=== PATIENT | male | born 1950 | race Caucasian/White ===

== ENCOUNTER 2016-07-23 18:26 | Emergency (ER) | payer MEDICAID ==
[~2016-07-23] VITALS: Ht 172.7 cm; Wt 99.8 kg
[2016-07-23 18:33] VITALS: BP 133/106
[2016-07-23] MEDS ORDERED: HYDROCODONE/APAP 5/325MG 1 EACH TABLET ONE (18:50)
[2016-07-23] MEDS ORDERED: HYDROCODONE/APAP 5/325MG 1 EACH TABLET PO ONE (19:00)
== END 2016-07-23 18:58 | disposition home or self-care (01) ==
LOC: ER 18:27
DX: M54.42 Lumbago with sciatica, left side (principal); F32.9 Major depressive disorder, single episode, unspecified; F41.9 Anxiety disorder, unspecified; I10 Essential (primary) hypertension; K21.9 Gastro-esophageal reflux disease without esophagitis; M10.9 Gout, unspecified
CPT/HCPCS: 99283; A4606; Z7610

== ENCOUNTER 2016-11-10 19:10 | Emergency (ER) | payer MEDICAID ==
[~2016-11-10] VITALS: Ht 172.7 cm; Wt 99.8 kg
[2016-11-10 19:24] VITALS: BP 165/104
== END 2016-11-10 20:08 | disposition home or self-care (01) ==
LOC: ER 19:11
DX: M10.9 Gout, unspecified (principal); M54.30 Sciatica, unspecified side; I10 Essential (primary) hypertension; K21.9 Gastro-esophageal reflux disease without esophagitis; F41.9 Anxiety disorder, unspecified; F32.9 Major depressive disorder, single episode, unspecified
CPT/HCPCS: 99283; A4606; Z7610

== ENCOUNTER 2016-11-11 14:06 | Emergency (ER) | payer MEDICAID ==
[~2016-11-11] VITALS: Ht 175.3 cm; Wt 99.8 kg
--- NOTE | 2016-11-11 14:20 | NUR ---
Pt c/o rectal bleeding since yesterday with generalized bodyaches. SEEN BY MD FOR EVAL. VSS. PT AAOX3. FAMILY MEMBER AT FOR INFO. SAFETY AND COMFORT MEASURES PROVIDED. WILL MONITOR.
[2016-11-11] MEDS ORDERED: IV NS 0.9% 1,000 ML ONE (14:35)
[2016-11-11] MEDS ORDERED: IV SET PRIMARY 1 EA INFUS.SET MC ONE (14:35)
[2016-11-11] MEDS ORDERED: ONDANSETRON HCL/PF 4 MG/2 ML VIAL ONE (14:35)
[2016-11-11] MEDS ORDERED: MORPHINE SULFATE INJ 4 MG/ML DISP.SYRIN ONE (14:35)
[2016-11-11 14:43] LABS: BASOPHILS # (AUTO) 0.1 /CMM (0.0-0.2); BASOPHILS % (AUTO) 0.6 % (0.0-2.0); EOSINOPHILS # (AUTO) 0.2 /CMM (0.0-0.7); HEMATOCRIT 41 % (39-51); HEMOGLOBIN 13.1 g/dL (13.5-17.5); LYMPHOCYTES # (AUTO) 1.9 /CMM (0.8-4.8); LYMPHOCYTES % (AUTO) 16.8 % (20.0-44.0); MEAN CORPUSCULAR HEMOGLOBIN 26 PG (26.0-33.0); MEAN CORPUSCULAR HGB CONC 32 g/dl (31.0-36.0); MEAN CORPUSCULAR VOLUME 82 fL (80-96); MONOCYTES # (AUTO) 0.6 /CMM (0.1-1.30); NEUTROPHILS # (AUTO) 8.8 /CMM (1.8-8.9); NEUTROPHILS % (AUTO) 75.6 % (43.0-81.0); PLATELET COUNT (AUTO) 244 /CMM (150-450); RDW COEFFICIENT OF VARIATION 13.3 (11.5-15.0); RED BLOOD CELL COUNT(AUTO) 5.05 MIL/uL (4.5-6.0); WHITE BLOOD COUNT (AUTO) 11.6 K/uL (4.3-11.0)
--- NOTE | 2016-11-11 14:45 | NUR ---
IV ACCESS STARTED. BLOOD DRAWN FOR LABS. PT MEDICATED ORDERED.
[2016-11-11 14:52] LABS: CALCIUM, SERUM 8.8 mg/dL (8.5-10.1); CREATININE 1.2 mg/dL (0.6-1.3); POTASSIUM 4.2 mmol/L (3.5-5.1)
[2016-11-11] MEDS ORDERED: IV NS 0.9% 250 ML IV ONE (14:53)
[2016-11-11] MEDS ORDERED: IOHEXOL-300 100 ML VIAL IV ONE (14:53)
[2016-11-11] MEDS ORDERED: CT SWABBABLE VALVE TRANS SET 1 EA INFUS.SET MC ONE (14:53)
[2016-11-11 14:57] LABS: INR 0.93 (0.87-1.13); PROTHROMBIN TIME 9.7 SECS (9.5-12.7)
[2016-11-11 14:58] LABS: ALBUMIN 3.4 g/dL (3.4-5.0); BILIRUBIN,DIRECT 0.1 mg/dL (0.0-0.2); BILIRUBIN,TOTAL 0.4 mg/dL (0.2-1.0)
[2016-11-11] MEDS ORDERED: IV NS 0.9% 1,000 ML BAG IV ONE (15:00)
[2016-11-11] MEDS ORDERED: ONDANSETRON HCL/PF 4 MG/2 ML VIAL IVP ONE (15:00)
[2016-11-11] MEDS ORDERED: MORPHINE SULFATE INJ 2 MG/ML DISP.SYRIN IV ONE (15:00)
--- NOTE | 2016-11-11 16:00 | NUR ---
IV removed. Catheter intact and site benign. Pressure and 4x4 applied to site. No bleeding noted.
--- NOTE | 2016-11-11 16:10 | NUR ---
Patient discharged to home in stable condition. Written and verbal after care instructions given. Patient verbalizes understanding of instruction.
[2016-11-11 16:11] VITALS: BP 141/95
[2016-11-13] MEDS ORDERED: HYDROMORPHONE MDV 0.5 MG in IV D5W 50 ML IV PRN (11:30)
[2016-11-13] MEDS ORDERED: PANTOPRAZOLE 40 MG VIAL IV SCH (11:30)
[2016-11-13] MEDS ORDERED: ONDANSETRON HCL/PF 4 MG/2 ML VIAL IV PRN (11:30)
== END 2016-11-11 16:13 | disposition home or self-care (01) ==
LOC: ER 14:07
DX: K62.5 Hemorrhage of anus and rectum (principal); F32.9 Major depressive disorder, single episode, unspecified; F41.9 Anxiety disorder, unspecified; I10 Essential (primary) hypertension; K21.9 Gastro-esophageal reflux disease without esophagitis; K40.90 Unilateral inguinal hernia, without obstruction or gangrene, not specified as recurrent; K57.30 Diverticulosis of large intestine without perforation or abscess without bleeding; M10.9 Gout, unspecified; N20.0 Calculus of kidney; N40.0 Benign prostatic hyperplasia without lower urinary tract symptoms
CPT/HCPCS: 36415; 80048-TC; 80076-TC; 82272-TC; 83690-TC; 85025-TC; 85730-TC; A4606; J1170; J2270; J2405; J7030; J7050; J7060; Q9967; Z7610

== ENCOUNTER 2016-11-13 09:01 | Inpatient (IN) | payer MEDICAID ==
[~2016-11-13] VITALS: Ht 172.7 cm; Wt 99.8 kg
[2016-11-13] MEDS ORDERED: IV NS 0.9% 1,000 ML ONE (09:30)
[2016-11-13] MEDS ORDERED: IV SET PRIMARY PUMP SET 1 EA INFUS.SET MC ONE ×2 (09:30→16:54)
[2016-11-13] MEDS ORDERED: IV NS 0.9% 1,000 ML BAG IV ONE (09:30)
[2016-11-13] MEDS ORDERED: PANTOPRAZOLE 80 MG in IV NS 0.9% 100 ML IV ONE (09:30)
[2016-11-13 09:43] LABS: BASOPHILS # (AUTO) 0.1 /CMM (0.0-0.2); BASOPHILS % (AUTO) 1.2 % (0.0-2.0); EOSINOPHILS # (AUTO) 0.3 /CMM (0.0-0.7); EOSINOPHILS % (AUTO) 3.1 % (0.0-6.0); HEMATOCRIT 39 % (39-51); HEMOGLOBIN 12.7 g/dL (13.5-17.5); LYMPHOCYTES # (AUTO) 1.6 /CMM (0.8-4.8); LYMPHOCYTES % (AUTO) 17.8 % (20.0-44.0); MEAN CORPUSCULAR HEMOGLOBIN 26 PG (26.0-33.0); MEAN CORPUSCULAR HGB CONC 33 g/dl (31.0-36.0); MEAN CORPUSCULAR VOLUME 81 fL (80-96); MONOCYTES # (AUTO) 0.6 /CMM (0.1-1.30); NEUTROPHILS # (AUTO) 6.2 /CMM (1.8-8.9); NEUTROPHILS % (AUTO) 70.9 % (43.0-81.0); PLATELET COUNT (AUTO) 222 /CMM (150-450); RDW COEFFICIENT OF VARIATION 13.1 (11.5-15.0); RED BLOOD CELL COUNT(AUTO) 4.84 MIL/uL (4.5-6.0); WHITE BLOOD COUNT (AUTO) 8.8 K/uL (4.3-11.0)
[2016-11-13] MEDS ORDERED: MORPHINE SULFATE INJ 4 MG/ML DISP.SYRIN ONE (09:44)
[2016-11-13 09:53] LABS: CALCIUM, SERUM 8.6 mg/dL (8.5-10.1); CREATININE 1.1 mg/dL (0.6-1.3); POTASSIUM 3.7 mmol/L (3.5-5.1)
[2016-11-13 09:57] LABS: INR 0.91 (0.87-1.13); PROTHROMBIN TIME 9.5 SECS (9.5-12.7)
[2016-11-13 09:59] LABS: ALBUMIN 3.3 g/dL (3.4-5.0); BILIRUBIN,DIRECT 0.1 mg/dL (0.0-0.2); BILIRUBIN,TOTAL 0.4 mg/dL (0.2-1.0); TOTAL PROTEIN, SERUM 6.8 g/dL (6.4-8.2)
[2016-11-13] MEDS ORDERED: MORPHINE SULFATE INJ 2 MG/ML DISP.SYRIN IV ONE (10:00)
[2016-11-13 13:00] VITALS: BP 147/89
[2016-11-13] MEDS ORDERED: ONDANSETRON HCL/PF 4 MG/2 ML VIAL IV PRN (13:00)
[2016-11-13] MEDS ORDERED: IV NS 0.9% 250 ML IV ONE (13:44)
[2016-11-13] MEDS ORDERED: IV SET PRIMARY 1 EA INFUS.SET MC ONE (13:51)
[2016-11-13] MEDS ORDERED: FENTANYL PF 250MCG/5ML AMPUL IV ONE (14:00)
[2016-11-13] MEDS ORDERED: NALOXONE PREFILLED SYRINGE 2 MG/2 ML SYRINGE IV ONE (14:00)
[2016-11-13] MEDS ORDERED: MIDAZOLAM HCL 5MG/ML VIAL 25 MG/5 ML VIAL IV ONE (14:00)
[2016-11-13] MEDS: PANTOPRAZOLE 40 MG VIAL IV SCH ×2 (14:00→17:02)
[2016-11-13 16:00] VITALS: BP 159/88
[2016-11-13] MEDS ORDERED: PEG 3350/NA SULF,BICARB,CL/KCL 4,000 ML BOTTLE PO ONE (17:00)
[2016-11-13 20:00] VITALS: BP 165/104
[2016-11-13] MEDS: HYDROMORPHONE 1 MG/1 ML DISP.SYRIN IV PRN (20:02)
[2016-11-13] MEDS: ENALAPRIL MALEATE (10 MG) 10 MG TABLET PO SCH (20:29)
[2016-11-13] MEDS ORDERED: LORAZEPAM 1 MG TABLET PO PRN (20:30)
[2016-11-13] MEDS ORDERED: ACETAMINOPHEN W/ CODEINE#3 1 EA TABLET PO PRN (20:30)
[2016-11-14] VITALS: BP 140/96
[2016-11-14] MEDS: HYDROMORPHONE 1 MG/1 ML DISP.SYRIN IV PRN ×2 (05:20)
[2016-11-14 06:47] VITALS: BP 158/92
[2016-11-14 07:13] LABS: BASOPHILS % (AUTO) 0.4 % (0.0-2.0); EOSINOPHILS # (AUTO) 0.2 /CMM (0.0-0.7); EOSINOPHILS % (AUTO) 1.9 % (0.0-6.0); HEMATOCRIT 37 % (39-51); HEMOGLOBIN 12.2 g/dL (13.5-17.5); LYMPHOCYTES # (AUTO) 1.7 /CMM (0.8-4.8); LYMPHOCYTES % (AUTO) 17.6 % (20.0-44.0); MEAN CORPUSCULAR HEMOGLOBIN 27 PG (26.0-33.0); MEAN CORPUSCULAR HGB CONC 34 g/dl (31.0-36.0); MEAN CORPUSCULAR VOLUME 81 fL (80-96); MONOCYTES # (AUTO) 0.5 /CMM (0.1-1.30); MONOCYTES % (AUTO) 5.7 % (2.0-12.0); NEUTROPHILS % (AUTO) 74.4 % (43.0-81.0); PLATELET COUNT (AUTO) 215 /CMM (150-450); RED BLOOD CELL COUNT(AUTO) 4.49 MIL/uL (4.5-6.0); WHITE BLOOD COUNT (AUTO) 9.5 K/uL (4.3-11.0)
[2016-11-14 07:34] LABS: ALBUMIN 3.2 g/dL (3.4-5.0); BILIRUBIN,TOTAL 0.5 mg/dL (0.2-1.0); CALCIUM, SERUM 8.8 mg/dL (8.5-10.1); CREATININE 0.8 mg/dL (0.6-1.3); POTASSIUM 3.6 mmol/L (3.5-5.1); TOTAL PROTEIN, SERUM 6.6 g/dL (6.4-8.2)
[2016-11-14] MEDS: PANTOPRAZOLE 40 MG VIAL IV SCH ×2 (08:25→16:38)
[2016-11-14] MEDS ORDERED: METHYLENE BLUE AMP (1ML) 1 ML AMPUL ONE (11:15)
[2016-11-14] MEDS: ENALAPRIL MALEATE (10 MG) 10 MG TABLET PO SCH (13:16)
[2016-11-14 16:04] VITALS: BP 149/100
== END 2016-11-14 17:05 | disposition home or self-care (01) | DRG 240 ==
LOC: ER 09:05 → TELE 11:00 → MED 11-14 10:09
PROVIDERS: ADMIT Internal Medicine; ATTEND Internal Medicine
DX: C19 Malignant neoplasm of rectosigmoid junction (principal); C78.7 Secondary malignant neoplasm of liver and intrahepatic bile duct; R16.0 Hepatomegaly, not elsewhere classified; I10 Essential (primary) hypertension; D12.3 Benign neoplasm of transverse colon; K57.30 Diverticulosis of large intestine without perforation or abscess without bleeding; K62.89 Other specified diseases of anus and rectum; M10.9 Gout, unspecified; M54.30 Sciatica, unspecified side; E66.9 Obesity, unspecified; Z87.891 Personal history of nicotine dependence; N40.0 Benign prostatic hyperplasia without lower urinary tract symptoms; T39.395A Adverse effect of other nonsteroidal anti-inflammatory drugs [NSAID], initial encounter; Y92.009 Unspecified place in unspecified non-institutional (private) residence as the place of occurrence of the external cause; Z68.33 Body mass index [BMI] 33.0-33.9, adult; K63.9 Disease of intestine, unspecified; K92.2 Gastrointestinal hemorrhage, unspecified
CPT/HCPCS: 36415; 47000; 72131-TC; 73700-TC; 77012-TC; 80048-TC; 80053-TC; 80076-TC; 82105; 82378; 83690-TC; 85025-TC; 85730-TC; 86850-TC; 87081-TC; 88305-TC; 88307-TC; 88313-TC; 88342; A4606; C9113; J1170; J2250; J2270; J2310; J2704; J3010; J3480; J3490; J7030; J7050; Q9968; Z7610

== ENCOUNTER 2016-11-16 18:01 | Emergency (ER) | payer MEDICAID ==
[~2016-11-16] VITALS: Ht 180.3 cm; Wt 99.8 kg
--- NOTE | 2016-11-16 18:16 | NUR ---
PRESENTS SELF TO ED DT LEFT LEG PAIN X 2 DAYS. PATIENT IS AMBULTORY WITH HX OF SCIATICA. VSS
[2016-11-16] MEDS ORDERED: MORPHINE SULFATE INJ 2 MG/ML DISP.SYRIN IM ONE (18:30)
[2016-11-16] MEDS ORDERED: MORPHINE SULFATE INJ 2 MG/ML DISP.SYRIN ONE (18:33)
[2016-11-16] MEDS ORDERED: MORPHINE SULFATE INJ 4 MG/ML DISP.SYRIN ONE (18:33)
--- NOTE | 2016-11-16 18:57 | NUR ---
Patient discharged to home in stable condition. Written and verbal after care instructions given. Patient verbalizes understanding of instruction.
[2016-11-16 19:01] VITALS: BP 165/90
== END 2016-11-16 19:03 | disposition home or self-care (01) ==
LOC: ER 18:03
DX: M54.42 Lumbago with sciatica, left side (principal); K21.9 Gastro-esophageal reflux disease without esophagitis
CPT/HCPCS: 96372; 99283; A4606; J2270 ×2; Z7610

== ENCOUNTER 2017-03-16 16:05 | Emergency (ER) | payer MEDICARE, MEDICAID ==
[~2017-03-16] VITALS: Ht 172.7 cm; Wt 99.8 kg
--- NOTE | 2017-03-16 16:20 | NUR ---
PT CAME IN WITH FAMILY MEMBER FOR CHEST PAIN SINCE LAST NIGHT. NONRADIATING, NONSPECIFIC. VSS. SEEN BY MD FOR EVAL. SAFETY AND COMFORT MEASURES PROVIDED. WILL MONITOR.
[2017-03-16] MEDS ORDERED: IV NS 0.9% 1,000 ML BAG IV ONE (16:30)
[2017-03-16] MEDS ORDERED: HYDROMORPHONE INJ 2 MG/ML DISP.SYRIN IV ONE (16:30)
[2017-03-16] MEDS ORDERED: ONDANSETRON HCL/PF 4 MG/2 ML VIAL IVP ONE (16:30)
[2017-03-16] MEDS ORDERED: HYDROMORPHONE 1 MG/1 ML DISP.SYRIN ONE ×2 (16:31→16:38)
[2017-03-16] MEDS ORDERED: ONDANSETRON HCL/PF 4 MG/2 ML VIAL ONE (16:31)
[2017-03-16 16:33] LABS: BASOPHILS % (AUTO) 0.6 % (0.0-2.0); EOSINOPHILS # (AUTO) 0.1 /CMM (0.0-0.7); EOSINOPHILS % (AUTO) 1.4 % (0.0-6.0); HEMATOCRIT 41 % (39-51); HEMOGLOBIN 13.4 g/dL (13.5-17.5); LYMPHOCYTES # (AUTO) 0.9 /CMM (0.8-4.8); LYMPHOCYTES % (AUTO) 13.9 % (20.0-44.0); MEAN CORPUSCULAR HEMOGLOBIN 28 PG (26.0-33.0); MEAN CORPUSCULAR HGB CONC 33 g/dl (31.0-36.0); MEAN CORPUSCULAR VOLUME 85 fL (80-96); MONOCYTES # (AUTO) 0.6 /CMM (0.1-1.30); MONOCYTES % (AUTO) 9.5 % (2.0-12.0); NEUTROPHILS % (AUTO) 74.6 % (43.0-81.0); PLATELET COUNT (AUTO) 123 /CMM (150-450); RDW COEFFICIENT OF VARIATION 16.4 (11.5-15.0); RED BLOOD CELL COUNT(AUTO) 4.79 MIL/uL (4.5-6.0); WHITE BLOOD COUNT (AUTO) 6.6 K/uL (4.3-11.0)
--- NOTE | 2017-03-16 16:40 | NUR ---
IV ACCESS STARTED. BLOOD DRAWN FOR LABS. MEDICATED ORDERED.
[2017-03-16 16:43] LABS: CALCIUM, SERUM 9.2 mg/dL (8.5-10.1); CARBON DIOXIDE 28 mmol/L (21-32); CHLORIDE 102 mmol/L (98-107); CREATININE 1.1 mg/dL (0.6-1.3); GLUCOSE 176 mg/dL (74-106); POTASSIUM 3.9 mmol/L (3.5-5.1); SODIUM SERUM 139 mmol/L (136-145); UREA NITROGEN, BLOOD 18 mg/dL (7-18)
[2017-03-16 16:47] LABS: INR 0.87 (0.87-1.13)
[2017-03-16 16:49] LABS: ALANINE AMINOTRANSFERASE 38 U/L (12-78); ALBUMIN 3.2 g/dL (3.4-5.0); ALKALINE PHOSPHATASE 150 U/L (46-116); ASPARTATE AMINOTRANSFERASE 37 U/L (15-37); BILIRUBIN,DIRECT 0.1 mg/dL (0.0-0.2); BILIRUBIN,TOTAL 0.5 mg/dL (0.2-1.0); TOTAL PROTEIN, SERUM 7.2 g/dL (6.4-8.2)
[2017-03-16 16:51] LABS: TROPONIN I < 0.017 ng/mL (0.00-0.056)
--- NOTE | 2017-03-16 17:05 | NUR ---
XRAY DONE AT BS.
[2017-03-16] MEDS ORDERED: IOHEXOL-300 100 ML VIAL IV ONE (17:17)
[2017-03-16] MEDS ORDERED: IOHEXOL-350 100 ML VIAL IV ONE (17:17)
[2017-03-16] MEDS ORDERED: IV NS 0.9% 250 ML IV ONE (17:18)
--- NOTE | 2017-03-16 17:21 | NUR ---
PT TAKEN TO CT.
--- NOTE | 2017-03-16 18:28 | NUR ---
TERRI SORENSON AT BS.
[2017-03-16 18:34] LABS: APPEARANCE,URINE Slightly Cloudy (CLEAR); BILIRUBIN,URINE Negative (NEGATIVE); BLOOD, URINE Negative Ery/uL (NEGATIVE); COLOR,URINE Light yellow (YELLOW); KETONES,URINE Negative (NEGATIVE); LEUKOCYTE ESTERASE ,URINE Negative (NEGATIVE); NITRITE, URINE Negative (NEGATIVE); PROTEIN,URINE Trace mg/dl (NEGATIVE); UGLUCOSE Negative (NEGATIVE)
[2017-03-16 18:48] LABS: BACTERIA,URINE Rare /HPF (None Seen); RBC,URINE 0-2 /HPF (0-2); SQUAMOUS EPITHELIAL CELL,UR Rare /HPF (None Seen); WBC,URINE 0-2 /HPF (0-3)
[2017-03-16] MEDS ORDERED: CLINDAMYCIN 600 MG in IV D5W 100 ML IV ONE (19:00)
--- NOTE | 2017-03-16 19:14 | NUR ---
Patient discharged to home in stable condition. Written and verbal after care instructions given. Patient verbalizes understanding of instruction.
[2017-03-16 19:16] VITALS: BP 126/88
--- NOTE | 2017-03-16 19:23 | NUR ---
IV removed. Catheter intact and site benign. Pressure and 4x4 applied to site. No bleeding noted.
[2017-03-17] MEDS ORDERED: LORA1TAB82 PO (08:29)
[2017-03-17] MEDS ORDERED: METF10002 PO (08:29)
[2017-03-17] MEDS ORDERED: INSU100I4 SQ (08:29)
[2017-03-18] MEDS ORDERED: HYDR-3326 PO (09:32)
[2017-03-18] MEDS ORDERED: LOSA1TAB3 PO (09:32)
[2017-03-18] MEDS ORDERED: MAG30ORA PO (09:32)
[2017-03-18] MEDS ORDERED: FAMO20TA80 PO (09:32)
[2017-03-18] MEDS ORDERED: ZOLP5TAB2 PO (09:32)
[2017-03-18] MEDS ORDERED: HYDR28.3 TP (09:32)
[2017-03-18] MEDS ORDERED: DIPH50CA37 PO (09:32)
[2017-03-18] MEDS ORDERED: AMLO5TAB2 PO (09:32)
[2017-03-18] MEDS ORDERED: ALLA266C2 TP (09:32)
[2017-03-18] MEDS ORDERED: LORA1TAB PO (09:32)
[2017-03-18] MEDS ORDERED: METF500T4 PO (09:32)
== END 2017-03-16 19:23 | disposition home or self-care (01) ==
LOC: ER 16:07
DX: R07.9 Chest pain, unspecified (principal); N48.89 Other specified disorders of penis; K04.7 Periapical abscess without sinus; C18.9 Malignant neoplasm of colon, unspecified; M10.9 Gout, unspecified; F17.200 Nicotine dependence, unspecified, uncomplicated; K21.9 Gastro-esophageal reflux disease without esophagitis; Z85.038 Personal history of other malignant neoplasm of large intestine
CPT/HCPCS: 36415; 70491; 71010; 71275; 74160; 76870; 80048; 80076; 81001; 84484; 85025; 85730; 93005; 96361; 96365; 96375; 99285; A4606; J1170 ×2; J2405; J3490; J7030; J7050; J7060; Q9967 ×2; 81000-TC; Z7610

== ENCOUNTER 2017-03-17 06:24 | Inpatient (IN) | payer MEDICARE, MEDICAID ==
[~2017-03-17] VITALS: Ht 172.7 cm; Wt 81.6 kg
--- NOTE | 2017-03-17 06:30 | NUR ---
PT BIBSLEF C/O FACIAL SWELLING, REDNESS. PT AOX3 RR EVEN AND UNLABORED. NO SOB NOTED. NAD NOTED. NO NVD AT THIS TIME. PT GOWNED AND PLACED ON MONTIOR. 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 PT WAITING FOR MD CORRAL. AT BEDSIDE
--- NOTE | 2017-03-17 06:35 | NUR ---
DR. HINDS AT BEDSIDE FOR EVAL.
[2017-03-17] MEDS ORDERED: methylPREDNISolone SOD SUCC 125 MG/2ML VIAL ONE (06:46)
[2017-03-17] MEDS ORDERED: diphenhydrAMINE HCL 50 MG/ML VIAL ONE (06:46)
[2017-03-17] MEDS ORDERED: methylPREDNISolone SOD SUCC 125 MG/2ML VIAL IV ONE (07:00)
[2017-03-17] MEDS ORDERED: diphenhydrAMINE HCL 50 MG/ML VIAL IV ONE (07:00)
[2017-03-17 07:04] LABS: BASOPHILS % (AUTO) 0.4 % (0.0-2.0); EOSINOPHILS # (AUTO) 0.1 /CMM (0.0-0.7); EOSINOPHILS % (AUTO) 1.3 % (0.0-6.0); HEMATOCRIT 40 % (39-51); HEMOGLOBIN 13.1 g/dL (13.5-17.5); LYMPHOCYTES # (AUTO) 1.3 /CMM (0.8-4.8); LYMPHOCYTES % (AUTO) 17.3 % (20.0-44.0); MEAN CORPUSCULAR HEMOGLOBIN 28 PG (26.0-33.0); MEAN CORPUSCULAR HGB CONC 33 g/dl (31.0-36.0); MEAN CORPUSCULAR VOLUME 85 fL (80-96); MONOCYTES # (AUTO) 0.6 /CMM (0.1-1.30); MONOCYTES % (AUTO) 8.2 % (2.0-12.0); NEUTROPHILS # (AUTO) 5.7 /CMM (1.8-8.9); NEUTROPHILS % (AUTO) 72.8 % (43.0-81.0); PLATELET COUNT (AUTO) 141 /CMM (150-450); RDW COEFFICIENT OF VARIATION 17.3 (11.5-15.0); RED BLOOD CELL COUNT(AUTO) 4.66 MIL/uL (4.5-6.0); WHITE BLOOD COUNT (AUTO) 7.8 K/uL (4.3-11.0)
[2017-03-17 07:13] LABS: CARBON DIOXIDE 26 mmol/L (21-32); CHLORIDE 104 mmol/L (98-107); CREATININE 1.1 mg/dL (0.6-1.3); GLUCOSE 130 mg/dL (74-106); POTASSIUM 3.7 mmol/L (3.5-5.1); SODIUM SERUM 141 mmol/L (136-145); UREA NITROGEN, BLOOD 17 mg/dL (7-18)
[2017-03-17 07:15] LABS: ALANINE AMINOTRANSFERASE 43 U/L (12-78); ALBUMIN 3.1 g/dL (3.4-5.0); ALKALINE PHOSPHATASE 154 U/L (46-116); ASPARTATE AMINOTRANSFERASE 38 U/L (15-37); BILIRUBIN,DIRECT 0.2 mg/dL (0.0-0.2); BILIRUBIN,TOTAL 0.5 mg/dL (0.2-1.0); TOTAL PROTEIN, SERUM 7.1 g/dL (6.4-8.2)
[2017-03-17 07:18] LABS: TROPONIN I < 0.017 ng/mL (0.00-0.056)
--- NOTE | 2017-03-17 07:20 | NUR ---
REPORT GIVEN TO VIVIANE RAZA FOR ALYSSA
--- NOTE | 2017-03-17 07:31 | NUR ---
pt on bed.vss
[2017-03-17] MEDS ORDERED: LORA1TAB82 PO (08:29)
[2017-03-17] MEDS ORDERED: METF10002 PO (08:29)
[2017-03-17] MEDS ORDERED: INSU100I4 SQ (08:29)
[2017-03-17] MEDS ORDERED: ACETAMINOPHEN 325 MG TABLET PO PRN ×2 (08:30→09:00)
[2017-03-17] MEDS ORDERED: ZOLPIDEM TARTRATE 5 MG TABLET PO PRN ×2 (08:30→09:00)
[2017-03-17] MEDS ORDERED: diphenhydrAMINE HCL 50 MG CAPSULE PO SCH (08:30)
[2017-03-17] MEDS ORDERED: ONDANSETRON HCL/PF 4 MG/2 ML VIAL IVP PRN ×2 (08:30→09:00)
[2017-03-17] MEDS ORDERED: Z GUARD REMEDY 2 OZ OINT TP PRN ×2 (08:30→09:00)
[2017-03-17] MEDS ORDERED: MAG HYDROX/AL HYDROX/SIMETH 30 ML UDC PO PRN ×2 (08:30→09:00)
[2017-03-17] MEDS ORDERED: MAGNESIUM HYDROXIDE 30 ML UDC PO PRN ×2 (08:30→09:00)
[2017-03-17] MEDS ORDERED: HYDROCODONE/APAP 5/325MG 1 EACH TABLET PO PRN ×2 (08:30→09:00)
[2017-03-17] MEDS ORDERED: ENOXAPARIN SODIUM 40 MG/0.4 ML DISP.SYRIN SQ SCH (08:30)
--- NOTE | 2017-03-17 08:47 | NUR ---
PT PROVIDED WITH FOOD TRAY.
--- NOTE | 2017-03-17 08:52 | NUR ---
Report given to VIVIANE Zavala.
[2017-03-17] MEDS ORDERED: FAMOTIDINE (20 MG) 20 MG TABLET PO SCH (09:00)
[2017-03-17 09:30] VITALS: BP 167/97
--- NOTE | 2017-03-17 09:30 | NUR ---
RN MS NOTES RECEIVED PT FROM E.R. STAFF, AWAKE, ALERT AND ORIENTED, ABLE TO AMBULATE WITH STEADY GAIT, ASSISTED TO BED, MADE COMFORTABLE, NO COMPLAINT OF PAIN, NOTED WITH FACIAL REDNESS AND SWELLING, ALSO SWELLING ON THE PENIS AND SCROTUM, NOT IN DISTRESS, KEPT WARM AND COMFORTABLE, ROOM SET UP ORIENTATION PROVIDED TO PT, VERBALIZED UNDERSTANDING.
[2017-03-17] MEDS ORDERED: DEXTROSE 50%-WATER 50 ML DISP.SYRIN IV PRN ×2 (11:00→12:00)
[2017-03-17] MEDS ORDERED: INSULIN REGULAR, HUMAN 100 UNIT/ML 3 ML VIAL SQ PRN (11:00)
--- NOTE | 2017-03-17 11:19 | NUR ---
RN MS NOTES PER PT, HE WANTED DR. WHITLEY TO BE HIS DOCTOR, CALLED AND SPOKE WITH DR. WHITLEY, SAID HE WILL COME AND SEE PT, ORDERS REVIEWED WITH DR. HEIDI SEPULVEDA INFORMED OF CHANGE OF MD, NEW ORDERS GIVEN, PT INFORMED, PT ALSO COMPLETED SWALLOW EVAL.
[2017-03-17] MEDS ORDERED: methylPREDNISolone SOD SUCC 40 MG/ML VIAL IV ONE (11:30)
[2017-03-17] MEDS ORDERED: LORAZEPAM INJ 2 MG/ML VIAL IV PRN (11:30)
[2017-03-17] MEDS ORDERED: BLOOD SUGAR DIAGNOSTIC 1 EACH STRIP IN SCH (12:00)
[2017-03-17] MEDS ORDERED: methylPREDNISolone SOD SUCC 40 MG/ML VIAL IV SCH (12:00)
[2017-03-17] MEDS: methylPREDNISolone SOD SUCC 40 MG/ML VIAL IV SCH ×3 (12:00→23:26)
[2017-03-17] MEDS ORDERED: *INSULIN REGULAR(HUMULIN R)HUM 100 UNIT/ML VIAL SQ PRN (12:00)
[2017-03-17] MEDS: ENOXAPARIN SODIUM 40 MG/0.4 ML DISP.SYRIN SQ SCH (12:28)
[2017-03-17] MEDS: BLOOD SUGAR DIAGNOSTIC 1 EACH STRIP VI SCH ×3 (12:30→21:03)
[2017-03-17] MEDS: HYDROCORTISONE 0.5% CREAM 28.35 GM TUBE TP SCH ×3 (12:31→23:26)
[2017-03-17] MEDS: diphenhydrAMINE HCL 50 MG CAPSULE PO SCH ×2 (12:33→20:27)
[2017-03-17] MEDS: LORAZEPAM 1 MG TABLET PO PRN ×2 (12:34→23:26)
[2017-03-17] MEDS: INSULIN REGULAR, HUMAN 100 UNIT/ML 3 ML VIAL SQ PRN ×2 (12:35→17:36)
[2017-03-17 16:00] VITALS: BP 143/96
--- NOTE | 2017-03-17 16:00 | NUR ---
RN MS NOTES RESIDENT UP IN BED, VERBALIZED THAT HE IS HUNGRY AND WOULD LIKE A SNACK. EDUCATED PATIENT REGARDING [facility]. PATIENT AND SPOUSE VERBALIZED UNDERSTANDING.
[2017-03-17] MEDS: FAMOTIDINE (20 MG) 20 MG TABLET PO SCH (17:26)
[2017-03-17] MEDS: METFORMIN 500 MG TABLET PO SCH (17:27)
--- NOTE | 2017-03-17 17:44 | NUR ---
RN MS NOTES RESIDENT UP IN BED WITH SPOUSE AT BEDSIDE. DOCUMENTATION/PICTURE TAKING OF FACIAL SWELLING DONE BUT PATIENT REFUSED DOCUMENTATION FOR PENILE AND SCROTAL SWELLING. RESPECTED PATIENT'S DECISION. PLACED CALL LIGHT WITHIN EASY REACH. ALL PATIENT'S NEEDS ATTENDED TO.
--- NOTE | 2017-03-17 18:28 | NUR ---
RN MS CLOSING NOTES RESIDENT ALERT AND ORIENTED X 4, ABLE TO MAKE NEEDS KNOWN, AWARE OF SAFETY NEEDS, WITH BRP. PATIENT UP IN BED, AWAKE, CALM, WITH NO S/S OF ACUTE DISTRESS AT THIS TIME. NOTED WITH NO SOB, BREATHING EVEN AND UNLABORED. FACIAL SWELLING HAS GONE DOWN COMPARED UPON ADMISSION. ALL PATIENT'S NEEDS AND CONCERNS ATTENDED TO.
--- NOTE | 2017-03-17 19:05 | NUR ---
MS RN OPENING NOTES: RECEIVED PT IN BED AND IS AWAKE SITTING UP. PT IS WITH 3 FAMILY MEMBERS AT BEDSIDE. PT IS A/OX4. PT HAS IV ON L AC #20G AND IS PATENT AND INTACT. PT CURRENTLY S/L. BREATHING EVEN AND UNLABORED. NO S/S OF DISTRESS NOTED AT THIS TIME. CALL LIGHT WITHIN PT'S REACH. BED KEPT IN LOW, LOCKED POSITION, AND SIDE RAILS X 2UP. WILL CONTINUE TO MONITOR PT.
[2017-03-17 20:00] VITALS: BP 182/103
--- NOTE | 2017-03-17 20:04 | NUR ---
RN NOTES: SPOKE TO DR. PARK AND GOT ORDER FOR BISTOLIN 10MG 1X DAILY AND START NOW AND NORVASC 5MG Q12H HOLD FOR SPB < 130 AND ALSO START NOW. Addendum: 03/17/17 at 2142 by LOUANN KELLEY RN INFORMED DR. WHITLEY ABOUT BP 182/103 HR 101.
--- NOTE | 2017-03-17 20:10 | NUR ---
MS RN NOTES: CALLED BACK DR WHITLEY AND INFORMED HIM THAT WE DO NOT CARRY BISTOLIC 10MG. GOT NEW ORDER FOR HYZAAR 100/25MG 1X DAILY START DOSE NOW.
[2017-03-17] MEDS: AMLODIPINE BESYLATE 5 MG TABLET PO SCH (20:27)
[2017-03-17] MEDS: LOSARTAN/HCTZ 50-12.5MG/ 1 EA TABLET PO SCH (20:27)
--- NOTE | 2017-03-17 21:18 | NUR ---
MS RN NOTES: BLOOD SUGAR WAS 301. 8 UNITS OF INSULIN WAS ADMINISTERED. WILL CONTINUE TO MONITOR PT.
[2017-03-17 21:30] VITALS: BP 153/79
[2017-03-17 22:00] VITALS: BP 153/79
[2017-03-17] MEDS ORDERED: MENTHOL/CETYLPYRD (CEPACOL) 1 LOZ LOZENGE PO PRN (23:00)
--- NOTE | 2017-03-17 23:01 | NUR ---
MS RN NOTES: SPOKE WITH DR. WHITLEY AND INFORMED HIM PT IS REQUESTING FOR COUGH DROPS. GOT ORDER FOR CEPACOL Q4HR PRN.
--- NOTE | 2017-03-17 23:26 | NUR ---
MS RN NOTES: PT FEELING ANXIOUS. PT WAS ADMINISTERED ATIVAN 1MG PO. WILL CONTINUE TO MONITOR PT.
--- NOTE | 2017-03-18 00:18 | NUR ---
MS RN NOTES: INFORMED PT THAT SUPERVISOR HISTOLOGY CALLED AND THERE IS NO CEPACOL STOCKED FOR THE NIGHT.
--- NOTE | 2017-03-18 01:38 | NUR ---
MS RN NOTES: PT WALKING AROUND FLOOR AND SAYS HE IS STILL ANXIOUS AND CANNOT SLEEP. PT REQUESTED FOR SLEEP MEDICATION. PT WAS ADMINISTERED AMBIEN 5MG PO. WILL CONTINUE TO MONITOR PT.
[2017-03-18 01:40] VITALS: BP 155/96
[2017-03-18] MEDS: HYDROCORTISONE 0.5% CREAM 28.35 GM TUBE TP SCH (05:32)
[2017-03-18] MEDS: diphenhydrAMINE HCL 50 MG CAPSULE PO SCH (05:32)
[2017-03-18] MEDS: methylPREDNISolone SOD SUCC 40 MG/ML VIAL IV SCH (05:32)
[2017-03-18] MEDS: BLOOD SUGAR DIAGNOSTIC 1 EACH STRIP VI SCH (06:25)
[2017-03-18] MEDS: INSULIN REGULAR, HUMAN 100 UNIT/ML 3 ML VIAL SQ PRN (06:33)
--- NOTE | 2017-03-18 06:38 | NUR ---
MS RN NOTES: BLOOD SUGAR THIS AM WAS 274. 9 UNITS OF INSULIN WAS ADMINISTERED. WILL CONTINUE TO MONITOR PT.
--- NOTE | 2017-03-18 06:43 | NUR ---
MS RN CLOSING NOTES: ALL NEEDS WERE ATTENDED AND ANTICIPATED FOR. PT IS RESTING IN BED WITH AT BEDSIDE. PT IS A/OX4. PT HAS IV ON L AC #20G AND IS PATENT AND INTACT. PT CURRENTLY S/L. BREATHING EVEN AND UNLABORED. NO S/S OF DISTRESS NOTED AT THIS TIME. CALL LIGHT WITHIN PT'S REACH. BED KEPT IN LOW, LOCKED POSITION, AND SIDE RAILS X 2UP. WILL ENDORSE TO AM NURSE FOR ALYSSA.
[2017-03-18 07:23] LABS: BASOPHILS % (AUTO) 0.1 % (0.0-2.0); HEMATOCRIT 40 % (39-51); HEMOGLOBIN 13.1 g/dL (13.5-17.5); LYMPHOCYTES # (AUTO) 0.8 /CMM (0.8-4.8); LYMPHOCYTES % (AUTO) 11.2 % (20.0-44.0); MEAN CORPUSCULAR HEMOGLOBIN 29 PG (26.0-33.0); MEAN CORPUSCULAR HGB CONC 33 g/dl (31.0-36.0); MEAN CORPUSCULAR VOLUME 86 fL (80-96); MONOCYTES # (AUTO) 0.4 /CMM (0.1-1.30); MONOCYTES % (AUTO) 5.7 % (2.0-12.0); NEUTROPHILS # (AUTO) 6.2 /CMM (1.8-8.9); PLATELET COUNT (AUTO) 149 /CMM (150-450); RDW COEFFICIENT OF VARIATION 17.4 (11.5-15.0); RED BLOOD CELL COUNT(AUTO) 4.59 MIL/uL (4.5-6.0); WHITE BLOOD COUNT (AUTO) 7.5 K/uL (4.3-11.0)
[2017-03-18 07:47] LABS: ALBUMIN 3.2 g/dL (3.4-5.0); BILIRUBIN,TOTAL 0.5 mg/dL (0.2-1.0); CALCIUM, SERUM 9.6 mg/dL (8.5-10.1); CREATININE 1.3 mg/dL (0.6-1.3); MAGNESIUM 1.9 mg/dL (1.8-2.4); POTASSIUM 3.4 mmol/L (3.5-5.1); TOTAL PROTEIN, SERUM 7.3 g/dL (6.4-8.2)
[2017-03-18 08:00] VITALS: BP 157/97
--- NOTE | 2017-03-18 08:00 | NUR ---
MS RN NOTES PATIENT IN BED RESTING NO SOB OR ACUTE DISTRESS NOTED. PERIPHERAL IV ON LEFT AC INTACT PATENT. BED IN LOW LOCKED POSITION , CALL LIGHT WITHIN REACH. WILL CONTINUE TO MONITOR. PATIENT EAGER TO LEAVE AND GO HOME.
[2017-03-18] MEDS: ENOXAPARIN SODIUM 40 MG/0.4 ML DISP.SYRIN SQ SCH (09:00)
[2017-03-18] MEDS ORDERED: AMLO5TAB2 PO (09:32)
[2017-03-18] MEDS ORDERED: ALLA266C2 TP (09:32)
[2017-03-18] MEDS ORDERED: FAMO20TA80 PO (09:32)
[2017-03-18] MEDS ORDERED: DIPH50CA37 PO (09:32)
[2017-03-18] MEDS ORDERED: MAG30ORA PO (09:32)
[2017-03-18] MEDS ORDERED: HYDR28.3 TP (09:32)
[2017-03-18] MEDS ORDERED: HYDR-3326 PO (09:32)
[2017-03-18] MEDS ORDERED: ZOLP5TAB2 PO (09:32)
[2017-03-18] MEDS ORDERED: LORA1TAB PO (09:32)
[2017-03-18] MEDS ORDERED: METF500T4 PO (09:32)
[2017-03-18] MEDS ORDERED: LOSA1TAB3 PO (09:32)
[2017-03-18] MEDS: METFORMIN 500 MG TABLET PO SCH (09:43)
[2017-03-18] MEDS: FAMOTIDINE (20 MG) 20 MG TABLET PO SCH (09:43)
[2017-03-18] MEDS: AMLODIPINE BESYLATE 5 MG TABLET PO SCH (09:47)
[2017-03-18 09:53] VITALS: BP 157/97
[2017-03-18] MEDS: LOSARTAN/HCTZ 50-12.5MG/ 1 EA TABLET PO SCH (09:53)
--- NOTE | 2017-03-18 10:00 | NUR ---
MS RN NOTES PATIENT SEEN AND EVALUATED BY DR. JUNG ORDERS NOTED AND CARRIED OUT.
--- NOTE | 2017-03-18 11:50 | NUR ---
MS RN NOTES PATIENT DISCHARGED HOMW WITH IN STABLE CONDITION. NO SOB OR ACUTE DISTRESS NOTED. DISCHARGE INSTRUCTIONS PROVIDED VERBALIZED UNDERSTANDING. STATES WILL FOLLOW UP WITH DR. JUNG FOR FURTHER ALLERGIC TESTING. ALL BELONGINGS ACCOUNTED FOR, BELONGING LIST SIGNED. PATIENTS PERIPHERAL IV REMOVED WITH MINIMAL BLEEDING. ID BAND REMOVED. AWARE OF ALL ABNORMAL LABS. PATIENT ESCORTED TO CAR BY CLINICAL RESEARCH ADMINISTRATOR.
[2017-03-18] MEDS ORDERED: POTASSIUM CHLORIDE 20 MEQ TAB.PRT.SR PO ONE (12:00)
[2017-03-20 06:08] LABS: CARCINOEMBRYONIC AG (CEA) 372.6 ng/mL (0.0-4.7)
== END 2017-03-18 11:45 | disposition home or self-care (01) | DRG 606 ==
LOC: ER 06:25 → MED 09:17
PROVIDERS: ATTEND Family Medicine
DX: L29.9 Pruritus, unspecified (principal); K85.90 Acute pancreatitis without necrosis or infection, unspecified; I11.0 Hypertensive heart disease with heart failure; C78.5 Secondary malignant neoplasm of large intestine and rectum; I50.9 Heart failure, unspecified; C18.9 Malignant neoplasm of colon, unspecified; E11.9 Type 2 diabetes mellitus without complications; D63.8 Anemia in other chronic diseases classified elsewhere; E66.9 Obesity, unspecified; K21.9 Gastro-esophageal reflux disease without esophagitis; T45.1X5A Adverse effect of antineoplastic and immunosuppressive drugs, initial encounter; Y92.89 Other specified places as the place of occurrence of the external cause; E78.5 Hyperlipidemia, unspecified; I25.10 Atherosclerotic heart disease of native coronary artery without angina pectoris; M10.9 Gout, unspecified; Z87.891 Personal history of nicotine dependence; N40.0 Benign prostatic hyperplasia without lower urinary tract symptoms; M81.0 Age-related osteoporosis without current pathological fracture; H26.9 Unspecified cataract; H35.30 Unspecified macular degeneration; K59.00 Constipation, unspecified; K29.70 Gastritis, unspecified, without bleeding; Z79.4 Long term (current) use of insulin; Z79.84 Long term (current) use of oral hypoglycemic drugs; J44.9 Chronic obstructive pulmonary disease, unspecified; Y92.009 Unspecified place in unspecified non-institutional (private) residence as the place of occurrence of the external cause; F41.0 Panic disorder [episodic paroxysmal anxiety]; F43.10 Post-traumatic stress disorder, unspecified; M06.9 Rheumatoid arthritis, unspecified; Z87.01 Personal history of pneumonia (recurrent); R26.9 Unspecified abnormalities of gait and mobility; M54.9 Dorsalgia, unspecified; R07.9 Chest pain, unspecified
CPT/HCPCS: 36415; 80048-TC; 80053-TC; 80076-TC; 82378; 82784; 82962-TC; 83735-TC; 84484-TC; 85025-TC; 87081-TC; 92611-TC; J1200; J1650; J1815; J2060; J2920; J2930; Q0163

== ENCOUNTER 2017-04-04 17:52 | Emergency (ER) | payer MEDICARE, MEDICAID ==
[~2017-04-04] VITALS: Ht 167.6 cm; Wt 99.8 kg
[~2017-04-04 17:52] MED LIST: ALLA266C2 TP; AMLO5TAB2 PO; DIPH50CA37 PO; FAMO20TA80 PO; HYDR-3326 PO; HYDR28.3 TP; INSU100I4 SQ; LORA1TAB PO; LORA1TAB82 PO; LOSA1TAB3 PO; MAG30ORA PO; METF10002 PO; METF500T4 PO; ZOLP5TAB2 PO
--- NOTE | 2017-04-04 18:05 | NUR ---
PRESENTS TO ER C/O LOWER ABDOMINAL PAIN, UNABLE TO PASS GAS. DENIES N/V. PAIN x 2 DAYS. BREATHING EVEN AND UNLABORED. NO SOB. VITALS STABLE. SAFETY AND COMFORT MEASURES IN PLACE. AWAITING MD ORDERS.
--- NOTE | 2017-04-04 18:15 | NUR ---
NEW IV STARTED ON LAC, 20 G, BLOOD DRAWN AND SENT TO LAB.
[2017-04-04 18:21] LABS: BASOPHILS % (AUTO) 0.4 % (0.0-2.0); EOSINOPHILS # (AUTO) 0.1 /CMM (0.0-0.7); HEMATOCRIT 41 % (39-51); LYMPHOCYTES # (AUTO) 0.9 /CMM (0.8-4.8); LYMPHOCYTES % (AUTO) 15.1 % (20.0-44.0); MEAN CORPUSCULAR HEMOGLOBIN 27 PG (26.0-33.0); MEAN CORPUSCULAR HGB CONC 32 g/dl (31.0-36.0); MEAN CORPUSCULAR VOLUME 84 fL (80-96); MONOCYTES # (AUTO) 0.4 /CMM (0.1-1.30); NEUTROPHILS # (AUTO) 4.8 /CMM (1.8-8.9); NEUTROPHILS % (AUTO) 77.5 % (43.0-81.0); PLATELET COUNT (AUTO) 132 /CMM (150-450); RDW COEFFICIENT OF VARIATION 16.3 (11.5-15.0); RED BLOOD CELL COUNT(AUTO) 4.92 MIL/uL (4.5-6.0); WHITE BLOOD COUNT (AUTO) 6.2 K/uL (4.3-11.0)
--- NOTE | 2017-04-04 18:25 | NUR ---
AUTOMOTIVE TECHNICIAN AT BEDSIDE.
[2017-04-04 18:30] LABS: CALCIUM, SERUM 9.4 mg/dL (8.5-10.1); CARBON DIOXIDE 27 mmol/L (21-32); CHLORIDE 103 mmol/L (98-107); CREATININE 1.1 mg/dL (0.6-1.3); GLUCOSE 155 mg/dL (74-106); POTASSIUM 4.1 mmol/L (3.5-5.1); SODIUM SERUM 139 mmol/L (136-145); UREA NITROGEN, BLOOD 15 mg/dL (7-18)
--- NOTE | 2017-04-04 18:30 | NUR ---
PATIENT TAKEN TO CT VIA STRETCHER.
[2017-04-04 18:32] LABS: INR 0.87 (0.87-1.13)
[2017-04-04 18:36] LABS: ALANINE AMINOTRANSFERASE 44 U/L (12-78); ALBUMIN 3.5 g/dL (3.4-5.0); ALKALINE PHOSPHATASE 218 U/L (46-116); ASPARTATE AMINOTRANSFERASE 48 U/L (15-37); BILIRUBIN,DIRECT 0.1 mg/dL (0.0-0.2); BILIRUBIN,TOTAL 0.4 mg/dL (0.2-1.0); TOTAL PROTEIN, SERUM 8.1 g/dL (6.4-8.2)
[2017-04-04 18:38] LABS: TROPONIN I < 0.017 ng/mL (0.00-0.056)
--- NOTE | 2017-04-04 18:45 | NUR ---
PATIENT RETURNED FROM CT.
--- NOTE | 2017-04-04 19:12 | NUR ---
REPORT GIVEN TO VIVIANE ROPER FOR ALYSSA.
--- NOTE | 2017-04-04 19:16 | NUR ---
REPORT RECEIVED FROM VIVIANE ROSSI FOR ALYSSA.
--- NOTE | 2017-04-04 19:25 | NUR ---
AT BEDSIDE SPEAKING WITH PT.
--- NOTE | 2017-04-04 19:33 | NUR ---
IV removed. Catheter intact and site benign. Pressure and 4x4 applied to site. No bleeding noted. Patient discharged to home in stable condition. Written and verbal after care instructions given. Patient verbalizes understanding of instruction. Pt ambulatory with a steady gait.
[2017-04-04 19:34] VITALS: BP 147/88
== END 2017-04-04 19:35 | disposition home or self-care (01) ==
LOC: ER 17:54
DX: R10.84 Generalized abdominal pain (principal); C78.7 Secondary malignant neoplasm of liver and intrahepatic bile duct; C18.9 Malignant neoplasm of colon, unspecified; E11.9 Type 2 diabetes mellitus without complications; M10.9 Gout, unspecified; F17.200 Nicotine dependence, unspecified, uncomplicated; Z79.4 Long term (current) use of insulin
CPT/HCPCS: 36415; 71010; 74176; 80048; 80076; 83690; 84484; 85025; 85730; 93005; 99285; A4606; Z7610

== ENCOUNTER 2017-09-08 00:03 | Emergency (ER) | payer MEDICARE, MEDICAID ==
[~2017-09-08] VITALS: Ht 172.7 cm; Wt 97.5 kg
[~2017-09-08 00:03] MED LIST changes: -AMLO5TAB2 PO; +AMLO5TAB7 PO; -HYDR-3326 PO; +HYDR-3974 PO; +LORA-259 PO; -LORA1TAB82 PO; +METF-440 PO; +METF-442 PO; -METF10002 PO; -METF500T4 PO
[2017-09-08 00:10] VITALS: BP 142/96
--- NOTE | 2017-09-08 00:23 | NUR ---
DESTINEE PRETTY AT BEDSIDE FOR EVAL.
[2017-12-15] MEDS ORDERED: AMLO10TA6 PO (07:53)
[2017-12-15] MEDS ORDERED: GEMF600T4 PO (07:53)
== END 2017-09-08 00:42 | disposition home or self-care (01) ==
LOC: ER 00:05
DX: J06.9 Acute upper respiratory infection, unspecified (principal); E11.9 Type 2 diabetes mellitus without complications; M10.9 Gout, unspecified; F17.200 Nicotine dependence, unspecified, uncomplicated; Z79.4 Long term (current) use of insulin; Z85.05 Personal history of malignant neoplasm of liver
CPT/HCPCS: 99283; A4606; Z7610

== ENCOUNTER 2017-09-12 20:00 | Emergency (ER) | payer MEDICARE, MEDICAID ==
[~2017-09-12] VITALS: Ht 182.9 cm; Wt 95.3 kg
[2017-09-12 20:05] VITALS: BP 149/97
--- NOTE | 2017-09-12 20:07 | NUR ---
67 YO MALE BB AELF. PATIENT IS ALERT AND ORIENTED, C/O SHARP CP WITH COUGH X 5 DAYS, PATIENT AMBULATED TO ER BED, SKIN WARM AND DRY, RESP EVEN AND UNLABORED. PATIENT GOWNED, PLACED ON MULTIPLE PRESSURE RIVETER OPERATOR. AWAITING ORDERS FROM PROVIDER
[2017-09-12] MEDS ORDERED: IBUPROFEN 400 MG TABLET ONE (20:13)
[2017-09-12] MEDS ORDERED: ALBUTEROL FS 2.5 MG/3 ML VIAL.NEB ONE (20:27)
[2017-09-12] MEDS ORDERED: IBUPROFEN 400 MG TABLET PO ONE (20:30)
[2017-09-12] MEDS ORDERED: IPRATROPIUM NEB FS 0.5 MG/2.5 ML AMPUL.NEB NEB ONE (20:30)
[2017-09-12] MEDS ORDERED: ALBUTEROL FS 2.5 MG/3 ML VIAL.NEB NEB ONE (20:30)
[2017-12-15] MEDS ORDERED: GEMF600T4 PO (07:53)
[2017-12-15] MEDS ORDERED: AMLO10TA6 PO (07:53)
== END 2017-09-12 21:16 | disposition home or self-care (01) ==
LOC: ER 20:02
DX: R07.89 Other chest pain (principal); J22 Unspecified acute lower respiratory infection; E11.9 Type 2 diabetes mellitus without complications; M10.9 Gout, unspecified; F17.200 Nicotine dependence, unspecified, uncomplicated; Z79.84 Long term (current) use of oral hypoglycemic drugs; Z79.4 Long term (current) use of insulin
CPT/HCPCS: 71045-TC; A4606; Z7610

== ENCOUNTER 2017-09-26 19:31 | Emergency (ER) | payer MEDICARE, MEDICAID ==
[~2017-09-26] VITALS: Ht 175.3 cm; Wt 95.3 kg
[2017-09-26 19:45] VITALS: BP 180/103
[2017-12-15] MEDS ORDERED: GEMF600T4 PO (07:53)
[2017-12-15] MEDS ORDERED: AMLO10TA6 PO (07:53)
== END 2017-09-26 20:41 | disposition home or self-care (01) ==
LOC: ER 19:33
DX: K12.1 Other forms of stomatitis (principal); F17.200 Nicotine dependence, unspecified, uncomplicated; E11.9 Type 2 diabetes mellitus without complications; M10.9 Gout, unspecified; Z79.4 Long term (current) use of insulin
CPT/HCPCS: 99281; A4606; Z7502; Z7610

== ENCOUNTER 2017-12-15 04:26 | Emergency (ER) | payer MEDICARE, MEDICAID ==
[~2017-12-15] VITALS: Ht 172.7 cm; Wt 93.4 kg
[~2017-12-15 04:26] MED LIST changes: +AMLO5TAB2 PO; -AMLO5TAB7 PO; -METF-440 PO; -METF-442 PO; +METF10004 PO; +METF500T6 PO
[2017-12-15] MEDS ORDERED: ASPIRIN EC 81 MG TABLET.DR PO ONE ×2 (04:58→05:23)
[2017-12-15] MEDS ORDERED: NITROGLYCERIN PACKET 1 GM PACKET ONE (04:58)
--- NOTE | 2017-12-15 05:00 | NUR ---
PT IS AOX4, S/E BY DR. SANCHEZ AT BEDSIDE AND SPOKE TO PT. PT DENIES ANY CHEST PAIN, REFUSED TO TAKE MDS ORDER FOR CHEST PAIN, PER PT "I DONT HAVE A CHEST PAIN NOW, I HAVE A PAIN IN MY LIVER, IF YOU CAN GIVE ME SOMETHING FOR PAIN" MD MADE AWARE. WITH ORDER, WILL ADMINISTERED ORDERED.
--- NOTE | 2017-12-15 05:30 | NUR ---
P/U BY RADIOLOGY FOR CT ABDOMEN
[2017-12-15] MEDS ORDERED: HYDROMORPHONE INJ 2 MG/ML DISP.SYRIN ONE (05:35)
[2017-12-15] MEDS: ASPIRIN 81 MG TAB.CHEW PO ONE (05:35)
[2017-12-15] MEDS: NITROGLYCERIN 0.4 MG/TAB BOTTLE SL ONE (05:36)
[2017-12-15] MEDS ORDERED: ONDANSETRON HCL/PF 4 MG/2 ML VIAL ONE (05:36)
[2017-12-15] MEDS: NITROGLYCERIN PACKET 1 GM PACKET TD ONE (05:37)
[2017-12-15] MEDS ORDERED: LORAZEPAM INJ 2 MG/ML VIAL ONE (05:38)
[2017-12-15] MEDS ORDERED: MORPHINE SULFATE INJ 4 MG/ML DISP.SYRIN ONE (05:38)
[2017-12-15 05:39] LABS: BASOPHILS # (AUTO) 0.1 /CMM (0.0-0.2); BASOPHILS % (AUTO) 0.9 % (0.0-2.0); HEMATOCRIT 32 % (39-51); HEMOGLOBIN 10.5 g/dL (13.5-17.5); LYMPHOCYTES # (AUTO) 1.1 /CMM (0.8-4.8); LYMPHOCYTES % (AUTO) 10.2 % (20.0-44.0); MEAN CORPUSCULAR HEMOGLOBIN 28 PG (26.0-33.0); MEAN CORPUSCULAR HGB CONC 33 g/dl (31.0-36.0); MEAN CORPUSCULAR VOLUME 84 fL (80-96); MONOCYTES # (AUTO) 0.6 /CMM (0.1-1.30); MONOCYTES % (AUTO) 6.2 % (2.0-12.0); NEUTROPHILS # (AUTO) 8.4 /CMM (1.8-8.9); NEUTROPHILS % (AUTO) 81.7 % (43.0-81.0); PLATELET COUNT (AUTO) 160 /CMM (150-450); RDW COEFFICIENT OF VARIATION 16.8 (11.5-15.0); WHITE BLOOD COUNT (AUTO) 10.3 K/uL (4.3-11.0)
[2017-12-15] MEDS: ONDANSETRON HCL/PF - ER 4 MG/2 ML VIAL IV ONE (05:44)
[2017-12-15] MEDS: MORPHINE SULFATE INJ 2 MG/ML DISP.SYRIN IV ONE (05:44)
[2017-12-15 05:52] LABS: CALCIUM, SERUM 8.9 mg/dL (8.5-10.1); CARBON DIOXIDE 23 mmol/L (21-32); CHLORIDE 105 mmol/L (98-107); CREATININE 1.3 mg/dL (0.6-1.3); GLUCOSE 105 mg/dL (74-106); POTASSIUM 3.9 mmol/L (3.5-5.1); SODIUM SERUM 142 mmol/L (136-145); UREA NITROGEN, BLOOD 22 mg/dL (7-18)
[2017-12-15 05:54] VITALS: BP 125/76
[2017-12-15 05:58] LABS: TROPONIN I < 0.017 ng/mL (0.00-0.056)
[2017-12-15 06:05] LABS: ALANINE AMINOTRANSFERASE 19 U/L (12-78); ALKALINE PHOSPHATASE 116 U/L (46-116); ASPARTATE AMINOTRANSFERASE 23 U/L (15-37); B-TYPE NATRIURETIC PEPTIDE 505 PG/ML (0-125); BILIRUBIN,DIRECT 0.1 mg/dL (0.0-0.2); BILIRUBIN,TOTAL 0.2 mg/dL (0.2-1.0); TOTAL PROTEIN, SERUM 7.4 g/dL (6.4-8.2)
--- NOTE | 2017-12-15 07:10 | NUR ---
DR. WHITLEY PAGED. MESSAGE LEFT
--- NOTE | 2017-12-15 07:20 | NUR ---
TRANSFER CARE TO HAILY RINCON RN
--- NOTE | 2017-12-15 07:26 | NUR ---
DR BROWN CALLED BACK AND [facility] IS NOT COVERING DR. JUNG. DR SANCHEZ NOTIFIED
[2017-12-15] MEDS: PIPERACILLIN /TAZOBACTAM 3.375 G in IV D5W 50 ML IV ONE (07:39)
--- NOTE | 2017-12-15 07:44 | NUR ---
2ND PAGE TO DR. WHITLEY FOR ADMISSION
[2017-12-15] MEDS ORDERED: ACET-907 PO (07:53)
[2017-12-15] MEDS ORDERED: CARV6.252 PO (07:53)
[2017-12-15] MEDS ORDERED: AMLO10TA2 PO (07:53)
[2017-12-15] MEDS ORDERED: ENAL10TA PO (07:53)
[2017-12-15] MEDS ORDERED: GEMF600T3 PO (07:53)
[2017-12-15] MEDS ORDERED: ALLO300T2 PO (07:53)
[2017-12-15] MEDS ORDERED: PRAV40TA3 PO (07:53)
--- NOTE | 2017-12-15 08:01 | NUR ---
3RD PAGE TO DR. WHITLEY FOR ADMISSION
--- NOTE | 2017-12-15 08:08 | NUR ---
ROOM [id number]
--- NOTE | 2017-12-15 08:33 | NUR ---
DR. PARK CALLED BACK AND TALKED TO DR. STEPHENS. DR. PAKR IS TALKING TO THE PATIENT AT THIS TIME.
--- NOTE | 2017-12-15 08:35 | NUR ---
IV removed. Catheter intact and site benign. Pressure and 4x4 applied to site. No bleeding noted.Patient discharged to home in stable condition. Written and verbal after care instructions given. Patient verbalizes understanding of instruction.
== END 2017-12-15 09:15 | disposition left against medical advice (07) ==
LOC: ER 04:31 → MED 08:28 → UNDOADMIN 08:28 → ER 09:15
DX: C78.7 Secondary malignant neoplasm of liver and intrahepatic bile duct (principal); K81.9 Cholecystitis, unspecified; C18.9 Malignant neoplasm of colon, unspecified; R07.89 Other chest pain; M10.9 Gout, unspecified; Z79.84 Long term (current) use of oral hypoglycemic drugs; Z79.899 Other long term (current) drug therapy; Z79.4 Long term (current) use of insulin
CPT/HCPCS: 36415; 71045-TC; 76705-TC; 80048-TC; 80076-TC; 83690-TC; 83880; 84484-TC; 85025-TC; 85378-TC; A4606; J1170; J2060; J2270; J2405; J2543; J7060; Z7610

== ENCOUNTER 2017-12-16 15:49 | Inpatient (IN) | payer MEDICARE, MEDICAID ==
[~2017-12-16] VITALS: Ht 177.8 cm; Wt 93.0 kg
[~2017-12-16 15:49] MED LIST changes: +ACET-907 PO; -ALLA266C2 TP; +ALLO300T2 PO; +AMLO10TA2 PO; -AMLO5TAB2 PO; +CARV6.252 PO; -DIPH50CA37 PO; +ENAL10TA PO; -FAMO20TA80 PO; +GEMF600T3 PO; -HYDR-3974 PO; -HYDR28.3 TP; -LORA1TAB PO; -LOSA1TAB3 PO; -MAG30ORA PO; -METF500T6 PO; +PRAV40TA3 PO; -ZOLP5TAB2 PO
--- NOTE | 2017-12-16 16:15 | NUR ---
C/O RUQ PAIN, WAS HERE YESTERDAY WAS DX WITH CHOLESCYTITIS, LEFT AMA. NAD NOTED, VSS, RESP EVEN AND UNLABORED, PT WAS PUT ON MONITOR, WAITING FOR MD CORRAL.
[2017-12-16 16:49] LABS: BASOPHILS # (AUTO) 0.1 /CMM (0.0-0.2); BASOPHILS % (AUTO) 0.7 % (0.0-2.0); EOSINOPHILS % (AUTO) 1.2 % (0.0-6.0); HEMATOCRIT 34 % (39-51); HEMOGLOBIN 11.2 g/dL (13.5-17.5); LYMPHOCYTES # (AUTO) 0.9 /CMM (0.8-4.8); LYMPHOCYTES % (AUTO) 9.4 % (20.0-44.0); MEAN CORPUSCULAR HEMOGLOBIN 27 PG (26.0-33.0); MEAN CORPUSCULAR HGB CONC 33 g/dl (31.0-36.0); MEAN CORPUSCULAR VOLUME 82 fL (80-96); MONOCYTES # (AUTO) 0.5 /CMM (0.1-1.30); MONOCYTES % (AUTO) 5.9 % (2.0-12.0); NEUTROPHILS # (AUTO) 7.6 /CMM (1.8-8.9); NEUTROPHILS % (AUTO) 82.8 % (43.0-81.0); PLATELET COUNT (AUTO) 184 /CMM (150-450); RDW COEFFICIENT OF VARIATION 15.5 (11.5-15.0); RED BLOOD CELL COUNT(AUTO) 4.17 MIL/uL (4.5-6.0); WHITE BLOOD COUNT (AUTO) 9.2 K/uL (4.3-11.0)
--- NOTE | 2017-12-16 16:53 | NUR ---
LEFT MESSAGE WITH DR HEIDI SPANGLER SURGEON POSITION CLASSIFICATION MANAGER
[2017-12-16 17:02] LABS: CALCIUM, SERUM 9.4 mg/dL (8.5-10.1); CREATININE 1.1 mg/dL (0.6-1.3); POTASSIUM 4.1 mmol/L (3.5-5.1)
[2017-12-16 17:09] LABS: ALBUMIN 3.1 g/dL (3.4-5.0); BILIRUBIN,DIRECT 0.1 mg/dL (0.0-0.2); BILIRUBIN,TOTAL 0.3 mg/dL (0.2-1.0); TOTAL PROTEIN, SERUM 7.7 g/dL (6.4-8.2)
[2017-12-16] MEDS ORDERED: PIPERACILLIN /TAZOBACTAM 3.375 G VIAL IV ONE (17:30)
[2017-12-16] MEDS ORDERED: PIPERACILLIN /TAZOBACTAM 3.375 G in IV D5W 50 ML IV ONE (17:30)
[2017-12-16 17:48] LABS: LYMPHOCYTES % (MANUAL) 2 % (16-48); MONOCYTES % (MANUAL) 8 % (0-11.0); NEUTROPHILS % (MANUAL) 90 (42-76)
--- NOTE | 2017-12-16 17:57 | NUR ---
PATIENT ASSIGNED [id number]
--- NOTE | 2017-12-16 18:47 | NUR ---
MS RN NOTES ADMITTED 67 YEAR OLD MALE, ARRIVED VIA GURNEY AT 1800, REPORT RECEIVED FROM DMITRY PAN. PATIENT ALERT AND ORENTED, VERBALLY RESPONSIVE AND RESPONDS TO VERBAL AND TACTILE STIMULI. BREATHING EVEN AND UNLABORED. NO CHANGES IN LOC NOTED. PATIENT ADMITTED 2 CHOLECYSTITIS. PATIENT DENIES ANY PAIN OR DISCOMFORT AT THIS TIME. PER REPORT, PATIENT UNDER THE MEDICAL SUPERVISION OF DR. WHITLEY. PLACED CALL TO DR. PARK AND SPOKE WITH FARHAT FROM ANSWERING SERVICE, LEFT MESSAGE FOR DR. WHITLEY, AWAITING FOR CALL BACK. PATIENT IS DEMANDING TO CALL DR. WHITLEY PATIENT IS HUNGRY AND HE WANTS TO EAT. WOULD ANSWER PATIENT AND GIVE UPDATE AND PATIENT WOULD VERBALIZE UNDERSTANDING, THEN WOULD CALL FOR NURSE AGAIN AFTER A FEW MINUTES. PATIENT WITH IV ACCESS ON LEFT AC, g18 INTACT AND PATENT. WILL ENDORSE TO INCOMING SHIFT FOR ALYSSA. BED LOCKED AND IN LOW POSITION. BILATERAL UPPER SIDE RAILS UP AND LOCKED. CALL LIGHT WITHIN EASY REACH
--- NOTE | 2017-12-16 18:57 | NUR ---
MS RN NOTES PATIENT'S AT BEDSIDE. PATIENT DOES NOT WANT TO WAIT FOR PHYSICIAN'S ORDERS. VERBALIZED THAT HE WANTS TO EAT NOW. EXPLAINED TO PATIENT THAT DR. WHITLEY HASN'T CALLED BACK YET FOR ORDERS. PATIENT TOOK BREAD FROM AND ATE IT, VERBALIZING "I WANT TO LEAVE THIS [facility]!". RISKS AND BENEFITS EXPLAINED TO PATIENT. AMA FORM PRINTED. PATIENT REFUSED TO SIGN AMA FORM AND VERBALIZED THAT HE WILL WAIT. PATIENT CONTINUES TO EAT BY HIMSELF. RISKS AND BENEFITS EXPLAINED BUT PATIENT VERBALIZED, " IDONT CARE! I WANT TO EAT!". WILL CONTINUE TO MONITOR
--- NOTE | 2017-12-16 19:30 | NUR ---
RN MS NOTES RECEIVED PATIENT IN BED AWAKE. ALERT AND ORIENTED X4. AGITATED. AT BEDSIDE. BREATHING EVEN AND UNLABORED. NO SOB NOTED. WITH COMPLAINTS OF GENERAL BODY PAIN BUT INFORMED PATIENT THAT THERE IS NO ORDER FOR PAIN MEDICATION AND THAT I WILL CALL DR. WHITLEY AGAIN FOR [facility] - UPSET BUT VERBALIZED UNDERSTANDING. PATIENT WITH IV ON LEFT AC #18 INTACT AND PATENT. SKIN DRY AND WARM TO TOUCH. ALL OTHER NEEDS ATTENDED TO. CALL LIGHT WITHIN REACH. BED ON LOWEST LOCKED POSITION. WILL CONTINUE TO MONITOR. Addendum: 12/17/17 at 0657 by ELDER ROQUE RN PATIENT WITH MEDICATIONS FROM HOME. PER PATIENT, HE WOULD LIKE TO KEEP THEM AND SEND THEM HOME WITH HIS .
[2017-12-16 20:00] VITALS: BP 155/88
--- NOTE | 2017-12-16 20:00 | NUR ---
RN NOTES WAS ABLE TO GET A HOLD OF DR. WHITLEY. DOCTOR GAVE ADMISSION ORDERS OVER THE PHONE. ALSO INFORMED DOCTOR OF ALL MEDICATIONS PATIENT TAKEN FROM HOME. DOCTOR INSTRUCTED TO CONTINUE EVERYTHING BUT HOLD GEMFIBROZIL AND PRAVASTATIN. ALSO WITH ORDERS FOR MORPHINE 2MG IV Q3H PRN, TYLENOL 650MG Q6H PRN, MAG, IRON, AMYLASE, AND LIPASE IN AM, AND ADA 2000 DIET. NOTED AND CARRIED OUT.
[2017-12-16] MEDS ORDERED: ACETAMINOPHEN 325 MG TABLET PO PRN (20:30)
[2017-12-16] MEDS ORDERED: MORPHINE SULFATE INJ 2 MG/ML DISP.SYRIN IV PRN (20:30)
[2017-12-16] MEDS ORDERED: LORAZEPAM 1 MG TABLET PO PRN (20:30)
[2017-12-16] MEDS: CARVEDILOL 6.25 MG TABLET PO SCH (21:51)
--- NOTE | 2017-12-16 23:05 | NUR ---
RN NOTES EXPLAINED TO PATIENT THAT A SKIN CHECK IS PART OF THE PROCESS FOR ALL ADMISSIONS. EXPLAINED TO PATIENT THAT A PICTURE NEEDS TO BE TAKEN IF HE HAS ANY WOUNDS OR BRUISES. PER PATIENT HE DOES NOT NEED A SKIN CHECK BECAUSE HE'S BODY IS OK. PATIENT STATES "NO PROBLEM ON MY SKIN." ASKED PATIENT IF HE IS SURE THAT HE DOES NOT WANT ME TO DO A BODY CHECK X3, PATIENT REFUSED MULTIPLE TIMES.
[2017-12-17 06:30] LABS: MAGNESIUM 1.6 mg/dL (1.8-2.4)
[2017-12-17] MEDS: BLOOD SUGAR DIAGNOSTIC 1 EACH STRIP IN SCH ×4 (06:41→21:42)
--- NOTE | 2017-12-17 06:55 | NUR ---
RN MS CLOSING NOTES PATIENT IN BED ASLEEP -EASILY AROUSABLE. ALERT AND ORIENTED X4 WHEN AWAKE. AT BEDSIDE - CHINESE SPEAKING. BREATHING EVEN AND UNLABORED. NO SOB NOTED. CURRENTLY WITH NO COMPLAINTS OF PAIN OR DISCOMFORT. PATIENT WITH IV ON LEFT AC #18 INTACT AND PATENT. SKIN DRY AND WARM TO TOUCH. PATIENT HAD VERY LITTLE TO NO SLEEP. ASKED IF HE WAS TAKING ANY SLEEPING PILL. PER PATIENT, THIS IS NORMAL FOR HIM AND ITS BEEN GOING ON FOR ABOUT 10 YEARS NOW AND THAT HE DOES NOT TAKE A SLEEPING PILL AT HOME. PER PATIENT HE WILL JUST WATCH TV. ALL OTHER NEEDS ATTENDED TO. CALL LIGHT WITHIN REACH. BED ON LOWEST LOCKED POSITION. WILL ENDORSE TO ONCOMING NURSE FOR CONTINUITY OF CARE.
--- NOTE | 2017-12-17 06:57 | NUR ---
RN MS NOTES DR. ZUÑIGA HERE IN FACILITY. INFORMED HIM THAT MIRNA WERENT REMOVED FROM DAY SHIFT BECAUSE PER NURSE, IT STILL SEEMED FRESH. PER DR. ZUÑIGA, THEY NEEDED TO FOLLOW HIS ORDER AND THEY SHOULD HAVE INFORMED HIM THAT THEY DID NOT REMOVE IT. DR. ZUÑIGA ORDERED FOR EVERY OTHER STABLE TO BE REMOVED. Addendum: 12/17/17 at 2015 by ELDER ROQUE RN PLEASE DISREGARD. WRONG PATIENT. !!!
--- NOTE | 2017-12-17 07:15 | NUR ---
RN OPENING NOTES RECEIVED PT. IN BED AWAKE, A&OX4. BREATHING UNLABORED, AND EVENLY ON ROOM AIR. NO S/S OF ACUTE DISTRESS. BED IS IN LOWEST, AND LOCKED POSITION. 2 SIDE RAILS UP, AND INSTRUCTED PT. TO USE CALL LIGHT FOR ASSISTANCE. ALL NEEDS, AND QUESTIONS ANSWERED. WILL CONTINUE TO ASSESS AND MONITOR.
[2017-12-17 08:00] VITALS: BP 132/75
[2017-12-17] MEDS ORDERED: INSULIN ASPART/LISPRO 100 UNIT/ML CARTRIDGE SQ SCH (08:00)
[2017-12-17] MEDS: METFORMIN 500 MG TABLET PO SCH ×2 (09:00→17:00)
[2017-12-17] MEDS: CARVEDILOL 6.25 MG TABLET PO SCH ×2 (09:04→17:41)
[2017-12-17] MEDS: ENALAPRIL MALEATE (10 MG) 10 MG TABLET PO SCH (09:04)
[2017-12-17] MEDS: AMLODIPINE BESYLATE 10 MG TABLET PO SCH (09:04)
[2017-12-17] MEDS: ALLOPURINOL 100 MG TABLET PO SCH (09:05)
[2017-12-17] MEDS: Magnesium 1GM/D5W 100ML PREMIX PIGGYBACK IV SCH ×3 (10:58→14:45)
[2017-12-17] MEDS: METRONIDAZOLE 500MG/ NS 100ML 500 MG in PREMIX 1 EA IV SCH ×2 (12:06→20:47)
--- NOTE | 2017-12-17 14:22 | NUR ---
CALLED MD TO VERIFY PT.'S INSULIN REGIMEN. PER MD NEW ORDER WAS GIVEN TO GIVE 8 UNITS OF NOVOLOG INSULIN BEFORE MEALS, AND IF PT. DOES NOT EAT TO NOT ADMINISTER INSULIN. DIET ORDER WAS CHANGED TO CLEAR LIQUIDS, AND THAT IT IS OKAY FOR PT. TO HAVE SMALL AMOUNT OF FOOD THAT IS MECHANICAL SOFT DIET TOLERATED.
[2017-12-17 16:00] VITALS: BP 142/87
[2017-12-17] MEDS: SOD FERRIC GLUC 125 MG in IV NS 0.9% 100 ML IV SCH (17:42)
[2017-12-17] MEDS: INSULIN ASPART/LISPRO 100 UNIT/ML CARTRIDGE SQ SCH (18:23)
--- NOTE | 2017-12-17 19:30 | NUR ---
RN MS OPENING NOTES PATIENT IN BED AWAKE. ALERT AND ORIENTED X4. AT BEDSIDE - CAMBODIAN SPEAKING. BREATHING EVEN AND UNLABORED. NO SOB NOTED. CURRENTLY WITH COMPLAINTS OF HEADACHE. INFORMED PATIENT THAT I WILL GIVE HIM TYLENOL - PATIENT AGREED. PATIENT WITH IV ON LEFT AC #18 INTACT AND PATENT. SKIN DRY AND WARM TO TOUCH. ALL OTHER NEEDS ATTENDED TO. CALL LIGHT WITHIN REACH. BED ON LOWEST LOCKED POSITION. WILL CONTINUE TO MONITOR.
--- NOTE | 2017-12-17 19:30 | NUR ---
RN CLOSING NOTES PT. IS IN BED AWAKE, A&OX4. BREATHING UNLABORED, AND EVENLY ON ROOM AIR. NO S/S OF ACUTE DISTRESS. BED IS IN LOWEST, AND LOCKED POSITION. 2 SIDE RAILS UP, AND INSTRUCTED PT. TO USE CALL LIGHT FOR ASSISTANCE. ALL NEEDS, AND QUESTIONS ANSWERED. WILL ENDORSE REPORT TO NURSE.
[2017-12-17 20:14] VITALS: BP 127/64
--- NOTE | 2017-12-17 21:22 | NUR ---
RN MS NOTES PATIENT WAS AGITATED AND COMPLAINING OF A HEADACHE AND WAS REQUESTING FOR TYLENOL. INFORMED PATIENT THAT I WILL BE BACK WITH HIS TYLENOL - PATIENT AGREED. I WAS GOING TO GET THE MEDICATION, THE COMES OUT OF THE ROOM AND INFORMED ME THAT THE PATIENT TOOK A PERCOCET 5-325MG. THE PERCOCET WAS NOT PART OF HIS MED RECON AND NURSES DID NOT KNOW PATIENT HAD THAT MEDICATION (ONLY THE ONES THAT THEY SHOWED IN A BAG BUT REFUSED TO GIVE FOR SAFEKEEPING). I INFORMED THE THAT HE IS NOT ALLOWED TO TAKE HIS OWN MEDICATIONS. I WENT TO PATIENTS ROOM AND ATTEMPTED TO GET THE MEDICATIONS BUT PATIENT WAS SLEEPING. I WAS EXPLAINING TO THE THAT I NEED TO GET HIS MEDICATIONS BECAUSE HE CANNOT TAKE IT ON HIS OWN, PATIENT WOKE AND UP AND STATED THAT HE DID NOT TAKE A PERCOCET; HE THEN ASKED WHO TOLD ME THAT HE TOOK IT, HOWEVER THE WAS GESTURING NOT TO TELL HIM THAT SHE TOLD ME HERSELF. PATIENT STATED THAT HE JUST WANTS TO SLEEP AND TO LEAVE HIS ROOM. LEFT PATIENT'S ROOM AND CALLED DR. WHITLEY AND INFORMED HIM THAT PATIENT TOOK A PERCOCET THAT WAS NOT PART OF HIS MED RECON. ALSO INFORMED HIM THAT PATIENT REFUSES TO HAVE HIS MEDICATIONS TAKEN DOWN TO PHARMACY FOR SAFEKEEPING. INFORMED DOCTOR THAT THE WAS SUPPOSE TO TAKE THE MEDICATIONS HOME BUT IT SEEMS LIKE THE DID NOT GO HOME SINCE HE WAS ADMITTED. PER DR. WHITLEY, IT IS OK THAT HE TOOK THE PERCOCET AND THAT IT IS AT BEDSIDE. WENT BACK TO THE PATIENT'S ROOM AND INSTRUCTED HIM NOT TO TAKE HIS OWN MEDICATIONS. GAVE THE INSTRUCTIONS TO TAKE ALL THE MEDICATIONS HOME IF/WHEN SHE LEAVES - VERBALIZED UNDERSTANDING. WILL CONTINUE TO MONITOR NONCOMPLIANT BEHAVIOR. Addendum: 12/17/17 at 2134 by ELDER ROQUE RN CHARGE NURSE MADE AWARE OF THE SITUATION.
--- NOTE | 2017-12-17 23:43 | NUR ---
RN MS NOTES PATIENT'S BS AT 2140 WAS 183. NO ORDER FOR INSULIN. DR. WHITLEY IS AWARE THAT PATIENT ONLY HAS NOVOLOG 8 UNITS THREE TIMES A DAY WITH MEALS. AT 2300, THE TOOK IT UPON HERSELF TO CHECK PATIENT'S BLOOD SUGAR. SHOWED ME THAT IT WAS 212 AND ASKED ME TO CALL THE DOCTOR MULTIPLE TIMES BECAUSE BLOOD SUGAR IS HIGH. PER , WHENEVER HIS BLOOD SUGAR IS HIGH AT HOME, THE PATIENT RECEIVES 8 UNITS OF NOVOLOG. I INFORMED BOTH THE PATIENT AND THE THAT I WILL CALL DR. WHITLEY FOR AN INSULIN ORDER. CALLED DR. WHITLEY ON HIS OFFICE NUMBER AND SPOKE WITH SAV FROM HIS EXCHANGE. PER SAV, DOCTOR DID NOT ANSWER. SAV GAVE DOCTOR'S CELL PHONE NUMBER INSTEAD. CALLED DR. WHITLEY'S CELL PHONE NUMBER BUT DOCTOR DID NOT ANSWER. I LEFT A VOICEMAIL. INFORMED THE AND PATIENT THAT THE DOCTOR DID NOT ANSWER, AND THAT I WILL WAIT FOR A CALL BACK - VERBALIZED UNDERSTANDING.
[2017-12-18] MEDS: METRONIDAZOLE 500MG/ NS 100ML 500 MG in PREMIX 1 EA IV SCH ×2 (02:43→09:14)
[2017-12-18] MEDS: BLOOD SUGAR DIAGNOSTIC 1 EACH STRIP IN SCH ×2 (06:38→12:00)
--- NOTE | 2017-12-18 06:56 | NUR ---
RN MS CLOSING NOTES PATIENT IN BED ASLEEP -EASILY AROUSABLE. ALERT AND ORIENTED X4 WHEN AWAKE. AT BEDSIDE - POLISH SPEAKING. BREATHING EVEN AND UNLABORED. NO SOB NOTED. CURRENTLY WITH NO COMPLAINTS OF PAIN OR DISCOMFORT. PATIENT WITH IV ON LEFT AC #18 INTACT AND PATENT. SKIN DRY AND WARM TO TOUCH. INSTRUCTED PATIENT NOT TO USE HOME MEDS MULTIPLE TIMES DURING THE SHIFT - VERBALIZED UNDERSTANDING FOR THE MOST PART. ALL OTHER NEEDS ATTENDED TO. CALL LIGHT WITHIN REACH. BED ON LOWEST LOCKED POSITION. WILL ENDORSE TO ONCOMING NURSE FOR CONTINUITY OF CARE.
[2017-12-18 07:10] LABS: BASOPHILS % (AUTO) 0.7 % (0.0-2.0); EOSINOPHILS % (AUTO) 1.8 % (0.0-6.0); HEMATOCRIT 30 % (39-51); LYMPHOCYTES % (AUTO) 15.2 % (20.0-44.0); MEAN CORPUSCULAR HEMOGLOBIN 28 PG (26.0-33.0); MEAN CORPUSCULAR HGB CONC 34 g/dl (31.0-36.0); MEAN CORPUSCULAR VOLUME 84 fL (80-96); MONOCYTES # (AUTO) 0.5 /CMM (0.1-1.30); MONOCYTES % (AUTO) 8.4 % (2.0-12.0); NEUTROPHILS # (AUTO) 4.8 /CMM (1.8-8.9); NEUTROPHILS % (AUTO) 73.9 % (43.0-81.0); PLATELET COUNT (AUTO) 151 /CMM (150-450); RDW COEFFICIENT OF VARIATION 16.4 (11.5-15.0); RED BLOOD CELL COUNT(AUTO) 3.55 MIL/uL (4.5-6.0); WHITE BLOOD COUNT (AUTO) 6.5 K/uL (4.3-11.0)
[2017-12-18 07:29] LABS: ALBUMIN 2.7 g/dL (3.4-5.0); BILIRUBIN,TOTAL 0.2 mg/dL (0.2-1.0); CALCIUM, SERUM 8.9 mg/dL (8.5-10.1); CREATININE 1.2 mg/dL (0.6-1.3); TOTAL PROTEIN, SERUM 6.7 g/dL (6.4-8.2)
[2017-12-18 08:00] VITALS: BP 141/79
--- NOTE | 2017-12-18 08:00 | NUR ---
rn notes received patient in the room, a/o x3 Palestinian speaker, v/s stable, patient has no acute respiratory distress, fl=070 mg/dl, scheduled medication administered, encouraged patient to express feeling and concerns. patient ambulatory self care, iv access on left ac area intact. patient refused pain at this time, needs attended and anticipated, call light within to reach, next to t the bed continued monitoring.
[2017-12-18] MEDS: INSULIN ASPART/LISPRO 100 UNIT/ML CARTRIDGE SQ SCH ×2 (08:51→13:00)
[2017-12-18] MEDS: METFORMIN 500 MG TABLET PO SCH (09:07)
[2017-12-18] MEDS: ALLOPURINOL 100 MG TABLET PO SCH (09:07)
[2017-12-18] MEDS: ENALAPRIL MALEATE (10 MG) 10 MG TABLET PO SCH (09:08)
[2017-12-18] MEDS: CARVEDILOL 6.25 MG TABLET PO SCH (09:08)
[2017-12-18 09:10] VITALS: BP 141/79
[2017-12-18] MEDS: AMLODIPINE BESYLATE 10 MG TABLET PO SCH (09:10)
[2017-12-18] MEDS ORDERED: Magnesium 1GM/D5W 100ML PREMIX PIGGYBACK IV ONE (10:00)
--- NOTE | 2017-12-18 11:32 | NUR ---
RN NOTES PATIENT GOING TO D/C HOME AND FOLLOW PRIMARY MD IN THURSDAY, AND FOLLOW OWN HOME HEALTH.
[2017-12-18] MEDS: SOD FERRIC GLUC 125 MG in IV NS 0.9% 100 ML IV SCH (13:39)
--- NOTE | 2017-12-18 14:57 | NUR ---
DISCHARGE NOTES PATIENT DISCHARGE AT THIS TIME GOING HOME WILL FOLLOW OWN HOME HEALTH. PATIENT A/O X3/4, MED COMPLIANT, V/S STABLE, MEDICALLY STABLE, MED RECONCILIATION AND DISCHARGE ORDER REVIEWED AND EXPLAINED TO PATIENT AND . PATIENT VERBALIZED UNDERSTANDING. BELONGING WITH THE PATIENT. ESCORTED PATIENT TO THE LOBBY FOR SAFETY. PATIENT WILL FOLLOW DR JUNG. PATIENT WILL CALL FOR APPOINTMENT ON THURSDAY. PATIENT CRUSHER PLANT OPERATOR [place] NAME NKECHI PHONE # [phone].
== END 2017-12-18 15:11 | disposition home or self-care (01) | DRG 435 ==
LOC: ER 15:55 → MED 18:05
PROVIDERS: ADMIT Family Medicine; ATTEND Family Medicine
DX: C78.7 Secondary malignant neoplasm of liver and intrahepatic bile duct (principal); K85.90 Acute pancreatitis without necrosis or infection, unspecified; C18.9 Malignant neoplasm of colon, unspecified; I13.0 Hypertensive heart and chronic kidney disease with heart failure and stage 1 through stage 4 chronic kidney disease, or unspecified chronic kidney disease; E78.5 Hyperlipidemia, unspecified; E83.42 Hypomagnesemia; Z98.890 Other specified postprocedural states; E11.22 Type 2 diabetes mellitus with diabetic chronic kidney disease; D63.8 Anemia in other chronic diseases classified elsewhere; Z79.4 Long term (current) use of insulin; Z79.84 Long term (current) use of oral hypoglycemic drugs; Z79.899 Other long term (current) drug therapy; K81.9 Cholecystitis, unspecified; R26.9 Unspecified abnormalities of gait and mobility; Z91.14 Patient's other noncompliance with medication regimen; N50.3 Cyst of epididymis; Z87.891 Personal history of nicotine dependence; Z87.01 Personal history of pneumonia (recurrent); F41.0 Panic disorder [episodic paroxysmal anxiety]; N40.0 Benign prostatic hyperplasia without lower urinary tract symptoms; J44.9 Chronic obstructive pulmonary disease, unspecified; N18.3 Chronic kidney disease, stage 3 (moderate); G89.4 Chronic pain syndrome; H35.30 Unspecified macular degeneration; J30.9 Allergic rhinitis, unspecified; I25.10 Atherosclerotic heart disease of native coronary artery without angina pectoris; K21.9 Gastro-esophageal reflux disease without esophagitis; I11.0 Hypertensive heart disease with heart failure; I50.9 Heart failure, unspecified; N30.90 Cystitis, unspecified without hematuria; M19.90 Unspecified osteoarthritis, unspecified site; E53.8 Deficiency of other specified B group vitamins; T45.1X5A Adverse effect of antineoplastic and immunosuppressive drugs, initial encounter; Y92.009 Unspecified place in unspecified non-institutional (private) residence as the place of occurrence of the external cause; K70.10 Alcoholic hepatitis without ascites; F43.10 Post-traumatic stress disorder, unspecified; Z83.3 Family history of diabetes mellitus; Z82.49 Family history of ischemic heart disease and other diseases of the circulatory system
CPT/HCPCS: 36415; 78226; 80048-TC; 80053-TC; 80076-TC; 82150-TC; 82962-TC; 83540-TC; 83690-TC; 83735-TC; 85025-TC; 87081-TC; A4216; A4606; A9537; J1815; J2270; J2543; J2916; J3475; J3490; J7030; J7050; J7060; Z7610

== ENCOUNTER 2018-01-03 16:57 | Inpatient (IN) | payer MEDICARE, MEDICAID ==
[~2018-01-03] VITALS: Ht 177.8 cm; Wt 93.4 kg
--- NOTE | 2018-01-03 17:05 | NUR ---
aaox3, came to er c/o ABDOMINAL PAIN X 5 DAYS, NAUSEA. rr is even and unlabored with nad noted. skin is warm and dry. awaiting md for eval.
--- NOTE | 2018-01-03 17:24 | NUR ---
Dr Baker at for eval.
[2018-01-03 17:35] LABS: BASOPHILS % (AUTO) 0.4 % (0.0-2.0); HEMATOCRIT 32 % (39-51); LYMPHOCYTES # (AUTO) 0.7 /CMM (0.8-4.8); LYMPHOCYTES % (AUTO) 10.9 % (20.0-44.0); MEAN CORPUSCULAR HEMOGLOBIN 28 PG (26.0-33.0); MEAN CORPUSCULAR HGB CONC 34 g/dl (31.0-36.0); MEAN CORPUSCULAR VOLUME 81 fL (80-96); MONOCYTES # (AUTO) 0.5 /CMM (0.1-1.30); MONOCYTES % (AUTO) 7.4 % (2.0-12.0); NEUTROPHILS # (AUTO) 5.5 /CMM (1.8-8.9); NEUTROPHILS % (AUTO) 79.3 % (43.0-81.0); PLATELET COUNT (AUTO) 144 /CMM (150-450); RDW COEFFICIENT OF VARIATION 15.3 (11.5-15.0); RED BLOOD CELL COUNT(AUTO) 3.98 MIL/uL (4.5-6.0); WHITE BLOOD COUNT (AUTO) 6.8 K/uL (4.3-11.0)
[2018-01-03 17:47] LABS: CALCIUM, SERUM 9.1 mg/dL (8.5-10.1); CREATININE 1.2 mg/dL (0.6-1.3); POTASSIUM 3.8 mmol/L (3.5-5.1)
[2018-01-03 17:53] LABS: ALBUMIN 2.9 g/dL (3.4-5.0); BILIRUBIN,DIRECT 0.2 mg/dL (0.0-0.2); BILIRUBIN,TOTAL 0.4 mg/dL (0.2-1.0); TOTAL PROTEIN, SERUM 7.3 g/dL (6.4-8.2)
[2018-01-03 17:54] LABS: APPEARANCE,URINE Clear (CLEAR); BILIRUBIN,URINE Negative (NEGATIVE); BLOOD, URINE Negative Ery/uL (NEGATIVE); COLOR,URINE Yellow (YELLOW); KETONES,URINE Negative (NEGATIVE); LEUKOCYTE ESTERASE ,URINE Negative (NEGATIVE); NITRITE, URINE Negative (NEGATIVE); PH,URINE 8.5 (5.0-8.0); PROTEIN,URINE 100 mg/dl (NEGATIVE); UGLUCOSE Negative (NEGATIVE)
--- NOTE | 2018-01-03 17:58 | NUR ---
PAGED DR WHITLEY.
[2018-01-03 18:04] LABS: RBC,URINE 0-2 /HPF (0-2); WBC,URINE 0-2 /HPF (0-3)
[2018-01-03 18:05] LABS: BACTERIA,URINE None seen /HPF (None Seen); SQUAMOUS EPITHELIAL CELL,UR None Seen /HPF (None Seen)
[2018-01-03] MEDS ORDERED: IV NS 0.9% 1,000 ML BAG IV ONE (18:30)
--- NOTE | 2018-01-03 19:15 | NUR ---
REPORT GIVEN TO VIVIANE KEEN FOR ALYSSA.
--- NOTE | 2018-01-03 20:07 | NUR ---
PT IS NOTED SLIGHTLY ANXIOUS AT THIS TIME. "THIS IV IS NOTHING"
[2018-01-03] MEDS ORDERED: PIPERACILLIN /TAZOBACTAM 3.375 G VIAL IV ONE (20:20)
[2018-01-03] MEDS ORDERED: PIPERACILLIN /TAZOBACTAM 3.375 G in IV D5W 50 ML IV ONE (20:30)
--- NOTE | 2018-01-03 20:49 | NUR ---
CALLED NURSING PRINTED CIRCUIT DESIGNER AND REQUESTED A MED SURG BED FOR THIS PT.
--- NOTE | 2018-01-03 21:04 | NUR ---
PT IS ASSIGNED TO MED SURG RM#: [id number], DX: SEPSIS, AND ACCEPTING: DR WHITLEY.
--- NOTE | 2018-01-03 21:22 | NUR ---
REPRT GIVEN TO ELDER
--- NOTE | 2018-01-03 21:45 | NUR ---
RN MS RECEIVING NOTES RECEIVED PATIENT FROM ER VIA WHEELCHAIR. PATIENT IS ALERT AND ORIENTED X4, VERBALLY RESPONSIVE, ABLE TO MAKE NEEDS KNOWN. NICARAGUAN SPEAKING BUT CAN UNDERSTAND NEPALI. AT BEDSIDE. BREATHING EVEN AND UNLABORED. NO SOB NOTED. NO COMPLAINTS OF PAIN OR DISCOMFORT. IV LINE ON RIGHT HAND #20 INTACT AND PATENT. SKIN DRY AND WARM TO TOUCH. ALL OTHER NEEDS ATTENDED TO. CALL LIGHT WITHIN REACH. BED ON LOWEST LOCKED POSITION. WILL CONTINUE TO MONITOR.
[2018-01-03] MEDS ORDERED: ACETAMINOPHEN W/ CODEINE#3 1 EA TABLET PO SCH (22:30)
[2018-01-03] MEDS ORDERED: ONDANSETRON HCL/PF 4 MG/2 ML VIAL IV PRN (22:30)
[2018-01-03 23:00] VITALS: BP 173/110
[2018-01-03] MEDS ORDERED: DEXTROSE 50%-WATER 50 ML DISP.SYRIN IV PRN (23:00)
[2018-01-04] VITALS: BP 147/86
[2018-01-04] MEDS ORDERED: BLOOD SUGAR DIAGNOSTIC 1 EACH STRIP IN SCH
[2018-01-04] MEDS: BLOOD SUGAR DIAGNOSTIC 1 EACH STRIP IN SCH ×5 (00:15→23:30)
[2018-01-04] MEDS: ACETAMINOPHEN W/ CODEINE#3 1 EA TABLET PO PRN ×2 (00:32→21:41)
--- NOTE | 2018-01-04 00:32 | NUR ---
RN MS NOTES PATIENT REQUESTED FOR PAIN MEDICATION DUE TO 9 HEADACHE AND BACK PAIN. TYLENOL WITH CODEING #3 GIVEN. WILL CONTINUE TO MONITOR.
[2018-01-04] MEDS: LORAZEPAM 1 MG TABLET PO PRN ×2 (00:35→23:25)
[2018-01-04] MEDS ORDERED: PIPERACILLIN /TAZOBACTAM 3.375 G VIAL IV ONE ×2 (01:18→06:02)
[2018-01-04] MEDS: PIPERACILLIN /TAZOBACTAM 3.375 G in IV D5W 50 ML IV SCH ×5 (02:01→23:25)
--- NOTE | 2018-01-04 04:17 | NUR ---
RN MS NOTES PATIENT REQUESTED FOR MORPHINE DUE TO BACK PAIN. INFORMED PATIENT THAT I DO NOT HAVE AN ORDER FROM THE DOCTOR FOR MORPHINE. PER PATIENT, HE'S RECEIVED IT BEFORE WHEN HE WAS ADMITTED HERE AND IT WORKED BETTER FOR HIM. INFORMED PATIENT THAT I WILL CALL DR. WHITLEY TO OBTAIN AN ORDER. ---CALLED DR. WHITLEY, BUT CALL WENT TO VOICEMAIL. LEFT A MESSAGE. WILL CONTINUE TO F/U.
--- NOTE | 2018-01-04 06:02 | NUR ---
RN MS NOTES DR. WHITLEY CALLED BACK WITH ORDERS FOR MORPHINE 2MG IV Q3H PRN - NOTED AND CARRIED OUT.
--- NOTE | 2018-01-04 06:55 | NUR ---
RN MS CLOSING NOTES PATIENT IN BED ASLEEP - EASILY AROUSABLE - NO DISTRESS NOTED. AT BEDSIDE. BREATHING EVEN AND UNLABORED. NO SOB NOTED. NO COMPLAINTS OF PAIN OR DISCOMFORT. IV LINE ON RIGHT HAND #20 INTACT AND PATENT. SKIN DRY AND WARM TO TOUCH. ALL OTHER NEEDS ATTENDED TO. CALL LIGHT WITHIN REACH. BED ON LOWEST LOCKED POSITION. WILL ENDORSE TO ONCOMING NURSE FOR CONTINUITY OF CARE.
[2018-01-04 06:59] LABS: BASOPHILS % (AUTO) 0.2 % (0.0-2.0); EOSINOPHILS % (AUTO) 2.3 % (0.0-6.0); HEMATOCRIT 29 % (39-51); HEMOGLOBIN 9.7 g/dL (13.5-17.5); LYMPHOCYTES # (AUTO) 0.9 /CMM (0.8-4.8); LYMPHOCYTES % (AUTO) 12.5 % (20.0-44.0); MEAN CORPUSCULAR HEMOGLOBIN 28 PG (26.0-33.0); MEAN CORPUSCULAR HGB CONC 33 g/dl (31.0-36.0); MEAN CORPUSCULAR VOLUME 84 fL (80-96); MONOCYTES # (AUTO) 0.5 /CMM (0.1-1.30); MONOCYTES % (AUTO) 7.4 % (2.0-12.0); NEUTROPHILS # (AUTO) 5.4 /CMM (1.8-8.9); NEUTROPHILS % (AUTO) 77.6 % (43.0-81.0); PLATELET COUNT (AUTO) 133 /CMM (150-450); RDW COEFFICIENT OF VARIATION 16.7 (11.5-15.0); RED BLOOD CELL COUNT(AUTO) 3.49 MIL/uL (4.5-6.0)
[2018-01-04 07:05] LABS: CALCIUM, SERUM 8.5 mg/dL (8.5-10.1); CARBON DIOXIDE 27 mmol/L (21-32); CHLORIDE 103 mmol/L (98-107); CREATININE 1.1 mg/dL (0.6-1.3); GLUCOSE 112 mg/dL (74-106); POTASSIUM 3.9 mmol/L (3.5-5.1); SODIUM SERUM 138 mmol/L (136-145); UREA NITROGEN, BLOOD 18 mg/dL (7-18)
[2018-01-04 07:11] LABS: IRON, SERUM 33 ug/dl (50-175); TOTAL IRON BINDING CAPACITY 278 ug/dl (250-450)
[2018-01-04 07:18] LABS: ALANINE AMINOTRANSFERASE 28 U/L (12-78); ALBUMIN 2.7 g/dL (3.4-5.0); ALKALINE PHOSPHATASE 316 U/L (46-116); ASPARTATE AMINOTRANSFERASE 33 U/L (15-37); BILIRUBIN,TOTAL 0.4 mg/dL (0.2-1.0); LIPASE 321 U/L (73-393); MAGNESIUM 1.8 mg/dL (1.8-2.4); TOTAL PROTEIN, SERUM 6.8 g/dL (6.4-8.2)
--- NOTE | 2018-01-04 07:39 | NUR ---
RN OPENING NOTES RECEIVED PATIENT IN BED RESTING, AT BEDSIDE, A/OX3, AMBULATORY. NO ACUTE DISTRESS, NO SOB NOTED. DENIED PAIN AT THE MOMENT. IV SITE INTACT AND PATENT. KEPT PTAIENT SAFE AND COMFORTABLE. BED IN LOW/LOCKED POSITION, SIDERAILS UPX2, CALL LIGHT IN REACH. WILL CONTINUE TO MONIOTR ACCORDINGLY.
[2018-01-04 08:00] VITALS: BP 158/96
[2018-01-04] MEDS: METFORMIN 500 MG TABLET PO SCH ×2 (08:13→16:19)
[2018-01-04] MEDS: CARVEDILOL 6.25 MG TABLET PO SCH ×2 (08:15→17:48)
[2018-01-04] MEDS: ALLOPURINOL 100 MG TABLET PO SCH (08:16)
[2018-01-04] MEDS: PANTOPRAZOLE 40 MG TABLET.DR PO SCH (08:16)
[2018-01-04] MEDS: ENALAPRIL MALEATE (10 MG) 10 MG TABLET PO SCH (08:29)
[2018-01-04] MEDS: AMLODIPINE BESYLATE 10 MG TABLET PO SCH (08:29)
[2018-01-04] MEDS: MORPHINE SULFATE INJ 4 MG/ML DISP.SYRIN IV PRN ×2 (08:32→16:16)
[2018-01-04] MEDS: GEMFIBROZIL 600 MG TABLET PO SCH ×2 (09:10→16:18)
--- NOTE | 2018-01-04 10:27 | NUR ---
DR WHITLEY AT BEDSIDE TALKING TO PATIENT. PER DR WHITLEY, NPO PATIENT FOR 24HR AND START D5NS AT 70ML/HR
[2018-01-04] MEDS ORDERED: IV D5/ 0.9% NACL 1,000 ML IV PRN (10:30)
--- NOTE | 2018-01-04 14:00 | NUR ---
RN NOTES PATIENT WAS ASKING FOR APPLE JUICE. EXPLAINED TO PATIENT THAT HE IS SUPPOSED TO BE NPO PER DR WHITLEY'S ORDER. PATIENT TOLD RN THAT HE SPOKE TO DR WHITLEY, AND THE DR SAID ITS OK TO DRINK APPLE JUICE. VERIFIED BY CALLING DR WHITLEY'S OFFICE, SPOKE WITH DR WHITLEY. PER DR WHITLEY, "OK TO HAVE APPLE JUICE". ORDER VERIFIED READ BACK.
--- NOTE | 2018-01-04 15:12 | NUR ---
RN NOTES PATIENT ON THE PHONE WITH DR WHITLEY, PATIENT REQUESTING IF HE CAN HAVE A BROTH. SPOKE WITH DR WHITLEY, PER MD, "HE CAN HAVE BROTH". ORDERS VERIFIED READ BACK.
[2018-01-04 16:00] VITALS: BP 151/93
[2018-01-04] MEDS: INSULIN REGULAR, HUMAN 100 UNIT/ML 3 ML VIAL SQ PRN ×3 (17:51→23:31)
--- NOTE | 2018-01-04 19:00 | NUR ---
MS RN OPENING NOTE Patient was seen sitting up in bed AAOx4, breathing on RA with no SOB, and no signs of acute distress. is at the bedside. Right hand IV is intact and patent. Patient has been refusing D5NS IV fluids; MD aware. Bed is low/locked, two side rails up, and call grossman within reach. Patient and have no immediate needs or concerns at this time. Will continue to monitor.
--- NOTE | 2018-01-04 19:28 | NUR ---
RN CLOSING NOTES PATIENT IN STABLE CONDITION. ALL NEEDS ATTENDED AND PROVIDED. ALL DUE MEDS GIVEN. KEPT PATIENT SAFE AND COMFORTABLE. AT BEDSIDE. BED IN LOW/LOCKED POSITION, SIDERAILS UPX2, CALL LIGHT IN REACH. ENDORSED TO NIGHT RN FOR ALYSSA.
[2018-01-04 20:00] VITALS: BP 137/73
--- NOTE | 2018-01-04 21:45 | NUR ---
MS RN NOTE - Pain med Patient stated that he was having abdominal pain (s/p pancreatitis), and admitting to eating some bread that his brought him, even though he is ordered a clear liquid diet due to diagnosis. I educated him on the purpose of this diet and the need to avoid solid foods. Patient verbalized understanding. Patient rated pain at 8/10. One PO tab of Tylenol/codeine #3 was given for pain relief as ordered.
[2018-01-04] MEDS ORDERED: ATORVASTATIN 10 MG TABLET PO SCH (22:00)
--- NOTE | 2018-01-04 23:25 | NUR ---
MS RN NOTE - Ativan Patient requested Ativan due to feelings of anxiety and inability to fall asleep. I was in the room with the patient for 15-20 minutes, and he did appear very anxious, restless, and somewhat irritable. Patient is anxious over his current health, but also unhappy and somewhat skeptical of his current treatment plan. I educated and reassured the patient to the best of my ability. 1mg PO Ativan was given per orders. Will continue to monitor.
[2018-01-05] MEDS: MORPHINE SULFATE INJ 4 MG/ML DISP.SYRIN IV PRN (01:14)
--- NOTE | 2018-01-05 01:14 | NUR ---
MS RN NOTE - Morphine Patient still complains of abdominal pain, stating that the PO med he received earlier decreased pain to about 5/10 temporarily, but he states it is now back to 8/10. 2mg IV morphine was given per orders for prn pain relief. Patient remains AAOx4 with stable vital signs. Will continue to monitor.
[2018-01-05] MEDS: PIPERACILLIN /TAZOBACTAM 3.375 G in IV D5W 50 ML IV SCH ×2 (05:32→12:04)
[2018-01-05] MEDS: BLOOD SUGAR DIAGNOSTIC 1 EACH STRIP IN SCH ×2 (06:39→11:39)
[2018-01-05 07:14] LABS: BASOPHILS % (AUTO) 0.5 % (0.0-2.0); EOSINOPHILS % (AUTO) 2.9 % (0.0-6.0); HEMATOCRIT 32 % (39-51); HEMOGLOBIN 10.3 g/dL (13.5-17.5); LYMPHOCYTES # (AUTO) 0.9 /CMM (0.8-4.8); LYMPHOCYTES % (AUTO) 13.2 % (20.0-44.0); MEAN CORPUSCULAR HEMOGLOBIN 28 PG (26.0-33.0); MEAN CORPUSCULAR HGB CONC 33 g/dl (31.0-36.0); MEAN CORPUSCULAR VOLUME 84 fL (80-96); MONOCYTES # (AUTO) 0.5 /CMM (0.1-1.30); MONOCYTES % (AUTO) 6.8 % (2.0-12.0); NEUTROPHILS # (AUTO) 5.3 /CMM (1.8-8.9); NEUTROPHILS % (AUTO) 76.6 % (43.0-81.0); PLATELET COUNT (AUTO) 140 /CMM (150-450); RDW COEFFICIENT OF VARIATION 16.2 (11.5-15.0); RED BLOOD CELL COUNT(AUTO) 3.75 MIL/uL (4.5-6.0); WHITE BLOOD COUNT (AUTO) 6.9 K/uL (4.3-11.0)
--- NOTE | 2018-01-05 07:20 | NUR ---
MS RN CLOSING NOTE Patient is AAOx4, breathing comfortably on RA with no SOB and no signs of acute distress. Patient slept poorly overnight, but had no complications and remains in stable condition. All patient needs have been attended to this shift. Patient care has been endorsed to day shift RN.
--- NOTE | 2018-01-05 07:28 | NUR ---
MS RN OPENING NOTES RECEIVED PATIENT AWAKE IN BED IN NO ACUTE SIGNS OF DISTRESS. A/O X4. ABLE TO MAKE NEEDS KNOWN, DENIES ANY PAIN OR DISCOMFORTS AT THIS TIME. ON ROOM AIR, BREATHING EVEN AND UNLABORED. IV ACCESS ON RIGHT HAND G#20 INTACT AND PATENT, IVF REFUSED TO BE CONNECTED, HE STATED THAT "I'M DRINKING ENOUGH FLUIDS". SKIN DRY AND WARM TO TOUCH. SAFETY MEASURES IN PLACE. CALL LIGHT WITHIN REACH. BED ON LOWEST LOCKED POSITION. WILL CONTINUE TO MONITOR.
[2018-01-05] MEDS: PANTOPRAZOLE 40 MG TABLET.DR PO SCH (07:36)
[2018-01-05 07:42] LABS: ALBUMIN 2.8 g/dL (3.4-5.0); BILIRUBIN,TOTAL 0.6 mg/dL (0.2-1.0); CALCIUM, SERUM 8.9 mg/dL (8.5-10.1); CREATININE 1.2 mg/dL (0.6-1.3); POTASSIUM 3.7 mmol/L (3.5-5.1)
[2018-01-05 08:00] VITALS: BP 150/88
[2018-01-05] MEDS: AMLODIPINE BESYLATE 10 MG TABLET PO SCH (08:28)
[2018-01-05] MEDS: GEMFIBROZIL 600 MG TABLET PO SCH ×2 (08:28→17:00)
[2018-01-05] MEDS: ALLOPURINOL 100 MG TABLET PO SCH (08:28)
[2018-01-05] MEDS: ENALAPRIL MALEATE (10 MG) 10 MG TABLET PO SCH (08:28)
[2018-01-05] MEDS: METFORMIN 500 MG TABLET PO SCH ×2 (08:29→17:00)
[2018-01-05] MEDS: CARVEDILOL 6.25 MG TABLET PO SCH (08:29)
--- NOTE | 2018-01-05 09:26 | NUR ---
RN NOTES DR WHITLEY CAME AND EVALUATED PATIENT WITH ORDER TO CHECK AMYLASE LEVEL TODAY, NPO PRIOR TO U/S OF ABDOMEN AND FULL LIQUID DIETS AFTER U/S. EXPLAINED PROCEDURE TO PT AND VERBALIZED UNDERSTANDING. PT AGREED TO HAVE HIS IVF OF D5NS @ 70ML/HR TO BE CONNECTED. U/S TECH CALLED AND SAID THAT HE WILL COME THIS MORNING. WILL CONTINUE TO MONITOR.
[2018-01-05] MEDS: INSULIN REGULAR, HUMAN 100 UNIT/ML 3 ML VIAL SQ PRN (11:40)
[2018-01-05] MEDS: ACETAMINOPHEN W/ CODEINE#3 1 EA TABLET PO PRN (12:49)
[2018-01-05] MEDS: LORAZEPAM 1 MG TABLET PO PRN (12:50)
--- NOTE | 2018-01-05 12:50 | NUR ---
RN NOTES PATIENT NOTED GRIMACING AND MOANING WITH C/O OF HEADACHE WITH INTENSITY OF 7/10, PRN TYLENOL/CODEINE #3 GIVEN. WILL CONTINUE TO MONITOR
--- NOTE | 2018-01-05 15:35 | NUR ---
RN NOTES CALLED AND REPORTED TO DR WHITLEY THE RESULTS OF PT'S ULTRASOUND AND AMYLASE LEVEL. DR WHITLEY SAID TO DISCHARGE HOME PATIENT WITH ORDER TO CONTINUE ALL HOME MEDS. HE ALSO SAID THAT HE WILL FAX TO PT'S PHARMACY THE ORDER OF HIS PO ANTIBIOTIC LEVAQUIN. PT AND INFORMED OF DR WHITLEY ORDER.
[2018-01-05 16:00] VITALS: BP 137/79
--- NOTE | 2018-01-05 17:00 | NUR ---
RN DISCHARGED NOTES PATIENT DISCHARGED HOME IN STABLE CONDITION. A/O X4, SAME ABLE TO MAKE NEEDS KNOWN WITH NO C/O PAIN VOICED DURING DISCHARGE. V/S TAKEN AND RECORDED. PT REFUSED SKIN CHECK AND VERBALIZED THAT HE HAS NO WOUNDS OR SKIN BREAK. IV ACCESS REMOVED WITH NO BLEEDING NOTED. BELONGINGS CHECKED, COUNTED AND SIGNED FORM. HEALTH TEACHINGS GIVEN TO PT AND , BOTH VERBALIZED UNDERSTANDING. PT LEFT UNIT @ 1650 VIA WHEELCHAIR ON ROOM AIR IN NO ACUTE SIGNS OF DISTRESS ACCOMPANIED BY LOBBY ATTENDANT AND . MD AND CHARGE NURSE AWARE OF DISCHARGE.
== END 2018-01-05 17:00 | disposition home or self-care (01) | DRG 871 ==
LOC: ER 16:58 → MED 21:27
PROVIDERS: ADMIT Family Medicine; ATTEND Family Medicine
DX: A41.9 Sepsis, unspecified organism (principal); K85.90 Acute pancreatitis without necrosis or infection, unspecified; C18.9 Malignant neoplasm of colon, unspecified; C78.7 Secondary malignant neoplasm of liver and intrahepatic bile duct; I13.0 Hypertensive heart and chronic kidney disease with heart failure and stage 1 through stage 4 chronic kidney disease, or unspecified chronic kidney disease; E66.2 Morbid (severe) obesity with alveolar hypoventilation; R18.8 Other ascites; Z86.73 Personal history of transient ischemic attack (TIA), and cerebral infarction without residual deficits; F03.90 Unspecified dementia, unspecified severity, without behavioral disturbance, psychotic disturbance, mood disturbance, and anxiety; H26.9 Unspecified cataract; H35.30 Unspecified macular degeneration; M26.609 Unspecified temporomandibular joint disorder, unspecified side; I25.10 Atherosclerotic heart disease of native coronary artery without angina pectoris; N18.3 Chronic kidney disease, stage 3 (moderate); I50.9 Heart failure, unspecified; J44.9 Chronic obstructive pulmonary disease, unspecified; J45.909 Unspecified asthma, uncomplicated; Z92.21 Personal history of antineoplastic chemotherapy; Z87.891 Personal history of nicotine dependence; Z85.038 Personal history of other malignant neoplasm of large intestine; Z83.3 Family history of diabetes mellitus; Z82.49 Family history of ischemic heart disease and other diseases of the circulatory system; N40.0 Benign prostatic hyperplasia without lower urinary tract symptoms; M81.0 Age-related osteoporosis without current pathological fracture; M06.9 Rheumatoid arthritis, unspecified; K21.9 Gastro-esophageal reflux disease without esophagitis; E11.22 Type 2 diabetes mellitus with diabetic chronic kidney disease; F32.9 Major depressive disorder, single episode, unspecified; F41.9 Anxiety disorder, unspecified; E78.5 Hyperlipidemia, unspecified; D63.8 Anemia in other chronic diseases classified elsewhere; N50.3 Cyst of epididymis; F43.10 Post-traumatic stress disorder, unspecified; M25.552 Pain in left hip; N28.1 Cyst of kidney, acquired; K82.8 Other specified diseases of gallbladder; Z87.01 Personal history of pneumonia (recurrent); Z87.09 Personal history of other diseases of the respiratory system; Z79.899 Other long term (current) drug therapy; Z79.4 Long term (current) use of insulin; M54.40 Lumbago with sciatica, unspecified side; G47.9 Sleep disorder, unspecified; F41.0 Panic disorder [episodic paroxysmal anxiety]; I11.0 Hypertensive heart disease with heart failure; E83.42 Hypomagnesemia; R26.9 Unspecified abnormalities of gait and mobility; Z98.890 Other specified postprocedural states; G89.4 Chronic pain syndrome; N48.89 Other specified disorders of penis
CPT/HCPCS: 36415; 76700-TC; 80048-TC; 80053-TC; 80076-TC; 81000-TC; 82150-TC; 82962-TC; 83540-TC; 83605-TC; 83690-TC; 83735-TC; 85025-TC; 87040-TC; 87081-TC; 87086-TC; A4606; J1815; J2270; J2543; J7030; J7042; J7050; J7060; Z7610

== ENCOUNTER 2018-07-08 19:04 | Inpatient (IN) | payer MEDICARE, MEDICAID ==
[~2018-07-08] VITALS: Ht 172.7 cm; Wt 105.0 kg
[~2018-07-08 19:04] MED LIST changes: -ACET-907 PO; +ACET1TAB23 PO; -ALLO300T2 PO; -AMLO10TA2 PO; +AMLO10TA7 PO; +CLON0.1T PO; +FURO40TA5 PO; -GEMF600T3 PO; -INSU100I4 SQ; +INSU100V7 SQ; +METF-442 PO; -METF10004 PO; +PROP20TA19 PO; +SPIR25TA6 PO
--- NOTE | 2018-07-08 19:30 | NUR ---
PT BIBSELF C/C RT SIDED CP X2 WKS, PENILE PAIN, REDNESS, SWELLING X 2 DAYS. PT AOX4. NAD NOTED. RESP EVEN AND UNLABORED. ABD SWELLING AND SKIN ABRASIONS ON ABD NOTED. PT ON MONITOR IN BED 9 WITH FAMILY WITH AT BEDSIDE. WILL CONTINUE TO MONITOR.
[2018-07-08 19:51] LABS: BASOPHILS % (AUTO) 0.6 % (0.0-2.0); EOSINOPHILS % (AUTO) 1.3 % (0.0-6.0); HEMATOCRIT 36 % (39-51); HEMOGLOBIN 11.5 g/dL (13.5-17.5); LYMPHOCYTES # (AUTO) 0.7 /CMM (0.8-4.8); LYMPHOCYTES % (AUTO) 16.1 % (20.0-44.0); MEAN CORPUSCULAR HGB CONC 32 g/dl (31.0-36.0); MEAN CORPUSCULAR VOLUME 85 fL (80-96); MONOCYTES # (AUTO) 0.5 /CMM (0.1-1.30); MONOCYTES % (AUTO) 11.2 % (2.0-12.0); NEUTROPHILS % (AUTO) 70.8 % (43.0-81.0); PLATELET COUNT (AUTO) 132 /CMM (150-450); RED BLOOD CELL COUNT(AUTO) 4.21 MIL/uL (4.5-6.0); WHITE BLOOD COUNT (AUTO) 4.2 K/uL (4.3-11.0)
[2018-07-08] MEDS ORDERED: PIPERACILLIN /TAZOBACTAM 3.375 G in IV D5W 50 ML IV ONE (20:00)
[2018-07-08 20:03] LABS: CALCIUM, SERUM 8.9 mg/dL (8.5-10.1); CARBON DIOXIDE 26 mmol/L (21-32); CHLORIDE 104 mmol/L (98-107); CREATININE 1.5 mg/dL (0.6-1.3); GLUCOSE 192 mg/dL (74-106); POTASSIUM 4.1 mmol/L (3.5-5.1); SODIUM SERUM 135 mmol/L (136-145); UREA NITROGEN, BLOOD 31 mg/dL (7-18)
[2018-07-08] MEDS ORDERED: PIPERACILLIN /TAZOBACTAM 3.375 G VIAL IV ONE (20:12)
[2018-07-08 20:13] LABS: ALANINE AMINOTRANSFERASE 23 U/L (12-78); ALBUMIN 2.6 g/dL (3.4-5.0); ALKALINE PHOSPHATASE 416 U/L (46-116); ASPARTATE AMINOTRANSFERASE 54 U/L (15-37); BILIRUBIN,DIRECT 0.8 mg/dL (0.0-0.2); BILIRUBIN,TOTAL 1.2 mg/dL (0.2-1.0); TOTAL PROTEIN, SERUM 6.3 g/dL (6.4-8.2)
--- NOTE | 2018-07-08 20:30 | NUR ---
URINE COLLECTED AND SENT TO LAB
[2018-07-08 20:35] LABS: APPEARANCE,URINE Clear (CLEAR); BILIRUBIN,URINE SMALL (NEGATIVE); BLOOD, URINE Negative Ery/uL (NEGATIVE); COLOR,URINE Yellow (YELLOW); KETONES,URINE Negative (NEGATIVE); LEUKOCYTE ESTERASE ,URINE Negative (NEGATIVE); NITRITE, URINE Negative (NEGATIVE); PH,URINE 5.5 (5.0-8.0); PROTEIN,URINE 30 mg/dl (NEGATIVE); UGLUCOSE Negative (NEGATIVE)
[2018-07-08 20:48] LABS: BACTERIA,URINE None seen /HPF (None Seen); RBC,URINE 0-2 /HPF (0-2); SQUAMOUS EPITHELIAL CELL,UR Few /HPF (None Seen); WBC,URINE 0-2 /HPF (0-3)
--- NOTE | 2018-07-08 21:21 | NUR ---
BED 304-2
--- NOTE | 2018-07-08 21:30 | NUR ---
REPORT GIVEN TO VIVIANE EMANUEL FOR ALYSSA
[2018-07-08 21:55] VITALS: BP 128/85
--- NOTE | 2018-07-08 22:49 | NUR ---
PAGED AND SPOKE TO DR. WHITLEY WITH NEW ADMIT ORDERS AND REVIEW ALL HOME MEDICATIONS WITH READ BACK AND VERIFIED ORDERS NOTED AND CARRIED OUT.
--- NOTE | 2018-07-08 22:55 | NUR ---
MS RN NOTES RECEIVE PT FROM E.R AT 2150 VIA [facility] PT A/O X4, RESPIRATIONS EVEN AND UNLABORED. TOLERATING ROOM AIR 98%. NO COMPLAIN OF HEADACHE AND CHEST PAIN, VS STABLE. HEAD TO TOE ASSESSMENT IS DONE. KEPT CLEAN AND DRY AND COMFORT. NURSING CARE. WILL CONT TO MTR.
[2018-07-08] MEDS ORDERED: IV NS 0.9% 1,000 ML BAG IV ONE (23:00)
[2018-07-08] MEDS ORDERED: CLONIDINE HCL 0.1 MG TABLET PO PRN (23:00)
[2018-07-08] MEDS ORDERED: PIPERACILLIN /TAZOBACTAM 3.375 G in IV D5W 50 ML IV SCH (23:00)
[2018-07-08] MEDS ORDERED: DEXTROSE 50%-WATER 50 ML DISP.SYRIN IV PRN (23:00)
[2018-07-08] MEDS ORDERED: VANCOMYCIN 1 GM in IV D5W 250 ML IV SCH (23:00)
[2018-07-08] MEDS ORDERED: VANCOMYCIN 1 GM VIAL ONE (23:33)
--- NOTE | 2018-07-08 23:33 | NUR ---
PAGED AND SPOKE TO DR. WHITLEY RELAYED RECENT LACTIC ACID RESULT OF 2.[address] NO NEW ORDERS. NO IV FLUID CHALLENGE NEEDED I'LL SEE THE PT TOMORROW. READ BACK AND VERIFIED ORDERS NOTED AND CARRIED OUT
[2018-07-09] MEDS ORDERED: VANCOMYCIN 1 GM in IV D5W 250ml IV ONE ×2
--- NOTE | 2018-07-09 | NUR ---
SPOKE TO NIGHT PHARMACIST INSISTED TO CLARIFY PROPRANOLOL HCL WITH MD I TOLD HIM I WILL CLARIFY AT AM PER DR. DAVIS AND REVIEW ALL HOME MEDICATIONS. WILL FF AT AM.
[2018-07-09] MEDS ORDERED: INSULIN GLARGINE, 100 UNIT/ML CARTRIDGE SQ ONE (00:27)
[2018-07-09] MEDS: INSULIN GLARGINE, 100 UNIT/ML CARTRIDGE SQ SCH ×2 (00:32→22:00)
[2018-07-09] MEDS: ACETAMINOPHEN W/ CODEINE#3 1 EA TABLET PO PRN ×3 (02:42→20:21)
[2018-07-09] MEDS ORDERED: PIPERACILLIN /TAZOBACTAM 3.375 G VIAL IV ONE (03:38)
[2018-07-09] MEDS ORDERED: PIPERACILLIN /TAZOBACTAM 3.375 G in IV D5W 50 ML IV ONE (04:00)
[2018-07-09] MEDS: BLOOD SUGAR DIAGNOSTIC 1 EACH STRIP IN SCH ×4 (05:49→22:14)
--- NOTE | 2018-07-09 06:30 | NUR ---
RN CLOSING NOTE ASLEEP AND EASILY AWAKEN. IN NO APPARENT DISTRESS OR DISCOMFORT AT THIS TIME. TOLERATING ROOM AIR 98%, RESPIRATIONS EVEN AND UNLABORED. DENIES PAIN AND SOB AT THIS TIME. PATIENT KEPT CLEAN AND COMFORTABLE. ALL NEEDS ATTENDED. SAFETY MEASURES IN PLACE, BED IN LOW LOCKED POSITION, CALL LIGHT WITHIN EASY REACH. ENDORSE TO NEXT SHIFT CONTINUITY OF CARE.
[2018-07-09 06:33] LABS: BASOPHILS % (AUTO) 1.1 % (0.0-2.0); EOSINOPHILS % (AUTO) 2.3 % (0.0-6.0); HEMATOCRIT 34 % (39-51); HEMOGLOBIN 11.1 g/dL (13.5-17.5); LYMPHOCYTES # (AUTO) 0.7 /CMM (0.8-4.8); LYMPHOCYTES % (AUTO) 16.2 % (20.0-44.0); MEAN CORPUSCULAR HGB CONC 33 g/dl (31.0-36.0); MEAN CORPUSCULAR VOLUME 84 fL (80-96); MONOCYTES # (AUTO) 0.5 /CMM (0.1-1.30); MONOCYTES % (AUTO) 11.8 % (2.0-12.0); NEUTROPHILS # (AUTO) 2.9 /CMM (1.8-8.9); NEUTROPHILS % (AUTO) 68.6 % (43.0-81.0); PLATELET COUNT (AUTO) 122 /CMM (150-450); RED BLOOD CELL COUNT(AUTO) 4.06 MIL/uL (4.5-6.0); WHITE BLOOD COUNT (AUTO) 4.2 K/uL (4.3-11.0)
--- NOTE | 2018-07-09 06:36 | NUR ---
CALLED SPOKE TO DR. WHITLEY CLARIFIED IF HE WANTS ME TO STILL CONT PROPRANOLOL TID PER PHARMACY CANNOT COMBINE WITH CARVEDILOL. PER DR. WHITLEY STOP PROPRANOLOL READ BACK AND VERIFIED ORDERS NOTED AND CARRIED OUT
[2018-07-09 06:41] LABS: CALCIUM, SERUM 8.4 mg/dL (8.5-10.1); CREATININE 1.3 mg/dL (0.6-1.3); MAGNESIUM 1.8 mg/dL (1.8-2.4); POTASSIUM 3.9 mmol/L (3.5-5.1)
[2018-07-09 06:57] VITALS: BP 128/85
--- NOTE | 2018-07-09 07:01 | NUR ---
FLORA AND SPOKE TO DR. WHITLEY RELAYED RECENT LACTIC ACID RESULT OF 2.[address] PH[address]ICIAN CONSULT DR. LOPEZ FARNSWORTH DSE. AND IV NS 0.9% 1 MORE BAG AFTER THE 1 BAG OF NS AT 60 MLS/HR. READ BACK AND VERIFIED ORDERS NOTED AND CARRIED OUT Addendum: 07/09/18 at 0729 by ADELFO WHITMORE RN ORDERED 1 MORE BAG OF 0.9% NS @ 60 ML/HR
--- NOTE | 2018-07-09 07:21 | NUR ---
ENDORSE TO NEXT SHIFT PT SHOULD BE RECEIVING 2000L OF NS AT 60 MLS/HR.
[2018-07-09] MEDS: LORAZEPAM 1 MG TABLET PO PRN ×2 (07:28→22:02)
[2018-07-09] MEDS ORDERED: IV NS 0.9% 1,000 ML BAG IV ONE (07:30)
[2018-07-09] MEDS ORDERED: FEE PK DOSING 1 MIN EA MC ONE (07:37)
[2018-07-09] MEDS: INSULIN REGULAR, HUMAN 100 UNIT/ML 10 ML VIAL SQ SCH ×3 (07:59→16:52)
[2018-07-09 08:00] VITALS: BP 122/80
[2018-07-09] MEDS: FUROSEMIDE 40 MG TABLET PO SCH (08:39)
[2018-07-09] MEDS: CARVEDILOL 3.125 MG TABLET PO SCH ×2 (08:39→18:00)
[2018-07-09] MEDS: SPIRONOLACTONE 25 MG TABLET PO SCH (08:39)
[2018-07-09 08:52] VITALS: BP 122/80
[2018-07-09] MEDS ORDERED: INSULIN REGULAR, HUMAN 100 UNIT/ML 10 ML VIAL SQ SCH (09:00)
[2018-07-09] MEDS ORDERED: PROPRANOLOL HCL 10 MG TABLET PO SCH (09:00)
[2018-07-09] MEDS ORDERED: AMLODIPINE BESYLATE 5 MG TABLET PO SCH (09:00)
[2018-07-09] MEDS ORDERED: CARVEDILOL 3.125 MG TABLET PO SCH (09:00)
--- NOTE | 2018-07-09 09:30 | NUR ---
m/s supervisor electric: notes received verbal order from dr. muñoz to put an order for albumin 25% in a 100 ml ivpb q 8 hours and also send specimen (body fluid paracentesis) to lab for c&s, albumin, specific gravity, and cytology. orders read back and carried out.
[2018-07-09] MEDS: Magnesium 1GM/D5W 100ML PREMIX 100 ML IV SCH ×2 (10:16→11:21)
[2018-07-09] MEDS: ENALAPRIL MALEATE (5 MG) 5 MG TABLET PO SCH (10:30)
[2018-07-09] MEDS: AMLODIPINE BESYLATE 5 MG TABLET PO SCH ×2 (10:30→20:30)
--- NOTE | 2018-07-09 10:30 | NUR ---
m/s radio frequency technician: notes s/p us guided paracentesis with 3 liters removed with yellow colored output, pratima. well. specimen taken to lab for pathology tests.
--- NOTE | 2018-07-09 11:30 | NUR ---
m/s director of teaching and learning: id consult seen and examined by cosme (bekah) at this time.
--- NOTE | 2018-07-09 11:45 | NUR ---
m/s curing press operator: notes order clarified to dr. muñoz re: albumin order per pharmacist and md wants to have albumin 25% ivpb for 2 days. order read back and carried out and acknowledged.
[2018-07-09] MEDS: PIPERACILLIN /TAZOBACTAM 3.375 G in IV D5W 100 ML IV SCH ×2 (12:08→21:42)
--- NOTE | 2018-07-09 13:00 | NUR ---
m/s pan cleaner: notes resting comfortable in bed. no distress noted. call light within reach. at bedside. will continue to monitor.
[2018-07-09] MEDS: VANCOMYCIN 1 GM in IV D5W 250 ML IV SCH (13:06)
[2018-07-09] MEDS ORDERED: FUROSEMIDE 20 MG/2 ML VIAL IV ONE (14:00)
--- NOTE | 2018-07-09 14:40 | NUR ---
m/s alarm adjuster: notes report given to petrona (rn) for continuity of pain.
[2018-07-09] MEDS: ALBUMIN 25% 25 GM in PREMIX 1 EA IV SCH ×2 (15:19→20:06)
[2018-07-09] MEDS: SOD FERRIC GLUC 125 MG in IV NS 0.9% 100 ML IV SCH (16:22)
--- NOTE | 2018-07-09 18:57 | NUR ---
RN CLOSING NOTES PT RESTING IN BED. AT BEDSIDE. ALL INTERVENTIONS CARRIED OUT ORDERED. PT HAS RIGHT FA #22 INTACT, PT ACCIDENTLY REMOVED LAC IV. HELD INSULIN PT BLOOD SUGAR 121. SAFETY PRECAUTIONS IN PLACE, BED IN LOWEST LOCKED POSITION, X2 SIDE RAILS UP AND CALL LIGHT WITHIN REACH WILL ENDORSE TO HEAD OPERATOR NURSE FOR CONTINUITY OF CARE.
--- NOTE | 2018-07-09 19:48 | NUR ---
MS RN NOTES RECEIVED PATIENT AWAKE IN BED WITH NO DISTRESS NOTED. CALL LIGHT WITHIN REACH. AT BEDSIDE. NO C/O PAIN OR DISCOMFORT. PERIPHERAL LINE INTACT AND PATENT. ENCOURAGED USE OF CALL LIGHT FOR ASSISTANCE AND VERBALIZED GOOD UNDERSTANDING. BED IN LOW LOCK SETTING. ROOM FREE OF CLUTTER AND BELONGINGS KEPT NEAR BEDSIDE. WILL CONTINUE TO MONITOR.
[2018-07-09 20:00] VITALS: BP 107/69
[2018-07-09] MEDS: DOCUSATE SODIUM 250 MG CAPSULE PO SCH (22:00)
--- NOTE | 2018-07-09 22:00 | NUR ---
CALL PLACED TO DR. WHITLEY D/T PATIENT'S UNRELIEVED LOWER ABDOMINAL PAIN WITH TYLENOL #3 AND NO BM X3 DAYS. WITH NEW ORDERS FOR MORPHINE 2MG IVP Q3HRS PRN, COLACE 250MG BID, AND AMITIZA 24MG BID. INFORMED MORPHINE OUT OF STOCK AND OK TO GIVE EQUIVALENT DILAUDID 0.25MG WITH SAME FREQUENCY. ALL ORDERS READ BACK, VERIFIED, NOTED AND CARRIED OUT. PATIENT AND MADE AWARE OF NEW MEDICATION REGIMEN AND VERBALIZED GOOD UNDERSTANDING.
[2018-07-10] MEDS: VANCOMYCIN 1 GM in IV D5W 250 ML IV SCH (01:37)
[2018-07-10] MEDS: ALBUMIN 25% 25 GM in PREMIX 1 EA IV SCH ×3 (04:02→20:21)
[2018-07-10] MEDS: PIPERACILLIN /TAZOBACTAM 3.375 G in IV D5W 100 ML IV SCH ×2 (04:55→11:20)
--- NOTE | 2018-07-10 06:25 | NUR ---
MS RN NOTES PATIENT REMAINS ASLEEP IN BED WITH NO DISTRESS NOTED. CALL LIGHT WITHIN REACH. HOB MAINTAINED AT 45 DEGREES. NO FACIAL GRIMACING OR GROANING TO INDICATE PAIN OR DISCOMFORT. PERIPHERAL LINE INTACT AND PATENT. ALL DUE MEDS GIVEN ORDERED WITH NO ASE NOTED. BED IN LOW LOCK SETTNG. ALL BELONGINGS KEPT NEAR BEDSIDE. WILL ENDORSE TO ONCOMING SHIFT.
[2018-07-10] MEDS: BLOOD SUGAR DIAGNOSTIC 1 EACH STRIP IN SCH ×4 (06:32→21:08)
[2018-07-10] MEDS: INSULIN REGULAR, HUMAN 100 UNIT/ML 10 ML VIAL SQ SCH ×3 (06:34→17:30)
--- NOTE | 2018-07-10 06:35 | NUR ---
MS RN NOTES PATIENT REMAINS ASLEEP IN BED WITH NO DISTRESS NOTED. CALL LIGHT WITHIN REACH. AT BEDSIDE. NO FURTHER C/O PAIN OR DISCOMFORT. PERIPHERAL LINE INTACT AND PATENT. PATIENT HS BS 129 AND REFUSED SCHEDULED LANTUS. AM BS 127, REGULAR INSULIN HELD. REST OF DUE MEDS GIVEN ORDERED WITH NO ASE NOTED. BED IN LOW LOCK SETTNG. ROOM FREE OF CLUTTER AND ALL BELONGINGS KEPT NEAR BEDSIDE. WILL ENDORSE TO ONCOMING SHIFT.
[2018-07-10 06:55] LABS: BASOPHILS % (AUTO) 1.3 % (0.0-2.0); HEMATOCRIT 32 % (39-51); HEMOGLOBIN 10.7 g/dL (13.5-17.5); LYMPHOCYTES # (AUTO) 0.5 /CMM (0.8-4.8); LYMPHOCYTES % (AUTO) 16.9 % (20.0-44.0); MEAN CORPUSCULAR HGB CONC 33 g/dl (31.0-36.0); MEAN CORPUSCULAR VOLUME 83 fL (80-96); MONOCYTES # (AUTO) 0.3 /CMM (0.1-1.30); MONOCYTES % (AUTO) 10.6 % (2.0-12.0); NEUTROPHILS # (AUTO) 2.2 /CMM (1.8-8.9); NEUTROPHILS % (AUTO) 69.2 % (43.0-81.0); PLATELET COUNT (AUTO) 102 /CMM (150-450); RED BLOOD CELL COUNT(AUTO) 3.88 MIL/uL (4.5-6.0); WHITE BLOOD COUNT (AUTO) 3.1 K/uL (4.3-11.0)
--- NOTE | 2018-07-10 07:15 | NUR ---
RECEIVED PATIENT AWAKE IN BED WITH NO DISTRESS NOTED. CALL LIGHT WITHIN REACH. AT BEDSIDE. NO C/O PAIN OR DISCOMFORT. PERIPHERAL LINE INTACT AND PATENT. BED IN LOW LOCK SETTING. WILL CONTINUE TO MONITOR.
[2018-07-10 07:17] LABS: ALBUMIN 2.9 g/dL (3.4-5.0); BILIRUBIN,TOTAL 1.9 mg/dL (0.2-1.0); CALCIUM, SERUM 8.3 mg/dL (8.5-10.1); CREATININE 1.6 mg/dL (0.6-1.3); POTASSIUM 4.1 mmol/L (3.5-5.1)
[2018-07-10 08:00] VITALS: BP 113/66
[2018-07-10 08:04] VITALS: BP 113/66
[2018-07-10] MEDS: DOCUSATE SODIUM 250 MG CAPSULE PO SCH ×2 (08:25→17:15)
[2018-07-10] MEDS: FUROSEMIDE 40 MG TABLET PO SCH (08:26)
[2018-07-10] MEDS: SPIRONOLACTONE 25 MG TABLET PO SCH (08:26)
[2018-07-10] MEDS: CARVEDILOL 3.125 MG TABLET PO SCH ×2 (08:26→17:16)
[2018-07-10] MEDS: AMLODIPINE BESYLATE 5 MG TABLET PO SCH (08:27)
[2018-07-10] MEDS: ENALAPRIL MALEATE (5 MG) 5 MG TABLET PO SCH (08:28)
[2018-07-10] MEDS: HYDROMORPHONE 1 MG/1 ML DISP.SYRIN IV PRN ×2 (08:38→18:36)
--- NOTE | 2018-07-10 08:58 | NUR ---
DR. WHITLEY AT THE BED SIDE
[2018-07-10] MEDS: LORAZEPAM 1 MG TABLET PO PRN ×2 (12:50→20:53)
[2018-07-10] MEDS: ACETAMINOPHEN W/ CODEINE#3 1 EA TABLET PO PRN ×2 (12:50→20:35)
[2018-07-10] MEDS: VANCOMYCIN 0.75 GM in IV D5W 250 ML IV SCH (14:17)
[2018-07-10] MEDS: SOD FERRIC GLUC 125 MG in IV NS 0.9% 100 ML IV SCH (15:20)
[2018-07-10 16:00] VITALS: BP 121/60
--- NOTE | 2018-07-10 18:57 | NUR ---
PT IN BED, RESTING . PRN HYDROMORPHONE GIVEN PER REQUEST DUE TO ABD PAIN . NEEDS ATTENDED , ALL DUE MEDS GIVEN. SAFETY PRECAUTIONS IN PLACE. CALL LIGHT WITHIN REACH. AT BEDSIDE. NO C/O PAIN OR DISCOMFORT AT THIS TIME. PERIPHERAL LINE INTACT AND PATENT. BED IN LOW LOCK SETTING. WILL ENDORSE TO NEXT SHIFT FOR ALYSSA.
--- NOTE | 2018-07-10 19:30 | NUR ---
RN MS OPENING NOTES RECEIVED PATIENT IN BED AWAKE, ALERT AND ORIENTED X4, VERBALLY RESPONSIVE, ABLE TO MAKE NEEDS KNOWN. AT BEDSIDE. BREATHING EVEN AND UNLABORED. NO SOB NOTED. TOLERATING ROOM AIR. NO COMPLAINTS OF PAIN OR DISCOMFORT. NO FACIAL GRIMACING. IV ON RIGHT FOREARM INTACT AND PATENT. DRESSING ON ABDOMEN DRY AND INTACT. SKIN DRY AND WARM TO TOUCH. AFEBRILE. ALL OTHER NEEDS ATTENDED TO. SAFETY MEASURES IN PLACE. CALL LIGHT WITHIN REACH. WILL CONTINUE TO MONITOR.
[2018-07-10 20:00] VITALS: BP 114/63
[2018-07-10] MEDS: INSULIN GLARGINE, 100 UNIT/ML CARTRIDGE SQ SCH (21:08)
[2018-07-10] MEDS ORDERED: CEFEPIME 2 GM in IV NS 0.9% 50 ML IV SCH (22:00)
[2018-07-10] MEDS ORDERED: CEFEPIME 1 GM VIAL ONE (23:04)
[2018-07-10] MEDS: CEFEPIME 2 GM in IV NS 0.9% 50 ML IV SCH (23:07)
[2018-07-11] MEDS: HYDROMORPHONE 1 MG/1 ML DISP.SYRIN IV PRN ×4 (01:19→21:23)
[2018-07-11] MEDS: VANCOMYCIN 0.75 GM in IV D5W 250 ML IV SCH ×2 (01:20→12:32)
[2018-07-11 04:30] VITALS: BP 116/74
[2018-07-11] MEDS: BLOOD SUGAR DIAGNOSTIC 1 EACH STRIP IN SCH ×4 (06:32→22:00)
[2018-07-11] MEDS: INSULIN REGULAR, HUMAN 100 UNIT/ML 10 ML VIAL SQ SCH ×3 (06:35→17:39)
--- NOTE | 2018-07-11 06:43 | NUR ---
RN MS CLOSING NOTES PATIENT RESTING IN BED. NO ACUTE CHANGES THROUGHOUT SHIFT. AT BEDSIDE. BREATHING EVEN AND UNLABORED. NO SOB NOTED. TOLERATING ROOM AIR. NO COMPLAINTS OF PAIN OR DISCOMFORT. NO FACIAL GRIMACING. IV ON RIGHT FOREARM INTACT AND PATENT. DRESSING ON ABDOMEN DRY AND INTACT - CHANGED X3 THROUGHOUT THE NIGHT. SKIN DRY AND WARM TO TOUCH. AFEBRILE. ALL OTHER NEEDS ATTENDED TO. SAFETY MEASURES IN PLACE. CALL LIGHT WITHIN REACH. WILL ENDORSE TO ONCOMING NURSE FOR ALYSSA.
[2018-07-11 07:36] LABS: BASOPHILS % (AUTO) 1.2 % (0.0-2.0); EOSINOPHILS % (AUTO) 2.1 % (0.0-6.0); HEMATOCRIT 32 % (39-51); HEMOGLOBIN 10.4 g/dL (13.5-17.5); LYMPHOCYTES # (AUTO) 0.5 /CMM (0.8-4.8); LYMPHOCYTES % (AUTO) 17.4 % (20.0-44.0); MEAN CORPUSCULAR HGB CONC 33 g/dl (31.0-36.0); MEAN CORPUSCULAR VOLUME 84 fL (80-96); MONOCYTES # (AUTO) 0.3 /CMM (0.1-1.30); MONOCYTES % (AUTO) 11.1 % (2.0-12.0); NEUTROPHILS # (AUTO) 2.1 /CMM (1.8-8.9); NEUTROPHILS % (AUTO) 68.2 % (43.0-81.0); PLATELET COUNT (AUTO) 102 /CMM (150-450); RED BLOOD CELL COUNT(AUTO) 3.76 MIL/uL (4.5-6.0)
[2018-07-11 07:48] LABS: ALBUMIN 2.9 g/dL (3.4-5.0); CALCIUM, SERUM 8.6 mg/dL (8.5-10.1); CREATININE 1.4 mg/dL (0.6-1.3)
[2018-07-11 08:00] VITALS: BP 127/69
[2018-07-11] MEDS: DOCUSATE SODIUM 250 MG CAPSULE PO SCH ×2 (08:31→17:37)
[2018-07-11] MEDS: FUROSEMIDE 40 MG TABLET PO SCH (08:31)
[2018-07-11] MEDS: SPIRONOLACTONE 25 MG TABLET PO SCH (08:32)
[2018-07-11] MEDS: CARVEDILOL 3.125 MG TABLET PO SCH ×2 (08:32→17:37)
[2018-07-11] MEDS: ENALAPRIL MALEATE (5 MG) 5 MG TABLET PO SCH (08:33)
[2018-07-11] MEDS: SOD FERRIC GLUC 125 MG in IV NS 0.9% 100 ML IV SCH (14:18)
[2018-07-11 16:00] VITALS: BP 110/68
--- NOTE | 2018-07-11 18:49 | NUR ---
PT IN BED. TOLERATING ROOM AIR WELL. NOT IN DISTRESS, NO COMPLAIN OF PAIN AT THIS TIME. NEEDS ATTENDED AND ANTICIPATED, AT BEDSIDE. SAFETY MEASURES IN PLACE, BED IN LOW LOCKED POSITION, CALL LIGHT WITHIN EASY REACH.WILL ENDORSE TO NEXT SHIFT FOR ALYSSA.
--- NOTE | 2018-07-11 19:00 | NUR ---
RECIEVED ALERT AND ORIENTATED NOTICED HE DIDNT EAT HIS DINNER, STATED NOT HUNGARY. BLOOD SUGAR WAS 127 OFFERED A SMACK DENIED OFFERS AT THE BEDSIDE.
[2018-07-11 20:00] VITALS: BP 131/87
[2018-07-11] MEDS: INSULIN GLARGINE, 100 UNIT/ML CARTRIDGE SQ SCH (22:00)
[2018-07-11] MEDS: CEFEPIME 2 GM in IV NS 0.9% 50 ML IV SCH (22:32)
[2018-07-12] MEDS: VANCOMYCIN 0.75 GM in IV D5W 250 ML IV SCH (00:37)
[2018-07-12] MEDS: LORAZEPAM 1 MG TABLET PO PRN (02:40)
[2018-07-12] MEDS: ACETAMINOPHEN W/ CODEINE#3 1 EA TABLET PO PRN (02:40)
[2018-07-12] MEDS: HYDROMORPHONE 1 MG/1 ML DISP.SYRIN IV PRN ×3 (04:57→13:22)
--- NOTE | 2018-07-12 05:10 | NUR ---
ENDING NOTES: HS BLOOD SUGAR 127 NOTICED NO DINNER EATEN, HE IS NOT HUNGARY. OFFERED A VARIETY OF SNACK "NOT HUNGARY". HE REFUSED HIS ORDERED LANTUS 45 UNITS, HIS IS AT THE BEDSIDE AND UNABLE TO MAKE HIM CHANGE MIND. INFECTION CONSULT CAME TO SEE THE PATIENT SPOKE WITH PATIENT AND HIS . INFECTION CONSULT TALKED HIM INTO LETTING THE NURSE CHANGE IS IV SITE. I TRIED TO TALK HIM IT LETTING ME CHANGE IT 5 TIMES, D/T SITE RED AND HURTS TO BE FLUSCHED. PLACED IN THE RIGHT HAND' ALSO THE DRESSING OVER THE LEAKING ABD SP PARCENTISIS SITE OSTOMY BAG PLACED , AND WORKING. PATIENT AND HAPPY WITH THE OSTOMY BAG. SET UP. MEDICATED X3 LAST NIGHT FOR ABD. PAIN. WHEN I AT FIRST EARLY IN THE [facility] WOULD ENTER HIS ROOM HE WOULD SAY TO ME"YOU KNOW I'M DYING". I RESPONED WITH "NOT NOW AND NOT TODAY" "BE HAPPY'.
[2018-07-12] MEDS: BLOOD SUGAR DIAGNOSTIC 1 EACH STRIP IN SCH ×4 (06:45→17:11)
[2018-07-12] MEDS: INSULIN REGULAR, HUMAN 100 UNIT/ML 10 ML VIAL SQ SCH ×3 (06:49→17:36)
[2018-07-12 07:24] LABS: CALCIUM, SERUM 8.6 mg/dL (8.5-10.1); CREATININE 1.3 mg/dL (0.6-1.3); POTASSIUM 4.2 mmol/L (3.5-5.1)
[2018-07-12 08:00] VITALS: BP 108/62
[2018-07-12] MEDS: CARVEDILOL 3.125 MG TABLET PO SCH ×2 (08:00→17:35)
[2018-07-12 08:33] VITALS: BP 108/62
[2018-07-12] MEDS: DOCUSATE SODIUM 250 MG CAPSULE PO SCH ×2 (09:05→17:35)
[2018-07-12] MEDS: SPIRONOLACTONE 25 MG TABLET PO SCH (09:05)
[2018-07-12] MEDS: FUROSEMIDE 40 MG TABLET PO SCH (09:05)
[2018-07-12] MEDS: ENALAPRIL MALEATE (5 MG) 5 MG TABLET PO SCH (09:05)
--- NOTE | 2018-07-12 10:38 | NUR ---
WOUND CARE CONSULT: PT REFUSED SKIN ASSESSMENT. DISCUSSED SKIN PROTECTION WITH NURSING STAFF. WILL SEE PRN. CURRENT FLAQUITO SCORE IS 21.
[2018-07-12] MEDS ORDERED: Z GUARD REMEDY 2 OZ OINT TP PRN (11:00)
[2018-07-12] MEDS: SOD FERRIC GLUC 125 MG in IV NS 0.9% 100 ML IV SCH (16:03)
[2018-07-12 17:35] VITALS: BP 138/88
--- NOTE | 2018-07-12 18:00 | NUR ---
RECEIVED VERBAL ORDER FROM DR. JUNG FOR D/P TO HOME.
[2018-07-12] MEDS ORDERED: VANCOMYCIN 0.75 GM in IV D5W 250 ML IV SCH (19:00)
--- NOTE | 2018-07-12 19:20 | NUR ---
PATIENT D/C TO HOME, CLEARED BY DR. JUNG. -PATIENT POST PARACENTESIS, VS ARE STABLE , ON ROOM AIR SATURATING 96%. NO DISTRESS , NO COMPLAIN OF PAIN. NEW DRESSING APPLIED TO PARACENTESIS SIDE. PATIENT REFUSED TO TAKE PICTURES. IV ASSESS REMOVED , NO BLEEDING OR REDNESS NOTED. ID WRIST BAND REMOVED. D/C INSTRUCTIONS PROVIDED TO PATIENT AND HIS , BOTH VERBALIZED UNDERSTANDING. VALUABLE FORM SIGHED, ALL BELONGINGS WITH PATIENT. PATIENT SAFELY TRANSFERRED TO A [employer] VIA WHEELCHAIR ACCOMPANIED BY AND OLGA STERN.
[2018-07-13] MEDS ORDERED: CARV6.252 PO (08:38)
[2018-07-13] MEDS ORDERED: INSU100V7 SQ (08:38)
[2018-07-13] MEDS ORDERED: CLON0.1T PO (08:38)
[2018-07-13] MEDS ORDERED: LORA-259 PO (08:38)
[2018-07-13] MEDS ORDERED: METF-442 PO (08:38)
[2018-07-13] MEDS ORDERED: ENAL10TA PO (08:38)
[2018-07-13] MEDS ORDERED: SPIR25TA6 PO (08:38)
[2018-07-13] MEDS ORDERED: FURO40TA5 PO (08:38)
[2018-07-13] MEDS ORDERED: AMLO10TA7 PO (08:38)
== END 2018-07-12 19:30 | disposition home or self-care (01) | DRG 394 ==
LOC: ER 19:11 → TELE 21:41 → MED 23:14
PROVIDERS: ADMIT Family Medicine; ATTEND Family Medicine
PROC: 0W9G3ZZ Drainage of Peritoneal Cavity, Percutaneous Approach (ICD-10-PCS; principal; 2018-07-09)
DX: K63.2 Fistula of intestine (principal); L03.311 Cellulitis of abdominal wall; D61.818 Other pancytopenia; E44.0 Moderate protein-calorie malnutrition; I13.0 Hypertensive heart and chronic kidney disease with heart failure and stage 1 through stage 4 chronic kidney disease, or unspecified chronic kidney disease; I50.32 Chronic diastolic (congestive) heart failure; C18.9 Malignant neoplasm of colon, unspecified; C78.7 Secondary malignant neoplasm of liver and intrahepatic bile duct; E87.2 Acidosis; N17.9 Acute kidney failure, unspecified; E11.9 Type 2 diabetes mellitus without complications; Z91.14 Patient's other noncompliance with medication regimen; Z87.440 Personal history of urinary (tract) infections; Z87.01 Personal history of pneumonia (recurrent); Z87.891 Personal history of nicotine dependence; Z85.038 Personal history of other malignant neoplasm of large intestine; Z85.05 Personal history of malignant neoplasm of liver; Z86.73 Personal history of transient ischemic attack (TIA), and cerebral infarction without residual deficits; Z82.49 Family history of ischemic heart disease and other diseases of the circulatory system; Z83.3 Family history of diabetes mellitus; Z92.21 Personal history of antineoplastic chemotherapy; Z79.899 Other long term (current) drug therapy; Z79.4 Long term (current) use of insulin; M10.9 Gout, unspecified; Z79.84 Long term (current) use of oral hypoglycemic drugs; Z79.83 Long term (current) use of bisphosphonates; F03.90 Unspecified dementia, unspecified severity, without behavioral disturbance, psychotic disturbance, mood disturbance, and anxiety; D63.8 Anemia in other chronic diseases classified elsewhere; E11.22 Type 2 diabetes mellitus with diabetic chronic kidney disease; E11.42 Type 2 diabetes mellitus with diabetic polyneuropathy; E11.36 Type 2 diabetes mellitus with diabetic cataract; M26.609 Unspecified temporomandibular joint disorder, unspecified side; K21.9 Gastro-esophageal reflux disease without esophagitis; J44.9 Chronic obstructive pulmonary disease, unspecified; I25.10 Atherosclerotic heart disease of native coronary artery without angina pectoris; H35.30 Unspecified macular degeneration; N40.0 Benign prostatic hyperplasia without lower urinary tract symptoms; N18.3 Chronic kidney disease, stage 3 (moderate); M81.0 Age-related osteoporosis without current pathological fracture; F43.10 Post-traumatic stress disorder, unspecified; F41.9 Anxiety disorder, unspecified; R26.9 Unspecified abnormalities of gait and mobility; E66.9 Obesity, unspecified; Z68.35 Body mass index [BMI] 35.0-35.9, adult; E78.5 Hyperlipidemia, unspecified; F32.9 Major depressive disorder, single episode, unspecified; F41.0 Panic disorder [episodic paroxysmal anxiety]; G89.29 Other chronic pain; M19.90 Unspecified osteoarthritis, unspecified site; N48.89 Other specified disorders of penis; M54.40 Lumbago with sciatica, unspecified side; K70.11 Alcoholic hepatitis with ascites; N52.9 Male erectile dysfunction, unspecified; E53.8 Deficiency of other specified B group vitamins; K59.00 Constipation, unspecified; M06.9 Rheumatoid arthritis, unspecified; Z87.19 Personal history of other diseases of the digestive system
CPT/HCPCS: 36415; 71045-TC; 76942-TC; 80048-TC; 80053-TC; 80076-TC; 80202-TC; 81000-TC; 82040-TC; 82962-TC; 83540-TC; 83605-TC; 83735-TC; 85025-TC; 85730-TC; 87040-TC; 87070-TC; 87081-TC; 88305-TC; 88312-TC; 88342; A4216; A6253; A6402; A6403; G0378; J0692; J1170; J1815; J1940; J2543; J2916; J3370; J3475; J7030; J7060; P9047

== ENCOUNTER 2018-07-28 14:49 | Emergency (ER) | payer MEDICARE, MEDICAID ==
[~2018-07-28] VITALS: Ht 175.3 cm; Wt 99.3 kg
[~2018-07-28 14:49] MED LIST changes: -ACET1TAB23 PO; -PRAV40TA3 PO; -PROP20TA19 PO
--- NOTE | 2018-07-28 15:22 | NUR ---
PT BIB FOR ABD DISTENTION; PT AAOX4, PT ON MONITOR, VSS, NAD NOTED, MD AT BEDSIDE FOR EVAL
[2018-07-28 16:16] LABS: BASOPHILS # (AUTO) 0.1 /CMM (0.0-0.2); BASOPHILS % (AUTO) 0.9 % (0.0-2.0); EOSINOPHILS % (AUTO) 1.2 % (0.0-6.0); HEMATOCRIT 38 % (39-51); HEMOGLOBIN 12.3 g/dL (13.5-17.5); LYMPHOCYTES # (AUTO) 0.8 /CMM (0.8-4.8); LYMPHOCYTES % (AUTO) 10.7 % (20.0-44.0); MEAN CORPUSCULAR HGB CONC 33 g/dl (31.0-36.0); MEAN CORPUSCULAR VOLUME 88 fL (80-96); MONOCYTES # (AUTO) 0.4 /CMM (0.1-1.30); MONOCYTES % (AUTO) 5.6 % (2.0-12.0); NEUTROPHILS # (AUTO) 6.5 /CMM (1.8-8.9); NEUTROPHILS % (AUTO) 81.6 % (43.0-81.0); PLATELET COUNT (AUTO) 172 /CMM (150-450); RED BLOOD CELL COUNT(AUTO) 4.31 MIL/uL (4.5-6.0); WHITE BLOOD COUNT (AUTO) 7.9 K/uL (4.3-11.0)
[2018-07-28 16:31] LABS: ALBUMIN 2.7 g/dL (3.4-5.0); BILIRUBIN,DIRECT 1.3 mg/dL (0.0-0.2); CALCIUM, SERUM 8.7 mg/dL (8.5-10.1); CREATININE 1.3 mg/dL (0.6-1.3); POTASSIUM 3.9 mmol/L (3.5-5.1); TOTAL PROTEIN, SERUM 6.4 g/dL (6.4-8.2)
--- NOTE | 2018-07-28 17:03 | NUR ---
CALLED , TRANSFERRED CALL TO
[2018-07-28] MEDS ORDERED: ALBUMIN 25% 50 GM in PREMIX 1 EA IV ONE (18:00)
[2018-07-28] MEDS ORDERED: ALBUMIN 25% 12.5 GM/50 ML BOTTLE IV ONE (18:00)
--- NOTE | 2018-07-28 18:49 | NUR ---
Patient discharged to home in stable condition. Written and verbal after care instructions given. Patient verbalizes understanding of instruction. IV removed. Catheter intact and site benign. Pressure and 4x4 applied to site. No bleeding noted.
[2018-07-28 18:50] VITALS: BP 115/65
[2018-07-30 09:37] LABS: MAGNESIUM 1.8 mg/dL (1.8-2.4)
[2018-08-09] MEDS ORDERED: CARV6.252 PO (08:22)
[2018-08-09] MEDS ORDERED: FURO40TA5 PO (08:22)
[2018-08-09] MEDS ORDERED: ENAL10TA PO (08:22)
[2018-08-09] MEDS ORDERED: INSU100V7 SQ (08:22)
[2018-08-09] MEDS ORDERED: METF-442 PO (08:22)
[2018-08-09] MEDS ORDERED: AMLO10TA7 PO (08:22)
== END 2018-07-28 18:51 | disposition home or self-care (01) ==
LOC: ER 15:17
DX: R18.8 Other ascites (principal); C18.9 Malignant neoplasm of colon, unspecified; C78.7 Secondary malignant neoplasm of liver and intrahepatic bile duct; I10 Essential (primary) hypertension; E11.9 Type 2 diabetes mellitus without complications; E78.00 Pure hypercholesterolemia, unspecified; Z98.890 Other specified postprocedural states; Z79.4 Long term (current) use of insulin
CPT/HCPCS: 36415; 49083; 80048; 80076; 82040; 83540; 83690; 83735; 85025; 85610; 85730; 87070; 96365; 99285; A4216; A4606; P9047; 76942-TC

== ENCOUNTER 2018-07-30 22:07 | Emergency (ER) | payer MEDICARE, MEDICAID ==
[~2018-07-30] VITALS: Ht 175.3 cm; Wt 91.2 kg
[~2018-07-30 22:07] MED LIST changes: +ACET1TAB23 PO; +PRAV40TA3 PO; +PROP20TA19 PO
--- NOTE | 2018-07-30 22:21 | NUR ---
BIB W C/O GENERALIZED BODY PAIN, "ER FORGOT TO GIVE ME MEDS WHEN I WAS HERE YESTERDAY". SEEN HERE YESTERDAY FOR ASCITES. TO ER BED 12, HOOKED TO MONITOR, PROVIDED W WARM BLANKET, AWAITING MD CORRAL.
--- NOTE | 2018-07-30 22:40 | NUR ---
TAX REVENUE OFFICER DEGRASSE AT BEDSIDE
[2018-07-30 23:54] LABS: BASOPHILS # (AUTO) 0.1 /CMM (0.0-0.2); EOSINOPHILS % (AUTO) 0.8 % (0.0-6.0); HEMATOCRIT 38 % (39-51); HEMOGLOBIN 12.5 g/dL (13.5-17.5); LYMPHOCYTES % (AUTO) 11.8 % (20.0-44.0); MEAN CORPUSCULAR HGB CONC 33 g/dl (31.0-36.0); MEAN CORPUSCULAR VOLUME 87 fL (80-96); MONOCYTES # (AUTO) 0.9 /CMM (0.1-1.30); MONOCYTES % (AUTO) 10.8 % (2.0-12.0); NEUTROPHILS # (AUTO) 6.3 /CMM (1.8-8.9); NEUTROPHILS % (AUTO) 75.6 % (43.0-81.0); PLATELET COUNT (AUTO) 191 /CMM (150-450); RED BLOOD CELL COUNT(AUTO) 4.35 MIL/uL (4.5-6.0); WHITE BLOOD COUNT (AUTO) 8.4 K/uL (4.3-11.0)
[2018-07-31 00:03] LABS: CALCIUM, SERUM 8.5 mg/dL (8.5-10.1); CREATININE 1.5 mg/dL (0.6-1.3); POTASSIUM 3.5 mmol/L (3.5-5.1)
[2018-07-31 00:09] LABS: ALBUMIN 2.7 g/dL (3.4-5.0); BILIRUBIN,TOTAL 1.1 mg/dL (0.2-1.0); MAGNESIUM 1.9 mg/dL (1.8-2.4); TOTAL PROTEIN, SERUM 6.1 g/dL (6.4-8.2)
--- NOTE | 2018-07-31 00:19 | NUR ---
REPORT GIVE TO GIANCARLO PAN FOR ALYSSA
--- NOTE | 2018-07-31 00:31 | NUR ---
Patient discharged to home in stable condition. Written and verbal after care instructions given. Patient verbalizes understanding of instruction.
[2018-07-31 00:32] VITALS: BP 112/74
[2018-08-09] MEDS ORDERED: INSU100V7 SQ (08:22)
[2018-08-09] MEDS ORDERED: CARV6.252 PO (08:22)
[2018-08-09] MEDS ORDERED: AMLO10TA7 PO (08:22)
[2018-08-09] MEDS ORDERED: ENAL10TA PO (08:22)
[2018-08-09] MEDS ORDERED: FURO40TA5 PO (08:22)
[2018-08-09] MEDS ORDERED: METF-442 PO (08:22)
== END 2018-07-31 00:34 | disposition home or self-care (01) ==
LOC: ER 22:07
DX: C18.9 Malignant neoplasm of colon, unspecified (principal); C78.7 Secondary malignant neoplasm of liver and intrahepatic bile duct; N28.9 Disorder of kidney and ureter, unspecified; R74.0 Nonspecific elevation of levels of transaminase and lactic acid dehydrogenase [LDH]; R18.8 Other ascites; I10 Essential (primary) hypertension; E11.9 Type 2 diabetes mellitus without complications; E78.00 Pure hypercholesterolemia, unspecified; Z98.890 Other specified postprocedural states; Z79.4 Long term (current) use of insulin
CPT/HCPCS: 36415; 80053-TC; 83735-TC; 85025-TC

== ENCOUNTER 2018-08-03 12:22 | Emergency (ER) | payer MEDICARE, MEDICAID ==
[~2018-08-03] VITALS: Ht 177.8 cm; Wt 94.3 kg
[~2018-08-03 12:22] MED LIST changes: -ACET1TAB23 PO; -PRAV40TA3 PO; -PROP20TA19 PO
[2018-08-03 12:35] VITALS: BP 114/71
[2018-08-03 13:01] LABS: BASOPHILS # (AUTO) 0.1 /CMM (0.0-0.2); BASOPHILS % (AUTO) 0.9 % (0.0-2.0); EOSINOPHILS % (AUTO) 1.3 % (0.0-6.0); HEMATOCRIT 39 % (39-51); HEMOGLOBIN 12.6 g/dL (13.5-17.5); LYMPHOCYTES % (AUTO) 14.1 % (20.0-44.0); MEAN CORPUSCULAR HGB CONC 33 g/dl (31.0-36.0); MEAN CORPUSCULAR VOLUME 89 fL (80-96); MONOCYTES # (AUTO) 0.8 /CMM (0.1-1.30); MONOCYTES % (AUTO) 11.1 % (2.0-12.0); NEUTROPHILS # (AUTO) 5.2 /CMM (1.8-8.9); NEUTROPHILS % (AUTO) 72.6 % (43.0-81.0); PLATELET COUNT (AUTO) 174 /CMM (150-450); RED BLOOD CELL COUNT(AUTO) 4.37 MIL/uL (4.5-6.0); WHITE BLOOD COUNT (AUTO) 7.1 K/uL (4.3-11.0)
[2018-08-03 13:10] LABS: CALCIUM, SERUM 8.8 mg/dL (8.5-10.1); CARBON DIOXIDE 20 mmol/L (21-32); CHLORIDE 106 mmol/L (98-107); CREATININE 1.4 mg/dL (0.6-1.3); GLUCOSE 139 mg/dL (74-106); POTASSIUM 4.2 mmol/L (3.5-5.1); SODIUM SERUM 137 mmol/L (136-145); UREA NITROGEN, BLOOD 42 mg/dL (7-18)
[2018-08-03] MEDS: IV NS 0.9% 1,000 ML BAG IV ONE (13:12)
[2018-08-03 13:20] LABS: SERUM AMMONIA 36 umol/L (11-32)
[2018-08-03 13:22] LABS: ALANINE AMINOTRANSFERASE 31 U/L (12-78); ALBUMIN 2.8 g/dL (3.4-5.0); ALKALINE PHOSPHATASE 444 U/L (46-116); ASPARTATE AMINOTRANSFERASE 68 U/L (15-37); BILIRUBIN,DIRECT 1.2 mg/dL (0.0-0.2); LIPASE 119 U/L (73-393); TOTAL PROTEIN, SERUM 6.3 g/dL (6.4-8.2)
[2018-08-03] MEDS ORDERED: FURO40TA5 PO (22:59)
[2018-08-03] MEDS ORDERED: METF-442 PO (22:59)
[2018-08-03] MEDS ORDERED: CARV6.252 PO (22:59)
[2018-08-03] MEDS ORDERED: SPIR25TA6 PO (22:59)
[2018-08-03] MEDS ORDERED: INSU100V7 SQ (22:59)
[2018-08-03] MEDS ORDERED: AMLO10TA7 PO (22:59)
[2018-08-03] MEDS ORDERED: ENAL10TA PO (22:59)
[2018-08-03] MEDS ORDERED: CLON0.1T PO (22:59)
[2018-08-09] MEDS ORDERED: CARV6.252 PO (08:22)
[2018-08-09] MEDS ORDERED: AMLO10TA7 PO (08:22)
[2018-08-09] MEDS ORDERED: METF-442 PO (08:22)
[2018-08-09] MEDS ORDERED: INSU100V7 SQ (08:22)
[2018-08-09] MEDS ORDERED: ENAL10TA PO (08:22)
[2018-08-09] MEDS ORDERED: FURO40TA5 PO (08:22)
== END 2018-08-03 14:03 | disposition home or self-care (01) ==
LOC: ER 12:22
DX: T42.4X1A Poisoning by benzodiazepines, accidental (unintentional), initial encounter (principal); R53.1 Weakness; F41.9 Anxiety disorder, unspecified; E11.9 Type 2 diabetes mellitus without complications; I10 Essential (primary) hypertension; E78.00 Pure hypercholesterolemia, unspecified; Z85.038 Personal history of other malignant neoplasm of large intestine; Z98.890 Other specified postprocedural states; Z79.4 Long term (current) use of insulin; Y92.89 Other specified places as the place of occurrence of the external cause
CPT/HCPCS: 36415; 80048; 80076; 82140; 83690; 84484; 85025; 99283; J7030

== ENCOUNTER 2018-08-03 19:50 | Inpatient (IN) | payer MEDICARE, MEDICAID ==
[~2018-08-03] VITALS: Ht 177.8 cm; Wt 93.0 kg
--- NOTE | 2018-08-03 20:09 | NUR ---
PT PRESENTED TO THE ER WITH A C/O GENERALIZED BODY ACHES AND ANXIETY. PT IS ON THE MONITOR AND CONTINUOUS PULSE OX. PT'S FAMILY IS AT THE BEDSIDE. PT WAS HERE EARLIER AND WAS D/C'D HOME. PT STATED THAT HE STILL DOES NOT FEEL WELL. PT WAS HERE ON July FOR A PARACENTESIS. DR WETS IS AT THE BEDSIDE.
--- NOTE | 2018-08-03 20:35 | NUR ---
CALLED NURSING SUP REQUESTED MED SURG BED
--- NOTE | 2018-08-03 20:40 | NUR ---
DR WEST SPOKE TO PT'S PMD RE: ADMITTING PT.
--- NOTE | 2018-08-03 21:00 | NUR ---
ADMIT TO 352-1 MED SURG DX GEN WEAKNESS, ASCITES ACCEPTING [facility] Addendum: 08/03/18 at 2102 by MONICA 325-1
--- NOTE | 2018-08-03 21:30 | NUR ---
TELERN RECEIVED FROM ER VIA MEL 68 Y/O MALE WITH CC OF DIZZINESS, AND WEAKNESS FEW HOUR INSURANCE TERRITORY MANAGER. STATED WAS JUST DISCHARGED FOR ER THIS AFTERNOON. AT BEDSIDE, VERBALIZES SEVERE GEN PAIN AND HUNGRY. AWAITING FOR FURTHER ORDERS FROM DR. WHITLEY...REFUSED TO USE HOSPITAL GOWN AND REFUSED TO DO BODY CHECK AND ASSESMENT. INSISTED TO HAVE MORPHINE IV. STATED HE IS TOO TIRED AND WANTED MORPHINE. PER STATED JUST LET PATIENT REST. AWARE OF SURROUNDINGS HAS BEEN HOSPITALIZED WITH THE SAME DIAG. ABDOMEN DISTENDED, FIRM. WANTED FLUID REMOVED. AGREED FOR TELE BOX, BUT REFUSED AFTER FEW MINS. SAFETY PRECAUTIONS EMPHASIZED, APPEARS TO UNDERSTAND. TO STAY FOR AWHILE.
[2018-08-03 21:45] VITALS: BP 123/70
[2018-08-03 22:00] VITALS: BP 123/70
[2018-08-03] MEDS ORDERED: CLONIDINE HCL 0.1 MG TABLET PO PRN (22:30)
[2018-08-03] MEDS ORDERED: HYDROCODONE/APAP 5/325MG 1 EACH TABLET PO PRN (22:30)
--- NOTE | 2018-08-03 22:47 | NUR ---
TELERN REFUSED TELE BOX FOR NOW.. STATED IN AN HOUR. STILL REFUSES BODY CHECK.
[2018-08-03] MEDS ORDERED: ENAL10TA PO (22:59)
[2018-08-03] MEDS ORDERED: FURO40TA5 PO (22:59)
[2018-08-03] MEDS ORDERED: SPIR25TA6 PO (22:59)
[2018-08-03] MEDS ORDERED: INSU100V7 SQ (22:59)
[2018-08-03] MEDS ORDERED: METF-442 PO (22:59)
[2018-08-03] MEDS ORDERED: CLON0.1T PO (22:59)
[2018-08-03] MEDS ORDERED: AMLO10TA7 PO (22:59)
[2018-08-03] MEDS ORDERED: CARV6.252 PO (22:59)
--- NOTE | 2018-08-03 23:00 | NUR ---
TELERN SNACKS PROVIDED, ATE 100 %.
[2018-08-03 23:01] LABS: MAGNESIUM 1.9 mg/dL (1.8-2.4)
[2018-08-03] MEDS ORDERED: INSULIN GLARGINE, 100 UNIT/ML CARTRIDGE SQ ONE (23:26)
--- NOTE | 2018-08-03 23:30 | NUR ---
TELERN MONITOR OFF, HAS BEEN GOING TO RESTROOM WITH STANDBY ASSIST. VOIDED HAD BM. STILL REFUSED BODY ASSESSMENT OF THIS TIME. DOES NOT WANT TO BE BOTHERED AND REFUSED TO CHECK V/S FOR MIDNIGHT. STATED WILL CALL IF NEEDED.
[2018-08-03] MEDS: LORAZEPAM 1 MG TABLET PO PRN (23:39)
--- NOTE | 2018-08-03 23:40 | NUR ---
TELERN STATED HE IS VERY NERVOUS, ATIVAN 2MG PO ADMINISTERED. BEDREST FOR NOW. STAYED LATE
[2018-08-03] MEDS: INSULIN GLARGINE, 100 UNIT/ML CARTRIDGE SQ SCH (23:51)
[2018-08-04] VITALS: BP 104/68
[2018-08-04] MEDS ORDERED: Magnesium 1GM/D5W 100ML PREMIX PIGGYBACK IV ONE ×4 (02:00→04:00)
--- NOTE | 2018-08-04 03:00 | NUR ---
TELERN MAG LEVEL WAS 1.9. MAGNESIUM 2 GMS TO GIVE PER PROTOCOL.
[2018-08-04 03:47] VITALS: BP 104/68
[2018-08-04 04:00] VITALS: BP 122/79
--- NOTE | 2018-08-04 04:14 | NUR ---
TELERN VERBALIZES GEN PAIN REFUSED NORCO, STILL WANTS MORPHINE. PER MD NO MORPHINE. WILL SEE PATIENT IN AM.
--- NOTE | 2018-08-04 04:19 | NUR ---
TELERN OOB ON A CHAIR THIS TIME, FEET ELEVATED. FEELS BETTER THIS TIME. STATED WANTED TO GO HOME ONCE ABDOMINAL FLUID REMOVED.
--- NOTE | 2018-08-04 06:15 | NUR ---
TELERN 2ND CALL FOR PMD, DR WHITLEY, NO ORDERS RECEIVED. INFORMED FALL AGAIN, ASKED FOR CT HEAD AND XRAYS, NO ANSWER, LINE CUTT OFF.
[2018-08-04 06:36] LABS: BASOPHILS # (AUTO) 0.1 /CMM (0.0-0.2); BASOPHILS % (AUTO) 0.8 % (0.0-2.0); EOSINOPHILS % (AUTO) 0.8 % (0.0-6.0); HEMATOCRIT 40 % (39-51); HEMOGLOBIN 13.1 g/dL (13.5-17.5); LYMPHOCYTES # (AUTO) 1.1 /CMM (0.8-4.8); LYMPHOCYTES % (AUTO) 14.1 % (20.0-44.0); MEAN CORPUSCULAR HGB CONC 32 g/dl (31.0-36.0); MEAN CORPUSCULAR VOLUME 89 fL (80-96); MONOCYTES # (AUTO) 0.7 /CMM (0.1-1.30); MONOCYTES % (AUTO) 8.8 % (2.0-12.0); NEUTROPHILS # (AUTO) 5.9 /CMM (1.8-8.9); NEUTROPHILS % (AUTO) 75.5 % (43.0-81.0); PLATELET COUNT (AUTO) 188 /CMM (150-450); RED BLOOD CELL COUNT(AUTO) 4.55 MIL/uL (4.5-6.0); WHITE BLOOD COUNT (AUTO) 7.8 K/uL (4.3-11.0)
--- NOTE | 2018-08-04 07:04 | NUR ---
0555 ALARM WENT OFF PT FOUND LYING IN THE FLOOR STATED TRYING TO MOVE HIS CHAIR AND TRYING TO PUT HIS OWN SLIPPERS BUT HE CANNOT REACH IT. PT DENIES HITTING HIS HEAD IN THE FLOOR PER PT "IM OKAY I DIDNT HIT MY HEAD". ASSESSED PATIENT NO ANY BRUISES OR DEFORMITY IN HIS EXTREMITY, NO TRAUMA NO ABRASION. PERRLA, VS STABLE. NO CHANGE LEVEL OF CONSCIOUSNESS, NO BRUISES IN HEAD, NO SLURRED SPEECH ABLE TO MOVE HIS EXTREMITIES FREELY CHECKED FOR HIS LEG ROTATION AND THERE IS NO SIGN OF HIP, PELVIC OR SPINAL PAIN. NO COMPLAIN OF PAIN AND POINTS OF TENDERNESS. 0610 THE NURSING DISK SHARPENER WAS NOTIFIED AFTER THE INCIDENT AND THE PATIENT WAS ASSISTED TO GET BACK TO BED, BED BRAKES ARE ON AND CALL LIGHT WITHIN REACH. 0605 WAS NOTIFIED PT APPRECIATIVE TO NURSES 0614 DR. WHITLEY WAS PAGED SPOKE TO HIM RELAYED INCIDENT NNO.
--- NOTE | 2018-08-04 07:30 | NUR ---
report recieved patient resting in bed with eyes closed. liban vazquez is at the bedside acting as a sitter in an unofficial capacity but will be in the room watching and assisting patient. patient had fallen early this morning and moved to be in room with sitter . bed alarm active. bed down locked sr x2 call light in reach. upon assesment patient appears to have no noticeable injuries to head or arms. scheduled for paracentesis today. no family at the bedside.
[2018-08-04] MEDS ORDERED: AMLODIPINE BESYLATE 10 MG TABLET PO SCH (09:00)
[2018-08-04] MEDS ORDERED: METFORMIN 500 MG TABLET PO SCH (09:00)
[2018-08-04] MEDS ORDERED: ENALAPRIL MALEATE (10 MG) 10 MG TABLET PO SCH (09:00)
[2018-08-04 09:04] LABS: CALCIUM, SERUM 8.8 mg/dL (8.5-10.1); CREATININE 1.4 mg/dL (0.6-1.3); POTASSIUM 4.2 mmol/L (3.5-5.1)
[2018-08-04 09:30] VITALS: BP 138/84
[2018-08-04] MEDS: FUROSEMIDE 40 MG TABLET PO SCH (09:34)
[2018-08-04] MEDS: SPIRONOLACTONE 25 MG TABLET PO SCH (09:34)
[2018-08-04] MEDS: PANTOPRAZOLE 40 MG VIAL IV SCH (09:35)
[2018-08-04] MEDS: CARVEDILOL 6.25 MG TABLET PO SCH ×2 (09:35→17:47)
[2018-08-04] MEDS: LORAZEPAM 1 MG TABLET PO PRN ×2 (12:04→18:03)
[2018-08-04] MEDS: ALBUMIN 25% 25 GM in PREMIX 1 EA IV SCH ×3 (12:15→22:47)
[2018-08-04 15:29] LABS: BILIRUBIN,URINE NEGATIVE (NEGATIVE); BLOOD, URINE NEGATIVE Ery/uL (NEGATIVE); COLOR,URINE YELLOW (YELLOW); KETONES,URINE NEGATIVE (NEGATIVE); LEUKOCYTE ESTERASE ,URINE NEGATIVE (NEGATIVE); NITRITE, URINE NEGATIVE (NEGATIVE); PH,URINE 5.5 (5.0-8.0); PROTEIN,URINE NEGATIVE (NEGATIVE); UGLUCOSE NEGATIVE (NEGATIVE)
[2018-08-04 15:36] LABS: APPEARANCE,URINE SLIGHTLY CLOUDY (CLEAR)
[2018-08-04 15:38] LABS: BACTERIA,URINE None seen /HPF (None Seen); RBC,URINE 0-2 /HPF (0-2); SQUAMOUS EPITHELIAL CELL,UR Rare /HPF (None Seen); WBC,URINE 0-2 /HPF (0-3)
[2018-08-04 17:56] VITALS: BP 101/64
--- NOTE | 2018-08-04 19:30 | NUR ---
bedside report given to pm nurse. patient in bed resting in in apparent distresss. on room air rr of 20. patient is post paracentesis no drainage noted coming form puncture site. at the bedside. patient is close to nursing station. bed alarm on sr x2 bed down and locked.
--- NOTE | 2018-08-04 19:30 | NUR ---
RECEIVED PATIENT IN BED AWAKE. AO X 3, ABLE TO MAKE NEED KNOWN. NO ACUTE DISTRESS NOTED. DENIES ANY PAIN AT THIS TIME. IV SITE PATENT, INTACT; FLUSHED. SAFETY REMINDERS GIVEN. ON LOW BED WITH BILATERAL UPPER SIDE RAILS UP. CALL LERNER WITHIN EASY REACH. WILL CONTINUE TO MONITOR. AT BEDSIDE.
[2018-08-04] MEDS: BLOOD SUGAR DIAGNOSTIC 1 EACH STRIP IN SCH (21:23)
[2018-08-04] MEDS: INSULIN GLARGINE, 100 UNIT/ML CARTRIDGE SQ SCH (21:25)
[2018-08-04 23:00] VITALS: BP 89/52
[2018-08-05] MEDS: LORAZEPAM 1 MG TABLET PO PRN ×3 (02:43→21:59)
[2018-08-05] MEDS: ALBUMIN 25% 25 GM in PREMIX 1 EA IV SCH ×4 (04:21→20:40)
[2018-08-05 05:30] VITALS: BP 98/54
--- NOTE | 2018-08-05 06:10 | NUR ---
PATIENT ASLEEP, EASILY AROUSABLE. RESPIRATIONS EVEN. NO SIGNS OF PAIN NOTED. NO SYMPTOMS OF HYPER/HYPOGLYCEMIA. DUE MEDS GIVEN WITH NO ASE NOTED. NEEDS ATTENDED. SAFETY PRECAUTIONS AND COMFORT MEASURES IN PLACE. WILL GIVE REPORT TO DAY SHIFT FOR CONTINUITY OF CARE.
--- NOTE | 2018-08-05 06:12 | NUR ---
PATIENT ASLEEP, EASILY AROUSABLE. RESPIRATIONS EVEN. NO SIGNS OF PAIN NOTED. DUE MEDS GIVEN WITH NO ASE NOTED. NEEDS ATTENDED. SAFETY PRECAUTIONS AND COMFORT MEASURES IN PLACE. WILL GIVE REPORT TO DAY SHIFT FOR CONTINUITY OF CARE.
[2018-08-05 06:17] LABS: BASOPHILS % (AUTO) 0.7 % (0.0-2.0); EOSINOPHILS % (AUTO) 1.3 % (0.0-6.0); HEMATOCRIT 37 % (39-51); HEMOGLOBIN 12.1 g/dL (13.5-17.5); LYMPHOCYTES # (AUTO) 0.8 /CMM (0.8-4.8); LYMPHOCYTES % (AUTO) 12.2 % (20.0-44.0); MEAN CORPUSCULAR HGB CONC 32 g/dl (31.0-36.0); MEAN CORPUSCULAR VOLUME 89 fL (80-96); MONOCYTES # (AUTO) 0.5 /CMM (0.1-1.30); MONOCYTES % (AUTO) 8.2 % (2.0-12.0); NEUTROPHILS % (AUTO) 77.6 % (43.0-81.0); PLATELET COUNT (AUTO) 156 /CMM (150-450); RED BLOOD CELL COUNT(AUTO) 4.16 MIL/uL (4.5-6.0); WHITE BLOOD COUNT (AUTO) 6.4 K/uL (4.3-11.0)
[2018-08-05 06:22] LABS: ALBUMIN 3.5 g/dL (3.4-5.0); BILIRUBIN,TOTAL 1.9 mg/dL (0.2-1.0); CALCIUM, SERUM 8.8 mg/dL (8.5-10.1); CREATININE 1.3 mg/dL (0.6-1.3); TOTAL PROTEIN, SERUM 6.5 g/dL (6.4-8.2)
--- NOTE | 2018-08-05 07:20 | NUR ---
opening note ms rn Bedside report recieved from Sheri PAN. patient seen in bed resting with eyes closed. bed down locked sr x2. call light within reach in the bed. at the bedside and reviewed poc. questions concerns addressed.
[2018-08-05 08:00] VITALS: BP 121/68
[2018-08-05] MEDS: CARVEDILOL 6.25 MG TABLET PO SCH ×3 (09:00→17:00)
[2018-08-05] MEDS: AMLODIPINE BESYLATE 10 MG TABLET PO SCH (09:00)
[2018-08-05] MEDS: BLOOD SUGAR DIAGNOSTIC 1 EACH STRIP IN SCH ×2 (09:13→20:57)
[2018-08-05] MEDS: SPIRONOLACTONE 25 MG TABLET PO SCH (09:28)
[2018-08-05] MEDS: FUROSEMIDE 40 MG TABLET PO SCH (09:28)
[2018-08-05] MEDS: PANTOPRAZOLE 40 MG VIAL IV SCH (09:54)
[2018-08-05 16:00] VITALS: BP 109/73
[2018-08-05] MEDS ORDERED: PHENYLEPHRINE/SHK LV/MO/PET,WH 30 GM TUBE RC PRN (16:30)
--- NOTE | 2018-08-05 18:46 | NUR ---
PATIENT SEEN IN BED RESTING WITH EYES CLOSED IN NO APPARENT DISTERSS. IV HEPLOCKED. AT THE BEDSIDE. BED DOWN AND ANDREA DIN LOW POSITION CALL LIGHT IS IN REACH.
[2018-08-05] MEDS: ACETAMINOPHEN 325 MG TABLET PO PRN (18:54)
--- NOTE | 2018-08-05 19:30 | NUR ---
RECEIVED PATIENT IN BED AWAKE. AO X 3, ABLE TO MAKE NEED KNOWN. NO ACUTE DISTRESS NOTED. MONITORED FOR PAIN. IV SITE PATENT, INTACT; FLUSHED. SAFETY REMINDERS GIVEN. ON LOW BED WITH BILATERAL UPPER SIDE RAILS UP. CALL LERNER WITHIN EASY REACH. WILL CONTINUE TO MONITOR. AT BEDSIDE.
[2018-08-05 20:00] VITALS: BP 122/76
[2018-08-05] MEDS: INSULIN GLARGINE, 100 UNIT/ML CARTRIDGE SQ SCH (21:40)
--- NOTE | 2018-08-05 21:46 | NUR ---
SPOKE WITH DR. WHITLEY ON THE PHONE. PER DR. WHITLEY, KEEP NORCO Q6H PRN, BUT GIVE NORCO Q6H. PATIENT WAS NOTIFIED OF DR. WHITLEY'S ORDER. PATIENT STRONGLY REFUSED NORCO. NORCO NOT GIVEN.
[2018-08-06] MEDS: ALBUMIN 25% 25 GM in PREMIX 1 EA IV SCH ×4 (03:06→20:58)
[2018-08-06] MEDS: LORAZEPAM 1 MG TABLET PO PRN (04:47)
--- NOTE | 2018-08-06 06:08 | NUR ---
PATIENT AWAKE IN BED. RESPIRATIONS EVEN. NO SIGNS OF PAIN NOTED. NO SYMPTOMS OF HYPER/HYPOGLYCEMIA. DUE MEDS GIVEN WITH NO ASE NOTED. NEEDS ATTENDED. KEPT CLEAN, DRY, AND COMFORTABLE. SAFETY PRECAUTIONS AND COMFORT MEASURES IN PLACE. WILL GIVE REPORT TO DAY SHIFT FOR CONTINUITY OF CARE.
--- NOTE | 2018-08-06 07:15 | NUR ---
PATIENT AWAKE IN BED. RESPIRATIONS EVEN. NO COMPLAIN OF PAIN NOTED AT THIS TIME. SAFETY PRECAUTIONS IN PLACE. AT BEDSIDE. WILL CONTINUE TO MONITOR
[2018-08-06 08:00] VITALS: BP 130/66
[2018-08-06] MEDS: FUROSEMIDE 40 MG TABLET PO SCH (09:00)
[2018-08-06] MEDS: PANTOPRAZOLE 40 MG VIAL IV SCH (09:00)
[2018-08-06] MEDS: BLOOD SUGAR DIAGNOSTIC 1 EACH STRIP IN SCH ×2 (09:00→21:18)
[2018-08-06] MEDS: AMLODIPINE BESYLATE 10 MG TABLET PO SCH (09:00)
[2018-08-06] MEDS: SPIRONOLACTONE 25 MG TABLET PO SCH (09:00)
[2018-08-06] MEDS ORDERED: HYDROMORPHONE INJ 0.5 MG/0.5 ML SYRINGE IV PRN (09:00)
[2018-08-06] MEDS: CARVEDILOL 6.25 MG TABLET PO SCH ×2 (09:00→17:00)
[2018-08-06] MEDS ORDERED: LIDOCAINE HCL/PF 1% 30 ML SDV ONE (09:18)
[2018-08-06 09:44] LABS: BASOPHILS # (AUTO) 0.1 /CMM (0.0-0.2); BASOPHILS % (AUTO) 0.8 % (0.0-2.0); EOSINOPHILS % (AUTO) 0.5 % (0.0-6.0); HEMATOCRIT 40 % (39-51); HEMOGLOBIN 13.1 g/dL (13.5-17.5); LYMPHOCYTES # (AUTO) 1.1 /CMM (0.8-4.8); LYMPHOCYTES % (AUTO) 13.2 % (20.0-44.0); MEAN CORPUSCULAR HGB CONC 33 g/dl (31.0-36.0); MEAN CORPUSCULAR VOLUME 88 fL (80-96); MONOCYTES # (AUTO) 0.9 /CMM (0.1-1.30); MONOCYTES % (AUTO) 10.4 % (2.0-12.0); NEUTROPHILS # (AUTO) 6.3 /CMM (1.8-8.9); NEUTROPHILS % (AUTO) 75.1 % (43.0-81.0); PLATELET COUNT (AUTO) 144 /CMM (150-450); WHITE BLOOD COUNT (AUTO) 8.4 K/uL (4.3-11.0)
[2018-08-06] MEDS: HYDROMORPHONE 1 MG/1 ML DISP.SYRIN IV PRN ×3 (10:22→20:42)
--- NOTE | 2018-08-06 10:30 | NUR ---
PARACENTESIS AT BEDSIDE; OUTPUT [phone] ML.
[2018-08-06 10:38] LABS: BILIRUBIN,TOTAL 2.7 mg/dL (0.2-1.0); CALCIUM, SERUM 9.1 mg/dL (8.5-10.1); CREATININE 1.2 mg/dL (0.6-1.3); POTASSIUM 3.8 mmol/L (3.5-5.1)
--- NOTE | 2018-08-06 14:00 | NUR ---
PATIENT NOTED CONFUSED, BED ALARM ACTIVATED . WILL CONTINUE TO MONITOR
[2018-08-06 16:00] VITALS: BP 96/56
--- NOTE | 2018-08-06 19:11 | NUR ---
PATIENT AWAKE IN BED. RESPIRATIONS EVEN. DUE MEDS GIVEN WITH NO ASE NOTED.PRN MED GIVEN. NEEDS ATTENDED. KEPT CLEAN, DRY, AND COMFORTABLE. SAFETY PRECAUTIONS AND COMFORT MEASURES IN PLACE. WILL ENDORSE TO NEXT SHIFT FOR CONTINUITY OF CARE.
--- NOTE | 2018-08-06 19:30 | NUR ---
MS/RN RECEIVE PATIENT SLEEPING, APPEAR COMFORTABLE, NO SIGNS OF DISTRESS NOTED, CALL LIGHT IN REACH. FAMILY MEMBER AT BEDSIDE. WILL MONITOR.
[2018-08-06 20:00] VITALS: BP 113/70
--- NOTE | 2018-08-06 20:33 | NUR ---
MS/RN PATIENT IS AWAKE AT THIS TIME, COMFORTABLE, NO DISTRESS NOTED.
[2018-08-06] MEDS: INSULIN GLARGINE, 100 UNIT/ML CARTRIDGE SQ SCH (21:25)
[2018-08-07] MEDS: DIAZEPAM 5 MG TABLET PO PRN (02:35)
--- NOTE | 2018-08-07 02:35 | NUR ---
MS/RN PATIENT IS ANXIOUS BECAUSE UNABLE TO GET A GOOD SLEEP, OFFERED ATIVAN PO BUT REFUSED STATING IT DOES NOT HELP, OFFERED VALIUM AND HE AGREED. VALIUM 5 MG PO WAS GIVEN ORDERED. WILL MONITOR.
[2018-08-07] MEDS: ALBUMIN 25% 25 GM in PREMIX 1 EA IV SCH ×3 (03:16→21:50)
--- NOTE | 2018-08-07 06:30 | NUR ---
MS/RN PATIENT IS AWAKE, COMFORTABLE, NO SIGNS OF DISTRESS NOTED, ALL NEEDS ATTENDED AT THIS TIME. WILL CONTINUE TO MONITOR.
--- NOTE | 2018-08-07 07:16 | NUR ---
MS/RN PATIENT WAS SEEN BY DR. WHITLEY. ENDORSED TO NEXT RN FOR CONTINUITY OF CARE.
[2018-08-07 08:00] VITALS: BP 119/70
[2018-08-07] MEDS: BLOOD SUGAR DIAGNOSTIC 1 EACH STRIP IN SCH ×2 (08:44→22:05)
[2018-08-07] MEDS: SPIRONOLACTONE 25 MG TABLET PO SCH (08:45)
[2018-08-07] MEDS: PANTOPRAZOLE 40 MG VIAL IV SCH (08:45)
[2018-08-07] MEDS: CARVEDILOL 6.25 MG TABLET PO SCH ×2 (08:45→17:07)
[2018-08-07] MEDS: AMLODIPINE BESYLATE 10 MG TABLET PO SCH (08:47)
[2018-08-07] MEDS: FUROSEMIDE 40 MG TABLET PO SCH (08:47)
--- NOTE | 2018-08-07 09:57 | NUR ---
PER DR. NUNN PATIENT FULL CODE . NEW ORDER: ALBUMIN 25% IV X2 100ML/HR
[2018-08-07] MEDS: HYDROMORPHONE 1 MG/1 ML DISP.SYRIN IV PRN ×2 (12:06→23:09)
[2018-08-07 15:37] VITALS: BP 99/63
--- NOTE | 2018-08-07 18:26 | NUR ---
PATIENT IS AWAKE, COMFORTABLE, NO SIGNS OF DISTRESS NOTED, ALL NEEDS ATTENDED AND ANTICIPATED. ALL DUE MED ADMINISTRATED. PATIENT KEPT CLEAN AND COMFORTABLE. AT BEDSIDE. WILL ENDORES TO NEXT SHIFT FOR ALYSSA.
--- NOTE | 2018-08-07 19:30 | NUR ---
MS/RN RECEIVE PATIENT AWAKE, ALERT, ORIENTED, COMFORTABLE, NO C/O PAIN, NO DISTRESS NOTED, AT BEDSIDE. WILL MONITOR.
[2018-08-07] MEDS: LORAZEPAM 1 MG TABLET PO PRN (20:06)
--- NOTE | 2018-08-07 20:11 | NUR ---
MS/R PATIENT REQUESTED HIS ATIVAN MEDICATION BECAUSE HE WANTS TO GO SLEEP. ATIVAN 2 MG PO WAS GIVEN ORDERED. WILL MONITOR.
[2018-08-07 20:12] VITALS: BP 110/60
[2018-08-07] MEDS: INSULIN GLARGINE, 100 UNIT/ML CARTRIDGE SQ SCH (22:00)
--- NOTE | 2018-08-07 22:06 | NUR ---
MS/RN ACCU CHECK BLOOD SUGAR 115, LANTUS 55 UNITS NOT GIVEN, REFUSED.
--- NOTE | 2018-08-07 23:51 | NUR ---
MS/RN PATIENT IS SLEEPING AT THIS TIME, AROUSES EASILY, APPEAR COMFORTABLE, NO DISTRESS NOTED, CALL LIGHT IN REACH. WILL CONTINUE TO MONITOR.
--- NOTE | 2018-08-08 02:19 | NUR ---
MS/RN PATIENT IS SLEEPING AT THIS TIME, NO CHANGE IN CONDITION. ENDORSED TO NEXT RN FOR CONTINUITY OF CARE.
--- NOTE | 2018-08-08 02:20 | NUR ---
MS RN NOTES Assumed care of this patient from VIVIANE Foster. Patient comfortably asleep on bed with at bedside. Will continue to monitor accordingly.
[2018-08-08] MEDS: HYDROMORPHONE 1 MG/1 ML DISP.SYRIN IV PRN (05:06)
--- NOTE | 2018-08-08 06:51 | NUR ---
MS RN CLOSING NOTES Patient asleep, no new unusualities noted. remained at bedside. Kept clean, dry and comfortable. Kept bed low and locked, siderails up, call light within easy reach. Endorsed to the next shift.
--- NOTE | 2018-08-08 07:05 | NUR ---
RN NOTES PATIENT IN BED ALERT ORIENTED X 3. NO ACUTE DISTRESS NOTED, BREATHING UNLABORED. NO SOB NOTED. DENIED ANY PAIN. IV ACCESS PATENT AND INTACT, NO REDNESS OR SWELLING NOTED. SAFETY MEASURES IN PLACE. CALL LIGHT WITHIN REACH. WILL CONTINUE TO MONITOR ACCORDINGLY.
[2018-08-08 08:00] VITALS: BP 96/62
[2018-08-08] MEDS: SPIRONOLACTONE 25 MG TABLET PO SCH (09:00)
[2018-08-08] MEDS: CARVEDILOL 6.25 MG TABLET PO SCH ×2 (09:00→17:13)
[2018-08-08] MEDS: AMLODIPINE BESYLATE 10 MG TABLET PO SCH (09:00)
[2018-08-08] MEDS: FUROSEMIDE 40 MG TABLET PO SCH (09:00)
[2018-08-08] MEDS: PANTOPRAZOLE 40 MG VIAL IV SCH (09:54)
[2018-08-08] MEDS: BLOOD SUGAR DIAGNOSTIC 1 EACH STRIP IN SCH ×2 (09:55→21:18)
--- NOTE | 2018-08-08 10:00 | NUR ---
MS RN NOTES SEEN AND EVALUATED BY RADHA MCKEON. HELD BLOOD PRESSURE MEDICATIONS DUE TO DECREASE BLOOD PRESSURE, AWARE.
[2018-08-08] MEDS ORDERED: ZOLPIDEM TARTRATE 10 MG TABLET PO PRN (11:00)
[2018-08-08] MEDS: ALBUMIN 25% 25 GM in PREMIX 1 EA IV SCH ×2 (11:51→22:54)
--- NOTE | 2018-08-08 12:40 | NUR ---
MS RN NOTES UPON DOING ROUNDS SEEN GIVING MEDICATION TO PATIENT, WHEN ASKED WHAT IT IS SAID " IT'S CHEMO SUPPLEMENT AND IM NOT GIVING ANYMORE INFORMATION AND REFUSED TO GIVE MEDICINE CONTAINER". DR WHITLEY MADE AWARE. TEACHING DONE TO PATIENT AND . WILL MONITOR PATIENT.
--- NOTE | 2018-08-08 18:19 | NUR ---
MS RN NOTES PATIENT CALLED YVETTE MCKEON PATIENT VERBALIZING THAT HE'S HAVING SHORTNESS OF BREATH. ASSESSED PATIENT WITH STABLE VITAL SIGNS, NO ACUTE DISTRESS NOTED, NO SOB NOTED, BREATHING UNLABORED, SATURATING 95% ON ROOM AIR. SPOKE WITH YVETTE MCKEON RECEIVED ORDERS FOR EKG AND CHEST XRAY STAT, NOTED AND CARRIED OUT.
--- NOTE | 2018-08-08 19:06 | NUR ---
MS RN NOTES SPOKE WITH YVETTE MCKEON MADE AWARE OF EKG RESULT, PATIENT WITH STABLE VITAL SIGNS AND O2 SATURATION ON 95-96% ON ROOM AIR, NO SOB NOTED, BREATHING UNLABORED. DR WHITLEY WITH NEW ORDERS FOR UA C/S, URINE DRUG SCREEN, ABG STAT, VENTOLIN NEB Q8H, IPRATROPIUM Q8H, MELATONIN 3 MG QHS PRN PATIENT TO PROVIDE MEDICATION. NOTED AND CARRIED OUT.
--- NOTE | 2018-08-08 19:10 | NUR ---
MS RN NOTES PATIENT AND MADE AWARE REGARDING DR WHITLEY NEW ORDERS INCLUDING MELATONIN 3 MG QHS PRN THAT THEY WILL PROVIDE, TO PROVIDE MEDICATION TO BE GIVEN TO THE NURSE AND WILL GIVE TO PHARMACY TO DISPENSE MEDICATION PER PROTOCOL. PATIENT SITTING IN BED, ALERT ORIENTED X 3. NO ACUTE DISTRESS NOTED. BREATHING UNLABORED, NO SOB NOTED. IV ACCESS PATENT AND INTACT, NO REDNESS OR SWELLING NOTED. DUE MEDICATIONS GIVEN, NO ASE NOTED. NEEDS ATTENDED AND ANTICIPATED. KEPT CLEAN DRY AND COMFORTABLE. SAFETY MEASURES IN PLACE. CALL LIGHT WITHIN REACH. ENDORSED TO NIGHT NURSE FOR CONTINUITY OF CARE.
[2018-08-08 20:00] VITALS: BP 112/63
[2018-08-08 20:13] LABS: ABG BASE EXCESS -6.7 mmol/L; ABG OXYGEN SATURATION 95.5 % (92.0-98.5); ABG PCO2 27.2 mmHg (35.0-45.0); ABG PH 7.404 (7.350-7.450); ABG PO2 84.6 mmHg (75.0-100.0); AaDO2 82.9 mmHg; COHb 0.8 % (0.5-1.5); MetHb 0.6 % (0.0-1.5); O2Hb 94.2 % (94.0-97.0); SITE, ABG Right Radial; VENT MODE, BG 2L N/C
[2018-08-08] MEDS: ALBUTEROL FS 2.5 MG/3 ML VIAL.NEB NEB SCH ×2 (20:18→23:10)
--- NOTE | 2018-08-08 20:26 | NUR ---
RN NOTES PATIENT IS ALERT AND ORIENTED X3, SPEAKS ONLY WALLISIAN, NO SOB, NOT IN APPARENT PAIN, SEEN AMBULATING WITH TO THE TOILET, GENERALIZED WEAKNESS, FALL RISK, ABG STAT TAKEN AND RESULTED, AWAITING STAT CHEST XRAY, WILL NOTIFY DR. WHITLEY, REQUESTED URINE SAMPLE FROM PATIENT, NEEDS ATTENDED, CALL LIGHT WITHIN REACH.
[2018-08-08 22:00] VITALS: BP 112/63
--- NOTE | 2018-08-08 22:25 | NUR ---
RN NOTES REPORTED ABG AND CHEST XRAY STAT TO DR. WHITLEY NEW ORDER OF LASIX 10 MG IVP X1 NOW, ORDERS NOTED AND CARRIED OUT.
[2018-08-08] MEDS: INSULIN GLARGINE, 100 UNIT/ML CARTRIDGE SQ SCH (22:28)
[2018-08-08] MEDS ORDERED: FUROSEMIDE 20 MG/2 ML VIAL IV ONE (22:30)
[2018-08-08] MEDS: IPRATROPIUM NEB FS 0.5 MG/2.5 ML AMPUL.NEB NEB SCH (23:10)
[2018-08-09 02:10] LABS: APPEARANCE,URINE CLEAR (CLEAR); BILIRUBIN,URINE 1+ (NEGATIVE); BLOOD, URINE NEGATIVE Ery/uL (NEGATIVE); COLOR,URINE ORANGE (YELLOW); KETONES,URINE NEGATIVE (NEGATIVE); LEUKOCYTE ESTERASE ,URINE TRACE (NEGATIVE); NITRITE, URINE NEGATIVE (NEGATIVE); PROTEIN,URINE TRACE mg/dl (NEGATIVE); UGLUCOSE NEGATIVE (NEGATIVE)
[2018-08-09 02:14] LABS: BACTERIA,URINE Few /HPF (None Seen); RBC,URINE 0-2 /HPF (0-2); SQUAMOUS EPITHELIAL CELL,UR Rare /HPF (None Seen)
[2018-08-09] MEDS: HYDROMORPHONE 1 MG/1 ML DISP.SYRIN IV PRN (03:40)
--- NOTE | 2018-08-09 05:29 | NUR ---
RN NOTES S/P ASSISTED FALL AT 0445 USED CALL LIGHT, RN RUSHED TO ROOM AND FOUND PATIENT LYING ON THE RIGHT SIDE ON THE FLOOR NEAR THE FOOT OF THE BED. PER , WHILE ASSISTING PATIENT TO THE TOILET, PATIENT WAS SO WEAK, UNABLE TO CONTINUE WALKING, AND ASSISTED PATIENT TO LIE DOWN ON THE FLOOR. PER , PATIENT DID NOT HIT HEAD. HELPED PATIENT TO STAND UP AND LIE DOWN ON THE BED. ON PHYSICAL ASSESSMENT, NO HEMATOMA TO RIGHT HIP AND SHOULDER, PATIENT IS WEARING CLOTHES FROM HOME. VS TAKEN 107/69 HR 101 TEMP 97.7F, BG 112. AT 0340, PATIENT WAS GIVEN DILAUDID 0.5 MG IVP FOR GENERALIZED PAIN AND LASIX 10 MG IVP X1 FOR LUNG INFILTRATES, PATIENT HAS URINARY FREQUENCY. PATIENT IS ALERT AND ORIENTED X2, WITH CONFUSION, HX OF COLON CA WITH METS TO LIVER, ETOH HEPATITIS. PER , PATIENT REFUSING URINAL AND INSISTED TO WALK. PATIENT IS COMPULSIVE, FREQUENT GETTING OUT OF BED. DR. WHITLEY NOTIFIED, NEW ORDERS OF XRAY TO RIGHT RIBS, RIGHT HIP, RIGHT SHOULDER. MILLY DOZIER RN DIAGNOSTIC TECHNICIAN IS ALSO NOTIFIED.
[2018-08-09 07:06] LABS: BASOPHILS # (AUTO) 0.1 /CMM (0.0-0.2); BASOPHILS % (AUTO) 0.8 % (0.0-2.0); HEMATOCRIT 39 % (39-51); HEMOGLOBIN 13.1 g/dL (13.5-17.5); LYMPHOCYTES % (AUTO) 15.9 % (20.0-44.0); MEAN CORPUSCULAR HGB CONC 33 g/dl (31.0-36.0); MEAN CORPUSCULAR VOLUME 89 fL (80-96); MONOCYTES # (AUTO) 0.7 /CMM (0.1-1.30); MONOCYTES % (AUTO) 10.2 % (2.0-12.0); NEUTROPHILS # (AUTO) 4.7 /CMM (1.8-8.9); NEUTROPHILS % (AUTO) 72.1 % (43.0-81.0); PLATELET COUNT (AUTO) 156 /CMM (150-450); WHITE BLOOD COUNT (AUTO) 6.5 K/uL (4.3-11.0)
[2018-08-09 07:25] LABS: ALBUMIN 4.3 g/dL (3.4-5.0); BILIRUBIN,TOTAL 3.1 mg/dL (0.2-1.0); CALCIUM, SERUM 9.4 mg/dL (8.5-10.1); CREATININE 1.4 mg/dL (0.6-1.3); POTASSIUM 4.2 mmol/L (3.5-5.1); TOTAL PROTEIN, SERUM 7.3 g/dL (6.4-8.2)
--- NOTE | 2018-08-09 07:37 | NUR ---
RECEIVED PATIENT SLEEPING IN BED, AT BEDSIDE. PATIENTS"S CONFESSED THAT SHE GAVE OWN MEDICATION (ATIVAN) AT NIGHT WITHOUT TELLING NURSE. EDUCATION PROVIDED, RISK FACTORS EXPLAINED: PATIENT VERBALIZED UNDERSTANDING. WILL INFORM DOCTOR AND CHARGE NURSE.
[2018-08-09] MEDS: ALBUTEROL FS 2.5 MG/3 ML VIAL.NEB NEB SCH ×3 (07:45→23:30)
[2018-08-09] MEDS: IPRATROPIUM NEB FS 0.5 MG/2.5 ML AMPUL.NEB NEB SCH ×3 (07:45→23:30)
[2018-08-09 08:00] VITALS: BP 103/67
[2018-08-09] MEDS ORDERED: FURO40TA5 PO (08:22)
[2018-08-09] MEDS ORDERED: ENAL10TA PO (08:22)
[2018-08-09] MEDS ORDERED: METF-442 PO (08:22)
[2018-08-09] MEDS ORDERED: AMLO10TA7 PO (08:22)
[2018-08-09] MEDS ORDERED: INSU100V7 SQ (08:22)
[2018-08-09] MEDS ORDERED: CARV6.252 PO (08:22)
[2018-08-09] MEDS: BLOOD SUGAR DIAGNOSTIC 1 EACH STRIP IN SCH ×2 (09:00→21:00)
[2018-08-09] MEDS: FUROSEMIDE 40 MG TABLET PO SCH (09:00)
[2018-08-09] MEDS: CARVEDILOL 6.25 MG TABLET PO SCH ×2 (09:00→17:41)
[2018-08-09] MEDS: AMLODIPINE BESYLATE 10 MG TABLET PO SCH (09:00)
[2018-08-09] MEDS: PANTOPRAZOLE 40 MG VIAL IV SCH (09:00)
[2018-08-09] MEDS: SPIRONOLACTONE 25 MG TABLET PO SCH (09:00)
--- NOTE | 2018-08-09 10:00 | NUR ---
ORDER FOR D/C AFTER PARACENTETIC .
[2018-08-09] MEDS: ACETAMINOPHEN 325 MG TABLET PO PRN ×2 (10:41→23:13)
--- NOTE | 2018-08-09 11:00 | NUR ---
BODY FLUID OUTPUT AFTER PARACENTETIC 2900ML
--- NOTE | 2018-08-09 12:00 | NUR ---
PATIENT REFUSED TO LEAVE AND ASKING TO STAY ON MORE DAY DUE TO WEAKNESS. DR. HEADLEY AGREED AND WILL SEE PATIENT TOMORROW MORNING
[2018-08-09 16:00] VITALS: BP 125/73
[2018-08-09 16:02] VITALS: BP 125/73
--- NOTE | 2018-08-09 19:18 | NUR ---
RN NOTES RECEIVED PATIENT AWAKE IN BED, IS AT BEDSIDE, PATIENT IS WEAK AND PALE LOOKING, BREATHING EVEN AND NON LABORED, CONFUSED AT TIMES,NEEDS CONSTANT RE DIRECTION AND FREQUENT RE ORIENTATION, NO SIGNS OF ACUTE RESPIRATORY DISTRESS NOTED, ALL SAFETY MEASURES IN PLACED, ASPIRATION PRECAUTION OBSERVED, BED IN LOW LOCKED POSITION, BED ALARM ON, IV ACCESS INTACT AND PATENT, ALL NEEDS ATTENDED WILL CONTINUE TO MONITOR ACCORDINGLY.
--- NOTE | 2018-08-09 19:37 | NUR ---
PATIENT SLEEPING IN BED, AT BEDSIDE.SAFETY PRECAUTIONS IN PLACE. REMAINED TO USE CALL LIGHT EVERY TIME SHE NEEDS HELP;VERBALIZED UNDERSTANDING
[2018-08-09 20:00] VITALS: BP 104/75
[2018-08-09] MEDS: INSULIN GLARGINE, 100 UNIT/ML CARTRIDGE SQ SCH (22:35)
--- NOTE | 2018-08-09 23:13 | NUR ---
RN NOTES TYLENOL 650 MG GIVEN FOR COMPLAINTS OF GENERALIZED PAIN. WILL MONITOR ACCORDINGLY.
[2018-08-10] MEDS: DIAZEPAM 5 MG TABLET PO PRN (00:14)
--- NOTE | 2018-08-10 07:20 | NUR ---
RN NOTES PATIENT IS AWAKE, AT BEDSIDE, ASSISTED PATIENT TO TRANSFER TO WHEELCHAIR DURING EXCHANGE OF SHIFT REPORT. PATIENT IS IN STABLE CONDITION AT THIS TIME, BREATHING EVEN AND NON LABORED, ALL NEEDS ATTENDED AND MET. ENDORSED TO AM NURSE FOR CONTINUITY OF CARE.
--- NOTE | 2018-08-10 07:30 | NUR ---
m/s hip hop artist: initial assessment received pt up in chair, dressed up in street clothes. at bedside. pt for d'c home today. pt and insisting going to cafeteria and will not take no for an answer. educated pt and re: policy, but still adamant. pt also refusing skin assessment. will continue to monitor.
[2018-08-10] MEDS: IPRATROPIUM NEB FS 0.5 MG/2.5 ML AMPUL.NEB NEB SCH (07:35)
[2018-08-10] MEDS: ALBUTEROL FS 2.5 MG/3 ML VIAL.NEB NEB SCH (07:35)
[2018-08-10 08:00] VITALS: BP 113/76
[2018-08-10] MEDS: AMLODIPINE BESYLATE 10 MG TABLET PO SCH (08:09)
[2018-08-10] MEDS: SPIRONOLACTONE 25 MG TABLET PO SCH (08:09)
[2018-08-10 08:10] VITALS: BP 113/76
[2018-08-10] MEDS: CARVEDILOL 6.25 MG TABLET PO SCH (08:10)
[2018-08-10] MEDS: FUROSEMIDE 40 MG TABLET PO SCH (08:10)
[2018-08-10] MEDS: BLOOD SUGAR DIAGNOSTIC 1 EACH STRIP IN SCH (08:21)
--- NOTE | 2018-08-10 09:00 | NUR ---
m/s freight unloader: md visit seen and examined by dr. muñoz and md given discharge instructions to pt and given at bedside and verbalized understanding.
--- NOTE | 2018-08-10 09:20 | NUR ---
m/s manager integrity: notes discharge instructions given to and verbalized understanding. laxmi (case management) came up and brochure given for transportation for this coming appointment with own oncologist as scheduled. h/l removed with tip intact.
--- NOTE | 2018-08-10 09:30 | NUR ---
m/s massage coordinator: notes and pt doesn't want to wait in the room for their knot picker cloth, both wants to stay in the lobby. cn aware. taken pt down to lobby.
--- NOTE | 2018-08-10 10:03 | NUR ---
m/s title manager: notes transportation arrived. assisted pt to the car and seatbelt applied.
--- NOTE | 2018-08-10 10:05 | NUR ---
m/s auto service representative: discharged discharged home in stable condition via private car with all d'c papers and valuables accompanied by and friend.
== END 2018-08-10 10:05 | disposition home health service (06) | DRG 374 ==
LOC: ER 19:54 → MED 21:03 → TELE 22:51 → MED 08-04 10:15
PROVIDERS: ADMIT Family Medicine; ATTEND Family Medicine
PROC: 0W9G3ZX Drainage of Peritoneal Cavity, Percutaneous Approach, Diagnostic (ICD-10-PCS; 2018-08-04)
PROC: 0W9G3ZZ Drainage of Peritoneal Cavity, Percutaneous Approach (ICD-10-PCS; principal; 2018-08-06)
PROC: 0W9G3ZZ Drainage of Peritoneal Cavity, Percutaneous Approach (ICD-10-PCS; 2018-08-09)
DX: C18.9 Malignant neoplasm of colon, unspecified (principal); K65.2 Spontaneous bacterial peritonitis; C78.7 Secondary malignant neoplasm of liver and intrahepatic bile duct; I13.0 Hypertensive heart and chronic kidney disease with heart failure and stage 1 through stage 4 chronic kidney disease, or unspecified chronic kidney disease; I50.32 Chronic diastolic (congestive) heart failure; R18.8 Other ascites; E11.9 Type 2 diabetes mellitus without complications; D64.9 Anemia, unspecified; F41.9 Anxiety disorder, unspecified; I50.9 Heart failure, unspecified; I25.10 Atherosclerotic heart disease of native coronary artery without angina pectoris; I11.0 Hypertensive heart disease with heart failure; E11.22 Type 2 diabetes mellitus with diabetic chronic kidney disease; K74.60 Unspecified cirrhosis of liver; N18.3 Chronic kidney disease, stage 3 (moderate); K21.9 Gastro-esophageal reflux disease without esophagitis; E66.9 Obesity, unspecified; Z68.29 Body mass index [BMI] 29.0-29.9, adult; E78.5 Hyperlipidemia, unspecified; D63.8 Anemia in other chronic diseases classified elsewhere; R26.81 Unsteadiness on feet; N50.3 Cyst of epididymis; F43.10 Post-traumatic stress disorder, unspecified; N40.0 Benign prostatic hyperplasia without lower urinary tract symptoms; M54.5 Low back pain; J44.9 Chronic obstructive pulmonary disease, unspecified; M06.9 Rheumatoid arthritis, unspecified; M10.9 Gout, unspecified; M81.0 Age-related osteoporosis without current pathological fracture; Z92.21 Personal history of antineoplastic chemotherapy; Z87.891 Personal history of nicotine dependence; Z91.14 Patient's other noncompliance with medication regimen; Z86.73 Personal history of transient ischemic attack (TIA), and cerebral infarction without residual deficits; F32.9 Major depressive disorder, single episode, unspecified; F41.0 Panic disorder [episodic paroxysmal anxiety]; Z79.4 Long term (current) use of insulin; Z82.49 Family history of ischemic heart disease and other diseases of the circulatory system; Z83.3 Family history of diabetes mellitus; Z85.038 Personal history of other malignant neoplasm of large intestine; F03.90 Unspecified dementia, unspecified severity, without behavioral disturbance, psychotic disturbance, mood disturbance, and anxiety
CPT/HCPCS: 36415; 36600; 71046; 71100-TC; 71250-TC; 72170-TC; 73030-TC; 73502; 74018; 76942-TC; 80048-TC; 80053-TC; 80305; 81000-TC; 82040-TC; 82728-TC; 82803-TC; 82962-TC; 83540-TC; 83735-TC; 85025-TC; 85610-TC; 85730-TC; 87081-TC; 88305-TC; 88313-TC; 93307-TC; 94799-TC; A4216; C9113; G0378; J1170; J1815; J1940; J3475; J3490; J7050; P9047

== ENCOUNTER 2018-08-19 09:43 | Emergency (ER) | payer MEDICARE, MEDICAID ==
[~2018-08-19] VITALS: Ht 175.3 cm; Wt 84.4 kg
--- NOTE | 2018-08-19 09:51 | NUR ---
BIB FOR ABDOMINAL ASWLLING/ASCITES "SENT BY DR MANZANARES FOR DRAINAGE". TO ER BED 9, HOOKED TO MONITOR, CHANGED TO GOWN, AWAITING MD CORRAL.
[2018-08-19 10:10] LABS: BASOPHILS # (AUTO) 0.1 /CMM (0.0-0.2); BASOPHILS % (AUTO) 1.3 % (0.0-2.0); EOSINOPHILS % (AUTO) 2.1 % (0.0-6.0); HEMATOCRIT 37 % (39-51); LYMPHOCYTES # (AUTO) 0.6 /CMM (0.8-4.8); LYMPHOCYTES % (AUTO) 10.3 % (20.0-44.0); MEAN CORPUSCULAR HGB CONC 33 g/dl (31.0-36.0); MEAN CORPUSCULAR VOLUME 92 fL (80-96); MONOCYTES # (AUTO) 0.2 /CMM (0.1-1.30); NEUTROPHILS % (AUTO) 82.3 % (43.0-81.0); PLATELET COUNT (AUTO) 129 /CMM (150-450); RED BLOOD CELL COUNT(AUTO) 3.98 MIL/uL (4.5-6.0); WHITE BLOOD COUNT (AUTO) 6.1 K/uL (4.3-11.0)
[2018-08-19 10:16] LABS: CALCIUM, SERUM 8.5 mg/dL (8.5-10.1); CREATININE 1.4 mg/dL (0.6-1.3); POTASSIUM 5.2 mmol/L (3.5-5.1)
--- NOTE | 2018-08-19 11:36 | NUR ---
PT MADE AWARE ON NPO PRIOR TO PROCEDURE. PT VERBALIZES UNDERSTANDING OF INSTRUCTION.
--- NOTE | 2018-08-19 13:10 | NUR ---
CALLED DR WHITLEY RE: PT'S VERBAL ORDER FOR ALBUMIN. DR WHITLEY OK'D PT TO EAT NOW AND RECEIVE ALBUMIN 25% IN 100ML IV. VERBAL ORDER WRITTEN DOWN AND DR STEPHENS NOTIFIED.
--- NOTE | 2018-08-19 13:42 | NUR ---
Patient does not wish to proceed with medical care recommended by Dr. STEPHENS. Patient given information related to possible complications, up to and including , which could occur as a result of leaving the hospital at this time. Patient verbalizes understanding of risks involved due to leaving against medical advice. Patient has signed AMA form. PT REFUSED TO WAIT. MEAL TRAY WAS DELIVERED, PT REFUSED THE TRAY. IV removed. Catheter intact and site benign. Pressure and 4x4 applied to site. No bleeding noted. VSS. PT'S DAUGHTER IS DRIVING PT HOME.
[2018-08-19 13:43] VITALS: BP 120/78
--- NOTE | 2018-08-19 16:21 | NUR ---
UNABLE TO PERFORM US GUIDED PARACENTESIS NO RADIOLOGIST ON SITE UNTIL 1430. PATIENT SIGNED AMA
== END 2018-08-19 13:45 | disposition left against medical advice (07) ==
LOC: ER 09:43
DX: R18.8 Other ascites (principal); I10 Essential (primary) hypertension; E11.9 Type 2 diabetes mellitus without complications; F43.10 Post-traumatic stress disorder, unspecified; E78.00 Pure hypercholesterolemia, unspecified; Z85.038 Personal history of other malignant neoplasm of large intestine; Z98.890 Other specified postprocedural states; Z79.4 Long term (current) use of insulin
CPT/HCPCS: 36415; 80048-TC; 85025-TC; 85730-TC

== ENCOUNTER 2018-09-02 15:31 | Emergency (ER) | payer MEDICARE, MEDICAID ==
[~2018-09-02] VITALS: Ht 175.3 cm; Wt 88.5 kg
--- NOTE | 2018-09-02 15:50 | NUR ---
BIB C/O ABDOMINAL PAIN AND DISTENSION, FAMILY STATES WAS SENT BY PMD. PATIENT IN NO DISTRESS AT THIS TIME, KEPT COMFORTABLE, WAITING FOR MD CORRAL.
[2018-09-02 16:13] LABS: BASOPHILS % (AUTO) 0.6 % (0.0-2.0); EOSINOPHILS % (AUTO) 0.8 % (0.0-6.0); HEMATOCRIT 37 % (39-51); HEMOGLOBIN 11.8 g/dL (13.5-17.5); LYMPHOCYTES # (AUTO) 0.8 /CMM (0.8-4.8); LYMPHOCYTES % (AUTO) 15.7 % (20.0-44.0); MEAN CORPUSCULAR HGB CONC 32 g/dl (31.0-36.0); MEAN CORPUSCULAR VOLUME 92 fL (80-96); MONOCYTES # (AUTO) 0.6 /CMM (0.1-1.30); MONOCYTES % (AUTO) 11.9 % (2.0-12.0); NEUTROPHILS # (AUTO) 3.4 /CMM (1.8-8.9); PLATELET COUNT (AUTO) 151 /CMM (150-450); RED BLOOD CELL COUNT(AUTO) 3.95 MIL/uL (4.5-6.0); WHITE BLOOD COUNT (AUTO) 4.8 K/uL (4.3-11.0)
[2018-09-02 16:28] LABS: CALCIUM, SERUM 8.5 mg/dL (8.5-10.1); CREATININE 1.6 mg/dL (0.6-1.3); POTASSIUM 4.4 mmol/L (3.5-5.1)
--- NOTE | 2018-09-02 17:30 | NUR ---
PATIENT COMPLETED US GUIDED PARACENTESIS, 6L OUTPUT. PATIENT A/OX4, NO RESP DISTRESS NOTED, NO SOB NOTED, VSS, AT BEDSIDE, PIV REMOVED AND APPLIED GAUZE AND TAPE. DISCHARGE INSTRUCTIONS PROVIDED AND VERBALIZED UNDERSTANDING, PATIENT DISCHARGED TO HOME.
[2018-09-02 17:33] VITALS: BP 101/71
== END 2018-09-02 17:35 | disposition home or self-care (01) ==
LOC: ER 15:33
DX: R18.8 Other ascites (principal); E11.9 Type 2 diabetes mellitus without complications; F41.9 Anxiety disorder, unspecified; I10 Essential (primary) hypertension; F43.10 Post-traumatic stress disorder, unspecified; E78.00 Pure hypercholesterolemia, unspecified; I45.10 Unspecified right bundle-branch block; Z98.890 Other specified postprocedural states; Z79.4 Long term (current) use of insulin
CPT/HCPCS: 36415; 49083; 71045-TC; 76942-TC; 80048-TC; 85025-TC

== ENCOUNTER 2018-09-05 19:57 | Emergency (ER) | payer MEDICARE, MEDICAID ==
[~2018-09-05] VITALS: Ht 175.3 cm; Wt 84.8 kg
--- NOTE | 2018-09-05 20:10 | NUR ---
PT BIBSELF COMPLAINING OF "DIZZINESS FROM TAKING 5 OXYCODONES THIS MORNING." PT AXO4. RESPIRATIONS EVEN AND UNLABORED. PT PUT ON THE SURVEYOR HYDROGRAPHIC AND PULSE OX. PENDING EVAL FROM ER .
[2018-09-05] MEDS ORDERED: IV NS 0.9% 500 ML BAG IV ONE (20:30)
--- NOTE | 2018-09-05 20:50 | NUR ---
PT REFUSING LABS, EKG, AND SALINE LOCK.
--- NOTE | 2018-09-05 21:10 | NUR ---
SERGEY SEPULVEDA AT BEDSIDE.
--- NOTE | 2018-09-05 21:35 | NUR ---
Patient discharged to home in stable condition. Written and verbal after care instructions given. Patient verbalizes understanding of instruction.
[2018-09-05 21:36] VITALS: BP 101/69
== END 2018-09-05 21:37 | disposition home or self-care (01) ==
LOC: ER 19:58
DX: R18.8 Other ascites (principal); I10 Essential (primary) hypertension; E11.9 Type 2 diabetes mellitus without complications; I45.10 Unspecified right bundle-branch block; F43.10 Post-traumatic stress disorder, unspecified; E78.00 Pure hypercholesterolemia, unspecified; Z98.890 Other specified postprocedural states; Z85.038 Personal history of other malignant neoplasm of large intestine; Z79.4 Long term (current) use of insulin

== ENCOUNTER 2018-09-07 13:49 | Emergency (ER) | payer MEDICARE, MEDICAID ==
[~2018-09-07] VITALS: Ht 175.3 cm; Wt 86.6 kg
--- NOTE | 2018-09-07 15:00 | NUR ---
PT SIGNED CONSENT FOR US GUIDED PARACENTESIS.
[2018-09-07] MEDS ORDERED: ALBUMIN 25% 12.5 GM/50 ML BOTTLE IV ONE (17:00)
[2018-09-07] MEDS ORDERED: ALBUMIN 25% 50 ML IV ONE (17:15)
--- NOTE | 2018-09-07 17:29 | NUR ---
IV ACCESS ESTABLISED LEFT WRIST 22G
[2018-09-07 17:45] VITALS: BP 114/71
[2018-09-07 17:59] LABS: APPEARANCE,URINE Clear (CLEAR); BILIRUBIN,URINE Negative (NEGATIVE); BLOOD, URINE Trace-intact Ery/uL (NEGATIVE); COLOR,URINE Yellow (YELLOW); KETONES,URINE Negative (NEGATIVE); LEUKOCYTE ESTERASE ,URINE Negative (NEGATIVE); NITRITE, URINE Negative (NEGATIVE); PROTEIN,URINE 30 mg/dl (NEGATIVE); UGLUCOSE Negative (NEGATIVE)
[2018-09-07 18:38] LABS: BACTERIA,URINE None seen /HPF (None Seen); SQUAMOUS EPITHELIAL CELL,UR Few /HPF (None Seen)
== END 2018-09-07 18:10 | disposition home or self-care (01) ==
LOC: ER 13:49
DX: R18.8 Other ascites (principal); C18.9 Malignant neoplasm of colon, unspecified; C78.7 Secondary malignant neoplasm of liver and intrahepatic bile duct; E11.9 Type 2 diabetes mellitus without complications; I10 Essential (primary) hypertension; M10.9 Gout, unspecified; F43.10 Post-traumatic stress disorder, unspecified; Z98.890 Other specified postprocedural states; Z79.4 Long term (current) use of insulin; Z79.899 Other long term (current) drug therapy; Z79.84 Long term (current) use of oral hypoglycemic drugs
CPT/HCPCS: 49083; 81001; 96374; 99285; P9047; 76942-TC; 81000-TC

== ENCOUNTER 2018-09-15 21:24 | Emergency (ER) | payer MEDICARE, MEDICAID ==
[~2018-09-15] VITALS: Ht 170.2 cm; Wt 68.0 kg
--- NOTE | 2018-09-15 22:41 | NUR ---
PT BIBWIFE C/O ABDOMINAL DISTENTION. PT AAOX4. RESPIRATIONS EVEN AND UNLABORED. SKIN WARM AND INTACT. NO ACUTE DISTRESS NOTED AT THIS TIME
[2018-09-15] MEDS ORDERED: ONDANSETRON HCL/PF 4 MG/2 ML VIAL IVP ONE (23:00)
[2018-09-15] MEDS ORDERED: MORPHINE SULFATE INJ 2 MG/ML DISP.SYRIN IV ONE (23:00)
[2018-09-15] MEDS ORDERED: MORPHINE SULFATE INJ 2 MG/ML DISP.SYRIN ONE (23:21)
[2018-09-15] MEDS ORDERED: ONDANSETRON HCL/PF 4 MG/2 ML VIAL ONE (23:21)
[2018-09-15 23:38] LABS: CALCIUM, SERUM 8.6 mg/dL (8.5-10.1); CARBON DIOXIDE 22 mmol/L (21-32); CHLORIDE 109 mmol/L (98-107); CREATININE 2.4 mg/dL (0.6-1.3); GLUCOSE 94 mg/dL (74-106); POTASSIUM 4.5 mmol/L (3.5-5.1); SODIUM SERUM 141 mmol/L (136-145); UREA NITROGEN, BLOOD 72 mg/dL (7-18)
[2018-09-15 23:44] LABS: ALANINE AMINOTRANSFERASE 38 U/L (12-78); ALBUMIN 2.6 g/dL (3.4-5.0); ALKALINE PHOSPHATASE 520 U/L (46-116); ASPARTATE AMINOTRANSFERASE 149 U/L (15-37); BILIRUBIN,DIRECT 0.4 mg/dL (0.0-0.2); BILIRUBIN,TOTAL 1.1 mg/dL (0.2-1.0); LIPASE 115 U/L (73-393); TOTAL PROTEIN, SERUM 6.3 g/dL (6.4-8.2)
--- NOTE | 2018-09-15 23:46 | NUR ---
Patient does not wish to proceed with medical care recommended by Dr. SARAVIA. Patient given information related to possible complications, up to and including , which could occur as a result of leaving the hospital at this time. Patient verbalizes understanding of risks involved due to leaving against medical advice. PT IS WAITING FOR BLOOD RESULTS PRIOR TO LEAVING.
[2018-09-16 00:03] VITALS: BP 132/85
[2018-09-16 00:08] LABS: SERUM AMMONIA 23 umol/L (11-32)
== END 2018-09-16 00:03 | disposition left against medical advice (07) ==
LOC: ER 21:25
DX: R18.8 Other ascites (principal); C18.9 Malignant neoplasm of colon, unspecified; C78.7 Secondary malignant neoplasm of liver and intrahepatic bile duct; R94.31 Abnormal electrocardiogram [ECG] [EKG]; I10 Essential (primary) hypertension; E11.9 Type 2 diabetes mellitus without complications; F43.10 Post-traumatic stress disorder, unspecified; E78.00 Pure hypercholesterolemia, unspecified; I45.10 Unspecified right bundle-branch block; Z98.890 Other specified postprocedural states; Z79.4 Long term (current) use of insulin
CPT/HCPCS: 36415; 80048-TC; 80076-TC; 82140-TC; 83605-TC; 83690-TC; 85730-TC; 87040-TC; J2270; J2405

== ENCOUNTER 2018-09-16 10:16 | Outpatient (CLI) | payer MEDICARE, MEDICAID | END 2018-09-16 23:59 | disposition home or self-care (01) | LOC: US 10:16 | PROVIDERS: ATTEND Family Medicine | DX: R18.8 Other ascites (principal) | CPT/HCPCS: 36415; 76942-TC; 82040-TC; 87070-TC; 88112-TC; 88305-TC; 88312-TC ==

== ENCOUNTER 2018-09-27 08:39 | Outpatient (CLI) | payer MEDICARE, MEDICAID | END 2018-09-27 23:59 | disposition home or self-care (01) | LOC: US 08:39 | PROVIDERS: ATTEND Family Medicine | DX: R18.8 Other ascites (principal) | CPT/HCPCS: 76942-TC ==

== ENCOUNTER 2018-10-09 08:54 | Inpatient (IN) | payer MEDICARE, MEDICAID ==
[~2018-10-09] VITALS: Ht 175.3 cm; Wt 83.5 kg
--- NOTE | 2018-10-09 09:11 | NUR ---
PT REC'D TO ER VIA EMS LIVES AT HOME WITH WAS HERE 10/05/18 PRT FELL TODAY HAS C/O WAKNESS IV STRTED RT WRIST 20G LABS DRAWNSENT TO LAB . ABD LARGE GET TAPPED FOR FLUIDS TATE PEDAL EDMEA NOTED AWAITING EVALUATION BY ER PROVIDER.
[2018-10-09 09:29] LABS: BASOPHILS # (AUTO) 0.1 /CMM (0.0-0.2); BASOPHILS % (AUTO) 1.1 % (0.0-2.0); EOSINOPHILS % (AUTO) 0.2 % (0.0-6.0); HEMATOCRIT 34 % (39-51); HEMOGLOBIN 11.2 g/dL (13.5-17.5); LYMPHOCYTES # (AUTO) 0.8 /CMM (0.8-4.8); MEAN CORPUSCULAR HGB CONC 34 g/dl (31.0-36.0); MEAN CORPUSCULAR VOLUME 96 fL (80-96); MONOCYTES # (AUTO) 0.5 /CMM (0.1-1.30); MONOCYTES % (AUTO) 5.3 % (2.0-12.0); NEUTROPHILS # (AUTO) 8.6 /CMM (1.8-8.9); NEUTROPHILS % (AUTO) 85.4 % (43.0-81.0); PLATELET COUNT (AUTO) 265 /CMM (150-450); RED BLOOD CELL COUNT(AUTO) 3.51 MIL/uL (4.5-6.0); WHITE BLOOD COUNT (AUTO) 10.1 K/uL (4.3-11.0)
[2018-10-09 09:44] LABS: ALANINE AMINOTRANSFERASE 12 U/L (12-78); ALBUMIN 2.1 g/dL (3.4-5.0); ALKALINE PHOSPHATASE 506 U/L (46-116); ASPARTATE AMINOTRANSFERASE 30 U/L (15-37); BILIRUBIN,DIRECT 0.9 mg/dL (0.0-0.2); BILIRUBIN,TOTAL 1.4 mg/dL (0.2-1.0); CALCIUM, SERUM 8.8 mg/dL (8.5-10.1); CARBON DIOXIDE 14 mmol/L (21-32); CHLORIDE 106 mmol/L (98-107); CREATININE 3.8 mg/dL (0.6-1.3); GLUCOSE 102 mg/dL (74-106); LIPASE 65 U/L (73-393); POTASSIUM 3.4 mmol/L (3.5-5.1); SODIUM SERUM 139 mmol/L (136-145)
[2018-10-09 09:47] LABS: UREA NITROGEN, BLOOD 107 mg/dL (7-18)
[2018-10-09 09:49] LABS: SERUM AMMONIA 56 umol/L (11-32)
[2018-10-09] MEDS ORDERED: LACTULOSE 10 G/15 ML UDC (PYXIS) PO ONE (10:00)
--- NOTE | 2018-10-09 10:12 | NUR ---
TONY WHITLEY [phone]
[2018-10-09] MEDS ORDERED: LACTULOSE 10 G/15 ML UDC (PYXIS) ONE (10:15)
--- NOTE | 2018-10-09 10:50 | NUR ---
GOT BED 312-1
--- NOTE | 2018-10-09 11:00 | NUR ---
PT ATE LUNCH UP IN CHAIR , STABLE TRANSFER TO FLOOR
--- NOTE | 2018-10-09 11:35 | NUR ---
SERVICE CENTER TECHNICIAN NOTES Patient arrived 1135, on room air no sob noted. Patient was transferred to bed safely. IV at 20 gauge right wrist. Patient's bed at the lowest setting, call light within reach.
[2018-10-09] MEDS ORDERED: INSULIN REGULAR, HUMAN 100 UNIT/ML 3 ML VIAL SQ PRN (14:05)
[2018-10-09] MEDS ORDERED: *INSULIN REGULAR(HUMULIN R)HUM 100 UNIT/ML VIAL SQ PRN (14:30)
[2018-10-09] MEDS ORDERED: DEXTROSE 50%-WATER 50 ML DISP.SYRIN IV PRN (14:30)
[2018-10-09] MEDS: BLOOD SUGAR DIAGNOSTIC 1 EACH STRIP IN SCH ×3 (14:37→22:59)
[2018-10-09 14:39] LABS: MAGNESIUM 2.6 mg/dL (1.8-2.4)
[2018-10-09 15:00] LABS: THYROID STIMULATING HORMONE 4.99 uIU/mL (0.358-3.74)
[2018-10-09] MEDS ORDERED: LIDOCAINE 0.5%-EPI 1:200,000 50 ML VIAL TP ONE (15:30)
[2018-10-09 16:00] VITALS: BP 108/67
[2018-10-09] MEDS: ACETAMINOPHEN 325 MG TABLET PO PRN (16:19)
[2018-10-09] MEDS: LORAZEPAM 1 MG TABLET PO PRN (16:19)
[2018-10-09] MEDS ORDERED: BLOOD SUGAR DIAGNOSTIC 1 EACH STRIP VI SCH (17:30)
[2018-10-09] MEDS ORDERED: FEE PK DOSING 1 MIN EA MC ONE (18:00)
--- NOTE | 2018-10-09 18:32 | NUR ---
RN MS NOTES Patient refuses to eat at this time, blood glucose at 126, insulin not given at this time.
--- NOTE | 2018-10-09 18:40 | NUR ---
RN MS NOTES Patient remains on 2l o2 nasal cannula, right wrist IV #20 remains open and unobstructed. a/o x2-3, patient lying down on bed comfortably. Patient stated he is not hungry is does not want to eat anytime soon, but might have a sandwich later. with patient to help translate. Paracentesis done and 5L of fluid was taken out, sent to lab for tests, awaiting results. Called in abdominal binder from central supply and left a message, abdominal binder not available at this time. Bed at the lowest setting, call light within reach.
[2018-10-09] MEDS: ALBUMIN 25% 25 GM in PREMIX 1 EA IV SCH (19:00)
[2018-10-09] MEDS ORDERED: ALBUMIN 25% 12.5 GM/50 ML BOTTLE IV ONE (19:00)
[2018-10-09] MEDS ORDERED: VANCOMYCIN 1.25 GM in IV D5W 500 ML IV ONE (19:00)
--- NOTE | 2018-10-09 19:55 | NUR ---
RN INITIAL NOTES: RECEIVED REPORT FROM WESLEY RN. PT IN BED, AWAKE, A/O X1-2 S/P PARACENTESIS WITH 5L OUTPUT, DRESSING C/D/I, NO ACTIVE BLEEDING NOTED. IV ACCESS PATENT AND FLUSHING WELL, ON HL. PT MOVED TO ROOM 329 WITH ALL BELONGING SENT WITH PT UPON TRANSFER. ALBUM NOT ADMINISTERED BY DAY RN HE STATED ITS NOT YET AVAILABLE AND WILL BE BROUGHT BY PHARMACY SOON. DISCUSSED PLAN OF CARE TO PT AND PT'S . SKIN ASSESSMENT PERFORMED, NOTED LEFT TOE NON BLANCHABLE REDNESS AND RLE SWELLING AND REDNESS, PT AND REFUSED PHOTO FOR DOCUMENTATION, EDUCATION PROVIDED TO THE PT. ON TELE MONITORING SINUS RHYTHM HR 70. RLE OFFLOADED. SAFETY PRECAUTIONS FOR FALL INITIATED, CALL LIGHT IN REACH, WILL CONTINUE MONITORING PT.
[2018-10-09 20:00] VITALS: BP 101/57
[2018-10-09] MEDS ORDERED: SOD FERRIC GLUC 125 MG in IV NS 0.9% 100 ML IV SCH (20:00)
[2018-10-09] MEDS ORDERED: VANCOMYCIN 500 MG in IV D5W 100 ML IV SCH (20:00)
--- NOTE | 2018-10-09 20:01 | NUR ---
LATE ADMIN OF ALBUMIN: DAY RN UNABLE TO ADMINISTER ALBUMIN SCHEDULED. ADMINISTER MEDICATION AT THIS TIME.
--- NOTE | 2018-10-09 20:36 | NUR ---
LATE ADMIN OF VANCO: JUST FINISH ALBUMIN, ADMINISTERING IV VANCOMYCIN AT THIS TIME
--- NOTE | 2018-10-09 20:59 | NUR ---
CLARIFICATION OF ORDER: ORDER FROM AUDIT ASSOCIATE TO GIVE ALBUMIN 25%, WHICH WAS ADMINISTERED AT 1999, THEN THERE'S NEW ORDER FROM DR WHITLEY TO GIVE ALBUMIN 25% IV Q8HRS, AT 1900, INFORMED I JUST GIVE THE ALBUMIN AT 1999, PER DR WHITLEY HE JUST WANT PT TO RECEIVE ALBUMIN Q8HRS, INFORMED SINCE PT RECEIVED THE DOSE AT 1999, NEXT DOSE WILL BE 0300AM, PER THAT IS OKAY. CHEST PAINTING AND SEALING SUPERVISOR MADE AWARE
--- NOTE | 2018-10-09 21:05 | NUR ---
RN NOTES: CONTACTED PHARM WOOD CRAFTSMAN, RELAYED TO PLEASE ADJUST THE TIME FOR FERRLECIT BECAUSE PT RECEIVED ALBUMIN AT 1999, THEN IV VANCOMYCIN WHICH WILL BE ADMIN FOR 2HRS, PER PHARMACIST ITS OKAY TO ADMINISTER THE FERRLECIT ONCE THE IV VANCO FINISH, DOESNT NEED TO ADJUST TIME, INFORMED THAT PT REFUSING ANOTHER IV INSERTION. WOODEN FURNITURE POLISHER MADE AWARE
--- NOTE | 2018-10-09 21:47 | NUR ---
RN NOTES: ASSISTED ACCOUNTANT SYSTEMS IN PROVIDING BED BATH TO THE PT, COMPLETE LINEN CHANGE PROVIDED, INFORMED THAT SHE CAN GO DOWN TO [facility] MACHINE AT THIS TIME, SINCE RN AND ACCOUNTANT SYSTEMS WILL BE IN THE ROOM TO CLEAN THE PT. PER SHE DOESNT NEED TO GO NOW, SHE WILL JUST USE CREDIT CARD TO ORDER PIZZA. PT REFUSING TO EAT FOOD FROM HOSPITAL STATED ITS DOGS FOOD. OFFERED SAND WHICH, JELLO PUDDING BUT PT REFUSED.
[2018-10-09] MEDS ORDERED: SOD FERRIC GLUC 62.5 MG/5 ML AMPUL IV ONE (22:49)
[2018-10-09 22:51] LABS: APPEARANCE,URINE SL CLOUDY (CLEAR); BILIRUBIN,URINE NEGATIVE (NEGATIVE); BLOOD, URINE NEGATIVE Ery/uL (NEGATIVE); COLOR,URINE YELLOW (YELLOW); KETONES,URINE NEGATIVE (NEGATIVE); LEUKOCYTE ESTERASE ,URINE NEGATIVE (NEGATIVE); NITRITE, URINE NEGATIVE (NEGATIVE); PH,URINE 5.5 (5.0-8.0); PROTEIN,URINE NEGATIVE (NEGATIVE); UGLUCOSE NEGATIVE (NEGATIVE)
--- NOTE | 2018-10-09 23:01 | NUR ---
late admin of ferrlecit: medication override by rn crispin muñoz, new order from , just completed administering iv vanco, pt refusing another iv insertion that's why i have to wait for vanco to finish before administering this medication. 5 medication rights verified, with another rn. administered at this time.
--- NOTE | 2018-10-09 23:01 | NUR ---
accu check 171: blood sugar check result obtained is 171, no insulin coverage given as pt refusing to eat stated he doesnt have any appetite. made aware
[2018-10-09 23:12] VITALS: BP 99/64
[2018-10-09] MEDS: MORPHINE SULFATE INJ 2 MG/ML DISP.SYRIN IVP PRN (23:16)
--- NOTE | 2018-10-09 23:17 | NUR ---
prn morphine: pt c/o 12/18 generalized pain requesting for morphine, vs taken and recorded prior to adminiserting medication, prn morphine 1 mg ivp administered at this time. will cotninue to monitor and reassess pt
[2018-10-10] VITALS (9 sets, daily range): BP systolic 43–117; BP diastolic 33–73
--- NOTE | 2018-10-10 00:09 | NUR ---
RN NOTES: HEARD BED ALARM, SEEN PT WAS BEING ASSISTED BY TO GET OUT OF BED, EXPLAINED TO THE AND PT THAT PT IS TOO WEAK AND DO NOT ASSIST HIM TO GET UP HIS KNEES MIGHT FLOP AND END UP FALLING. PT HAD EPISODE OF MULTIPLE FALLS. LIGHT RAIL TRAIN OPERATOR 2 GROUND NUCLEAR WEAPONS ASSEMBLY OFFICER PRESENT AND ASSIGNED RN. AND PT DOES NOT WANT TO LISTEN. ENCOURAGE AND INSTRUCTED TO GO BACK TO BED, BUT PT REFUSED. ASSISTED TO SIT ON A CHAIR, PT DOESN'T WANT TO GO BACK TO BED. STILL ASSISTING PT TO GET UP. EDUCATION PROVIDED TO HIGH RISK OF FALLING, PT TOO WEAK, PT WEARING NON SKID SOCKS. STILL DOES NOT WANT TO GO BACK TO BED, JUST WANT TO STAY SITTING IN A CHAIR.
--- NOTE | 2018-10-10 00:31 | NUR ---
RN NOTES: CHECKED PT VS, INITIAL RESULT 42/33, HR 50, MANUAL BP CHECK 60/43, PT AWAKE, A/O X1-2, INSISTING TO GET UP TO GO HOME, PAGED MD DR WHITLEY CALL RECEIVED BY ANSWERING SERVICE, AWAITING FOR CALL BACK
--- NOTE | 2018-10-10 00:45 | NUR ---
RN NOTES: RECEIVED CALL FROM DR PARK, RELAYED SITUATION, PER MD TO TRANSFER PT TO [facility] NOW, GIVE IV BOLUS WIDE OPEN, GIVE ALBUMIN 25% 2ND UNIT NOW, HOLD ALL HYPERTENSIVE MEDS IF SBP <110. RELAYED TO HOME ATTENDANT ANNIE
[2018-10-10] MEDS ORDERED: ALBUMIN 25% 12.5 GM/50 ML BOTTLE IV STA (00:46)
--- NOTE | 2018-10-10 00:46 | NUR ---
RN NOTES: PER DR WHITLEY TO GIVE IV NS BOLUS AT 300ML/HR. READBACK VERIFIED AND COMPLETED
--- NOTE | 2018-10-10 00:50 | NUR ---
RN NOTES: ADMINISTER IV BOLUS AT 300ML/HR, PER MD ORDER.
--- NOTE | 2018-10-10 01:00 | NUR ---
POWER DRIVEN BRUSH MAKER NOTES RECEIVED PT FROM [place]. REPORT GIVEN BY CHRYSTAL. PT WAS TRANSFERRED TO [facility] BECAUSE PT WAS HYPOTENSIVE. PT A/OX1-2 AT BED SIDE. PT IS SR ON TELE HR95. ABD ASCITES. WITH IV BOLUS INFUSING IN R WRIST #20G. PT KEPT SAFE, BED IN LOW LOCKED POSITION. CALL LIGHT WITH IN REACH. WILL CONT TO MONITOR CLOSELY.
--- NOTE | 2018-10-10 01:00 | NUR ---
RN NOTES: REPORT GIVEN TO VIVIANE GARZA VIA PHONE.
--- NOTE | 2018-10-10 01:01 | NUR ---
RN NOTES: INFORMED [facility] RN GREG TO PLEASE ADMINISTER ALBUMIN NEW ORDER BY MD, NO ALBUMIN AVAILABLE IN THE UNIT PER [employer] PRINTING MACHINIST
--- NOTE | 2018-10-10 01:20 | NUR ---
RN NOTES: ALL BELONGING SENT WITH PT UPON TRANSFER, PRESENT AT BED SIDE, TRANSFERRED PT VIA ACLS PROTOCOL. PT HAS ONGOING IV FLUID BOLUS 300ML/HR ORDERED BY . ENDORSED TO GREG PAN.
[2018-10-10] MEDS ORDERED: IV NS 0.9% 1,000 ML IV ONE (01:30)
[2018-10-10] MEDS ORDERED: ALBUMIN 25% 50 ML IV ONE (01:37)
[2018-10-10] MEDS ORDERED: ALBUMIN 25% 100 ML IV ONE (01:39)
[2018-10-10] MEDS: IV NS 0.9% 1,000 ML IV PRN ×2 (01:50→03:14)
[2018-10-10] MEDS: ALBUMIN 25% 25 GM in PREMIX 1 EA IV SCH ×3 (02:09→19:34)
[2018-10-10] MEDS: ACETAMINOPHEN 325 MG TABLET PO PRN ×2 (05:27→17:39)
--- NOTE | 2018-10-10 07:10 | NUR ---
RN NOTES RECEIVED PT ON BED, A/Ox1, ON RA NO SOB NOTED, RESPIRATION EVEN AND UNLABORED, ON TELE SR HR IN 90'S, RIGHT WRIST IV SITE G 20 CLEAN, DRY AND INTACT, SUPPORTIVE FAMILY AT THE BEDSIDE, SR UP X3, CALL LIGHT WITHIN EASY REACH, CONTINUE TO MONITOR .
--- NOTE | 2018-10-10 07:15 | NUR ---
RN CLOSING NOTES PT STABLE AND OVERNIGHT B/P IMPROVED AFTER BOLUS. WILL ENDORSED TO AM NURSE FOR ALYSSA.
[2018-10-10 07:49] LABS: BASOPHILS % (AUTO) 0.3 % (0.0-2.0); EOSINOPHILS % (AUTO) 0.3 % (0.0-6.0); HEMATOCRIT 30 % (39-51); HEMOGLOBIN 10.3 g/dL (13.5-17.5); LYMPHOCYTES # (AUTO) 0.5 /CMM (0.8-4.8); LYMPHOCYTES % (AUTO) 5.9 % (20.0-44.0); MEAN CORPUSCULAR HGB CONC 35 g/dl (31.0-36.0); MEAN CORPUSCULAR VOLUME 93 fL (80-96); MONOCYTES # (AUTO) 0.4 /CMM (0.1-1.30); MONOCYTES % (AUTO) 4.9 % (2.0-12.0); NEUTROPHILS # (AUTO) 7.5 /CMM (1.8-8.9); NEUTROPHILS % (AUTO) 88.6 % (43.0-81.0); PLATELET COUNT (AUTO) 183 /CMM (150-450); RED BLOOD CELL COUNT(AUTO) 3.22 MIL/uL (4.5-6.0); WHITE BLOOD COUNT (AUTO) 8.4 K/uL (4.3-11.0)
[2018-10-10 08:09] LABS: ALBUMIN 2.1 g/dL (3.4-5.0); BILIRUBIN,TOTAL 1.3 mg/dL (0.2-1.0); CALCIUM, SERUM 8.1 mg/dL (8.5-10.1); CREATININE 3.7 mg/dL (0.6-1.3); POTASSIUM 3.1 mmol/L (3.5-5.1); TOTAL PROTEIN, SERUM 5.4 g/dL (6.4-8.2)
[2018-10-10] MEDS: BLOOD SUGAR DIAGNOSTIC 1 EACH STRIP IN SCH ×4 (08:30→22:28)
--- NOTE | 2018-10-10 10:00 | NUR ---
RN NOTES DR WHITLEY NOTIFIED REGARDING K-3.1 , NEW ORDER GIVEN
[2018-10-10] MEDS: POTASSIUM CHLORIDE 20 MEQ POWDER PACKET PO SCH ×2 (10:32→11:45)
--- NOTE | 2018-10-10 11:00 | NUR ---
RN NOTES PT IS HIGH RISK FOR FALL , PT'S WANTS TO GET PT OUT OF THE BED , PT EVAL ORDERED , ADVISED PT'S TO WAIT FOR PHYSICAL THERAPY EVALUATION .
[2018-10-10 11:01] LABS: ABG BASE EXCESS -10.3 mmol/L; ABG OXYGEN SATURATION 96.7 % (92.0-98.5); ABG PCO2 20.7 mmHg (35.0-45.0); ABG PH 7.402 (7.350-7.450); ABG PO2 98.3 mmHg (75.0-100.0); AaDO2 26.6 mmHg; COHb 0.6 % (0.5-1.5); MetHb 0.6 % (0.0-1.5); O2Hb 95.5 % (94.0-97.0); SITE, ABG Left Radial; VENT MODE, BG ROOM AIR
[2018-10-10] MEDS: MORPHINE SULFATE INJ 2 MG/ML DISP.SYRIN IVP PRN ×2 (11:45→20:45)
--- NOTE | 2018-10-10 12:00 | NUR ---
RN NOTES PT REFUSED NONREBREATHING MASK ON PER DR WHITLEY ORDER , PT PLACED ON 3L O2 N/C . O2 SAT 98% AT THIS TIME ON 3L O2 N/C .
--- NOTE | 2018-10-10 13:00 | NUR ---
RN NOTES UPON ARRIVAL TO THE ROOM , PT SITTING ON A CHAIR AND STATED THAT SHE HELPED HIM TO GET OUT OF THE BED, ADVISED PT AND PT'S THAT GETTING OUT OF THE BED IS HIGH RISK FOR FALL. PT'S STILL WANTED HIM TO GET OUT OF BED, VSS STABLE, CONTINUE TO MONITOR .
[2018-10-10] MEDS: SOD FERRIC GLUC 125 MG in IV NS 0.9% 100 ML IV SCH (14:27)
[2018-10-10] MEDS: LORAZEPAM 1 MG TABLET PO PRN (15:17)
[2018-10-10 17:05] LABS: APPEARANCE,URINE CLEAR (CLEAR); BILIRUBIN,URINE NEGATIVE (NEGATIVE); BLOOD, URINE NEGATIVE Ery/uL (NEGATIVE); COLOR,URINE YELLOW (YELLOW); KETONES,URINE NEGATIVE (NEGATIVE); LEUKOCYTE ESTERASE ,URINE NEGATIVE (NEGATIVE); NITRITE, URINE NEGATIVE (NEGATIVE); PH,URINE 5.5 (5.0-8.0); PROTEIN,URINE TRACE mg/dl (NEGATIVE); UGLUCOSE NEGATIVE (NEGATIVE)
[2018-10-10 17:20] LABS: URINE TOTAL PROTEIN 46.4 mg/dL (0-11.9)
--- NOTE | 2018-10-10 18:00 | NUR ---
RN NOTES PT STABLE, AT THE BEDSIDE, NO SIGNIFICANT CHANGES NOTED ON THIS SHIFT , WILL ENDORSE TO NECKTIE CENTRALIZING MACHINE OPERATOR NURSE FOR CONTINUITY OF CARE.
[2018-10-10 19:05] LABS: BACTERIA,URINE Rare /HPF (None Seen); RBC,URINE 0-2 /HPF (0-2); SQUAMOUS EPITHELIAL CELL,UR 0-2 /HPF (None Seen)
--- NOTE | 2018-10-10 19:30 | NUR ---
RN NOTES , RECEIVED PATIENT ON BED, AWAKE A/O TO SELF, ON ROOM AIR AT THIS TIME, WITH O2 SATURATION 98%, BREATHING EVEN AND UNLABORED, NO S/S SOB/ACUTE RESPIRATION DISTRESS NOTED, ON TELE SR WITH BBB HR IN 90'S, RIGHT WRIST IV SITE G 20 PATENT AND INTACT, AT THE BEDSIDE, SR UP X3, CALL LIGHT WITHIN EASY REACH, CLEANED AND REPOSITION AT THIS TIME, WILL CONTINUE CONTINUE TO MONITOR CLOSELY.
[2018-10-10 19:54] LABS: EOSINOPHIL,URINE None Seen
--- NOTE | 2018-10-10 21:45 | NUR ---
RN NOTES, MORPHINE IV 1MG ADMINISTERED, AND WASTE VIAL BEFORE SCANNED MEDICATION, CHARGE NURSE AT SCENE AWARE OF MEDICATION ADMINISTERED.
--- NOTE | 2018-10-10 22:22 | NUR ---
RN PER PATIENT AT BEDSIDE, PT GET VERY CONFUSED AFTER EACH MORPHINE MEDICATION ADMINISTRATION, PER PT HALLUCINATING, PER PT EVEN AFTER MORPHINE ADMIN STILL REMAINS IN STRONG PAIN. REQUESTED CODEINE #3 , PER PT TAKES THIS MEDICATION HOME AND HELPS PT'S PAIN . SPOKE TO MD BYRD, AWARE OF PAIN , MD WITH NEW ORDER TO D/C MORPHINE AND START CODEINE #3 PO Q8HRS PRN. MADE AWARE.
[2018-10-11] VITALS: BP 121/65
[2018-10-11 02:09] LABS: APPEARANCE,URINE CLEAR (CLEAR); BILIRUBIN,URINE 1+ (NEGATIVE); BLOOD, URINE NEGATIVE Ery/uL (NEGATIVE); COLOR,URINE YELLOW (YELLOW); KETONES,URINE NEGATIVE (NEGATIVE); LEUKOCYTE ESTERASE ,URINE NEGATIVE (NEGATIVE); NITRITE, URINE NEGATIVE (NEGATIVE); PROTEIN,URINE TRACE mg/dl (NEGATIVE); UGLUCOSE NEGATIVE (NEGATIVE)
[2018-10-11 02:32] LABS: BACTERIA,URINE None seen /HPF (None Seen); SQUAMOUS EPITHELIAL CELL,UR Few /HPF (None Seen); WBC,URINE 0-2 /HPF (0-3)
[2018-10-11 02:33] LABS: EOSINOPHIL,URINE None Seen
[2018-10-11] MEDS ORDERED: ALBUMIN 25% 100 ML IV ONE (03:00)
[2018-10-11] MEDS: ALBUMIN 25% 25 GM in PREMIX 1 EA IV SCH (03:04)
[2018-10-11 03:11] LABS: CREATININE, URINE 72.9 MG/DL (30.0-125.0); URINE TOTAL PROTEIN 39.9 mg/dL (0-11.9)
[2018-10-11] MEDS: LORAZEPAM 1 MG TABLET PO PRN ×3 (03:34→11:57)
[2018-10-11] MEDS: ACETAMINOPHEN W/ CODEINE#3 1 EA TABLET PO PRN ×2 (03:35→14:47)
[2018-10-11 06:38] LABS: BASOPHILS % (AUTO) 0.5 % (0.0-2.0); EOSINOPHILS % (AUTO) 0.3 % (0.0-6.0); HEMATOCRIT 30 % (39-51); HEMOGLOBIN 10.3 g/dL (13.5-17.5); LYMPHOCYTES # (AUTO) 0.7 /CMM (0.8-4.8); LYMPHOCYTES % (AUTO) 10.4 % (20.0-44.0); MEAN CORPUSCULAR HGB CONC 34 g/dl (31.0-36.0); MEAN CORPUSCULAR VOLUME 93 fL (80-96); MONOCYTES # (AUTO) 0.4 /CMM (0.1-1.30); MONOCYTES % (AUTO) 6.2 % (2.0-12.0); NEUTROPHILS # (AUTO) 5.8 /CMM (1.8-8.9); NEUTROPHILS % (AUTO) 82.6 % (43.0-81.0); PLATELET COUNT (AUTO) 153 /CMM (150-450); RED BLOOD CELL COUNT(AUTO) 3.22 MIL/uL (4.5-6.0)
[2018-10-11 06:52] LABS: ALBUMIN 2.8 g/dL (3.4-5.0); BILIRUBIN,TOTAL 1.4 mg/dL (0.2-1.0); CALCIUM, SERUM 8.6 mg/dL (8.5-10.1); CREATININE 3.2 mg/dL (0.6-1.3); MAGNESIUM 2.3 mg/dL (1.8-2.4); PHOSPHORUS 5.4 mg/dL (2.5-4.9); POTASSIUM 3.5 mmol/L (3.5-5.1); TOTAL PROTEIN, SERUM 5.8 g/dL (6.4-8.2)
--- NOTE | 2018-10-11 07:00 | NUR ---
RN NOTES, PATIENT IN BED ALERT TO NAME, BREATHING EVEN AND UNLABORED AT ROOM AIR AT THIS TIME, WITH OPTIMAL O2 SAT LEVEL, NO SIGNIFICANT CHANGE IN CONDITION DURING THE NIGHT, AT BEDSIDE, WILL ENDORSE CONTINUITY OF CARE TO ONCOMING NURSE.
[2018-10-11] MEDS: BLOOD SUGAR DIAGNOSTIC 1 EACH STRIP IN SCH ×3 (07:30→17:31)
--- NOTE | 2018-10-11 07:30 | NUR ---
KALI RN INITIAL NOTES RECEIVED PT IN BED, ALERT BUT WEAK. ABLE TO MAKE NEEDS KNOWN. ON TELE SR/ST. ON ROOM AIR. O2 SAT WNL. NO S/SX OF RESP DISTRESS. PT HAS R WRIST #20G. SL. PATENT/INTACT. VS WNL. BED IN LOCKED/LOWEST POSITION. CALL LIGHT IN REACH. WILL CONT TO MONITOR.
[2018-10-11 08:00] VITALS: BP 118/66
[2018-10-11] MEDS ORDERED: VANCOMYCIN 0.75 GM in IV D5W 250 ML IV SCH (08:00)
--- NOTE | 2018-10-11 11:34 | NUR ---
Social service consult requested by Dr. Williamson to assist pt's to get oriented on what to do with home, finances etc. MARELY and insurance case manager Luan met with pt's . [facility]I RN helped assist SW with Gibraltarian translation since pt's is Gibraltarian speaking but does speak some Spanish. Initially, pt's Nicole was hesitant to speak with SW, however she became more comfortable as the conversation went on. MARELY gave her referral information for [employer] [facility] located at [address] [place] [address], [address], [place] [address]. and informed her to give them a call in regards to questions she may have regarding finances, assets etc since pt. is not alert and oriented and unable to make decisions for himself.
--- NOTE | 2018-10-11 11:56 | NUR ---
MS RN NOTES ATIVAN DROPPED ON FLOOR BY PT. WASTED MED AND RECORDED IN PYXIS. WILL ADMINISTER A NEW DOSE.
--- NOTE | 2018-10-11 13:00 | NUR ---
MS RN NOTES DR LLOYD ROUNDING WITH PATIENT.
[2018-10-11] MEDS ORDERED: LORAZEPAM 1 MG TABLET PO PRN (13:30)
[2018-10-11] MEDS: ENSURE CLEAR 237 ML LIQUID (MIX BERRY) PO SCH ×2 (14:32→17:51)
--- NOTE | 2018-10-11 14:53 | NUR ---
MS RN NOTES PT SPAT OUT 1/2 OF TYLENOL CODEINE 3 DOSE. DOES NOT WANT MED.
[2018-10-11] MEDS: SOD FERRIC GLUC 125 MG in IV NS 0.9% 100 ML IV SCH (15:42)
[2018-10-11 16:00] VITALS: BP 121/69
--- NOTE | 2018-10-11 17:09 | NUR ---
ms rn notes pt insisting on leaving ama. dr muñoz ordered albumin 100ml bag now.
[2018-10-11] MEDS ORDERED: ALBUMIN 25% 25 GM in PREMIX 1 EA IV SCH (17:30)
[2018-10-11] MEDS ORDERED: CEFAZOLIN 1 GM in IV NS 0.9% 50 ML IV SCH (18:00)
[2018-10-11] MEDS: ACETAMINOPHEN 325 MG TABLET PO PRN (18:29)
--- NOTE | 2018-10-11 19:07 | NUR ---
MS RN NOTES ALBUMIN DOSE COMPLETED. PT WILL LEAVE WITH /FRIEND TO BE PICKED UP IN PRIVATE CAR.
[2018-10-11] MEDS ORDERED: OLANZAPINE 2.5 MG TABLET PO SCH (20:00)
== END 2018-10-11 20:00 | disposition left against medical advice (07) | DRG 374 ==
LOC: ER 08:56 → TELE 11:18 → MED 16:01 → TELE 16:07 → TELE-TD 10-10 01:11 → MEDSG1 10-11 11:10
PROVIDERS: ADMIT Family Medicine; ATTEND Family Medicine
DX: C18.9 Malignant neoplasm of colon, unspecified (principal); E43 Unspecified severe protein-calorie malnutrition; K85.90 Acute pancreatitis without necrosis or infection, unspecified; K76.7 Hepatorenal syndrome; N17.0 Acute kidney failure with tubular necrosis; I50.32 Chronic diastolic (congestive) heart failure; N18.4 Chronic kidney disease, stage 4 (severe); R18.0 Malignant ascites; C78.7 Secondary malignant neoplasm of liver and intrahepatic bile duct; E87.2 Acidosis; I13.0 Hypertensive heart and chronic kidney disease with heart failure and stage 1 through stage 4 chronic kidney disease, or unspecified chronic kidney disease; L03.115 Cellulitis of right lower limb; L03.116 Cellulitis of left lower limb; D61.818 Other pancytopenia; K57.90 Diverticulosis of intestine, part unspecified, without perforation or abscess without bleeding; K72.90 Hepatic failure, unspecified without coma; E86.0 Dehydration; E87.6 Hypokalemia; F03.90 Unspecified dementia, unspecified severity, without behavioral disturbance, psychotic disturbance, mood disturbance, and anxiety; F32.9 Major depressive disorder, single episode, unspecified; E78.5 Hyperlipidemia, unspecified; E11.36 Type 2 diabetes mellitus with diabetic cataract; E11.22 Type 2 diabetes mellitus with diabetic chronic kidney disease; E11.42 Type 2 diabetes mellitus with diabetic polyneuropathy; D63.8 Anemia in other chronic diseases classified elsewhere; K21.9 Gastro-esophageal reflux disease without esophagitis; I25.10 Atherosclerotic heart disease of native coronary artery without angina pectoris; M10.9 Gout, unspecified; N40.0 Benign prostatic hyperplasia without lower urinary tract symptoms; F43.10 Post-traumatic stress disorder, unspecified; X58.XXXA Exposure to other specified factors, initial encounter; Y92.9 Unspecified place or not applicable; Z79.4 Long term (current) use of insulin; Z79.84 Long term (current) use of oral hypoglycemic drugs; Z79.899 Other long term (current) drug therapy; M06.9 Rheumatoid arthritis, unspecified; M19.90 Unspecified osteoarthritis, unspecified site; M81.0 Age-related osteoporosis without current pathological fracture; N28.1 Cyst of kidney, acquired; N50.3 Cyst of epididymis; Z51.5 Encounter for palliative care; Z82.49 Family history of ischemic heart disease and other diseases of the circulatory system; Z83.3 Family history of diabetes mellitus; Z86.73 Personal history of transient ischemic attack (TIA), and cerebral infarction without residual deficits; Z87.01 Personal history of pneumonia (recurrent); Z87.440 Personal history of urinary (tract) infections; Z87.891 Personal history of nicotine dependence; Z92.21 Personal history of antineoplastic chemotherapy; Z91.81 History of falling; Z91.14 Patient's other noncompliance with medication regimen; K82.8 Other specified diseases of gallbladder; Z98.890 Other specified postprocedural states; R26.9 Unspecified abnormalities of gait and mobility; M54.40 Lumbago with sciatica, unspecified side; F41.0 Panic disorder [episodic paroxysmal anxiety]; G89.29 Other chronic pain; J44.9 Chronic obstructive pulmonary disease, unspecified; H35.30 Unspecified macular degeneration; K29.70 Gastritis, unspecified, without bleeding; Y92.009 Unspecified place in unspecified non-institutional (private) residence as the place of occurrence of the external cause; W06.XXXA Fall from bed, initial encounter; K70.10 Alcoholic hepatitis without ascites
CPT/HCPCS: 36415; 36600; 70450-TC; 71045-TC; 76942-TC; 80048-TC; 80053-TC; 80076-TC; 80202-TC; 81000-TC; 82140-TC; 82550-TC; 82570-TC; 82803-TC; 82962-TC; 83540-TC; 83690-TC; 83735-TC; 83970; 84100-TC; 84155-TC; 84300-TC; 84443-TC; 84484-TC; 85025-TC; 85730-TC; 87040-TC; 87070-TC; 87081-TC; 87806; 89051-TC; 97112-TC; 97530-TC; A4216; G0378; J0690; J1815; J2270; J2916; J3370; J3490; J7030; J7040; J7060; P9047

== ENCOUNTER 2018-10-14 11:00 | Emergency (ER) | payer MEDICARE, MEDICAID ==
[~2018-10-14] VITALS: Ht 175.3 cm; Wt 84.4 kg
[~2018-10-14 11:00] MED LIST changes: -SPIR25TA6 PO
--- NOTE | 2018-10-14 11:15 | NUR ---
PATIENT [id number] [facility] HOME C/O ABDOMINAL PAIN/DISTENSION SINCE D/C THURSDAY. PATIENT ACCOMPANIED BY . PATIENT AWAKE, ALERT AND ORIENTED, NO ACUTE DISTRESS. AWAITING
[2018-10-14 11:41] LABS: BASOPHILS # (AUTO) 0.1 /CMM (0.0-0.2); BASOPHILS % (AUTO) 0.7 % (0.0-2.0); EOSINOPHILS % (AUTO) 0.7 % (0.0-6.0); HEMATOCRIT 38 % (39-51); HEMOGLOBIN 12.3 g/dL (13.5-17.5); LYMPHOCYTES # (AUTO) 1.1 /CMM (0.8-4.8); LYMPHOCYTES % (AUTO) 9.9 % (20.0-44.0); MEAN CORPUSCULAR HGB CONC 33 g/dl (31.0-36.0); MEAN CORPUSCULAR VOLUME 96 fL (80-96); MONOCYTES # (AUTO) 0.8 /CMM (0.1-1.30); MONOCYTES % (AUTO) 6.9 % (2.0-12.0); NEUTROPHILS # (AUTO) 8.9 /CMM (1.8-8.9); NEUTROPHILS % (AUTO) 81.8 % (43.0-81.0); PLATELET COUNT (AUTO) 286 /CMM (150-450); RED BLOOD CELL COUNT(AUTO) 3.91 MIL/uL (4.5-6.0); WHITE BLOOD COUNT (AUTO) 10.9 K/uL (4.3-11.0)
[2018-10-14 11:50] LABS: CALCIUM, SERUM 8.2 mg/dL (8.5-10.1); CREATININE 2.9 mg/dL (0.6-1.3); POTASSIUM 3.1 mmol/L (3.5-5.1)
--- NOTE | 2018-10-14 11:54 | NUR ---
RECEIVED CALL FROM LAB WITH REPORT OF [facility] [address]. DR MCKEON MADE AWARE
--- NOTE | 2018-10-14 12:36 | NUR ---
INFORMED CONSENT OBTAINED BY MD FROM PATIENT AND REGARDING US GUIDED PARACENTESIS
--- NOTE | 2018-10-14 12:45 | NUR ---
US TECH AT BEDSIDE
[2018-10-14] MEDS ORDERED: ALBUMIN 25% 12.5 GM/50 ML BOTTLE IV ONE (13:00)
--- NOTE | 2018-10-14 13:04 | NUR ---
CALLED FOR TELE BED, TURNED IN MOVE PACKET.
[2018-10-14] MEDS ORDERED: ALBUMIN 25% 100 ML IV ONE (13:12)
--- NOTE | 2018-10-14 13:21 | NUR ---
ONGOING PARACENTESIS. NO ACUTE DISTRESS AT THIS TIME. WILL CONTINUE TO MONITOR
--- NOTE | 2018-10-14 13:41 | NUR ---
S/P PARACENTESIS. 8700 cc OUT. NO ACUTE DISTRESS. AWARE
--- NOTE | 2018-10-14 13:43 | NUR ---
DR MCKEON AWARE OF S/P PARACENTESIS OUTPUT, GAVE OK TO WASTE OUTPUT, NO ORDER TO COLLECT SPECIMEN.
[2018-10-14] MEDS ORDERED: MORPHINE SULFATE INJ 2 MG/ML DISP.SYRIN ONE (13:45)
[2018-10-14] MEDS ORDERED: CLON0.1T PO (13:52)
[2018-10-14] MEDS ORDERED: ENAL5TAB PO (13:52)
[2018-10-14] MEDS ORDERED: CARV3.122 PO (13:52)
[2018-10-14] MEDS ORDERED: AMLO5TAB9 PO (13:52)
[2018-10-14] MEDS ORDERED: INSU100V7 SQ (13:52)
[2018-10-14] MEDS ORDERED: FURO-144 PO (13:52)
[2018-10-14] MEDS ORDERED: LORA-259 PO (13:56)
[2018-10-14] MEDS ORDERED: MORPHINE SULFATE INJ 2 MG/ML DISP.SYRIN IV ONE (14:00)
--- NOTE | 2018-10-14 14:34 | NUR ---
GAVE REPORT TO BRODIE PAN FOR ALYSSA
[2018-10-14 15:00] VITALS: BP 92/53
--- NOTE | 2018-10-14 15:15 | NUR ---
PATIENT TRANSFERRED TO [address] [place] [address] VIA ACLS PROTOCOL. NO ACUTE DISTRESS. NO C/O PAIN OR DISCOMFORT. RECEIVING RN AT BEDSIDE
--- NOTE | 2018-10-14 15:30 | NUR ---
MS RN RECEIVED A NEW ADMISSION ,AWAKE,ALERT,ORIENTED X4, CAME IN W/ DX OF ASCITES,S/P TORACENTESIS - 8700ML OUT, WILL MONITOR PATIENT.
[2018-10-14 16:00] VITALS: BP 92/57
[2018-10-14] MEDS ORDERED: DEXTROSE 50%-WATER 50 ML DISP.SYRIN IV PRN (16:30)
[2018-10-14] MEDS ORDERED: *INSULIN ASPART NOVOLOG 100 UNIT/ML CARTRIDGE SQ PRN (16:30)
[2018-10-14] MEDS ORDERED: INSULIN ASPART/LISPRO 100 UNIT/ML CARTRIDGE SQ PRN (16:30)
[2018-10-14] MEDS ORDERED: ZOLPIDEM TARTRATE 10 MG TABLET PO PRN (17:00)
[2018-10-14] MEDS ORDERED: LORAZEPAM 0.5 MG TABLET PO PRN (17:00)
[2018-10-14] MEDS ORDERED: ACETAMINOPHEN W/ CODEINE#3 1 EA TABLET PO PRN (17:00)
--- NOTE | 2018-10-14 17:00 | NUR ---
MS VIVIANE CALLED DR. WHITLEY FOR ORDER W/ ORDERS MADE AND CARRIED OUT.
[2018-10-14] MEDS ORDERED: BLOOD SUGAR DIAGNOSTIC 1 EACH STRIP IN SCH (17:30)
[2018-10-14] MEDS ORDERED: BLOOD SUGAR DIAGNOSTIC 1 EACH STRIP VI SCH (17:30)
[2018-10-14 18:17] LABS: MAGNESIUM 2.2 mg/dL (1.8-2.4)
[2018-10-14] MEDS: BLOOD SUGAR DIAGNOSTIC 1 EACH STRIP IN SCH ×2 (18:24→21:44)
[2018-10-14] MEDS: ALBUMIN 25% 25 GM in PREMIX 1 EA IV SCH (18:24)
--- NOTE | 2018-10-14 19:00 | NUR ---
MS RN ON BED, NO DISTRESS, LEFT MESSAGE TO DR. WHITLEY FOR K ORDER REPLACEMENT.
--- NOTE | 2018-10-14 19:21 | NUR ---
tele/rn opening notes RECEIVED PATIENT IN BED, RESTING COMFORTABLY IN BED, FAMILY INVOLVE,ON TELE MONITOR SR 85. SKIN WARM TO TOUCH, REQUIRE MONITORING AND PAIN MANAGEMENT MONITORING M, MONITOR GYPO/HYPER GLYCEMIA AND ANY CHANGES DUE TO PAIN, WILL FOLLOW UP, RECEIVED ENDORSEMENT FROM AM RN FOR ALYSSA. FOLLOW UP WITH MD BYERS REGARDING POTASSIUM,. HEATH MONITOR.
[2018-10-14 20:00] VITALS: BP 90/53
--- NOTE | 2018-10-14 21:25 | NUR ---
TELE/RN NOTES DR PARK ORDER POTASSIUM KDUR 40 MEQ PO TABL NOW AND TYLENOL 500 MG PO EVERY 6 HOURS FOR PAIN 2 TO 3 LEVEL
[2018-10-14] MEDS ORDERED: ACETAMINOPHEN 325 MG TABLET PO PRN (21:30)
[2018-10-14] MEDS ORDERED: INSULIN GLARGINE, 100 UNIT/ML CARTRIDGE SQ SCH ×2 (22:00)
[2018-10-14] MEDS ORDERED: POTASSIUM CHLORIDE 20 MEQ TAB.PRT.SR PO ONE (22:00)
--- NOTE | 2018-10-14 22:11 | NUR ---
TELE/RN NOTES BLOOD SUGAR CHECK AT 117. PATIENT LANTUS 6 UNITS NOT GIVEN, REFUSED.AND REPORTED LOW BLOOD SUGAR LEVEL.
--- NOTE | 2018-10-14 23:36 | NUR ---
TELE/RN NOTES PATIENT FAMILY CALLED DR MEJIA REGARDING HEALTH CONCERNS, SPOKE WITH MD AND ORDER TO CONTINUE WITH ALBUMIN ORDERED. MD AWARE ABOUT PATIENT LOW BLOOD PRESSURE, RECHECK LOW SBP HIGHETS AT 90'S. PATIENT REPORTED CONCERN OF HEALTH ISSUES AND DISCUSSED WITH MD . MD WILL COME IN AM. AND PATIENT REQUESTING TO BE TRANSFERED TO [facility].
--- NOTE | 2018-10-15 01:08 | NUR ---
tele/rn notes md lozano instucted to give albumin at 0100 for 2nd dose and 8 am , md will come in morning at 9 am to discuss with family regarding care and possible discharge to home per md.
[2018-10-15] MEDS: ALBUMIN 25% 25 GM in PREMIX 1 EA IV SCH (01:10)
[2018-10-15] MEDS ORDERED: ALBUMIN 25% 25 GM in PREMIX 1 EA IV SCH ×4 (05:30)
[2018-10-15] MEDS ORDERED: IV NS 0.9% 200 ML IV ONE ×3 (05:30→06:00)
--- NOTE | 2018-10-15 05:33 | NUR ---
TELE/RN NOTES RECEIVED ORDER FROM MD PITTS FOR ONE TIME ORDER ALBUMIN 25 MG IV AND IV BOLUS 200 CC/HR FOR SBP 85/45
[2018-10-15] MEDS: BLOOD SUGAR DIAGNOSTIC 1 EACH STRIP IN SCH ×2 (06:03→12:16)
--- NOTE | 2018-10-15 06:56 | NUR ---
326-2 TELE/RN NOTES PATIENT ON TELE MONITOR. SR IN 90'S. MONITORED FOR ANY CHANGES, SKIN WARM TO TOUCH, OPATIENT ASSISTED WITH NEEDS AT LL TIMES. MONITORED FOR ANY CHANGES. BED LOCKED CALL LIGHTS WITHIN REACH. KEPT COMFORTABLE.
[2018-10-15] MEDS ORDERED: PANTOPRAZOLE 40 MG TABLET.DR PO SCH (07:30)
--- NOTE | 2018-10-15 08:00 | NUR ---
MS RN OPENING NOTES Received Patient awake and comfortable in bed. A/O x 4. VS stable with no acute distress. Breathing even and unlabored on room air. Denies pain. PIV on RIGHT HAND clean, dry, intact and flushing well. D/C telemonitor per Omar SEPULVEDA. Seen by Clay at bedside at this time. Per , D/C AMA per Patients request after Albumin IV and Potassium lab resulted WNL. Safety precautions in place. Bed locked and set to lowest position with side rails x 2 up. at bedside. Will continue to monitor.
[2018-10-15 11:19] VITALS: BP 94/62
[2018-10-15 11:38] LABS: ALBUMIN 3.1 g/dL (3.4-5.0); BILIRUBIN,TOTAL 1.4 mg/dL (0.2-1.0); CALCIUM, SERUM 8.2 mg/dL (8.5-10.1); CREATININE 2.6 mg/dL (0.6-1.3); POTASSIUM 3.7 mmol/L (3.5-5.1); TOTAL PROTEIN, SERUM 5.5 g/dL (6.4-8.2)
--- NOTE | 2018-10-15 13:17 | NUR ---
MS GAS MAKER HELPER NOTES Patient left AMA for HOME at this time. Patient in stable condition with no acute distress. Breathing even and unlabored on room air with no respiratory distress. Denies pain. Patient refused body assessment pictures. Discharge paperwork reviewed and explained to Patient and . Patient and verbalized understanding. All belongings with Patient. Patient will follow up with PCP. Escorted Patient to the Lobby via wheelchair for safety. Patient picked up by family and accompanied by , Nicole .
[2018-11-28] MEDS ORDERED: ONDA4VIA23 PO (11:33)
[2018-11-28] MEDS ORDERED: PANT40TA2 PO (11:33)
[2018-11-28] MEDS ORDERED: ACET325T53 PO (11:33)
== END 2018-10-14 15:18 | disposition other institution (70) ==
LOC: ER 11:02 → TELE 14:00 → UNDOADMIN 14:00 → TELE 10-15 05:32 → MED 10-15 08:34 → TELE 10-15 08:34 → UNDODISIN 10-15 13:00
PROC: 0W9G3ZZ Drainage of Peritoneal Cavity, Percutaneous Approach (ICD-10-PCS; principal; 2018-10-14)
DX: R18.8 Other ascites (principal); I95.9 Hypotension, unspecified; E86.0 Dehydration; E11.9 Type 2 diabetes mellitus without complications; F41.9 Anxiety disorder, unspecified; I10 Essential (primary) hypertension; M10.9 Gout, unspecified; J44.9 Chronic obstructive pulmonary disease, unspecified; Z79.4 Long term (current) use of insulin; Z79.899 Other long term (current) drug therapy; Z85.038 Personal history of other malignant neoplasm of large intestine; Z85.05 Personal history of malignant neoplasm of liver; Z98.890 Other specified postprocedural states; Z79.84 Long term (current) use of oral hypoglycemic drugs
CPT/HCPCS: 36415; 49083; 71045; 80048; 82962 ×2; 83540; 83735; 85025; 85730; 87081; 93005; 96374; 96375; 99285; A4216; J1815 ×4; J2270; J7050; P9047 ×2; 76942-TC; 80053-TC; G0378

== ENCOUNTER 2018-10-26 16:19 | Emergency (ER) | payer MEDICARE, MEDICAID ==
[~2018-10-26] VITALS: Ht 175.3 cm; Wt 79.4 kg
[~2018-10-26 16:19] MED LIST changes: -AMLO10TA7 PO; +AMLO5TAB9 PO; +CARV3.122 PO; -CARV6.252 PO; -ENAL10TA PO; +ENAL5TAB PO; +FURO-144 PO; -FURO40TA5 PO
--- NOTE | 2018-10-26 16:40 | NUR ---
BIBRA60, VOMITED W/ ABD PAIN AFTER TAKING LEXAPRO. ABD DISTENDED. PARACENTISIS DONE 12 DAYS AGO. PATIENT ATTACHED TO THE DOOR PERSON. AT BEDSIDE.
[2018-10-26] MEDS ORDERED: ONDANSETRON HCL/PF 4 MG/2 ML VIAL ONE ×3 (16:49→22:58)
[2018-10-26] MEDS ORDERED: ALBUMIN 25% 12.5 GM/50 ML BOTTLE IV ONE (17:00)
[2018-10-26] MEDS ORDERED: ONDANSETRON HCL/PF 4 MG/2 ML VIAL IVP ONE (17:00)
[2018-10-26] MEDS ORDERED: IV NS 0.9% 500 ML BAG IV ONE (17:00)
[2018-10-26 17:02] LABS: BASOPHILS # (AUTO) 0.1 /CMM (0.0-0.2); EOSINOPHILS % (AUTO) 0.6 % (0.0-6.0); HEMATOCRIT 33 % (39-51); HEMOGLOBIN 11.2 g/dL (13.5-17.5); LYMPHOCYTES # (AUTO) 0.7 /CMM (0.8-4.8); LYMPHOCYTES % (AUTO) 9.3 % (20.0-44.0); MEAN CORPUSCULAR HGB CONC 34 g/dl (31.0-36.0); MEAN CORPUSCULAR VOLUME 97 fL (80-96); MONOCYTES # (AUTO) 0.5 /CMM (0.1-1.30); MONOCYTES % (AUTO) 6.4 % (2.0-12.0); NEUTROPHILS # (AUTO) 6.1 /CMM (1.8-8.9); NEUTROPHILS % (AUTO) 82.7 % (43.0-81.0); PLATELET COUNT (AUTO) 194 /CMM (150-450); RED BLOOD CELL COUNT(AUTO) 3.41 MIL/uL (4.5-6.0); WHITE BLOOD COUNT (AUTO) 7.4 K/uL (4.3-11.0)
[2018-10-26 17:18] LABS: CALCIUM, SERUM 8.4 mg/dL (8.5-10.1); CARBON DIOXIDE 18 mmol/L (21-32); CHLORIDE 108 mmol/L (98-107); CREATININE 2.6 mg/dL (0.6-1.3); GLUCOSE 143 mg/dL (74-106); POTASSIUM 5.1 mmol/L (3.5-5.1); SODIUM SERUM 140 mmol/L (136-145); UREA NITROGEN, BLOOD 65 mg/dL (7-18)
[2018-10-26] MEDS ORDERED: ALBUMIN 25% 100 ML IV ONE (17:18)
[2018-10-26 17:19] LABS: ALANINE AMINOTRANSFERASE 16 U/L (12-78); ALBUMIN 2.8 g/dL (3.4-5.0); ALKALINE PHOSPHATASE 499 U/L (46-116); ASPARTATE AMINOTRANSFERASE 39 U/L (15-37); BILIRUBIN,DIRECT 0.6 mg/dL (0.0-0.2); TOTAL PROTEIN, SERUM 6.1 g/dL (6.4-8.2)
--- NOTE | 2018-10-26 17:20 | NUR ---
115-1 MATT WHITLEY ABDOMINAL PAIN, ASCITES
[2018-10-26 17:36] LABS: MAGNESIUM 2.1 mg/dL (1.8-2.4)
--- NOTE | 2018-10-26 17:45 | NUR ---
PATIENT REFUSING TO BE ADMITTED IN THE HOSPITAL. YO FELIPE MADE AWARE.
[2018-10-26] MEDS ORDERED: MORPHINE SULFATE INJ 4 MG/ML DISP.SYRIN ONE ×2 (17:57→22:58)
[2018-10-26] MEDS ORDERED: ONDANSETRON HCL/PF - ER 4 MG/2 ML VIAL IV ONE (18:00)
[2018-10-26] MEDS ORDERED: MORPHINE SULFATE INJ 10 MG/ML DISP.SYRIN IV ONE (18:00)
--- NOTE | 2018-10-26 18:21 | NUR ---
PATIENT INSISTED ON LEAVING AGAINST MEDICAL ADVICE, AMA FORM SIGNED, EXPLAINED RISKS AND BENEFITS, STILL REFUSED TO STAY. PIV REMOVED, PATIENT A/OX3, BREATHING EVEN AND UNLABORED, NO SOB NOTED. VSS. LEFT TO HOME WITH IN STABLE CONDITION.
[2018-10-26 18:23] VITALS: BP 109/68
--- NOTE | 2018-10-26 18:50 | NUR ---
PATIENT LEFT AMA.
[2018-10-27] MEDS ORDERED: ACET1TAB12 PO (08:04)
[2018-11-28] MEDS ORDERED: PANT40TA2 PO (11:33)
[2018-11-28] MEDS ORDERED: ACET325T53 PO (11:33)
[2018-11-28] MEDS ORDERED: ONDA4VIA23 PO (11:33)
== END 2018-10-26 18:52 | disposition left against medical advice (07) ==
LOC: ER 16:19 → TELE1 17:36 → UNDOADMIN 17:36
DX: C78.7 Secondary malignant neoplasm of liver and intrahepatic bile duct (principal); C18.9 Malignant neoplasm of colon, unspecified; R18.8 Other ascites; D64.9 Anemia, unspecified; R11.2 Nausea with vomiting, unspecified; I10 Essential (primary) hypertension; E11.9 Type 2 diabetes mellitus without complications; M10.9 Gout, unspecified; Z98.890 Other specified postprocedural states; Z79.4 Long term (current) use of insulin; Z79.899 Other long term (current) drug therapy; Z79.84 Long term (current) use of oral hypoglycemic drugs
CPT/HCPCS: 36415; 71045; 80048; 80076; 83540; 83690; 83735; 84484; 85025; 85730; 93005; 96365; 96375; 96376; 99284; J2270; J2405 ×2; J7040; P9047

== ENCOUNTER 2018-10-26 22:03 | Inpatient (IN) | payer MEDICARE, MEDICAID ==
[~2018-10-26] VITALS: Ht 175.3 cm; Wt 73.9 kg
--- NOTE | 2018-10-26 22:19 | NUR ---
BIB RA FROM HOME. AAOX4. BREATHING EVEN AND UNLABORED. C/O EPIGASTRIC PAIN 12/18 X 2 WEEKS AGO. REPORT NAUSEA, VOMITING. TO ER BED 9. MD AT BEDSIDE.
[2018-10-26] MEDS ORDERED: MORPHINE SULFATE INJ 2 MG/ML DISP.SYRIN IV ONE (22:30)
[2018-10-26] MEDS ORDERED: ONDANSETRON HCL/PF 4 MG/2 ML VIAL IV ONE (22:30)
--- NOTE | 2018-10-26 23:00 | NUR ---
BP NOTED AT 91/60. MD MADE AWARE ORDER RECEIVED TO GIVE NS 1L BOLUS THEH REASSESS BP. MORPHINE ON HOLD UNTIL BP REASSESSMENT.
--- NOTE | 2018-10-26 23:24 | NUR ---
REPORT GIVEN TO VIVIANE PATEL FOR ALYSSA. PT GOING TO 116-2
[2018-10-26] MEDS ORDERED: IV NS 0.9% 1,000 ML BAG IV ONE (23:30)
--- NOTE | 2018-10-26 23:50 | NUR ---
PT TRANSPORT TO UNIT WITH EMT AND RN AT BEDSIDE W/ ACLS PROTOCOL. NAD, NOTED DURING TRANSPORT.
[2018-10-27] VITALS (8 sets, daily range): BP systolic 80–108; BP diastolic 53–74
[2018-10-27] MEDS ORDERED: INSULIN REGULAR, HUMAN 100 UNIT/ML 3 ML VIAL SQ PRN (00:30)
[2018-10-27] MEDS ORDERED: DEXTROSE 50%-WATER 50 ML DISP.SYRIN IV PRN (00:30)
[2018-10-27] MEDS ORDERED: IV NS 0.9% 250 ML IV ONE (00:30)
[2018-10-27] MEDS ORDERED: ALBUMIN 25% 100 ML IV ONE (01:08)
[2018-10-27] MEDS: ALBUMIN 25% 25 GM in PREMIX 1 EA IV SCH ×3 (01:11→16:39)
[2018-10-27] MEDS: ONDANSETRON HCL/PF 4 MG/2 ML VIAL IV PRN ×2 (05:14→14:23)
[2018-10-27 06:50] LABS: BASOPHILS % (AUTO) 0.5 % (0.0-2.0); EOSINOPHILS % (AUTO) 0.6 % (0.0-6.0); HEMATOCRIT 29 % (39-51); HEMOGLOBIN 9.5 g/dL (13.5-17.5); LYMPHOCYTES # (AUTO) 0.5 /CMM (0.8-4.8); MEAN CORPUSCULAR HGB CONC 33 g/dl (31.0-36.0); MEAN CORPUSCULAR VOLUME 98 fL (80-96); MONOCYTES # (AUTO) 0.3 /CMM (0.1-1.30); MONOCYTES % (AUTO) 6.8 % (2.0-12.0); NEUTROPHILS # (AUTO) 3.9 /CMM (1.8-8.9); NEUTROPHILS % (AUTO) 82.1 % (43.0-81.0); PLATELET COUNT (AUTO) 142 /CMM (150-450); RED BLOOD CELL COUNT(AUTO) 2.95 MIL/uL (4.5-6.0); WHITE BLOOD COUNT (AUTO) 4.7 K/uL (4.3-11.0)
[2018-10-27 07:03] LABS: CALCIUM, SERUM 7.9 mg/dL (8.5-10.1); CREATININE 2.5 mg/dL (0.6-1.3); POTASSIUM 4.4 mmol/L (3.5-5.1)
[2018-10-27] MEDS: BLOOD SUGAR DIAGNOSTIC 1 EACH STRIP IN SCH ×4 (07:55→22:16)
[2018-10-27] MEDS ORDERED: ACET1TAB12 PO (08:04)
[2018-10-27] MEDS: IV NS 0.9% 250 ML BAG IV PRN (09:13)
--- NOTE | 2018-10-27 09:35 | NUR ---
rn note pt had paracentesis done, at 0910, 6 liters of yellow fluid drained, albumin given, spoke with dr Williamson aware about paracentesis, he ordered some labs and physician consults. pt sustained sbp about 90mmhg will continue to monitor.
[2018-10-27] MEDS ORDERED: IV NS 0.9% 500 ML IV ONE (12:30)
--- NOTE | 2018-10-27 13:46 | NUR ---
spoke with dr Ivy regarding e pt's consultation placed by dr Williamson. dr Ivy said she will see the pt here today.
[2018-10-27] MEDS ORDERED: SODIUM BICARBONATE 650 MG TABLET PO PRN (15:30)
[2018-10-27] MEDS ORDERED: ONDANSETRON HCL/PF 4 MG/2 ML VIAL IV ONE (16:30)
--- NOTE | 2018-10-27 17:00 | NUR ---
rn note pt earlier refused compression stockings, risks and benefits explained, at bedside attempted to convince pt, pt still refused. md aware. pt also vomited x1 after giving zofran ivp and eating soup for lunch. will monitor and md notified.
--- NOTE | 2018-10-27 19:20 | NUR ---
METAL SMELTER OPENING NOTES BEDSIDE REPORT GIVEN BY VIVIANE ALEMAN. PATIENT IN BED, A/O X2. ABLE TO MAKE NEEDS KNOWN. ON TELE MONITOR SR WITH HR 80S. FAMILY AT BEDSIDE. ON ROOM AIR, TOLERATING WELL, NO SOB AND ACUTE DISTRESS NOTED. LEFT AC 20G HL, FLUSHED AND PATENT, IV SITE IS CLEAN, DRY AND INTACT. NO INFILTRATION NOTED. BED IS IN LOW POSITION AND LOCKED, CALL LIGHT IS WITHIN REACH. WILL CONTINUE TO MONITOR PATIENT.
[2018-10-27 20:17] LABS: APPEARANCE,URINE CLEAR (CLEAR); BILIRUBIN,URINE NEGATIVE (NEGATIVE); BLOOD, URINE NEGATIVE Ery/uL (NEGATIVE); COLOR,URINE DARK YELLO (YELLOW); KETONES,URINE NEGATIVE (NEGATIVE); LEUKOCYTE ESTERASE ,URINE NEGATIVE (NEGATIVE); NITRITE, URINE NEGATIVE (NEGATIVE); PH,URINE 5.5 (5.0-8.0); PROTEIN,URINE TRACE mg/dl (NEGATIVE); UGLUCOSE NEGATIVE (NEGATIVE)
[2018-10-27 20:18] LABS: CREATININE, URINE 66.5 MG/DL (30.0-125.0); URINE TOTAL PROTEIN 49.8 mg/dL (0-11.9)
[2018-10-27 20:35] LABS: EOSINOPHIL,URINE None Seen
--- NOTE | 2018-10-27 22:45 | NUR ---
PERISHABLE FRUIT INSPECTOR NOTES PATIENT COMPLAINING OF GENERALIZED PAIN, SPECIFICALLY ABDOMINAL PAIN 02/17 AND IS REQUESTING FOR PAIN MEDICATION. CHECKED BP 103/66 WITH HR 70S. PAGED MD FOR ORDERS. MD MADE AWARE OF PATIENT SBP 90S IN AM SHIFT. MD ORDERED 500MG TYLENOL PO Q6H PRN AND MORPHINE SULFATE 1MG IV Q3H PRN. WILL ATTEND TO MD ORDERS.
[2018-10-27] MEDS: MORPHINE SULFATE INJ 2 MG/ML DISP.SYRIN IV PRN (22:50)
[2018-10-28] VITALS: BP 96/57
[2018-10-28] MEDS: ALBUMIN 25% 25 GM in PREMIX 1 EA IV SCH ×3 (00:35→16:18)
[2018-10-28] MEDS: ACETAMINOPHEN 325 MG TABLET PO PRN ×2 (00:38→23:23)
[2018-10-28 04:00] VITALS: BP 100/63
[2018-10-28] MEDS: MORPHINE SULFATE INJ 2 MG/ML DISP.SYRIN IV PRN ×5 (04:55→21:36)
--- NOTE | 2018-10-28 05:45 | NUR ---
POSTING CLERK NOTES PATIENT REFUSED BLOOD DRAW AND MRSA SWAB. PATIENT STATED "I WANT TO SLEEP RIGHT NOW" WILL ENDORSE TO AM RN.
--- NOTE | 2018-10-28 07:20 | NUR ---
MAJOR CASE DETECTIVE CLOSING NOTES PATIENT IN BED, A/O X2. ABLE TO MAKE NEEDS KNOWN. ON TELE MONITOR SR WITH HR 80S. ON ROOM AIR, TOLERATING WELL, NO SOB AND ACUTE DISTRESS NOTED. LEFT AC 20G HL, FLUSHED AND PATENT, IV SITE IS CLEAN, DRY AND INTACT. BED IS IN LOW POSITION AND LOCKED, CALL LIGHT IS WITHIN REACH. NO ACUTE CHANGES THROUGHOUT SHIFT. ALL MD ORDERS ATTENDED. ALL NEEDS ANTICIPATED AND MET. ENDORSED TO AM RN FOR ALYSSA.
--- NOTE | 2018-10-28 07:30 | NUR ---
BOBBIN COLLECTOR AM NOTES BEDSIDE REPORT GIVEN BY VANESA, PATIENT IN BED, A/O X2. ABLE TO MAKE NEEDS KNOWN. ON ROOM AIR, TOLERATING WELL, NO SOB AND ACUTE DISTRESS NOTED. ON TELE MONITOR SR WITH HR 66. AT BEDSIDE. LEFT AC 20G HL, FLUSHED,PATENT, IV SITE CLEAR. CCHO DIET. USES URINALS. BED IS IN LOW POSITION AND LOCKED, CALL LIGHT IS WITHIN REACH. WILL CONTINUE TO MONITOR PATIENT.
--- NOTE | 2018-10-28 07:45 | NUR ---
SECURITY DIRECTOR NOTES ACCUCHECK DONE. BS 103 MG/DL. NO INSULIN COVERAGE GIVEN. PATIENT UNCOOPERATIVE WITH BP CHECKING PRIOR TO GIVING PAIN MEDICATION DUE TO LOW BP. WILL TRY AGAIN.
[2018-10-28 08:00] VITALS: BP 103/67
[2018-10-28] MEDS: BLOOD SUGAR DIAGNOSTIC 1 EACH STRIP IN SCH ×2 (08:08→12:00)
--- NOTE | 2018-10-28 09:30 | NUR ---
SENIOR STEREO COMPILER TEAM LEAD NOTES DUE MEDS GIVEN
--- NOTE | 2018-10-28 10:20 | NUR ---
LINE DANCER NOTES REPORT GIVEN TO SHANNAN FOR ALYSSA
[2018-10-28] MEDS: ONDANSETRON HCL/PF 4 MG/2 ML VIAL IV PRN ×2 (10:51→17:16)
[2018-10-28 10:56] LABS: APPEARANCE,URINE CLEAR (CLEAR); BILIRUBIN,URINE NEGATIVE (NEGATIVE); BLOOD, URINE NEGATIVE Ery/uL (NEGATIVE); KETONES,URINE NEGATIVE (NEGATIVE); LEUKOCYTE ESTERASE ,URINE NEGATIVE (NEGATIVE); NITRITE, URINE NEGATIVE (NEGATIVE); PH,URINE 5.5 (5.0-8.0); PROTEIN,URINE TRACE mg/dl (NEGATIVE); UGLUCOSE NEGATIVE (NEGATIVE)
[2018-10-28 10:57] LABS: COLOR,URINE DARK YELLOW (YELLOW)
[2018-10-28 11:00] LABS: BACTERIA,URINE Rare /HPF (None Seen); EOSINOPHIL,URINE None Seen; HYALINE CASTS, URINE Rare /LPF (None Seen); RBC,URINE 0-2 /HPF (0-2); SQUAMOUS EPITHELIAL CELL,UR Few /HPF (None Seen); WBC,URINE 0-2 /HPF (0-3)
[2018-10-28 11:50] LABS: CREATININE, URINE 70.6 MG/DL (30.0-125.0); URINE TOTAL PROTEIN 50.3 mg/dL (0-11.9)
[2018-10-28 12:00] VITALS: BP 106/68
--- NOTE | 2018-10-28 15:15 | NUR ---
PATIENT AND AT BEDSIDE PATIENT ASKING TO PLEASE HELP HIM HE IS IN EXCRUCIATING PAIN. ATTEMPTED TO CALL DR WHITLEY
--- NOTE | 2018-10-28 15:26 | NUR ---
UNABLE TO GET A HOLD OF DR WHITLEY CALLED DR QUESADA IN REGARDS TO PATIENTS PAIN RECEIVED TELEPHONE ORDER INCREASED MORPHINE 2 MG Q3HRS FOR SEVERE PAIN.
[2018-10-28] MEDS: IV NS 0.9% 250 ML BAG IV PRN (15:38)
[2018-10-28 16:00] VITALS: BP 91/48
--- NOTE | 2018-10-28 17:24 | NUR ---
PATIENT REFUSED TO HAVE MRSA / NARES SWAB.
--- NOTE | 2018-10-28 18:34 | NUR ---
RN MS NOTES NO SIGNIFICANT CHANGES THROUGHOUT THE SHIFT. A/O X3 NO SIGNS OR SYMPTOMS OF RESPIRATORY DISTRESS . C/O PAIN 02/17 NEW ORDER FOR MORPHINE 2 MG Q 3HR PATIENT STATES IT GIVES HIM SOME RELIEF FROM ABDOMINAL PAIN. APPETITE POOR D//T NAUSEA ZOFRAN GIVEN X2 . ABLE TO TOLERATE BEEF BROTH. SINUS ON MONITOR SBP 90-110. ALST DOSE OF ALBUMIN GIVEN . CT OF ABD/CHEST. POSSIBLE PARACENTESIS IN AM LONG SBP IS WITHIN NORMAL RANGE. INCONTINENT 1X WET DIAPER. IV TO LAC # 18 GAUGE PATENT. SAFETY AND ASPIRATION PRECAUTIONS IN PLACE BED IN LOW POSITION. AT BEDSIDE CALL LIGHT WITHIN REACH. ABLE TO MAKE NEEDS KNOWN AND ALL MET BY STAFF
--- NOTE | 2018-10-28 19:26 | NUR ---
REPORT ENDORSED TO NOC
[2018-10-28 20:00] VITALS: BP 105/66
[2018-10-29] VITALS: BP 101/67
[2018-10-29] MEDS: MORPHINE SULFATE INJ 2 MG/ML DISP.SYRIN IV PRN ×3 (00:26→09:00)
--- NOTE | 2018-10-29 03:00 | NUR ---
299 SUMMONED TO PATIENT'S ROOM PER HIS REQUEST, C/O SEVERE BODY PAIN STATING "I HAVE SO MUCH PAIN I'M DYING" PER RN KEVIN PAIN MEDICATION MORPHINE SULFATE NOT DUE UNTIL 329. CALLED DR. PARK THRU EXCHANGE, AWAITING CALL BACK.
--- NOTE | 2018-10-29 03:13 | NUR ---
0313 STILL AWAITING CALL BACK FROM DR. PARK, PATIENT SITTING IN BED, IN NO APPARENT DISTRESS, MADE AWARE THAT STILL WAITING FOR DOCTOR TO CALL BACK.
[2018-10-29 04:00] VITALS: BP_SYST 101; BP_SYST 97; BP_DIAS 62; BP_DIAS 67
[2018-10-29 08:00] VITALS: BP 107/70
[2018-10-29] MEDS ORDERED: ALBUMIN 25% 12.5 GM in PREMIX 1 EA IV STA (08:09)
[2018-10-29] MEDS ORDERED: ALBUMIN 25% 12.5 GM in PREMIX 1 EA IV ONE (10:00)
[2018-10-29 10:24] VITALS: BP 117/73
[2018-10-29 10:27] VITALS: BP 113/77
--- NOTE | 2018-10-29 10:28 | NUR ---
patient s/p paracentesis ,tolerated procedure,vss,pain controlled,patient and wanted to go home,dr. muñoz made aware and ok to discharge patient.
--- NOTE | 2018-10-29 10:31 | NUR ---
peritoneal fluids send to labs for analysis as ordered.nandini rutherford made aware.
--- NOTE | 2018-10-29 11:10 | NUR ---
piv removed- discharge explained to the patient and - verbalized understanding - bp 123/87 patient escorted off unit by patient transport
== END 2018-10-29 11:20 | disposition home health service (06) | DRG 374 ==
LOC: ER 22:06 → TELE1 22:44 → MEDSG1 10-27 08:45 → TELE1 10-27 20:31 → MEDSG1 10-28 23:36 → UNDODISIN 10-29 11:20
PROVIDERS: ADMIT Family Medicine; ATTEND Family Medicine
PROC: 0W9G3ZZ Drainage of Peritoneal Cavity, Percutaneous Approach (ICD-10-PCS; principal; 2018-10-27)
DX: C18.9 Malignant neoplasm of colon, unspecified (principal); E43 Unspecified severe protein-calorie malnutrition; N17.0 Acute kidney failure with tubular necrosis; R18.8 Other ascites; C78.7 Secondary malignant neoplasm of liver and intrahepatic bile duct; I13.0 Hypertensive heart and chronic kidney disease with heart failure and stage 1 through stage 4 chronic kidney disease, or unspecified chronic kidney disease; I50.32 Chronic diastolic (congestive) heart failure; N18.4 Chronic kidney disease, stage 4 (severe); L03.115 Cellulitis of right lower limb; C78.5 Secondary malignant neoplasm of large intestine and rectum; D61.818 Other pancytopenia; R18.0 Malignant ascites; K72.90 Hepatic failure, unspecified without coma; M10.9 Gout, unspecified; M19.90 Unspecified osteoarthritis, unspecified site; M54.40 Lumbago with sciatica, unspecified side; M81.0 Age-related osteoporosis without current pathological fracture; N40.0 Benign prostatic hyperplasia without lower urinary tract symptoms; Z92.21 Personal history of antineoplastic chemotherapy; Z91.81 History of falling; Z91.14 Patient's other noncompliance with medication regimen; Z87.891 Personal history of nicotine dependence; Z87.440 Personal history of urinary (tract) infections; Z87.01 Personal history of pneumonia (recurrent); Z86.73 Personal history of transient ischemic attack (TIA), and cerebral infarction without residual deficits; Z82.49 Family history of ischemic heart disease and other diseases of the circulatory system; Z83.3 Family history of diabetes mellitus; Z79.4 Long term (current) use of insulin; K21.9 Gastro-esophageal reflux disease without esophagitis; J44.9 Chronic obstructive pulmonary disease, unspecified; Z79.84 Long term (current) use of oral hypoglycemic drugs; Z79.899 Other long term (current) drug therapy; D63.8 Anemia in other chronic diseases classified elsewhere; E78.5 Hyperlipidemia, unspecified; E87.6 Hypokalemia; I25.10 Atherosclerotic heart disease of native coronary artery without angina pectoris; H35.30 Unspecified macular degeneration; E11.42 Type 2 diabetes mellitus with diabetic polyneuropathy; F03.90 Unspecified dementia, unspecified severity, without behavioral disturbance, psychotic disturbance, mood disturbance, and anxiety; R26.9 Unspecified abnormalities of gait and mobility; N50.3 Cyst of epididymis; N28.1 Cyst of kidney, acquired; M06.9 Rheumatoid arthritis, unspecified; K82.8 Other specified diseases of gallbladder; F43.10 Post-traumatic stress disorder, unspecified; F41.0 Panic disorder [episodic paroxysmal anxiety]; F32.9 Major depressive disorder, single episode, unspecified; E66.9 Obesity, unspecified; E11.36 Type 2 diabetes mellitus with diabetic cataract; E11.22 Type 2 diabetes mellitus with diabetic chronic kidney disease; G89.29 Other chronic pain; Z98.890 Other specified postprocedural states; Z66 Do not resuscitate; Z68.30 Body mass index [BMI] 30.0-30.9, adult
CPT/HCPCS: 36415; 71045-TC; 71250-TC; 76942-TC; 80048-TC; 80076-TC; 81000-TC; 82040-TC; 82378; 82570-TC; 82728-TC; 82784; 82962-TC; 83540-TC; 83690-TC; 83735-TC; 84155; 84155-TC; 84165; 84300-TC; 84439-TC; 84484-TC; 85025-TC; 85730-TC; 86334; 87070-TC; 87116; 87206; 88112-TC; 88305-TC; 88312-TC; 88313-TC; 88342; 89051-TC; A4216; G0378; J1815; J2270; J2405; J7030; J7040; J7050; P9047

== ENCOUNTER 2018-11-18 11:10 | Emergency (ER) | payer MEDICARE, MEDICAID ==
[~2018-11-18] VITALS: Ht 175.3 cm; Wt 82.6 kg
[~2018-11-18 11:10] MED LIST changes: +ACET1TAB12 PO; -AMLO5TAB9 PO; -CARV3.122 PO
--- NOTE | 2018-11-18 11:50 | NUR ---
PT [id number] FRM HOME FOR ABD PAIN, ABD DISTENTION, VOMITING AND BLACK STOOL SINCE YESTERDAY. PT IS AAOX3, NOT IN RESPIRATORY DISTRESS, V/S STABLE, KEPT RESTED AND COMFORTABLE, WILL CONTINUE TO MONITOTR.
--- NOTE | 2018-11-18 12:20 | NUR ---
SEEN AND EXAMINED BY
[2018-11-18] MEDS ORDERED: MORPHINE SULFATE INJ 4 MG/ML DISP.SYRIN ONE (12:38)
--- NOTE | 2018-11-18 12:48 | NUR ---
4MG MORPHINE IVP GIVEN VERBAL ORDERED BY .
--- NOTE | 2018-11-18 12:54 | NUR ---
ER PHLEB AT BEDSIDE FOR BLOOD DRAW.
[2018-11-18] MEDS ORDERED: MORPHINE SULFATE INJ 2 MG/ML DISP.SYRIN IV ONE (13:00)
[2018-11-18 13:01] LABS: BASOPHILS # (AUTO) 0.1 /CMM (0.0-0.2); BASOPHILS % (AUTO) 1.2 % (0.0-2.0); EOSINOPHILS % (AUTO) 1.2 % (0.0-6.0); HEMATOCRIT 31 % (39-51); HEMOGLOBIN 10.1 g/dL (13.5-17.5); LYMPHOCYTES # (AUTO) 0.7 /CMM (0.8-4.8); LYMPHOCYTES % (AUTO) 13.5 % (20.0-44.0); MEAN CORPUSCULAR HGB CONC 33 g/dl (31.0-36.0); MEAN CORPUSCULAR VOLUME 98 fL (80-96); MONOCYTES # (AUTO) 0.5 /CMM (0.1-1.30); MONOCYTES % (AUTO) 9.5 % (2.0-12.0); NEUTROPHILS # (AUTO) 4.1 /CMM (1.8-8.9); NEUTROPHILS % (AUTO) 74.6 % (43.0-81.0); PLATELET COUNT (AUTO) 137 /CMM (150-450); RED BLOOD CELL COUNT(AUTO) 3.13 MIL/uL (4.5-6.0); WHITE BLOOD COUNT (AUTO) 5.5 K/uL (4.3-11.0)
[2018-11-18 13:11] LABS: CALCIUM, SERUM 8.2 mg/dL (8.5-10.1); CREATININE 2.1 mg/dL (0.6-1.3); POTASSIUM 3.8 mmol/L (3.5-5.1)
[2018-11-18 13:23] LABS: ALBUMIN 2.6 g/dL (3.4-5.0); BILIRUBIN,DIRECT 0.6 mg/dL (0.0-0.2); BILIRUBIN,TOTAL 1.1 mg/dL (0.2-1.0); TOTAL PROTEIN, SERUM 5.6 g/dL (6.4-8.2)
--- NOTE | 2018-11-18 13:32 | NUR ---
DR WHITLEY PAGED
--- NOTE | 2018-11-18 14:15 | NUR ---
TECH AT BEDSIDE FOR US GUIDED PARACENTESIS.
[2018-11-18] MEDS ORDERED: ALBUMIN 25% 12.5 GM/50 ML BOTTLE IV STA (14:26)
[2018-11-18] MEDS ORDERED: ALBUMIN 25% 50 ML IV ONE (14:30)
--- NOTE | 2018-11-18 14:53 | NUR ---
[facility] [id number] [facility] [place]#[id number]
--- NOTE | 2018-11-18 14:59 | NUR ---
7550ML OF FLUIDS COLLECTED FROM THE PARACENTESIS.
--- NOTE | 2018-11-18 15:10 | NUR ---
[facility] ETA 1540
--- NOTE | 2018-11-18 16:05 | NUR ---
IV removed. Catheter intact and site benign. Pressure and 4x4 applied to site. No bleeding noted. Patient discharged to home in stable condition. Written and verbal after care instructions given. Patient verbalizes understanding of instruction.
[2018-11-18 16:06] VITALS: BP 106/65
== END 2018-11-18 16:07 | disposition home or self-care (01) ==
LOC: ER 11:24
DX: R18.8 Other ascites (principal); I10 Essential (primary) hypertension; E11.9 Type 2 diabetes mellitus without complications; E78.00 Pure hypercholesterolemia, unspecified; Z98.890 Other specified postprocedural states; Z85.038 Personal history of other malignant neoplasm of large intestine; Z85.05 Personal history of malignant neoplasm of liver; Z79.4 Long term (current) use of insulin
CPT/HCPCS: 36415; 49083; 80048; 80076; 82140; 83605; 83690; 83735; 85025; 85730; 96365; 96375; 99285; J2270; P9047; 76942-TC

== ENCOUNTER 2018-11-21 17:16 | Emergency (ER) | payer MEDICARE, MEDICAID ==
[~2018-11-21] VITALS: Ht 175.3 cm; Wt 81.6 kg
--- NOTE | 2018-11-21 17:30 | NUR ---
BIBRA 860 C/O LLQ ABDOMINAL PAIN X 4 HRS. PT AAOX3, VSS. RR EVEN & UNLABORED. DENIES CP, SOB, DIZZINESS, N/V/D AT THIS TIME. AWAITING EVAL BY CRISTIAN/PA. WILL CONT TO MONITOR.
[2018-11-21] MEDS ORDERED: MORPHINE SULFATE INJ 2 MG/ML DISP.SYRIN IM ONE (18:00)
[2018-11-21] MEDS ORDERED: ONDANSETRON 4 MG TAB.RAPDIS SL ONE (18:00)
[2018-11-21] MEDS ORDERED: MORPHINE SULFATE INJ 2 MG/ML DISP.SYRIN ONE (18:22)
[2018-11-21] MEDS ORDERED: ONDANSETRON 4 MG TAB.RAPDIS ONE (18:22)
--- NOTE | 2018-11-21 18:30 | NUR ---
CALLED [facility] FOR S TRANSPORT, ETA 1830.
--- NOTE | 2018-11-21 18:43 | NUR ---
AMBULANCE CANCELLED DUE TO PT FINDING ALTERNATIVE FORM OF TRANSPORTATION.
[2018-11-21 19:06] VITALS: BP 100/62
--- NOTE | 2018-11-21 19:06 | NUR ---
Patient discharged to home in stable condition. Written and verbal after care instructions given. Patient verbalizes understanding of instruction.
[2018-11-28] MEDS ORDERED: PANT40TA2 PO (11:33)
[2018-11-28] MEDS ORDERED: ONDA4VIA23 PO (11:33)
[2018-11-28] MEDS ORDERED: ACET325T53 PO (11:33)
== END 2018-11-21 19:07 | disposition home or self-care (01) ==
LOC: ER 17:21
DX: C78.7 Secondary malignant neoplasm of liver and intrahepatic bile duct (principal); C18.9 Malignant neoplasm of colon, unspecified; R18.8 Other ascites; I10 Essential (primary) hypertension; E11.9 Type 2 diabetes mellitus without complications; E78.00 Pure hypercholesterolemia, unspecified; Z98.890 Other specified postprocedural states; Z79.4 Long term (current) use of insulin
CPT/HCPCS: 96372; 99283; J2270; Q0162

== ENCOUNTER 2018-11-28 00:44 | Inpatient (IN) | payer MEDICARE, MEDICAID ==
[~2018-11-28] VITALS: Ht 175.3 cm; Wt 77.1 kg
[~2018-11-28 00:44] MED LIST changes: +AMLO10TA7 PO; +AMLO5TAB9 PO; +CARV3.122 PO; +CARV6.252 PO; +ENAL10TA PO; +FURO40TA5 PO
[2018-11-28] MEDS ORDERED: IV NS 0.9% 1,000 ML BAG IV ONE (02:00)
--- NOTE | 2018-11-28 02:00 | NUR ---
CHRISTEN FROM HOME WITH AT BDESIDE. TO ER BED 7. AAO. NO RESO DISTRESS NOTED. BREATHING EVEN AND UNLABORED. C/O GEN WEAKNESS X 1 DAYS. PT NOTED LETHARGIC, RESPONSIVE TO VERBAL AND TACTILE STIMULI. PT ALOS REPORTS OF GEN BODY PAIN, PT REPORTS TAKING 6-8 OXYCODE AT HOME BECAUSE OF COLON CA. PT DENIES CP. DENIES N/V/D. MD AT BEDSIDE. ORDERS RECEIVED, NOTED AND CARRIED OUT.
--- NOTE | 2018-11-28 02:05 | NUR ---
IV LINE ON LFA 20G. LAB AT BEDSIDE FOR DRAW
[2018-11-28 02:25] LABS: BASOPHILS # (AUTO) 0.1 /CMM (0.0-0.2); EOSINOPHILS % (AUTO) 0.4 % (0.0-6.0); HEMATOCRIT 35 % (39-51); HEMOGLOBIN 11.6 g/dL (13.5-17.5); LYMPHOCYTES # (AUTO) 0.5 /CMM (0.8-4.8); LYMPHOCYTES % (AUTO) 8.1 % (20.0-44.0); MEAN CORPUSCULAR HGB CONC 33 g/dl (31.0-36.0); MEAN CORPUSCULAR VOLUME 96 fL (80-96); MONOCYTES # (AUTO) 0.5 /CMM (0.1-1.30); MONOCYTES % (AUTO) 7.1 % (2.0-12.0); NEUTROPHILS # (AUTO) 5.4 /CMM (1.8-8.9); NEUTROPHILS % (AUTO) 83.4 % (43.0-81.0); PLATELET COUNT (AUTO) 157 /CMM (150-450); RED BLOOD CELL COUNT(AUTO) 3.67 MIL/uL (4.5-6.0); WHITE BLOOD COUNT (AUTO) 6.4 K/uL (4.3-11.0)
[2018-11-28 02:27] LABS: CALCIUM, SERUM 8.1 mg/dL (8.5-10.1); CARBON DIOXIDE 15 mmol/L (21-32); CHLORIDE 110 mmol/L (98-107); CREATININE 2.8 mg/dL (0.6-1.3); GLUCOSE 145 mg/dL (74-106); POTASSIUM 3.8 mmol/L (3.5-5.1); SODIUM SERUM 140 mmol/L (136-145); UREA NITROGEN, BLOOD 52 mg/dL (7-18)
[2018-11-28 02:40] LABS: ALANINE AMINOTRANSFERASE 21 U/L (12-78); ALBUMIN 2.8 g/dL (3.4-5.0); ALKALINE PHOSPHATASE 690 U/L (46-116); ASPARTATE AMINOTRANSFERASE 42 U/L (15-37); B-TYPE NATRIURETIC PEPTIDE 2919 PG/ML (0-125); BILIRUBIN,DIRECT 0.7 mg/dL (0.0-0.2); TOTAL PROTEIN, SERUM 5.9 g/dL (6.4-8.2)
--- NOTE | 2018-11-28 03:09 | NUR ---
MESSAGE LEFT FOR DR. WHITLEY
--- NOTE | 2018-11-28 03:28 | NUR ---
BED 323-2
--- NOTE | 2018-11-28 04:29 | NUR ---
MESSAGE LEFT FOR ANGI.
--- NOTE | 2018-11-28 05:14 | NUR ---
REPORT GIVEN TO VIVIANE PINEDA FOR ALYSSA. PT GOING TO 310
--- NOTE | 2018-11-28 06:20 | NUR ---
PT TRANSPORTED TO UNIT ON GURNEY WITH EMT AND RN AT BEDSIDE. NAD NOTED DURING TRASNPORT.
--- NOTE | 2018-11-28 06:30 | NUR ---
MS RN NOTES Patient came to unit via gurney, accompanied by . Patient is alert, oriented x 3. Breathing even and unlabored. Not in any distress, on room air. Vital signs taken: BP97/65, HR- 80bpm, RR- 20bpm, Temp- 97.5F, SPO2- 100%. Oriented to call light- placed within easy reach. Bed in low, locked position. Will endorse ALYSSA to oncoming RN
--- NOTE | 2018-11-28 07:30 | NUR ---
MS RN OPENING NOTES PATIENT IN BED RESTING WITH AT THE BEDSIDE. PATIENT IN NO ACUTE DISTRESS. NO SOB NOTED. PATIENT BREATHING IS EVEN AND UNLABORED. PATIENT BREATHING ON ROOM AIR SATURATING >95% SPO2. EDUCATED AND PATIENT ABOUT SAFETY PRECAUTIONS ABOUT FALLS DUE TO HX OF FALLS. SAFETY PRECAUTIONS IN PLACE. MD NOTIFIED. AWAITING NEW ORDERS. PATIENT BED IS LOCKED AND IN LOWEST POSITION. CALL LIGHT WITHIN REACH. WILL CONTINUE TO MONITOR.
[2018-11-28 08:00] VITALS: BP 98/66
--- NOTE | 2018-11-28 08:23 | NUR ---
MS RN NOTE PATIENT WAS TO BE PLACED ON A 1:1 SITTER DUE TO HIGH RISK FOR FALLS. PATIENTS AND ARE REFUSING 1:1 SITTER. EXPLAINED RISKS VS BENEFITS FOR PATIENT. PATIENT AND CONTINUE TO STATE REFUSAL. NOTIFIED MD OF PATIENTS REFUSAL. PATIENT IN NO ACUTE DISTRESS. WILL CONTINUE TO MONITOR.
[2018-11-28] MEDS ORDERED: ONDANSETRON HCL/PF 4 MG/2 ML VIAL IV PRN (08:30)
[2018-11-28] MEDS ORDERED: MORPHINE SULFATE INJ 2 MG/ML DISP.SYRIN IV PRN (08:30)
[2018-11-28] MEDS ORDERED: ACETAMINOPHEN 325 MG TABLET PO PRN (08:30)
[2018-11-28] MEDS ORDERED: CEFTRIAXONE 1 G in IV D5W 50 ML IV SCH (09:00)
[2018-11-28] MEDS: ALBUMIN 25% 25 GM in PREMIX 1 EA IV SCH ×2 (09:47→11:38)
--- NOTE | 2018-11-28 10:00 | NUR ---
MS RN NOTE PATIENT STATES REFUSAL OF SKIN ASSESSMENT. PATIENT IS IRRITATED AND STATES " I DONT WANT ANY PICTURES OR FOR YOU TO CHECK MY SKIN". EXPLAINED TO PATIENT REASON FOR SKIN ASSESSMENT. PATIENT CONTINUES TO REFUSE. PATIENT IN NO ACUTE DISTRESS. WILL CONTINUE TO MONITOR.
--- NOTE | 2018-11-28 10:43 | NUR ---
MS RN NOTE CONSENT OBTAINED FOR PATIENT PARACENTESIS. ACTED WITNESS FOR PATIENTS SIGNATURE, NOW IN CHART. WILL CONTINUE TO MONITOR.
[2018-11-28] MEDS ORDERED: PANT40TA2 PO (11:33)
[2018-11-28] MEDS ORDERED: ACET325T53 PO (11:33)
[2018-11-28] MEDS ORDERED: ONDA4VIA23 PO (11:33)
[2018-11-28] MEDS ORDERED: LIDOCAINE 0.5% HCL 50 ML VIAL IJ ONE (15:30)
[2018-11-28 16:00] VITALS: BP 113/66
--- NOTE | 2018-11-28 17:23 | NUR ---
MS RN NOTE PATIENT TOLERATED US GUIDED PARACENTESIS. PATIENT IN NO ACUTE DISTRESS. NO SOB NOTED. PATIENT SITE CLEANED AND GAUZE BANDAGE IN PLACE. PATIENT HAD 6L OF CLEAR, YELLOW FLUID. PATIENT BP 101/59. WILL CONTINUE TO MONITOR.`
--- NOTE | 2018-11-28 18:07 | NUR ---
MS RN AMA NOTE PATIENT HAS DECIDED TO LEAVE AGAINST MEDICAL ADVICE. PATIENT STATED HE WANTS TO GO LEAVE HOSPITAL AND GO HOME. PATIENT GOING BACK HOME BY UBER, WITH . BELONGINGS LIST SIGNED AND IN CHART. PATIENT REFUSED SKIN ASSESSMENT.PATIENT WAS INSTRUCTED ABOUT THE RISKS AND DANGERS OF PATIENTS HEALTH IF PATIENT LEFT HOSPITAL. EDUCATED AND PROVIDED TEACHING MULTIPLE TIMES. PATIENT WELL AWARE AND DECIDED TO GO AMA STILL. PATIENT IN NO ACUTE DISTRESS. NO SOB NOTED. PATIENT BP WAS 107/60. PATIENT IN NO ACUTE DISTRESS. NO SOB NOTED. PATIENT BREATHING IS EVEN AND UNLABORED. IV REMOVED. ID BAND REMOVED. NOTIFIED AND MADE AWARE.
[2018-11-29] MEDS ORDERED: PANTOPRAZOLE 40 MG TABLET.DR PO SCH (07:30)
== END 2018-11-28 18:18 | disposition left against medical advice (07) | DRG 375 ==
LOC: ER 00:54 → MED 05:48
PROVIDERS: ADMIT Family Medicine; ATTEND Family Medicine
PROC: 0W9G3ZZ Drainage of Peritoneal Cavity, Percutaneous Approach (ICD-10-PCS; principal; 2018-11-28)
DX: C18.9 Malignant neoplasm of colon, unspecified (principal); R18.0 Malignant ascites; C78.7 Secondary malignant neoplasm of liver and intrahepatic bile duct; I13.0 Hypertensive heart and chronic kidney disease with heart failure and stage 1 through stage 4 chronic kidney disease, or unspecified chronic kidney disease; N18.4 Chronic kidney disease, stage 4 (severe); E87.2 Acidosis; L03.115 Cellulitis of right lower limb; C78.5 Secondary malignant neoplasm of large intestine and rectum; E11.22 Type 2 diabetes mellitus with diabetic chronic kidney disease; I50.9 Heart failure, unspecified; N40.0 Benign prostatic hyperplasia without lower urinary tract symptoms; M10.9 Gout, unspecified; Z98.890 Other specified postprocedural states; Z79.4 Long term (current) use of insulin; Z79.84 Long term (current) use of oral hypoglycemic drugs; Z79.899 Other long term (current) drug therapy; K21.9 Gastro-esophageal reflux disease without esophagitis; Z86.73 Personal history of transient ischemic attack (TIA), and cerebral infarction without residual deficits; Z92.21 Personal history of antineoplastic chemotherapy; Z91.81 History of falling; Z91.14 Patient's other noncompliance with medication regimen; Z87.891 Personal history of nicotine dependence; Z83.3 Family history of diabetes mellitus; Z82.49 Family history of ischemic heart disease and other diseases of the circulatory system; D63.8 Anemia in other chronic diseases classified elsewhere; F32.9 Major depressive disorder, single episode, unspecified; I25.10 Atherosclerotic heart disease of native coronary artery without angina pectoris; J44.9 Chronic obstructive pulmonary disease, unspecified; F03.90 Unspecified dementia, unspecified severity, without behavioral disturbance, psychotic disturbance, mood disturbance, and anxiety; J45.909 Unspecified asthma, uncomplicated; M19.90 Unspecified osteoarthritis, unspecified site; E78.5 Hyperlipidemia, unspecified; E87.6 Hypokalemia; F41.0 Panic disorder [episodic paroxysmal anxiety]; F43.10 Post-traumatic stress disorder, unspecified; H35.30 Unspecified macular degeneration; G47.9 Sleep disorder, unspecified; R26.9 Unspecified abnormalities of gait and mobility; Z86.19 Personal history of other infectious and parasitic diseases; M81.0 Age-related osteoporosis without current pathological fracture; K82.8 Other specified diseases of gallbladder; E66.9 Obesity, unspecified; M06.9 Rheumatoid arthritis, unspecified; N28.1 Cyst of kidney, acquired; N50.3 Cyst of epididymis; Z87.01 Personal history of pneumonia (recurrent); Z66 Do not resuscitate; K59.00 Constipation, unspecified; H26.9 Unspecified cataract; N52.9 Male erectile dysfunction, unspecified; M54.30 Sciatica, unspecified side
CPT/HCPCS: 36415; 71045-TC; 76700-TC; 76856-TC; 76942-TC; 80048-TC; 80076-TC; 82010-TC; 83605-TC; 83880; 84484-TC; 85025-TC; 85610-TC; 85730-TC; 87040-TC; 87070-TC; 87081-TC; 89051-TC; A4216; G0378; J0696; J3490; J7030; J7050; J7060; P9047

== ENCOUNTER 2018-12-09 12:04 | Emergency (ER) | payer MEDICARE, MEDICAID ==
[~2018-12-09] VITALS: Ht 175.3 cm; Wt 81.6 kg
[~2018-12-09 12:04] MED LIST changes: +ACET325T53 PO; -AMLO10TA7 PO; -AMLO5TAB9 PO; -CARV3.122 PO; -CARV6.252 PO; -ENAL10TA PO; -FURO-144 PO; -FURO40TA5 PO; -INSU100V7 SQ; -METF-442 PO; +ONDA4VIA23 PO; +PANT40TA2 PO
--- NOTE | 2018-12-09 12:04 | NUR ---
PT BIB RA 827 FROM HOME FOR GENERALIZED WEAKNESS, PT IS AAOX3, NOT IN RESPIRATORY DISTRESS, HOOKED TO MONITOR, KEPT RESTED AND COMFORTABLE, WILL CONTINUE TO MONITOR.
[2018-12-09] MEDS ORDERED: IV NS 0.9% 1,000 ML BAG IV ONE (13:00)
--- NOTE | 2018-12-09 13:00 | NUR ---
IV LINE ESTABLISHED, BLOOD DRAWNED AND SENT TO LAB.
[2018-12-09 13:02] LABS: BASOPHILS # (AUTO) 0.1 /CMM (0.0-0.2); BASOPHILS % (AUTO) 1.1 % (0.0-2.0); EOSINOPHILS % (AUTO) 0.5 % (0.0-6.0); HEMATOCRIT 32 % (39-51); HEMOGLOBIN 10.6 g/dL (13.5-17.5); LYMPHOCYTES # (AUTO) 0.7 /CMM (0.8-4.8); LYMPHOCYTES % (AUTO) 9.5 % (20.0-44.0); MEAN CORPUSCULAR HGB CONC 33 g/dl (31.0-36.0); MEAN CORPUSCULAR VOLUME 97 fL (80-96); MONOCYTES # (AUTO) 0.6 /CMM (0.1-1.30); NEUTROPHILS # (AUTO) 5.7 /CMM (1.8-8.9); NEUTROPHILS % (AUTO) 80.9 % (43.0-81.0); PLATELET COUNT (AUTO) 137 /CMM (150-450); RED BLOOD CELL COUNT(AUTO) 3.33 MIL/uL (4.5-6.0)
[2018-12-09 13:09] LABS: CALCIUM, SERUM 8.3 mg/dL (8.5-10.1); CARBON DIOXIDE 15 mmol/L (21-32); CHLORIDE 111 mmol/L (98-107); GLUCOSE 133 mg/dL (74-106); SODIUM SERUM 142 mmol/L (136-145); UREA NITROGEN, BLOOD 69 mg/dL (7-18)
[2018-12-09 13:15] LABS: ALANINE AMINOTRANSFERASE 24 U/L (12-78); ALBUMIN 2.5 g/dL (3.4-5.0); ALKALINE PHOSPHATASE 605 U/L (46-116); ASPARTATE AMINOTRANSFERASE 44 U/L (15-37); BILIRUBIN,DIRECT 0.6 mg/dL (0.0-0.2); BILIRUBIN,TOTAL 0.9 mg/dL (0.2-1.0); LIPASE 315 U/L (73-393); TOTAL PROTEIN, SERUM 5.9 g/dL (6.4-8.2)
[2018-12-09 14:05] LABS: BILIRUBIN,URINE SMALL (NEGATIVE); BLOOD, URINE Negative Ery/uL (NEGATIVE); KETONES,URINE Negative (NEGATIVE); LEUKOCYTE ESTERASE ,URINE Negative (NEGATIVE); NITRITE, URINE Negative (NEGATIVE); PH,URINE 5.5 (5.0-8.0); PROTEIN,URINE Trace mg/dl (NEGATIVE); UGLUCOSE Negative (NEGATIVE)
[2018-12-09 14:06] LABS: APPEARANCE,URINE Slightly Hazy (CLEAR); COLOR,URINE Dark Yellow (YELLOW)
[2018-12-09 14:14] LABS: BACTERIA,URINE None seen /HPF (None Seen); RBC,URINE 0-3 /HPF (0-2); SQUAMOUS EPITHELIAL CELL,UR Few /HPF (None Seen)
--- NOTE | 2018-12-09 16:10 | NUR ---
TECH AT BEDSIDE FOR US GUIDED PARACENTESIS.
[2018-12-09] MEDS ORDERED: ALBUMIN 25% 12.5 GM/50 ML BOTTLE IV ONE (16:30)
[2018-12-09] MEDS ORDERED: ALBUMIN 25% 50 ML IV ONE (16:30)
[2018-12-09 17:43] VITALS: BP 116/54
== END 2018-12-09 17:45 | disposition home or self-care (01) ==
LOC: ER 12:08
DX: R18.8 Other ascites (principal); C18.9 Malignant neoplasm of colon, unspecified; C78.7 Secondary malignant neoplasm of liver and intrahepatic bile duct; R14.0 Abdominal distension (gaseous); R19.7 Diarrhea, unspecified; I10 Essential (primary) hypertension; E11.9 Type 2 diabetes mellitus without complications; E78.00 Pure hypercholesterolemia, unspecified; Z98.890 Other specified postprocedural states
CPT/HCPCS: 36415; 49083; 80048; 80076; 81001; 83690; 84484; 85025; 85730; 96365; 99285; J7030; P9047; 76942-TC; 81000-TC

== ENCOUNTER 2018-12-11 19:26 | Emergency (ER) | payer MEDICARE, MEDICAID ==
[~2018-12-11] VITALS: Ht 177.8 cm; Wt 81.6 kg
[~2018-12-11 19:26] MED LIST changes: -ONDA4VIA23 PO
--- NOTE | 2018-12-11 19:31 | NUR ---
[id number] C/O ADB DISTENTION X 2 DAYS. TO ER BED 7, HOOKED TO MONITOR, CHANGED TO GOWN, PROVIDED W WARM BLANKET, AWAITING MD CORRAL.
--- NOTE | 2018-12-11 19:48 | NUR ---
DR KAMINSKI AT BEDSIDE
[2018-12-11] MEDS ORDERED: MORPHINE SULFATE INJ 2 MG/ML DISP.SYRIN IM ONE (20:00)
[2018-12-11] MEDS ORDERED: ONDANSETRON 4 MG TAB.RAPDIS SL ONE (20:00)
[2018-12-11] MEDS ORDERED: MORPHINE SULFATE INJ 2 MG/ML DISP.SYRIN ONE (20:11)
[2018-12-11] MEDS ORDERED: ONDANSETRON 4 MG TAB.RAPDIS ONE (20:11)
--- NOTE | 2018-12-11 20:30 | NUR ---
Patient discharged to home in stable condition. Written and verbal after care instructions given. Patient verbalizes understanding of instruction.
[2018-12-11 22:03] VITALS: BP 108/62
== END 2018-12-11 20:30 | disposition home or self-care (01) ==
LOC: ER 19:31
DX: R18.8 Other ascites (principal); C18.9 Malignant neoplasm of colon, unspecified; C78.7 Secondary malignant neoplasm of liver and intrahepatic bile duct; I10 Essential (primary) hypertension; E11.9 Type 2 diabetes mellitus without complications; M10.9 Gout, unspecified; Z98.890 Other specified postprocedural states; Z79.899 Other long term (current) drug therapy
CPT/HCPCS: 96372; 99283; J2270; Q0162

== ENCOUNTER 2018-12-12 17:47 | Emergency (ER) | payer MEDICARE, MEDICAID ==
[~2018-12-12] VITALS: Ht 177.8 cm; Wt 76.7 kg
--- NOTE | 2018-12-12 17:54 | NUR ---
[id number] [facility] FOR R SHOULDER/R RIB AREA PAIN S/P GLF 1 1/2 HOUR AGO. TO Addendum: 12/12/18 at 1806 by JHON [id number] FROM HOME FOR R SHOULDER AND R RIB AREA PAIN S/P GLF 1 1/2 HOUR AGO. TO ER BED 9, HOOKED TO MONITOR, CHANGED TO CATHERINE, AWAITING MD CORRAL. FAMILY AT BEDSIDE.
--- NOTE | 2018-12-12 18:00 | NUR ---
PATIENT WHEELED OUT VIA CDNlionRNEY FOR CT SCAN AND XRAY
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
[2018-12-12] MEDS ORDERED: MORPHINE SULFATE INJ 4 MG/ML DISP.SYRIN ONE (18:34)
--- NOTE | 2018-12-12 18:34 | NUR ---
PT C/O R RIB PAIN, MADE MD AWARE, RECEIVED VERBAL ORDER OF MORPHINE 4MG IM. CARRIED OUT
[2018-12-12] MEDS ORDERED: ONDANSETRON 4 MG TAB.RAPDIS ONE (18:48)
[2018-12-12] MEDS ORDERED: MORPHINE SULFATE INJ 2 MG/ML DISP.SYRIN IM ONE (19:00)
[2018-12-12] MEDS ORDERED: ONDANSETRON 4 MG TAB.RAPDIS SL ONE (19:00)
--- NOTE | 2018-12-12 19:30 | NUR ---
Patient discharged to home with family in stable condition. Written and verbal after care instructions given. Patient and family verbalizes understanding of instruction.
[2018-12-12 19:33] VITALS: BP 122/76
== END 2018-12-12 19:34 | disposition home or self-care (01) ==
LOC: ER 17:49
DX: S22.41XA Multiple fractures of ribs, right side, initial encounter for closed fracture (principal); M25.511 Pain in right shoulder; I10 Essential (primary) hypertension; E11.9 Type 2 diabetes mellitus without complications; M10.9 Gout, unspecified; Z98.890 Other specified postprocedural states; Z85.038 Personal history of other malignant neoplasm of large intestine; Z85.05 Personal history of malignant neoplasm of liver; Z79.899 Other long term (current) drug therapy; W01.0XXA Fall on same level from slipping, tripping and stumbling without subsequent striking against object, initial encounter; Y93.89 Activity, other specified; Y92.89 Other specified places as the place of occurrence of the external cause; Y99.8 Other external cause status
CPT/HCPCS: 71250; 73030; 96372; 99284; J2270; Q0162

== ENCOUNTER 2018-12-17 22:00 | Emergency (ER) | payer MEDICARE, MEDICAID ==
[~2018-12-17] VITALS: Ht 177.8 cm; Wt 76.7 kg
--- NOTE | 2018-12-17 22:06 | NUR ---
to bed 4 bib paramedics c/o chronic abdominal distension, pt requesting paracentesis to be done in the er. pt aaox4 no acute distress noted, resp even and unlabored. pending er mde young.
--- NOTE | 2018-12-17 22:15 | NUR ---
jose cummings at bedside to elisha weaver.
--- NOTE | 2018-12-17 22:16 | NUR ---
pt and refusing blood work and requesting to have paracentesis done in the er, er md made pt and awre the he does not do therapeutic paracentesis and would like to admit him to the hospital and have the paracentesis done in the morning. pt and refuse admission and would like to be discharge.
[2018-12-17] MEDS ORDERED: IBUPROFEN 600 MG TABLET PO ONE ×2 (22:22→22:30)
--- NOTE | 2018-12-17 22:45 | NUR ---
Patient discharged to home in stable condition. Written and verbal after care instructions given. Patient verbalizes understanding of instruction. pt aaox4 no acute distress noted, resp even and unlabored. pt at bedside to take pt home.
[2018-12-17 22:46] VITALS: BP 139/86
== END 2018-12-17 22:48 | disposition home or self-care (01) ==
LOC: ER 22:06
DX: R18.8 Other ascites (principal); I10 Essential (primary) hypertension; E11.9 Type 2 diabetes mellitus without complications; M10.9 Gout, unspecified; Z85.038 Personal history of other malignant neoplasm of large intestine; Z98.890 Other specified postprocedural states; Z79.899 Other long term (current) drug therapy

== ENCOUNTER 2018-12-20 09:39 | Inpatient (IN) | payer MEDICARE, MEDICAID ==
[~2018-12-20] VITALS: Ht 175.3 cm; Wt 70.4 kg
[2018-12-20 10:27] LABS: BASOPHILS # (AUTO) 0.1 /CMM (0.0-0.2); BASOPHILS % (AUTO) 0.8 % (0.0-2.0); EOSINOPHILS % (AUTO) 0.5 % (0.0-6.0); HEMATOCRIT 32 % (39-51); HEMOGLOBIN 10.7 g/dL (13.5-17.5); LYMPHOCYTES # (AUTO) 0.8 /CMM (0.8-4.8); LYMPHOCYTES % (AUTO) 8.3 % (20.0-44.0); MEAN CORPUSCULAR HGB CONC 33 g/dl (31.0-36.0); MEAN CORPUSCULAR VOLUME 95 fL (80-96); MONOCYTES # (AUTO) 0.7 /CMM (0.1-1.30); MONOCYTES % (AUTO) 7.2 % (2.0-12.0); NEUTROPHILS # (AUTO) 7.6 /CMM (1.8-8.9); NEUTROPHILS % (AUTO) 83.2 % (43.0-81.0); PLATELET COUNT (AUTO) 176 /CMM (150-450); RED BLOOD CELL COUNT(AUTO) 3.39 MIL/uL (4.5-6.0); WHITE BLOOD COUNT (AUTO) 9.1 K/uL (4.3-11.0)
[2018-12-20 10:33] LABS: CALCIUM, SERUM 8.3 mg/dL (8.5-10.1); CREATININE 2.5 mg/dL (0.6-1.3); POTASSIUM 5.2 mmol/L (3.5-5.1)
[2018-12-20 10:39] LABS: ALBUMIN 2.4 g/dL (3.4-5.0); BILIRUBIN,DIRECT 0.6 mg/dL (0.0-0.2); BILIRUBIN,TOTAL 0.9 mg/dL (0.2-1.0); TOTAL PROTEIN, SERUM 5.7 g/dL (6.4-8.2)
[2018-12-20 11:10] VITALS: BP 132/84
[2018-12-20] MEDS ORDERED: ALBUMIN 25% 25 GM in PREMIX 1 EA IV ONE (13:00)
[2018-12-20] MEDS ORDERED: ACETAMINOPHEN W/ CODEINE#3 1 EA TABLET PO PRN (13:30)
[2018-12-20] MEDS ORDERED: CLONIDINE HCL 0.1 MG TABLET PO PRN (13:30)
[2018-12-20] MEDS ORDERED: LORAZEPAM 1 MG TABLET PO PRN (13:30)
[2018-12-20] MEDS ORDERED: LIDOCAINE 5% (PATCH) 1 EA PATCH TP SCH (14:00)
[2018-12-20 16:00] VITALS: BP 100/66
[2018-12-20 20:00] VITALS: BP 105/58
[2018-12-21] MEDS ORDERED: ENALAPRIL MALEATE (5 MG) 5 MG TABLET PO SCH (09:00)
== END 2018-12-20 20:41 | disposition left against medical advice (07) | DRG 441 ==
LOC: ER 09:41 → MED 10:23
PROVIDERS: ADMIT Family Medicine; ATTEND Family Medicine
PROC: 0W9G3ZZ Drainage of Peritoneal Cavity, Percutaneous Approach (ICD-10-PCS; principal; 2018-12-20)
DX: K72.90 Hepatic failure, unspecified without coma (principal); N17.0 Acute kidney failure with tubular necrosis; E43 Unspecified severe protein-calorie malnutrition; C78.7 Secondary malignant neoplasm of liver and intrahepatic bile duct; C18.9 Malignant neoplasm of colon, unspecified; I13.0 Hypertensive heart and chronic kidney disease with heart failure and stage 1 through stage 4 chronic kidney disease, or unspecified chronic kidney disease; I50.30 Unspecified diastolic (congestive) heart failure; N18.4 Chronic kidney disease, stage 4 (severe); C78.6 Secondary malignant neoplasm of retroperitoneum and peritoneum; C78.5 Secondary malignant neoplasm of large intestine and rectum; L03.115 Cellulitis of right lower limb; D61.818 Other pancytopenia; R18.0 Malignant ascites; D63.8 Anemia in other chronic diseases classified elsewhere; E11.22 Type 2 diabetes mellitus with diabetic chronic kidney disease; E11.36 Type 2 diabetes mellitus with diabetic cataract; E11.42 Type 2 diabetes mellitus with diabetic polyneuropathy; E66.9 Obesity, unspecified; E78.5 Hyperlipidemia, unspecified; F03.90 Unspecified dementia, unspecified severity, without behavioral disturbance, psychotic disturbance, mood disturbance, and anxiety; F32.9 Major depressive disorder, single episode, unspecified; F43.10 Post-traumatic stress disorder, unspecified; G89.29 Other chronic pain; H35.30 Unspecified macular degeneration; F41.0 Panic disorder [episodic paroxysmal anxiety]; I25.10 Atherosclerotic heart disease of native coronary artery without angina pectoris; J44.9 Chronic obstructive pulmonary disease, unspecified; K21.9 Gastro-esophageal reflux disease without esophagitis; M10.9 Gout, unspecified; M06.9 Rheumatoid arthritis, unspecified; M19.90 Unspecified osteoarthritis, unspecified site; J30.9 Allergic rhinitis, unspecified; N40.0 Benign prostatic hyperplasia without lower urinary tract symptoms; N50.3 Cyst of epididymis; M81.0 Age-related osteoporosis without current pathological fracture; Z92.21 Personal history of antineoplastic chemotherapy; Z91.81 History of falling; Z91.14 Patient's other noncompliance with medication regimen; Z87.891 Personal history of nicotine dependence; Z87.440 Personal history of urinary (tract) infections; Z87.01 Personal history of pneumonia (recurrent); Z86.73 Personal history of transient ischemic attack (TIA), and cerebral infarction without residual deficits; Z82.49 Family history of ischemic heart disease and other diseases of the circulatory system; Z83.3 Family history of diabetes mellitus; Z98.890 Other specified postprocedural states; K70.10 Alcoholic hepatitis without ascites; B94.8 Sequelae of other specified infectious and parasitic diseases; R26.9 Unspecified abnormalities of gait and mobility; M54.40 Lumbago with sciatica, unspecified side; E87.5 Hyperkalemia
CPT/HCPCS: 36415; 70450-TC; 71045-TC; 76942-TC; 80048-TC; 80076-TC; 82040-TC; 82140-TC; 85025-TC; 85730-TC; 87070-TC; 87081-TC; 89051-TC; A4216; G0378; P9047

== ENCOUNTER 2019-01-13 09:54 | Emergency (ER) | payer MEDICAID, MEDICARE ==
[~2019-01-13] VITALS: Ht 175.3 cm; Wt 81.6 kg
--- NOTE | 2019-01-13 10:08 | NUR ---
PT [id number] FRM HOME FOR ABDOMINAL DISTENSION, REQUESTING PARACENTISIS, PT IS AAOX3, NOT IN RESPIRATORY DISTRESS, HOOKED TO MONITOR, KEPT RESTED AND COMFORTABLE, WILL CONTINUE TO MONITOR.
--- NOTE | 2019-01-13 10:14 | NUR ---
SEEN AND EXAMINED BY .
--- NOTE | 2019-01-13 10:27 | NUR ---
IV LINE ESTABLISHED, BLOOD DRAWNED AND SENT TO LAB.
[2019-01-13] MEDS ORDERED: ONDANSETRON HCL/PF 4 MG/2 ML VIAL ONE (10:29)
[2019-01-13 10:30] LABS: BASOPHILS # (AUTO) 0.1 /CMM (0.0-0.2); BASOPHILS % (AUTO) 1.1 % (0.0-2.0); EOSINOPHILS % (AUTO) 0.7 % (0.0-6.0); HEMATOCRIT 38 % (39-51); HEMOGLOBIN 12.5 g/dL (13.5-17.5); LYMPHOCYTES # (AUTO) 0.8 /CMM (0.8-4.8); LYMPHOCYTES % (AUTO) 10.7 % (20.0-44.0); MEAN CORPUSCULAR HGB CONC 33 g/dl (31.0-36.0); MEAN CORPUSCULAR VOLUME 94 fL (80-96); MONOCYTES # (AUTO) 0.6 /CMM (0.1-1.30); NEUTROPHILS # (AUTO) 6.1 /CMM (1.8-8.9); NEUTROPHILS % (AUTO) 79.5 % (43.0-81.0); PLATELET COUNT (AUTO) 144 /CMM (150-450); RED BLOOD CELL COUNT(AUTO) 4.06 MIL/uL (4.5-6.0); WHITE BLOOD COUNT (AUTO) 7.7 K/uL (4.3-11.0)
[2019-01-13] MEDS ORDERED: MORPHINE SULFATE INJ 4 MG/ML DISP.SYRIN ONE (10:30)
[2019-01-13] MEDS ORDERED: MORPHINE SULFATE INJ 2 MG/ML DISP.SYRIN IV ONE (10:30)
[2019-01-13] MEDS ORDERED: ONDANSETRON HCL/PF 4 MG/2 ML VIAL IVP ONE (10:30)
--- NOTE | 2019-01-13 10:34 | NUR ---
US GUIDED PARACENTESIS CONSENT SIGNED.
[2019-01-13 10:37] LABS: CALCIUM, SERUM 8.3 mg/dL (8.5-10.1); CREATININE 3.2 mg/dL (0.6-1.3); POTASSIUM 5.1 mmol/L (3.5-5.1)
--- NOTE | 2019-01-13 10:54 | NUR ---
TECH AT BEDSIDE FOR US GUIDED PARACENTESIS.
[2019-01-13] MEDS ORDERED: ALBUMIN 25% 50 ML IV ONE (11:59)
[2019-01-13] MEDS ORDERED: ALBUMIN 25% 12.5 GM/50 ML BOTTLE IV ONE (12:00)
--- NOTE | 2019-01-13 12:31 | NUR ---
S TRANSPORT ARRANGED, ETA 1530, TRIP NUMBER [id number].
[2019-01-13 15:28] VITALS: BP 110/73
== END 2019-01-13 16:19 | disposition home or self-care (01) ==
LOC: ER 09:56
DX: R18.8 Other ascites (principal); E11.22 Type 2 diabetes mellitus with diabetic chronic kidney disease; I12.9 Hypertensive chronic kidney disease with stage 1 through stage 4 chronic kidney disease, or unspecified chronic kidney disease; N18.9 Chronic kidney disease, unspecified; E78.00 Pure hypercholesterolemia, unspecified; E87.5 Hyperkalemia; Z85.038 Personal history of other malignant neoplasm of large intestine; Z98.890 Other specified postprocedural states; Z85.05 Personal history of malignant neoplasm of liver
CPT/HCPCS: 36415; 49083; 80048; 85025; 85730; 96365; 96375; 99285; J2270; J2405; P9047; 76942-TC

== ENCOUNTER 2019-01-24 09:09 | Emergency (ER) | payer MEDICARE, OTHER ==
[~2019-01-24] VITALS: Ht 177.8 cm; Wt 76.4 kg
--- NOTE | 2019-01-24 09:15 | NUR ---
BIB RA 68 YEAR OLD MALE C/O ABDOMINAL PAIN AND DISTENTION TO ED FOR THERAPEUTIC PARACENTESIS. ALERT AND ORIENTED X3, BREATHING EVEN AND UNLABORED WITH NO DISTRESS NOTED. DAUGHTER AT BEDSIDE. AWAITING TO BE SEEN BY
[2019-01-24 09:41] LABS: BASOPHILS # (AUTO) 0.1 /CMM (0.0-0.2); BASOPHILS % (AUTO) 0.8 % (0.0-2.0); EOSINOPHILS % (AUTO) 0.5 % (0.0-6.0); HEMATOCRIT 40 % (39-51); HEMOGLOBIN 12.8 g/dL (13.5-17.5); LYMPHOCYTES # (AUTO) 0.8 /CMM (0.8-4.8); LYMPHOCYTES % (AUTO) 10.7 % (20.0-44.0); MEAN CORPUSCULAR HGB CONC 32 g/dl (31.0-36.0); MEAN CORPUSCULAR VOLUME 94 fL (80-96); MONOCYTES # (AUTO) 0.5 /CMM (0.1-1.30); MONOCYTES % (AUTO) 7.5 % (2.0-12.0); NEUTROPHILS # (AUTO) 5.9 /CMM (1.8-8.9); NEUTROPHILS % (AUTO) 80.5 % (43.0-81.0); PLATELET COUNT (AUTO) 161 /CMM (150-450); RED BLOOD CELL COUNT(AUTO) 4.23 MIL/uL (4.5-6.0); WHITE BLOOD COUNT (AUTO) 7.3 K/uL (4.3-11.0)
[2019-01-24 09:50] LABS: CALCIUM, SERUM 8.4 mg/dL (8.5-10.1); CREATININE 3.3 mg/dL (0.6-1.3)
[2019-01-24 09:56] LABS: ALBUMIN 2.5 g/dL (3.4-5.0); BILIRUBIN,DIRECT 0.9 mg/dL (0.0-0.2); BILIRUBIN,TOTAL 1.3 mg/dL (0.2-1.0); TOTAL PROTEIN, SERUM 5.9 g/dL (6.4-8.2)
--- NOTE | 2019-01-24 10:52 | NUR ---
CONSET SIGNED BY DAUGHTER FOR PARACENTESIS
--- NOTE | 2019-01-24 11:05 | NUR ---
US TECH AT BEDSIDE AND RADIOLOGIST AT BEDSIDE
--- NOTE | 2019-01-24 11:16 | NUR ---
RAD AT BEDSIDE TO PERFORM A PARACENTESIS
[2019-01-24] MEDS ORDERED: MORPHINE SULFATE INJ 2 MG/ML DISP.SYRIN ONE (11:39)
--- NOTE | 2019-01-24 11:39 | NUR ---
PER MD AFTER PARACENTSIS IS COMPLETE PATIENT WILL BE D/C HOME. PATIENT NEED AMBULANCE FOR TRANSPORTATION
--- NOTE | 2019-01-24 11:44 | NUR ---
CALLED [facility] FOR TRANSPORT BACK HOME, ETA 45 MIN-1 HOUR, TRIP #[id number]
--- NOTE | 2019-01-24 11:50 | NUR ---
5250L OUTPUT FROM PROCEDURE
--- NOTE | 2019-01-24 11:59 | NUR ---
IV SALINE LOCK STARTED ON LAC 20G.
[2019-01-24] MEDS ORDERED: MORPHINE SULFATE INJ 2 MG/ML DISP.SYRIN IV ONE (12:00)
[2019-01-24 13:00] VITALS: BP 96/51
== END 2019-01-24 13:01 | disposition home or self-care (01) ==
LOC: ER 09:10
DX: R18.8 Other ascites (principal); C18.9 Malignant neoplasm of colon, unspecified; C78.7 Secondary malignant neoplasm of liver and intrahepatic bile duct; M62.50 Muscle wasting and atrophy, not elsewhere classified, unspecified site; I10 Essential (primary) hypertension; E11.9 Type 2 diabetes mellitus without complications; E78.00 Pure hypercholesterolemia, unspecified; Z98.890 Other specified postprocedural states
CPT/HCPCS: 36415; 49083; 80048; 80076; 85025; 85730; 96374; 99285; J2270; J7040; 76942-TC

== ENCOUNTER 2019-02-07 14:49 | Inpatient (IN) | payer MEDICARE, OTHER ==
[~2019-02-07] VITALS: Ht 177.8 cm; Wt 59.9 kg
--- NOTE | 2019-02-07 14:53 | NUR ---
"[id number], FROM HOME, NOTED BLOOD IN THE STOOL x 2 TODAY, -N/V" pt sleeping, arousable, pt on monitor, vss, nad noted, pending md tello
[2019-02-07 15:37] LABS: OCCULT BLOOD STOOL POSITIVE (NEGATIVE)
[2019-02-07 16:11] LABS: ALANINE AMINOTRANSFERASE 8 U/L (12-78); ALBUMIN 2.5 g/dL (3.4-5.0); ALKALINE PHOSPHATASE 554 U/L (46-116); ASPARTATE AMINOTRANSFERASE 32 U/L (15-37); BILIRUBIN,DIRECT 0.9 mg/dL (0.0-0.2); BILIRUBIN,TOTAL 1.5 mg/dL (0.2-1.0); CALCIUM, SERUM 8.4 mg/dL (8.5-10.1); CHLORIDE 107 mmol/L (98-107); CREATININE 4.3 mg/dL (0.6-1.3); GLUCOSE 87 mg/dL (74-106); LIPASE 197 U/L (73-393); POTASSIUM 5.3 mmol/L (3.5-5.1); SODIUM SERUM 135 mmol/L (136-145); TOTAL PROTEIN, SERUM 5.9 g/dL (6.4-8.2)
[2019-02-07 16:14] LABS: BASOPHILS # (AUTO) 0.1 /CMM (0.0-0.2); EOSINOPHILS % (AUTO) 0.8 % (0.0-6.0); HEMATOCRIT 40 % (39-51); HEMOGLOBIN 13.1 g/dL (13.5-17.5); LYMPHOCYTES # (AUTO) 0.9 /CMM (0.8-4.8); LYMPHOCYTES % (AUTO) 11.4 % (20.0-44.0); MEAN CORPUSCULAR HGB CONC 33 g/dl (31.0-36.0); MEAN CORPUSCULAR VOLUME 92 fL (80-96); MONOCYTES # (AUTO) 0.5 /CMM (0.1-1.30); MONOCYTES % (AUTO) 6.7 % (2.0-12.0); NEUTROPHILS # (AUTO) 6.3 /CMM (1.8-8.9); NEUTROPHILS % (AUTO) 80.1 % (43.0-81.0); PLATELET COUNT (AUTO) 165 /CMM (150-450); RED BLOOD CELL COUNT(AUTO) 4.37 MIL/uL (4.5-6.0); WHITE BLOOD COUNT (AUTO) 7.9 K/uL (4.3-11.0)
[2019-02-07 16:16] LABS: CARBON DIOXIDE 10 mmol/L (21-32); UREA NITROGEN, BLOOD 98 mg/dL (7-18)
[2019-02-07] MEDS ORDERED: MORPHINE SULFATE INJ 4 MG/ML DISP.SYRIN ONE (16:28)
[2019-02-07] MEDS ORDERED: MORPHINE SULFATE INJ 2 MG/ML DISP.SYRIN IV ONE (16:30)
[2019-02-07 17:00] LABS: ABG BASE EXCESS -17.5 mmol/L; ABG OXYGEN SATURATION 70.2 % (92.0-98.5); ABG PCO2 18.1 mmHg (35.0-45.0); ABG PH 7.241 (7.350-7.450); ABG PO2 40.7 mmHg (75.0-100.0); COHb 0.8 % (0.5-1.5); MetHb 0.4 % (0.0-1.5); O2Hb 69.4 % (94.0-97.0); VENT MODE, BG ROOM AIR
--- NOTE | 2019-02-07 17:20 | NUR ---
CALLED , TRANSFERRED CALL TO
--- NOTE | 2019-02-07 17:36 | NUR ---
CALLED NURSING SUP. FOR MS BED
--- NOTE | 2019-02-07 17:55 | NUR ---
MS 312-2
--- NOTE | 2019-02-07 18:12 | NUR ---
REPORT GIVEN TO PASCUAL PAN FOR ALYSSA; PT WILL BE TRANSPORTED TO 1ST FLOOR
[2019-02-07] MEDS ORDERED: IV NS 0.9% 1,000 ML BAG IV PRN (19:00)
[2019-02-07] MEDS: ALBUMIN 25% 25 GM in PREMIX 1 EA IV SCH (19:00)
--- NOTE | 2019-02-07 19:03 | NUR ---
DR JUNG HAS BEEN NOTIFIED OF PT ARRIVAL. ADMITTING ORDERS HAVE BEEN ENTERED. PT REFUSED ASSESSMENT, WILL ENDORSE TO NIGHTSHIFT RN.
[2019-02-07 20:00] VITALS: BP 114/54
[2019-02-07] MEDS: MORPHINE SULFATE INJ 2 MG/ML DISP.SYRIN IM PRN (22:25)
--- NOTE | 2019-02-07 23:48 | NUR ---
RN M/S NOTE CALL TO DR WHITLEY FOR DIET ORDER AND ADMIT TO ORDER, PT ON REGULAR DIET, AND DUE FOR PARACENTHESIS TOMORROW
[2019-02-08] VITALS: BP 114/54
[2019-02-08] MEDS: ALBUMIN 25% 25 GM in PREMIX 1 EA IV SCH ×3 (03:14→19:10)
[2019-02-08 04:00] VITALS: BP 117/72
[2019-02-08] MEDS: MORPHINE SULFATE INJ 2 MG/ML DISP.SYRIN IM PRN ×2 (04:36→18:08)
--- NOTE | 2019-02-08 07:25 | NUR ---
MS/RN OPENING NOTES RECEIVED PATIENT IN BED SLEEPING COMFORTABLY. EASILY AROUSABLE. PATIENT ABLE TO MAKE NEEDS KNOWN. NO PAIN OR ACUTE DISTRESS AT THIS TIME. RESPIRATION EVEN AND UNLABORED. SKIN IS DRY WARM TO TOUCH. PATIENT NOTED WITH R HAND 22G. INTACT AND PATENT FLUSHING WELL. NO S/S OF INFECTION OR INFILTRATION. ALL NEEDS ANTICIPATED. KEPT CLEAN AND DRY. CALL LIGHT WITHIN REACHED. SAFETY MAINTAINED. BED LOCKED AND IN LOWEST POSITION. WILL CONTINUE TO MONITOR CLOSELY.
[2019-02-08] MEDS: PANTOPRAZOLE 40 MG TABLET.DR PO SCH (07:54)
[2019-02-08 08:00] VITALS: BP_SYST 116; BP_DIAS 58; BP_DIAS 68
[2019-02-08] MEDS: IV NS 0.9% 1,000 ML IV PRN ×2 (08:37→21:50)
--- NOTE | 2019-02-08 10:21 | NUR ---
MS/RN NOTES US GUIDED PARACENTESIS IS BEING DONE AT BEDSIDE AT THIS TIME. PATIENT CONTINUES TO REMAIN IN STABLE CONDITION. WILL CONTINUE TO MONITOR CLOSELY.
[2019-02-08 12:00] VITALS: BP 135/58
[2019-02-08 16:00] VITALS: BP_SYST 104; BP_SYST 109; BP_DIAS 68
[2019-02-08 16:11] LABS: CREATININE, URINE 107.1 MG/DL (30.0-125.0)
[2019-02-08 16:36] LABS: APPEARANCE,URINE Slightly Cloudy (CLEAR); BILIRUBIN,URINE SMALL (NEGATIVE); BLOOD, URINE Trace-intact Ery/uL (NEGATIVE); COLOR,URINE Dark (YELLOW); KETONES,URINE Trace (NEGATIVE); LEUKOCYTE ESTERASE ,URINE Negative (NEGATIVE); NITRITE, URINE Negative (NEGATIVE); PH,URINE 5.5 (5.0-8.0); PROTEIN,URINE Trace mg/dl (NEGATIVE); UGLUCOSE Negative (NEGATIVE)
[2019-02-08 16:41] LABS: EOSINOPHIL,URINE None Seen
[2019-02-08 16:52] LABS: BACTERIA,URINE Few /HPF (None Seen); SQUAMOUS EPITHELIAL CELL,UR Few /HPF (None Seen)
[2019-02-08 16:54] LABS: RBC,URINE 0-2 /HPF (0-2)
--- NOTE | 2019-02-08 18:56 | NUR ---
MS/RN CLOSING NOTES PATIENT CONTINUES TO REMAIN IN STABLE CONDITION THROUGHOUT THE SHIFT. PROVIDED COMFORT AND SAFETY. PATIENT NOTED WITH R HAND 22G. INTACT AND PATENT FLUSHING WELL. NO S/S OF INFECTION OR INFILTRATION. ALL NEEDS ANTICIPATED. KEPT CLEAN AND DRY. CALL LIGHT WITHIN REACHED. SAFETY MAINTAINED. BED LOCKED AND IN LOWEST POSITION. WILL CONTINUE TO MONITOR CLOSELY. ENDORSED TO PM NURSE FOR ALYSSA.
[2019-02-08 20:00] VITALS: BP 99/67
--- NOTE | 2019-02-08 20:00 | NUR ---
MS RN NOTE PT IN BED ASLEEP, AROUSABLE. A/O X 1-2, NO SOB, NO DISTRESS OR DISCOMFORT NOTED. ABD DISTENDED. NON TENDER. DRESSING ON RT LOWER QUADRANT INTACT AND CLEAN. REPOSITION HIM Q2H, KEPT HIM DRY AND CLEAN. ALBUMIN INFUSING ORDERED. NO S/S OF INFILTRATION NOTED. SIDE RAILS UP X 3 AND CALL LIGHT WITHIN REACH. VSS. AT BED SIDE. CONTINUE TO MONITOR HIM.
[2019-02-09] MEDS: MORPHINE SULFATE INJ 2 MG/ML DISP.SYRIN IM PRN ×2 (00:30→22:57)
[2019-02-09] MEDS: ALBUMIN 25% 25 GM in PREMIX 1 EA IV SCH ×3 (03:12→17:22)
[2019-02-09 04:00] VITALS: BP 111/65
--- NOTE | 2019-02-09 07:10 | NUR ---
MS RN NOTE RECEIVED REPORT AT BEDSIDE. PT A/O X2. R HAND #22 SL, PATENT, FLUSHED WELL. LAC #22 NS RUNNING 75 ML/HR. NO SIGN OF RESPIRTATORY DISTRESS OR SOB NOTED. SAFETY PRECAUTION TAKEN. BED LOCKED, LOW, SIDE RAILS UP X3, BED AALRM ON. WILL CONTINUE TO MONITOR.
[2019-02-09 08:00] VITALS: BP 94/67
[2019-02-09 08:11] VITALS: BP 94/67
[2019-02-09] MEDS ORDERED: LIDOCAINE 2% JEL 5 ML TUBE MC PRN (09:30)
[2019-02-09] MEDS ORDERED: MORPHINE SULFATE SOLN CONCENTRATED 20 MG/ML PO PRN (09:30)
[2019-02-09] MEDS: PANTOPRAZOLE 40 MG TABLET.DR PO SCH (10:10)
--- NOTE | 2019-02-09 12:06 | NUR ---
MS RN NOTE RIGHT HAND IV WAS REMOVED B/C PUT WAS TRYING TO PULL IT OUT AND IT WAS BLEEDING.
[2019-02-09] MEDS: ENSURE ENLIVE 237 ML LIQUID (VANILLA) PO SCH ×2 (14:07→17:23)
[2019-02-09 16:00] VITALS: BP 110/72
[2019-02-09 16:34] LABS: BASOPHILS % (AUTO) 0.8 % (0.0-2.0); EOSINOPHILS % (AUTO) 0.8 % (0.0-6.0); HEMATOCRIT 32 % (39-51); HEMOGLOBIN 10.7 g/dL (13.5-17.5); LYMPHOCYTES # (AUTO) 0.6 /CMM (0.8-4.8); LYMPHOCYTES % (AUTO) 11.1 % (20.0-44.0); MEAN CORPUSCULAR HGB CONC 33 g/dl (31.0-36.0); MEAN CORPUSCULAR VOLUME 91 fL (80-96); MONOCYTES # (AUTO) 0.2 /CMM (0.1-1.30); MONOCYTES % (AUTO) 4.7 % (2.0-12.0); NEUTROPHILS # (AUTO) 4.1 /CMM (1.8-8.9); NEUTROPHILS % (AUTO) 82.6 % (43.0-81.0); PLATELET COUNT (AUTO) 92 /CMM (150-450); RED BLOOD CELL COUNT(AUTO) 3.55 MIL/uL (4.5-6.0)
[2019-02-09 16:48] LABS: ALBUMIN 3.1 g/dL (3.4-5.0); BILIRUBIN,TOTAL 1.6 mg/dL (0.2-1.0); MAGNESIUM 2.4 mg/dL (1.8-2.4); PHOSPHORUS 5.6 mg/dL (2.5-4.9); POTASSIUM 5.2 mmol/L (3.5-5.1); TOTAL PROTEIN, SERUM 5.7 g/dL (6.4-8.2)
--- NOTE | 2019-02-09 17:06 | NUR ---
MS RN NOTE PT IS AGGRESSIVE AND DID NOT LET US TO CLEAN HIM UP.
[2019-02-09 17:37] LABS: BAND % (MANUAL) 12 % (0.0-5.0); LYMPHOCYTES % (MANUAL) 15 % (16-48); MONOCYTES % (MANUAL) 7 % (0-11.0); NEUTROPHILS % (MANUAL) 66 (42-76)
--- NOTE | 2019-02-09 18:18 | NUR ---
MS RN NOTE PT REFUSED TO CLEAN HIM UP AND SHAVE HIM. CALLED HIS AND MADE HER AWARE.
--- NOTE | 2019-02-09 20:00 | NUR ---
RN MS INITIAL NOTES RECEIVED PATIENT IN BED AWAKE, AT BEDSIDE. PATIENT ABLE TO MAKE NEEDS KNOWN. NO PAIN OR ACUTE DISTRESS AT THIS TIME, WELL REPOSITIONED. RESPIRATION EVEN AND UNLABORED. SKIN IS DRY WARM TO TOUCH. PATIENT NOTED WITH R HAND 22G. INTACT AND PATENT FLUSHING WELL. NO S/S OF INFECTION OR INFILTRATION. ALL NEEDS ANTICIPATED. KEPT CLEAN AND DRY. CALL LIGHT WITHIN REACHED. SAFETY MAINTAINED. BED LOCKED AND IN LOWEST POSITION. WILL CONTINUE TO MONITOR CLOSELY.
--- NOTE | 2019-02-09 20:03 | NUR ---
MS RN NOTE PT RESTING COMFORTABLY. NO SIGN OF ACUTE RESPIRATORY DISTRESS OR SOB AT THIS TIME. FAMILY MEMBER AT BEDSIDE. SAFETY MEASURES IN PLACE. BED LOCKED AND LOW, SIDE RAILS UPX3, BED ALARM ON. ALL NEEDS ATTENDANT. ENDORSED TO PM NURSE FOR ALYSSA.
[2019-02-09] MEDS: IV NS 0.9% 1,000 ML IV PRN (21:27)
[2019-02-10] VITALS: BP 120/55
[2019-02-10] MEDS: MORPHINE SULFATE INJ 2 MG/ML DISP.SYRIN IM PRN ×4 (02:08→22:12)
[2019-02-10] MEDS: ALBUMIN 25% 25 GM in PREMIX 1 EA IV SCH ×3 (02:09→23:29)
--- NOTE | 2019-02-10 06:13 | NUR ---
RN MS CLOSING NOTES PATIENT IN BED AWAKE, AT BEDSIDE. PATIENT ABLE TO MAKE NEEDS KNOWN. NO PAIN OR ACUTE DISTRESS AT THIS TIME, WELL REPOSITIONED. RESPIRATION EVEN AND UNLABORED. SKIN IS DRY WARM TO TOUCH. PATIENT NOTED WITH R HAND 22G. INTACT AND PATENT FLUSHING WELL. NO S/S OF INFECTION OR INFILTRATION. ALL NEEDS ANTICIPATED. KEPT CLEAN AND DRY. CALL LIGHT WITHIN REACHED. SAFETY MAINTAINED. BED LOCKED AND IN LOWEST POSITION. WILL CONTINUE TO MONITOR CLOSELY.
--- NOTE | 2019-02-10 07:20 | NUR ---
MS RN OPENING NOTE RECEIVED REPORT FROM PM NURSE. PATIENT IN BED AWAKE.AOX2. PATIENT ABLE TO MAKE NEEDS KNOWN. C/O PAIN IN ABDOMEN. RESPIRATION EVEN AND UNLABORED. SKIN IS DRY WARM TO TOUCH. IV ON R HAND 22G. INTACT AND PATENT FLUSHING WELL. NO S/S OF INFECTION OR INFILTRATION. ALL NEEDS ANTICIPATED. CALL LIGHT WITHIN REACHED. SAFETY MAINTAINED. BED LOCKED AND IN LOWEST POSITION. BED ALARM ON.WAITING FOR CONSENT FOR ABDOMINAL PARACENTESIS.WILL CONTINUE TO MONITOR .
[2019-02-10] MEDS: PANTOPRAZOLE 40 MG TABLET.DR PO SCH ×2 (07:39→10:37)
[2019-02-10 08:00] VITALS: BP 100/59
[2019-02-10] MEDS: ENSURE ENLIVE 237 ML LIQUID (VANILLA) PO SCH ×3 (09:00→17:15)
--- NOTE | 2019-02-10 09:15 | NUR ---
MS RN NOTE ENDORSED TO MILLA PAN FOR ALYSSA.PATIENT IN STABLE CONDITION.PAIN MED GIVEN.
[2019-02-10 10:10] LABS: BASOPHILS # (AUTO) 0.1 /CMM (0.0-0.2); EOSINOPHILS % (AUTO) 0.7 % (0.0-6.0); HEMATOCRIT 33 % (39-51); LYMPHOCYTES # (AUTO) 0.7 /CMM (0.8-4.8); LYMPHOCYTES % (AUTO) 12.4 % (20.0-44.0); MEAN CORPUSCULAR HGB CONC 33 g/dl (31.0-36.0); MEAN CORPUSCULAR VOLUME 91 fL (80-96); MONOCYTES # (AUTO) 0.4 /CMM (0.1-1.30); MONOCYTES % (AUTO) 6.5 % (2.0-12.0); NEUTROPHILS # (AUTO) 4.5 /CMM (1.8-8.9); NEUTROPHILS % (AUTO) 79.4 % (43.0-81.0); PLATELET COUNT (AUTO) 83 /CMM (150-450); RED BLOOD CELL COUNT(AUTO) 3.61 MIL/uL (4.5-6.0); WHITE BLOOD COUNT (AUTO) 5.7 K/uL (4.3-11.0)
[2019-02-10 10:35] LABS: ALBUMIN 3.4 g/dL (3.4-5.0); BILIRUBIN,TOTAL 1.7 mg/dL (0.2-1.0); CALCIUM, SERUM 8.3 mg/dL (8.5-10.1); CREATININE 3.6 mg/dL (0.6-1.3); MAGNESIUM 2.5 mg/dL (1.8-2.4); PHOSPHORUS 4.7 mg/dL (2.5-4.9); POTASSIUM 4.7 mmol/L (3.5-5.1); TOTAL PROTEIN, SERUM 5.7 g/dL (6.4-8.2)
--- NOTE | 2019-02-10 13:04 | NUR ---
appeared alert, in position, denied pain at this time. at bedside, remains NPO for paracentesis, with ivf running. paracentesis now at bedside
[2019-02-10 13:07] LABS: PTH, INTACT 63 pg/mL (15-65)
--- NOTE | 2019-02-10 13:55 | NUR ---
5.5 liters out , appeared tired, this jaundiced looking gentleman refused to eat afterwards the paracentesis, despite the help from and staff. " Just want to sleep". Awaiting ALBUMIN to given when available.
[2019-02-10 14:07] LABS: *SPE A/G RATIO 1.7 (0.7-1.7); *SPE ALBUMIN 3.3 g/dL (2.9-4.4); *SPE ALPHA-1-GLOBULIN 0.3 g/dL (0.0-0.4); *SPE ALPHA-2-GLOBULIN 0.4 g/dL (0.4-1.0); *SPE BETA GLOBULIN 0.7 g/dL (0.7-1.3); *SPE M-SPIKE Not Observed g/dL (Not Observed); *SPEGAMMA GLOBULIN 0.6 g/dL (0.4-1.8)
--- NOTE | 2019-02-10 15:20 | NUR ---
attending approached, referring to ivf, " if blood pressure less than 100 systolic, continue with the fluid, other soliman hep lock the patient now first ALBUMIN 25% up, explained and med given.
[2019-02-10 16:00] VITALS: BP 91/55
--- NOTE | 2019-02-10 18:53 | NUR ---
per 's report, patient " in pain in stomach", patient self unable to scale the pain. Per 11/17, wants ROXANOL po 2mg , given. MS04 2mg ivp wasted between two nurses on floor.
--- NOTE | 2019-02-10 21:19 | NUR ---
RN MS INITIAL NOTES RECEIVED PATIENT IN BED AWAKE, AT BEDSIDE. PATIENT ABLE TO MAKE NEEDS KNOWN. NO PAIN OR ACUTE DISTRESS AT THIS TIME, S/P PARACENTESIS, SITE INTACT, NO S/SX OF BLEEDING OR INFX, WELL REPOSITIONED. RESPIRATION EVEN AND UNLABORED. SKIN IS DRY WARM TO TOUCH. PATIENT NOTED WITH R HAND 22G. INTACT AND PATENT FLUSHING WELL. NO S/S OF INFECTION OR INFILTRATION. ALL NEEDS ANTICIPATED. KEPT CLEAN AND DRY. CALL LIGHT WITHIN REACHED. SAFETY MAINTAINED. BED LOCKED AND IN LOWEST POSITION. WILL CONTINUE TO MONITOR CLOSELY.
[2019-02-11] VITALS: BP_SYST 110; BP_SYST 114; BP_DIAS 58; BP_DIAS 77
[2019-02-11] MEDS: IV NS 0.9% 1,000 ML IV PRN ×2 (02:58→17:26)
[2019-02-11] MEDS: ALBUMIN 25% 25 GM in PREMIX 1 EA IV SCH (06:06)
--- NOTE | 2019-02-11 06:07 | NUR ---
RN MS CLOSING NOTES PATIENT IN BED AWAKE, AT BEDSIDE. PATIENT ABLE TO MAKE NEEDS KNOWN. NO PAIN OR ACUTE DISTRESS AT THIS TIME, S/P PARACENTESIS, SITE INTACT, NO S/SX OF BLEEDING OR INFX, WELL REPOSITIONED. RESPIRATION EVEN AND UNLABORED. SKIN IS DRY WARM TO TOUCH. PATIENT NOTED WITH R HAND 22G. INTACT AND PATENT FLUSHING WELL. NO S/S OF INFECTION OR INFILTRATION. ALL NEEDS ANTICIPATED. KEPT CLEAN AND DRY. CALL LIGHT WITHIN REACHED. SAFETY MAINTAINED. BED LOCKED AND IN LOWEST POSITION. WILL CONTINUE TO MONITOR CLOSELY.
--- NOTE | 2019-02-11 07:10 | NUR ---
MS RN OPENING NOTE RECEIVED REPORT FROM [facility] SHIFT NURSE. PT AWAKE IN BED, ALERT AND ORIENTED X 3, ON ROOM AIR, SATURATING WELL, NO SIGNS OF RESPIRATORY DISTRESS NOTED, RESPIRATIONS EASY AND UNLABORED. INTRODUCED SELF TO PT AND DISCUSSED PLAN OF CARE. IV SITE ON RIGHT FA G20 INFUSING NS AT 50ML/HR, NO SIGNS OF INFILTRATION NOTED. BED IN LOW POSITION, LOCKED, CALL LIGHT WITHIN REACH.
--- NOTE | 2019-02-11 07:15 | NUR ---
MS RN OPENING NOTE RECEIVED REPORT FROM [facility] SHIFT NURSE. PT ASLEEP IN BED, ON ROOM AIR, SATURATING WELL, NO SIGNS OF RESPIRATORY DISTRESS NOTED, RESPIRATIONS EASY AND UNLABORED. IV SITE ON LEFT AC G22 PATENT, INFUSING NS AT 80ML/HR, NO SIGNS OF INFILTRATION NOTED. BED IN LOW POSITION, LOCKED, CALL LIGHT WITHIN REACH.
[2019-02-11 08:00] VITALS: BP_SYST 116; BP_SYST 90; BP_DIAS 47; BP_DIAS 58
[2019-02-11] MEDS: ENSURE ENLIVE 237 ML LIQUID (VANILLA) PO SCH ×3 (08:09→16:53)
[2019-02-11] MEDS ORDERED: MEGE40TA GT (09:30)
[2019-02-11] MEDS ORDERED: PANT40TA2 PO (09:30)
[2019-02-11] MEDS ORDERED: MORP100S3 PO (09:30)
[2019-02-11] MEDS ORDERED: LACT-246 PO (09:30)
--- NOTE | 2019-02-11 10:30 | NUR ---
ALL DISCHARGE PAPERWORK COMPLETED, ALL BELONGINGS ACCOUNTED FOR. WOUND PHOTOS TAKEN, PLACED INTO CHART. AMBULANCE CALLED FOR HEALTH MANAGER.
--- NOTE | 2019-02-11 11:36 | NUR ---
PT'S STATES SHE DOES NOT WANT HER TO BE DISCHARGED, DR. WHITLEY NOTIFIED BY PHONE, ORDERED TO CANCEL DISCHARGE AND RESUME ALL ORDERS.
[2019-02-11 16:00] VITALS: BP 97/63
--- NOTE | 2019-02-11 17:12 | NUR ---
PT'S IS NON COMPLIANT WITH TREATMENT, DOES NOT LET ASSISTED LIVING EXECUTIVE DIRECTOR AND NURSE TO TURN AND REPOSITION PT EVERY 2 HOURS. WOUND CONSULT PLACED FOR RIGHT HIP REDNESS. SITE WAS CLEANSED WITH NORMAL SALINE AND COVERED WITH MEPILEX. PT'S INSISTS ON APPLYING TOPICAL PRN LIDOCAINE- EXPLAINED TO THAT LIDOCAINE IS PRESCRIBED FOR SACRAL PAIN, NOT RIGHT HIP REDNESS.
--- NOTE | 2019-02-11 18:53 | NUR ---
MS RN CLOSING NOTE PT ASLEEP IN BED, ON ROOM AIR, SATURATING WELL, NO SIGNS OF RESPIRATORY DISTRESS NOTED, RESPIRATIONS EASY AND UNLABORED. IV SITE ON LEFT AC G22 PATENT, INFUSING NS AT 80ML/HR, NO SIGNS OF INFILTRATION NOTED. BED IN LOW POSITION, LOCKED, CALL LIGHT WITHIN REACH. ALL DUE MEDS GIVEN. PROVIDED SAFETY AND COMFORT TO PT THROUGHOUT SHIFT. WILL ENDORSE TO NOC SHIFT NURSE.
[2019-02-11 21:39] VITALS: BP 95/65
[2019-02-12] VITALS: BP 114/77
[2019-02-12 00:27] VITALS: BP 114/77
[2019-02-12 04:00] VITALS: BP 123/103
--- NOTE | 2019-02-12 07:00 | NUR ---
RN MS OPENING NOTES RECEIVED PATIENT IN BED AWAKE, A/OX2. NO PAIN OR ACUTE DISTRESS AT THIS TIME. RESPIRATION EVEN AND UNLABORED. SKIN IS DRY WARM TO TOUCH. LEFT AC IV 22G. INTACT AND PATENT FLUSHING WELL. NO S/S OF INFECTION OR INFILTRATION. CALL LIGHT WITHIN REACHED. SAFETY MAINTAINED. BED LOCKED AND IN LOWEST POSITION. WILL CONTINUE TO MONITOR CLOSELY.
--- NOTE | 2019-02-12 07:30 | NUR ---
RN MS NOTE PATIENT REFUSED BLOOD DRAWN. AN SOMALI SPEAKING NURSE REQUESTED FOR PERMISSION TOO, STILL REFUSING.
[2019-02-12 08:00] VITALS: BP_SYST 135; BP_SYST 158; BP_DIAS 62; BP_DIAS 68
[2019-02-12] MEDS: PANTOPRAZOLE 40 MG TABLET.DR PO SCH (08:35)
[2019-02-12] MEDS: ENSURE ENLIVE 237 ML LIQUID (VANILLA) PO SCH (08:35)
--- NOTE | 2019-02-12 09:00 | NUR ---
patient seen and evaluated by reviewed code status with wief with poor prognosis,refusing snf/hospice ,will discharge home via ambulanace.
[2019-02-12 09:20] LABS: BASOPHILS % (AUTO) 0.5 % (0.0-2.0); EOSINOPHILS % (AUTO) 0.1 % (0.0-6.0); HEMATOCRIT 37 % (39-51); HEMOGLOBIN 12.2 g/dL (13.5-17.5); LYMPHOCYTES # (AUTO) 0.6 /CMM (0.8-4.8); LYMPHOCYTES % (AUTO) 7.9 % (20.0-44.0); MEAN CORPUSCULAR HGB CONC 33 g/dl (31.0-36.0); MEAN CORPUSCULAR VOLUME 92 fL (80-96); MONOCYTES # (AUTO) 0.3 /CMM (0.1-1.30); MONOCYTES % (AUTO) 4.2 % (2.0-12.0); NEUTROPHILS # (AUTO) 6.9 /CMM (1.8-8.9); NEUTROPHILS % (AUTO) 87.3 % (43.0-81.0); PLATELET COUNT (AUTO) 85 /CMM (150-450); RED BLOOD CELL COUNT(AUTO) 4.04 MIL/uL (4.5-6.0); WHITE BLOOD COUNT (AUTO) 7.9 K/uL (4.3-11.0)
[2019-02-12 09:41] LABS: ALBUMIN 3.3 g/dL (3.4-5.0); BILIRUBIN,TOTAL 2.1 mg/dL (0.2-1.0); CALCIUM, SERUM 8.9 mg/dL (8.5-10.1); CREATININE 3.5 mg/dL (0.6-1.3); MAGNESIUM 2.4 mg/dL (1.8-2.4); PHOSPHORUS 4.1 mg/dL (2.5-4.9); POTASSIUM 4.5 mmol/L (3.5-5.1); TOTAL PROTEIN, SERUM 5.9 g/dL (6.4-8.2)
[2019-02-12] MEDS ORDERED: Z GUARD REMEDY 2 OZ OINT TP SCH (10:30)
--- NOTE | 2019-02-12 11:13 | NUR ---
MS RN NOTE PT DISCHARGED TO HOME. ACCOMPANIED WITH PARAMEDICS AND . STALE VS, NO SIGN OF RESPIRATORY DISTRESS, SOB AND PAIN UPON DISCHARGE.
[2019-02-12 13:20] LABS: LYMPHOCYTES % (MANUAL) 5 % (16-48); MONOCYTES % (MANUAL) 5 % (0-11.0); NEUTROPHILS % (MANUAL) 90 (42-76)
== END 2019-02-12 11:18 | disposition home health service (06) | DRG 435 ==
LOC: ER 14:50 → MEDSG1 17:56
PROVIDERS: ADMIT Family Medicine; ATTEND Family Medicine
PROC: 0W9G3ZZ Drainage of Peritoneal Cavity, Percutaneous Approach (ICD-10-PCS; principal; 2019-02-07)
DX: C78.7 Secondary malignant neoplasm of liver and intrahepatic bile duct (principal); G92 Toxic encephalopathy; N17.0 Acute kidney failure with tubular necrosis; R64 Cachexia; Z68.1 Body mass index [BMI] 19.9 or less, adult; C18.9 Malignant neoplasm of colon, unspecified; N18.4 Chronic kidney disease, stage 4 (severe); E87.2 Acidosis; N13.8 Other obstructive and reflux uropathy; I50.32 Chronic diastolic (congestive) heart failure; I13.0 Hypertensive heart and chronic kidney disease with heart failure and stage 1 through stage 4 chronic kidney disease, or unspecified chronic kidney disease; R18.8 Other ascites; K62.5 Hemorrhage of anus and rectum; F41.9 Anxiety disorder, unspecified; F32.9 Major depressive disorder, single episode, unspecified; E78.5 Hyperlipidemia, unspecified; D63.8 Anemia in other chronic diseases classified elsewhere; D69.6 Thrombocytopenia, unspecified; R26.9 Unspecified abnormalities of gait and mobility; Z91.81 History of falling; F43.10 Post-traumatic stress disorder, unspecified; M54.5 Low back pain; G89.4 Chronic pain syndrome; J44.9 Chronic obstructive pulmonary disease, unspecified; M10.9 Gout, unspecified; E87.5 Hyperkalemia; R53.83 Other fatigue; E11.22 Type 2 diabetes mellitus with diabetic chronic kidney disease; N40.1 Benign prostatic hyperplasia with lower urinary tract symptoms; I95.9 Hypotension, unspecified; G43.909 Migraine, unspecified, not intractable, without status migrainosus; F03.90 Unspecified dementia, unspecified severity, without behavioral disturbance, psychotic disturbance, mood disturbance, and anxiety; K21.9 Gastro-esophageal reflux disease without esophagitis; I25.10 Atherosclerotic heart disease of native coronary artery without angina pectoris; F41.0 Panic disorder [episodic paroxysmal anxiety]; G47.9 Sleep disorder, unspecified; N50.3 Cyst of epididymis; M81.0 Age-related osteoporosis without current pathological fracture; M06.9 Rheumatoid arthritis, unspecified; Z87.891 Personal history of nicotine dependence; Z91.14 Patient's other noncompliance with medication regimen; Z86.73 Personal history of transient ischemic attack (TIA), and cerebral infarction without residual deficits; H35.30 Unspecified macular degeneration; K82.8 Other specified diseases of gallbladder; N28.1 Cyst of kidney, acquired
CPT/HCPCS: 36415; 36600; 71045-TC; 76942-TC; 80048-TC; 80053-TC; 80076-TC; 81000-TC; 82040-TC; 82272-TC; 82550-TC; 82570-TC; 82803-TC; 83605-TC; 83690-TC; 83735-TC; 83970; 84100-TC; 84155; 84155-TC; 84165; 84300-TC; 84484-TC; 85025-TC; 85730-TC; 86850-TC; 87081-TC; 87086-TC; 88112-TC; 88305-TC; 88312-TC; A4216; A6403; G0378; J2270; J7030; P9047

== ENCOUNTER 2019-02-12 18:58 | Inpatient (IN) | payer MEDICARE, OTHER ==
[~2019-02-12] VITALS: Ht 177.8 cm; Wt 54.9 kg
[~2019-02-12 18:58] MED LIST changes: +LACT-246 PO; +MEGE40TA GT; +MORP100S3 PO
--- NOTE | 2019-02-12 19:00 | NUR ---
BIB AMBULANCE DUE TO ALOC. SEPULVEDA AT BEDSIDE. PATIENT ON DNR, SIGNED BY THE FAMILY. ATTEMPTED TO ESTABLISH PERIPHERAL IV LINES, NO ADEQUATE BLOOD RETURN NOTED. AFTER SEVERAL ATTEMPTS, ABLE TO ESTABLISH PERIPHERAL IV LINE L LOWER LEG G#20.
[2019-02-12] MEDS ORDERED: IV NS 0.9% 1,000 ML BAG IV ONE ×2 (19:30→21:00)
--- NOTE | 2019-02-12 19:47 | NUR ---
INITIATED IVF NS 1000ML ORDERED.
--- NOTE | 2019-02-12 19:48 | NUR ---
BLOOD DRAWN DONE BY DRAPERY CUTTER MACHINE.
[2019-02-12 19:58] LABS: ALANINE AMINOTRANSFERASE 6 U/L (12-78); ALBUMIN 3.3 g/dL (3.4-5.0); ALKALINE PHOSPHATASE 412 U/L (46-116); ASPARTATE AMINOTRANSFERASE 26 U/L (15-37); BILIRUBIN,DIRECT 1.7 mg/dL (0.0-0.2); BILIRUBIN,TOTAL 2.5 mg/dL (0.2-1.0); CHLORIDE 119 mmol/L (98-107); GLUCOSE 130 mg/dL (74-106); POTASSIUM 4.7 mmol/L (3.5-5.1); SODIUM SERUM 149 mmol/L (136-145); TOTAL PROTEIN, SERUM 6.3 g/dL (6.4-8.2)
[2019-02-12 19:59] LABS: CARBON DIOXIDE 8 mmol/L (21-32)
[2019-02-12 20:00] LABS: UREA NITROGEN, BLOOD 87 mg/dL (7-18)
[2019-02-12 20:01] LABS: BASOPHILS % (AUTO) 0.5 % (0.0-2.0); HEMATOCRIT 44 % (39-51); HEMOGLOBIN 13.8 g/dL (13.5-17.5); LYMPHOCYTES # (AUTO) 0.6 /CMM (0.8-4.8); LYMPHOCYTES % (AUTO) 8.8 % (20.0-44.0); MEAN CORPUSCULAR HGB CONC 32 g/dl (31.0-36.0); MEAN CORPUSCULAR VOLUME 96 fL (80-96); MONOCYTES # (AUTO) 0.2 /CMM (0.1-1.30); MONOCYTES % (AUTO) 3.6 % (2.0-12.0); NEUTROPHILS # (AUTO) 5.6 /CMM (1.8-8.9); NEUTROPHILS % (AUTO) 87.1 % (43.0-81.0); PLATELET COUNT (AUTO) 188 /CMM (150-450); RED BLOOD CELL COUNT(AUTO) 4.55 MIL/uL (4.5-6.0); WHITE BLOOD COUNT (AUTO) 6.4 K/uL (4.3-11.0)
[2019-02-12] MEDS ORDERED: ONDANSETRON HCL/PF 4 MG/2 ML VIAL ONE (20:32)
--- NOTE | 2019-02-12 20:52 | NUR ---
FOREHEAD LACERATION CLEANED WITH NS BY [employer], MINIMAL BLEEDING NOTED. PROCEDURE TOLERATED WELL BY THE PATIENT. DERMABOND APPLIED. KEPT LACERATION SITE CLEAN AND DRY. Addendum: 02/12/19 at 2053 by FROY WRONG PATIENT
[2019-02-12] MEDS ORDERED: LEVOFLOXACIN 750 MG /D5W 150ML 150 ML IV ONE ×2 (21:00→21:29)
[2019-02-12] MEDS ORDERED: CLINDAMYCIN 600 MG in IV D5W 100 ML IV ONE (21:00)
--- NOTE | 2019-02-12 21:05 | NUR ---
REPORT GIVEN TO VIVIANE NAVA. PATIENT TO BE ADMITTED TO MS [facility] DUE TO SEPSIS.
[2019-02-12] MEDS ORDERED: CLINDAMYCIN 900 MG/6 ML VIAL ONE (21:22)
[2019-02-12 21:42] VITALS: BP_SYST 83; BP_SYST 85; BP_DIAS 59
--- NOTE | 2019-02-12 21:42 | NUR ---
MS/RN notes 69 years old male patient admitted to med-surg floor with the DX of sepsis, patient noted with shortness of breath, hyperventilating, using accessory muscle to grasp for air. patient on O2 10 LPM via non-rebreather mask, saturating 94%. HOB elevated to high justice position. skin cold to touch. IV sites with no S/S of infection/infiltration. Body assessment done per protocol. kept clean and dry. ALL orders received from Dr. muñoz, carried out. safety maintained, bed at the lowest locked position, side rails up X2. family at bed side, call light within reach. will continue to monitor patient as per plan of care.
--- NOTE | 2019-02-12 21:48 | NUR ---
Patient seen and examined by Pascual George at this time, He spoke with and family, he also spoke with Dr. muñoz, with new orders.
--- NOTE | 2019-02-12 21:50 | NUR ---
TRANSPORTED PATIENT TO [facility] ACCOMPANIED BY RN AND EMT.
--- NOTE | 2019-02-12 21:51 | NUR ---
ENDORSED TO TRISTIAN QUINTANILLA THAT ONGOING IVF NS IS BOTTLE #1 OF 1780ML ORDERED.
[2019-02-12] MEDS ORDERED: MORPHINE SULFATE INJ 2 MG/ML DISP.SYRIN IV PRN (22:00)
[2019-02-12] MEDS ORDERED: CEFTRIAXONE 1 G VIAL IM SCH (22:00)
[2019-02-12] MEDS ORDERED: IV NS 0.9% 1,000 ML IV PRN (22:00)
[2019-02-12] MEDS ORDERED: ATROPINE SULFATE OP PRN (22:30)
[2019-02-12] MEDS ORDERED: LORAZEPAM 1 MG TABLET PO PRN (22:30)
[2019-02-12] MEDS: MORPHINE SULFATE INJ 2 MG/ML DISP.SYRIN IV PRN (22:55)
[2019-02-12] MEDS ORDERED: CEFTRIAXONE 1 G VIAL ONE (23:10)
[2019-02-12] MEDS: CEFTRIAXONE 1 G in IV D5W 50 ML IV SCH (23:20)
[2019-02-13] VITALS: BP 81/49
[2019-02-13] MEDS: LORAZEPAM INJ 2 MG/ML VIAL IV PRN (00:36)
[2019-02-13] MEDS: MORPHINE SULFATE INJ 2 MG/ML DISP.SYRIN IV PRN ×5 (00:37→22:23)
--- NOTE | 2019-02-13 00:46 | NUR ---
morphine re-assesment done at 7124
--- NOTE | 2019-02-13 06:52 | NUR ---
PHARMACY CALLED TO CLARIFY ATROPINE ORDERED. CALLED DR ROSENBAUM LEFT MESSAGE, WAITING FOR CALL BACK
--- NOTE | 2019-02-13 06:56 | NUR ---
MS.RN NOTES Patient remained in bed, hyperventilating, using accessory muscle to grasp for air. patient on O2 10 LPM via non-rebreather mask, saturating 96%. HOB elevated to high justice position at all the time. IV sites with no S/S of infection/infiltration. Meds given as ordered, tolerated well. kept clean and dry. safety maintained, bed at the lowest locked position, side rails up X2. family at bed side, call light within reach. Will endorse to am shift nurse for ALYSSA. .
[2019-02-13] MEDS ORDERED: ATROPINE SULFATE OPHTH SOLN 15 ML BOTTLE SL PRN ×2 (07:00)
[2019-02-13 08:00] VITALS: BP_SYST 58; BP_SYST 68; BP_DIAS 36; BP_DIAS 38
--- NOTE | 2019-02-13 08:00 | NUR ---
MS RN NOTES RECEIVED PATIENT IN BED, HE HAS HYPERVENTILATION, UTILIZATION OF ACCESSORY MUSCLES. FAMILY MEMBER AT BED SIDE. PT REPOSITIONED. ON O2 10 L VIA NONBREATHER MASK SATURATION 100%.HOB IS ELEVATED. IV SITE PATENT FLUSHED WELL. BED AT LOWEST POSITION LOCKED, SIDE RAILS UP. CALL LIGHT WITHIN REACH. WILL CONTINUE TO MONITOR.
[2019-02-13 16:00] VITALS: BP 68/42
--- NOTE | 2019-02-13 16:48 | NUR ---
MS RN NOTES PT HYPERVENTILATES, O2 SATURATION IS NOT STABLE HR 108. FAMILY AT BED SIDE. UPPER AND LOWER EXTREMITIES COLD, PULSE IS NOT STRONG.
--- NOTE | 2019-02-13 16:56 | NUR ---
MS RN NOTES HAD A CONVERSATION WITH THE AT BED SIDE TO CONFIRM THE CODE. CODE IS STILL DNR/DNI WILL CONTINUE TO IMPLEMENT COMFORT MEASURES.
--- NOTE | 2019-02-13 19:15 | NUR ---
MS RN NOTE RECEIVED PT ON COMFORT MEASURE, FAMILY AT BEDSIDE. ON 02 MASK, SATURATING AT 95%. PT HAS IV IN L AC #20, WITH IVF INFUSING. MORPHINE GIVEN ORDERED PER REQUEST. ALL CURRENT NEEDS ATTENDED TO. BED LOW, LOCKED, UPPER RAILS UP, AND CALL LIGHT WITHIN REACH. WILL CONT TO MONITOR.
[2019-02-13 20:00] VITALS: BP 70/45
--- NOTE | 2019-02-13 20:08 | NUR ---
MS RN NOTES PT COMFORT MEASURE IMPLEMENTED. PT IS HYPERVENTILATING AND USING ACCESSORY MUSCLES. ALL NEEDS ATTENDED. FAMILY AT BEDSIDE. SAFETY MEASURE IMPLEMENTED, BED AT LOWEST POSITION, LOCKED, SIDE RAILS UP. CALL LIGHT WITHIN REACH. LAC AND LEFT FOOT IV PATENT FLUSHED WITH NORMAL SALINE. REPORT GIVEN TO CLARKE FOR ALYSSA.
--- NOTE | 2019-02-13 20:35 | NUR ---
MS RN NOTE REPORT GIVEN TO QUINCY PAN TO ALYSSA.
--- NOTE | 2019-02-13 21:00 | NUR ---
KALI RN NOTE RECEIVED BEDSIDE REPORT FROM AM RN ,PT IS ON COMFORT MEASURE, FAMILY AT BEDSIDE. ON 02 MASK, SATURATING AT 92%. PT HAS PATIENT AND INTACT IV LINES IN L AC #20 AND LEFT FOOT G20. [id number] IVP GIVEN PER REQUEST. ALL CURRENT NEEDS ATTENDED . BED LOW, LOCKED, UPPER RAILS UP, AND CALL LIGHT WITHIN REACH. WILL CONT TO MONITOR.
[2019-02-13] MEDS: CEFTRIAXONE 1 G in IV D5W 50 ML IV SCH (22:24)
[2019-02-13 22:32] VITALS: BP 70/45
--- NOTE | 2019-02-14 02:30 | NUR ---
RN NOTES PATIENT REPORT GIVEN TO VIVIANE RANGEL FOR FISCAL SPECIALIST.
--- NOTE | 2019-02-14 02:30 | NUR ---
RN NOTES, RECEIVE PATIENT FROM VIVIANE NAIK FOR CONTINUATION OF CARE, PATIENT ON NON-REBREATHER MASK AT 10LPM WITH 02 SAT LEVEL 92-94% AT THIS TIME, BP 74/45, HR 105, 24RR, FAMILY AT BEDSIDE, OFFERED MORPHINE AND PER NO MORPHINE AT THIS TIME, WILL CONTINUE TO MONITOR CLOSELY.
[2019-02-14 04:00] VITALS: BP 72/45
[2019-02-14] MEDS: MORPHINE SULFATE INJ 2 MG/ML DISP.SYRIN IV PRN ×4 (06:11→14:25)
--- NOTE | 2019-02-14 06:52 | NUR ---
RN NOTES, PATIENT ON NON-REBREATHER MASK AT 10LPM WITH 02 SAT LEVEL 92-94% AT THIS TIME, BP 66/40, HR 105, 20RR, FAMILY AT BEDSIDE, MORPHINE ADMINISTERED FOR COMFORT, WILL ENDORSE CONTINUITY OF CARE TO ONCOMING NURSE.
--- NOTE | 2019-02-14 07:15 | NUR ---
RN INITIAL NOTE PATIENT IN BED, ONLY OPENS EYES. FAMILY AT BEDSIDE. ON NON REBREATHER MASK SATIN WELL AT 97%. SBP ON THE LOW SIDE, 70. MORPHINE LAST GIVEN 0600. WILL ADMINISTER ANOTHER MORPHINE. PATIENT HAS LEFT AC #20 SL AND LEFT FOOT #20 SL. PATIENT ON COMFORT MEASURES. HAS ATIVAN AND MORPHINE PRN. WILL CONTINUE TO MONITOR CLOSELY
[2019-02-14 08:00] VITALS: BP 75/44
--- NOTE | 2019-02-14 09:24 | NUR ---
WOUND CARE CONSULT: PT ON COMFORT CARE AT THIS TIME WITH FAMILY AT BEDSIDE. WILL SEE PRN. RECOMMENDATIONS MADE FOR SKIN PROTECTION AND COMFORT. DISCUSSED WITH NURSING STAFF.
[2019-02-14] MEDS ORDERED: Z GUARD REMEDY 2 OZ OINT TP PRN (09:30)
[2019-02-14] MEDS ORDERED: Z GUARD REMEDY 2 OZ OINT TP SCH (09:30)
[2019-02-14] MEDS: LORAZEPAM INJ 2 MG/ML VIAL IV PRN (09:44)
--- NOTE | 2019-02-14 14:35 | NUR ---
RN NOTE FAMILY AWARE THAT PATIENT HAS MORPHINE AND ATIVAN PRN. HAS BEEN GIVING ORDERED. @ 1000 - DR WHITLEY AT BEDSIDE EXPLAINING COMFORT MEASURES.
--- NOTE | 2019-02-14 15:06 | NUR ---
RN NOTE HOSPICE CARE NURSE AT BEDSIDE TALKING TO FAMILY. PER HOSPICE NURSE, COULD NOT GET A HOLD OF DR WHITLEY. ORDERS WERE FROM DR BROWN FROM [employer]. PER CN, WILL READMIT PATIENT HOSPICE AND DC FROM MS.
== END 2019-02-14 15:51 | disposition hospice, inpatient (51) | DRG 871 ==
LOC: ER 19:02 → MEDSG1 21:08
PROVIDERS: ADMIT Family Medicine; ATTEND Family Medicine
DX: A41.9 Sepsis, unspecified organism (principal); J18.9 Pneumonia, unspecified organism; G92 Toxic encephalopathy; N17.0 Acute kidney failure with tubular necrosis; R40.20 Unspecified coma; C78.7 Secondary malignant neoplasm of liver and intrahepatic bile duct; C18.9 Malignant neoplasm of colon, unspecified; C78.5 Secondary malignant neoplasm of large intestine and rectum; N18.5 Chronic kidney disease, stage 5; E46 Unspecified protein-calorie malnutrition; E87.2 Acidosis; I13.2 Hypertensive heart and chronic kidney disease with heart failure and with stage 5 chronic kidney disease, or end stage renal disease; J44.0 Chronic obstructive pulmonary disease with (acute) lower respiratory infection; K62.5 Hemorrhage of anus and rectum; R47.01 Aphasia; R64 Cachexia; Z68.1 Body mass index [BMI] 19.9 or less, adult; D63.8 Anemia in other chronic diseases classified elsewhere; D69.6 Thrombocytopenia, unspecified; E11.22 Type 2 diabetes mellitus with diabetic chronic kidney disease; E11.42 Type 2 diabetes mellitus with diabetic polyneuropathy; E78.5 Hyperlipidemia, unspecified; E86.0 Dehydration; E87.5 Hyperkalemia; F03.90 Unspecified dementia, unspecified severity, without behavioral disturbance, psychotic disturbance, mood disturbance, and anxiety; F32.9 Major depressive disorder, single episode, unspecified; F41.0 Panic disorder [episodic paroxysmal anxiety]; F43.10 Post-traumatic stress disorder, unspecified; G89.4 Chronic pain syndrome; H35.30 Unspecified macular degeneration; I50.9 Heart failure, unspecified; I25.10 Atherosclerotic heart disease of native coronary artery without angina pectoris; K21.9 Gastro-esophageal reflux disease without esophagitis; K70.31 Alcoholic cirrhosis of liver with ascites; M06.9 Rheumatoid arthritis, unspecified; M10.9 Gout, unspecified; M81.0 Age-related osteoporosis without current pathological fracture; N28.1 Cyst of kidney, acquired; N40.0 Benign prostatic hyperplasia without lower urinary tract symptoms; N50.3 Cyst of epididymis; Z51.5 Encounter for palliative care; Z66 Do not resuscitate; R62.7 Adult failure to thrive; F41.9 Anxiety disorder, unspecified; G43.909 Migraine, unspecified, not intractable, without status migrainosus; I95.9 Hypotension, unspecified; R53.83 Other fatigue; Z86.73 Personal history of transient ischemic attack (TIA), and cerebral infarction without residual deficits
CPT/HCPCS: 36415; 71045-TC; 80048-TC; 80076-TC; 82140-TC; 83605-TC; 84484-TC; 85025-TC; 85730-TC; 87040-TC; 87081-TC; 94799-TC; G0378; J0696; J1956; J2060; J2270; J2405; J3490; J7030; J7060

== ENCOUNTER 2019-02-14 15:25 | Inpatient (IN) | payer OTHER ==
[~2019-02-14] VITALS: Ht 177.8 cm; Wt 54.4 kg
[2019-02-14 16:00] VITALS: BP 72/47
--- NOTE | 2019-02-14 16:00 | NUR ---
RN INITIAL NOTE PATIENT NOW ON HOSPICE. PATIENT WAS IN THE SAME ROOM - 110, MS STATUS. PER DR OSBORN, ADMIT PATIENT TO [facility] LEVEL OF CARE X5 DAYS, TERMINAL DX OF COLON CANCER. PATIENT IS DNR DNI. IF ANY CHANGES, CALL [facility] AT [phone]. PER MORAIMA SEPULVEDA ROCEPHIN, CONTINUE MORPHINE AT 2MG Q1H AND ATIVAN 1MG Q3H. MAY DC NON REBREATHER AND USE SIMPLE MASK AT 10L/MIN CONTINUOUS. WILL CONTINUE TO MONITOR PATIENT CLOSELY, FAMILY AT BEDSIDE
[2019-02-14] MEDS ORDERED: MORPHINE SULFATE INJ 2 MG/ML DISP.SYRIN IV PRN (18:00)
[2019-02-14] MEDS ORDERED: LORAZEPAM INJ 2 MG/ML VIAL IV PRN (18:00)
--- NOTE | 2019-02-14 19:26 | NUR ---
RN CLOSING NOTE PATIENT IN BED, ASLEEP. PLACED ON SIMPLE MASK AT 10L/MIN. ON MORPHINE AND ATIVAN PRN. ALL NEEDS MET. ALL MEDS GIVEN PRN. ADMINISTERED HOSPICE PATIENT. FAMILY AT BEDSIDE. REPORT GIVEN TO NOC SHIFT FOR ALYSSA
--- NOTE | 2019-02-14 19:30 | NUR ---
RN OPENING NOTE, RECEIVED PATIENT IN BED, ASLEEP. ON SIMPLE MASK AT 10L/MIN. ON MORPHINE AND ATIVAN PRN. ADMINISTERED HOSPICE PATIENT. FAMILY AT BEDSIDE. WILL CONTINUE TO MONITOR.
[2019-02-14 19:55] VITALS: BP 61/40
[2019-02-14 20:00] VITALS: BP 61/40
[2019-02-14 23:57] VITALS: BP 58/37
[2019-02-15 04:00] VITALS: BP 58/37
--- NOTE | 2019-02-15 07:21 | NUR ---
RN CLOSING NOTE, PATIENT IN BED, ASLEEP. ON SIMPLE MASK AT 10L/MIN. ON MORPHINE AND ATIVAN PRN. FAMILY REFUSED THE MORPHINE THROUGHOUT THE NIGHT. ADMINISTERED HOSPICE PATIENT. FAMILY AT BEDSIDE. WILL ENDORSE THE PATIENT TO AM RN FOR ALYSSA.
--- NOTE | 2019-02-15 07:30 | NUR ---
HOSPICE/RN NOTES RECEIVED PATIENT IN BED, SLEEPING COMFORTABLY. NO ACUTE DISTRESS AT THIS TIME. RESPIRATION EVEN AND UNLABORED. PATIENT ON SIMPLE MASK AT 10L/MIN. ON MORPHINE AND ATIVAN PRN. ALL NEEDS ANTICIPATED. CALL LIGHT WITHIN REACHED. BED LOCKED AND IN LOWEST POSITION. SAFETY MAINTAINED. FAMILY AT BEDSIDE. WILL CONTINUE TO MONITOR CLOSELY.
--- NOTE | 2019-02-15 11:00 | NUR ---
NEPHEW MANAN SHOWED DPOA REGARDING HEALTHCARE, UPSET,CUSTOM DECORATING CONSULTANT NASRIN WARNER,NURSING SUP MADE AWARE OF SITUATION,SECURITY CALLED NEPHEW , ARGUING IN THE ROOM.
--- NOTE | 2019-02-15 11:15 | NUR ---
PATIENT NO VITAL SIGNS,NONRESPONSIVE .PRONOUNCED WITH ANOTHER RN
--- NOTE | 2019-02-15 11:16 | NUR ---
HOSPICE AGENCY NOTIFIED BY NIKI PAN,THEY WILL NOTIFY DR. WHITLEY REGARDING AND SIGNING OF CERTIFICATE.
--- NOTE | 2019-02-15 11:25 | NUR ---
HOSPICE/RN NOTES [facility] WAS CALLED AND SPOKE TO DANE ACCORDING TO HER PATIENT IS ELIGIBLE FOR AN EYE DONATION, [id number]. THEY SAID THEY WILL CALL BACK AGAIN IN 1HOUR.
--- NOTE | 2019-02-15 11:30 | NUR ---
MARELY and shoe parts caser Lola met with nursing restaurant shift supervisor Tamy who stated that the is upset because pt's nephew Pankaj has an Advance Directive and he is the principal agent on the Advance Directive. MARELY and shoe parts caser Lola looked at the Advance Directive and it did state Pankaj as the principal agent. Pankaj and pt's and pt's brother are in disagreement with the Advance Directive. Pt's was upset, pacing the nursing station and yelling at Pankaj. MARELY Carrasco, Nursing restaurant shift supervisor Tamy and KRISTEL Santos met with pt's brother and . and Brother are going to seek an retreader regarding the Advance Directive that has Pankaj as a principal agent.
--- NOTE | 2019-02-15 13:10 | NUR ---
HOSPICE/RN NOTES PROVIDED POST MORTEM CARE TO THE PATIENT. TAGS WAS PLACED IN NECESSARY AREAS. PATIENT WAS PICKED UP TO GO [facility].
--- NOTE | 2019-02-15 13:13 | NUR ---
NEPHEW WITH DPOA PER PROP AND EFFECTS DESIGNER ,[employer]ARTER AND NURSING ,OK TO RELEASED THE BODY TO MORTUARY OF CHOICE BY NEPHEW.
--- NOTE | 2019-02-15 13:16 | NUR ---
ALANA CATALYST CONCENTRATION OPERATOR HAS THE COPY OF DPOA AND [place] ID OF [place].ALSO NOTIFIED DREDGE OR BARGE SHORE HAND SPOKE WITH OFFICER ALESSANDRA VASQUEZ RELEASED BODY NOT A CORONERS CASE,SPOKE WITH DANE FROM [facility] NOTIFIED FAMILY CALLED MORTUARY ALREADY .PER KATHIA VASQUEZ TO RELEASED BODY THEY WILL JUST FOLLOW UP WITH FAMILY . Addendum: 02/15/19 at 1452 by ALANA YAP correctional case manager Lola has copy of DPOA and [place] ID for Mansi Lira.
== END 2019-02-15 11:15 | disposition expired | DRG 374 ==
LOC: HOSPICE1 15:25
PROVIDERS: ADMIT Family Medicine; ATTEND Family Medicine
DX: C18.9 Malignant neoplasm of colon, unspecified (principal); Z51.5 Encounter for palliative care; Z66 Do not resuscitate; R40.20 Unspecified coma; R18.8 Other ascites; I12.0 Hypertensive chronic kidney disease with stage 5 chronic kidney disease or end stage renal disease; N18.5 Chronic kidney disease, stage 5; R64 Cachexia; Z68.1 Body mass index [BMI] 19.9 or less, adult; I95.9 Hypotension, unspecified; E11.22 Type 2 diabetes mellitus with diabetic chronic kidney disease; D63.8 Anemia in other chronic diseases classified elsewhere; D69.6 Thrombocytopenia, unspecified; E78.5 Hyperlipidemia, unspecified; E87.5 Hyperkalemia; F32.9 Major depressive disorder, single episode, unspecified; F43.10 Post-traumatic stress disorder, unspecified; J44.9 Chronic obstructive pulmonary disease, unspecified; K21.9 Gastro-esophageal reflux disease without esophagitis; K82.8 Other specified diseases of gallbladder; M10.9 Gout, unspecified; N28.1 Cyst of kidney, acquired; N40.0 Benign prostatic hyperplasia without lower urinary tract symptoms; N50.3 Cyst of epididymis; R58 Hemorrhage, not elsewhere classified; F41.9 Anxiety disorder, unspecified; R29.2 Abnormal reflex
CPT/HCPCS: G0378; J2270